=== PATIENT | female | born 1965 | race Caucasian/White ===

== ENCOUNTER 2019-06-02 14:20 | Emergency (ER) | payer MEDICARE, MEDICAID, SELFPAY ==
[2019-06-02 14:22] VITALS: BP 130/83; PULSE 80; RESP 20; TEMP 36.5; O2SAT 95; BMI 29.2
--- NOTE | 2019-06-02 14:34 | CTR_ITS ---
PROCEDURE INFORMATION: Exam: CT Chest With Contrast Exam date and time: 06/02/2019 2:43 PM Age: 54 years old Clinical indication: Injury or trauma; Fall; Initial encounter; Abdominal wall; Blunt trauma (contusions or hematomas); Injury details: Fell, lt rib pain/ SOB; Prior surgery; Surgery type: Appy , tubal; Additional info: Fall injury, abdominal bruising TECHNIQUE: Imaging protocol: Computed tomography of the chest with intravenous contrast. Total DLP: 1302.08 mGy-cm Radiation optimization: All CT scans at this facility use at least one of these dose optimization techniques: automated exposure control; mA and/or kV adjustment per patient size (includes targeted exams where dose is matched to clinical indication); or iterative reconstruction. Contrast material: OMNI 300; Contrast volume: 95 ml; Contrast route: IV; COMPARISON: CT abdomen pelvis w con* [id number] 03/08/2019 3:08 PM FINDINGS: Lungs: Unremarkable. No consolidation. No masses. Pleural space: Unremarkable. No pneumothorax. No pleural effusion. Heart: Unremarkable. No cardiomegaly. No pericardial effusion. Aorta: Unremarkable. No aortic aneurysm. Lymph nodes: Unremarkable. No enlarged lymph nodes. Bones/joints: Nondisplaced left sixth rib fracture anteriorly. Subacute appearing right fifth rib fracture anteriorly with surrounding callus formation. Soft tissues: Unremarkable. IMPRESSION: 1)Nondisplaced left sixth rib fracture anteriorly. Subacute appearing right fifth rib fracture anteriorly with surrounding callus formation. PROCEDURE INFORMATION: Exam: CT Abdomen And Pelvis With Contrast Exam date and time: 06/02/2019 2:43 PM Age: 54 years old Clinical indication: Injury or trauma; Fall; Initial encounter; Abdominal wall; Blunt trauma (contusions or hematomas); Injury details: Fell, lt rib pain/ SOB; Prior surgery; Surgery type: Appy , tubal; Additional info: Fall injury, abdominal bruising TECHNIQUE: Imaging protocol: Computed tomography of the abdomen and pelvis with intravenous contrast. Total DLP: 1302.08 mGy-cm Radiation optimization: All CT scans at this facility use at least one of these dose optimization techniques: automated exposure control; mA and/or kV adjustment per patient size (includes targeted exams where dose is matched to clinical indication); or iterative reconstruction. Contrast material: OMNI 300; Contrast volume: 95 ml; Contrast route: IV; COMPARISON: CT abdomen pelvis w con* [id number] 03/08/2019 3:08 PM FINDINGS: Liver: Normal. No mass. Gallbladder and bile ducts: Normal. No calcified stones. No ductal dilation. Pancreas: Normal. No ductal dilation. Spleen: Normal. No splenomegaly. Adrenals: Normal. No mass. Kidneys and ureters: 1 cm left renal lower pole cyst. Stomach and bowel: Unremarkable. No obstruction. No mucosal thickening. Appendix: No evidence of appendicitis. Intraperitoneal space: Unremarkable. No free air. No significant fluid collection. Vasculature: Unremarkable. No abdominal aortic aneurysm. Lymph nodes: Unremarkable. No enlarged lymph nodes. Bladder: Unremarkable as visualized. Reproductive: Unremarkable as visualized. Bones/joints: Degenerative disc changes lower thoracic and lower lumbar spine regions. Soft tissues: Unremarkable. CT/CT chest abd pel w con* IMPRESSION: No acute findings. COMMENT: Consistent with the [employer]'s Incidental Findings Committee Report (J Am Nery Radiol 2010): Unless the patient's specific circumstances suggest otherwise, any liver lesion 0.5 cm or less, any cystic kidney lesion less than 1.0 cm, and/or any adrenal lesion 1.0 cm or less not otherwise characterized in this report as possessing suspicious or indeterminate imaging features is/are highly likely to be benign and do not require follow-up imaging or biopsy. Radiation Dose CTDIVOL = (mGy): DLP = 1302.08~1302.08 (mGy-cm)
--- NOTE | 2019-06-02 14:36 | ED_ITS ---
HPI - Fall General: Chief Complaint: Fall Stated Complaint: Fall side pain, patient here for left side abdominal pain, patient reports tripping over her dogs at home two days ago and hurting her left side. Patient reports left anterior-lateral rib pain. Patient also has bruising to left abdominal area. Patient appears well, Patient appears in moderate pain Time Seen by Provider: 06/02/19 14:30 History of Present Illness: Associated symptoms-after fall: Reports abdominal pain Review of Systems General: Reports: 10 or more systems reviewed and unremarkable except in HPI and below GI: Reports: abdominal pain Musc: Reports: other (left anterior chest wall tendernss) PFS ED PFSH: Statuses (acute, chronic, etc) shown below reflect problem list status as previously entered and may not be historically accurate Social History Smoking and tobacco status: current every day smoker Physical Exam Const: COMMON NORMALS: no apparent distress and oriented x3 GENERAL APPEARANCE: cooperative HENMT: COMMON NORMALS: normocephalic, external ears normal, EAC's normal, TM's normal bilaterally and external nose normal HEAD & SCALP: normal to inspection and normocephalic FACE & SINUS: normal facial exam NOSE: external nose normal GENERAL EAR: hearing grossly impaired EXTERNAL EAR: Yes external ears normal EXTERNAL AUDITORY CANAL: EAC's normal TYMPANIC MEMBRANE: TM's normal bilaterally MOUTH: oral and palatal mucosa normal THROAT: posterior oropharynx normal Eye: COMMON NORMALS: PERRL and EOMs intact bilaterally PUPIL: Yes PERRL Neck/C-Spine: COMMON NORMALS: full ROM and no lymphadenopathy Lymph: LYMPHATIC: no lymphedema noted Chest: COMMONS NORMALS: inspection of chest normal CHEST: Yes tenderness (left anterolateral chest wall, no crepitus or deformity palpated) Resp: COMMON NORMALS: normal respiratory effort and clear to auscultation bilaterally AUSCULTATION: clear to auscultation bilaterally Cardio: COMMON NORMALS: regular rate and regular rhythm RATE: regular rate RHYTHM: regular rhythm GI: COMMON NORMALS: soft to palpation INSPECTION: Yes abdominal wall ecchymosis (mild left abdominal lower) PALPATION: Yes soft and Yes tender Details: LUQ : COMMON NORMALS: Yes no CVA tenderness BLADDER/KIDNEY EXAM: Yes no CVA tenderness Back/Pelvis: COMMON NORMALS: no CVA tenderness and thoracic and lumbar spine normal to inspection Extremity: COMMON NORMALS: normal to inspection GENERAL: No edema Neuro: COMMON NORMALS: oriented x3, moves all extremities and no focal motor deficits Psych: COMMON NORMALS: mental status grossly normal and cooperative Skin: COMMON NORMALS: no rashes or lesions noted GENERAL SKIN EXAM: no rashes or lesions noted Course Vital Signs: Vital signs: Vital Signs Temperature 97.7 F 06/02/19 14:22 Pulse Rate 64 06/02/19 16:06 Respiratory Rate 18 06/02/19 16:06 Blood Pressure 128/84 06/02/19 16:06 Pulse Oximetry 97 06/02/19 16:06 MDM - Fall MDM Narrative: Medical decision making narrative: Patient comes in today for complaints of fall and injury 2 days ago. Patient appears well. Patient appears in no acute distress. Abdomen soft nontender. Differential diagnosis includes fracture of rib, abdominal organ injury. CT of the chest and abdomen noted no abnormalities. Reviewed exam with patient recommended activity as tolerated. Plenty of fluids. Follow-up with primary care in 1 week. Lab Data: Labs: Lab Results 06/02/19 06/02/19 Range/Units 15:10 15:10 WBC 5.8 (4.0-10.0) 10^3/ uL RBC 4.45 (4.1-5.3) 10^6/u L Hgb 12.9 (11.5-15.3) g/dL Hct 40.8 (37.0-47.0) % MCV 91.7 (81-99) fL MCH 29.0 (28.0-34.0) pg MCHC 31.6 (30.0-36.0) g/dL RDW 12.8 (12.1-15.1) % Plt Count 146 (130-400) 10^3/c mm MPV 11.6 H (7.4-10.4) fL Neut % (Auto) 62.6 % Lymph % (Auto) 20.3 % Charles % (Auto) 11.0 % Eos % (Auto) 5.2 % Baso % (Auto) 0.7 % Neut # (Auto) 3.6 (1.8-7.7) 10^3/u L Lymph # (Auto) 1.2 (0.8-4.8) 10^3/u L Charles # (Auto) 0.6 (0.2-0.9) 10^3/u L Eos # (Auto) 0.3 (0.0-0.8) 10^3/u L Baso # (Auto) 0.0 (0.0-0.1) 10^3/u L Nucleated RBC % (a uto) 0 % Nucleated RBCs # 0.0 /100WBC Sodium 138 (136-145) mmol/L Potassium 4.2 (3.5-5.1) mmol/L Chloride 101 (98-107) mmol/L Carbon Dioxide 28 (22-29) mmol/L Anion Gap 13.2 (5-19) BUN 11 (6-20) mg/dL Creatinine 0.7 (0.5-0.9) mg/dL GFR Calculation 86.6 L (90-130) mL/min Glucose 119 H (74-109) mg/dL Calcium 10.0 (8.6-10.0) mg/Dl EKG Data^: EKG 1: Attestation: I personally reviewed and interpreted this EKG as follows: (1611, NSR, regular 86 bpm, no ST elevation, no ectopy, normal axis) Discharge Plan Discharge Patient Disposition: Home, Self-Care Clinical Impression: Contusion Qualifiers: Encounter type: initial encounter Contusion area: thoracic wall Contusion of thoracic wall detail: front wall of thorax Laterality: left Qualified Code(s): S20.212A - Contusion of left front wall of thorax, initial encounter Condition: Stable Prescriptions: No Action tizanidine 4 mg Tablet 4 mg PO TID PRN (Reason: Spasms) RF: 0 sertraline 100 mg Tablet 200 mg PO DAILY RF: 0 Tylenol Extra Strength 500 mg Tablet 1,000 mg PO QID PRN (Reason: Pain) RF: 0 Lamictal 25 mg Tablet 50 mg PO DAILY RF: 0 Gas-X Extra Strength 125 mg Tablet,Chewable 250 mg PO DAILY RF: 0 Ambien 10 mg Tablet 10 mg PO BEDTIME RF: 0 ProAir HFA 90 mcg/actuation Hfa Aerosol Inhaler 2 puff INHALATION Q6H PRN (Reason: Shortness Of Breath) RF: 0 Tylenol PM Extra Strength 25-500 mg Tablet 2 tab PO BEDTIME PRN (Reason: Sleep) RF: 0 lamotrigine 100 mg Tablet 100 mg PO DAILY RF: 0 Lyrica 150 mg Capsule 150 mg PO TID RF: 0 Discharge Orders: Discharge Order (Routine); Ordered 06/02/19 Ordered By: Nestor Palafox Referrals: Lydia Moore DO [Primary Care Provider] - Discharge Diet: Usual diet Discharge Activity: Increase activity as tolerated Activity Restrictions/Additional Instructions: Drink plenty of fluids Acetaminophen and ibuprofen for pain follow-up with primary care in three days for recheck Return to ER for high fever or new concerns Coding Level of Care Code ED 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
[2019-06-02 14:59] VITALS: RESP 18; O2SAT 95
[2019-06-02] MEDS: morphine 4 mg/mL SDV 1 mL IM (14:59)
[2019-06-02 15:31] LABS: Basophils % 0.7 %; Eosinophils # 0.3 10^3/uL (0.0-0.8); Eosinophils % 5.2 %; Hematocrit 40.8 % (37.0-47.0); Hemoglobin 12.9 g/dL (11.5-15.3); Lymphocytes # 1.2 10^3/uL (0.8-4.8); Lymphocytes % 20.3 %; Mean Corpuscular HGB Conc 31.6 g/dL (30.0-36.0); Mean Corpuscular Volume 91.7 fL (81-99); Mean Platelet Volume 11.6 fL (7.4-10.4); Monocytes # 0.6 10^3/uL (0.2-0.9); Neutrophils # 3.6 10^3/uL (1.8-7.7); Neutrophils % 62.6 %; Nucleated Red Blood Cells % 0 %; Platelet Count 146 10^3/cmm (130-400); Red Blood Count 4.45 10^6/uL (4.1-5.3); Red Cell Distribution Width 12.8 % (12.1-15.1); White Blood Count 5.8 10^3/uL (4.0-10.0)
[2019-06-02 15:47] LABS: Anion Gap 13.2 (5-19); Blood Urea Nitrogen 11 mg/dL (6-20); Carbon Dioxide 28 mmol/L (22-29); Chloride 101 mmol/L (98-107); Glomerular Filtration Rate 86.6 mL/min (90-130); Glucose 119 mg/dL (74-109); Potassium 4.2 mmol/L (3.5-5.1); Sodium 138 mmol/L (136-145)
[2019-06-02 16:06] VITALS: BP 128/84; PULSE 64; RESP 18; O2SAT 97
--- NOTE | 2019-06-02 16:08 | PC.NURSE ---
PT REQUESTING MORE PAIN MEDICINE. DR ST NOTIFIED, WAITING ORDERS.
[2019-06-02] MEDS: HYDROcodone-acetaminophen 7.5-325 mg Tablet 1 TAB PO (16:25)
[2019-06-02 17:03] VITALS: BP 104/55; PULSE 72; RESP 20; O2SAT 96
--- NOTE | 2019-06-02 17:17 | ECG_ITS ---
Measurements Intervals [place] Rate: 86 P: 52 WA: 140 QRS: 59 QRSD: 88 T: 40 QT: 340 QTc: 407 SINUS RHYTHM Compared to ECG 12/25/2017 18:55:01 No significant changes Electronically Signed On 06-03-2019 11:24:24 CLINICAL TRAINER by Courtney Conrad M.D. [id number] f
[2019-06-02 18:10] LABS: Urine Appearance Clear (CLEAR); Urine Color Yellow (Yellow); pH Urine 5 (5-7)
[2019-06-02 18:11] LABS: Bilirubin Urine Neg (NEGATIVE); Blood Urine Neg (Negative); Glucose Urine UA Norm (Normal); Ketones Urine Negative (Negative); Leukocyte Esterase Urine Negative (Negative); Nitrate Urine Negative (Negative); Protein Urine Trace (Negative); Specific Gravity, Urine 1.015 (1.005-1.030); Urobilinogen Urine Norm (Negative)
[2019-06-02 18:12] LABS: Mucus Urine TRACE
[2019-06-02 18:13] LABS: Add Urine Culture? No; Bacteria Urine 1+; RBC Urine 0-4 /hpf (0-2)
== END 2019-06-02 17:05 | disposition home or self-care (01) ==
PROVIDERS: Nurse Practitioner Family; Emergency Provider Emergency Medicine; Family Provider Family Medicine; PCP Family Medicine
DX: S20.212A Contusion of left front wall of thorax, initial encounter (principal); W01.0XXA Fall on same level from slipping, tripping and stumbling without subsequent striking against object, initial encounter; Y92.009 Unspecified place in unspecified non-institutional (private) residence as the place of occurrence of the external cause; F17.210 Nicotine dependence, cigarettes, uncomplicated
CPT/HCPCS: 36415; 71260; 74177; 80048; 81001; 85025; 93005; 96372; 99281; A9270; J2270; Q9967

== ENCOUNTER 2019-06-11 12:27 | Emergency (ER) | payer MEDICARE, MEDICAID, SELFPAY ==
[2019-06-11 12:33] VITALS: PULSE 85; RESP 18; TEMP 36.4; O2SAT 98; BMI 29.2
--- NOTE | 2019-06-11 13:18 | PC.NURSE ---
Patient reports that she fell last week and was diagnosed with bruise ribs. Patient states when she returned to work the pain started to increase. Patient reports that the pain got worse today while at work.
--- NOTE | 2019-06-11 13:33 | W.ED.GENADLT ---
HPI - General Adult General: Chief complaint: General Medical Stated complaint: fall rib pain Time Seen by Provider: 06/11/19 13:24 History of Present Illness: HPI narrative: Patient comes in today for complaints of left rib pain. Patient has been to the ER 2 times prior for this similar pain. Patient appears well. Patient appears in no acute distress. Review of Systems General: Reports: 10 or more systems reviewed and unremarkable except in HPI and below Musc: Reports: other (left anterior rib pain) PFSH ED PFSH: Statuses (acute, chronic, etc) shown below reflect problem list status as previously entered and may not be historically accurate Medical History (Updated 06/11/19 @ 10:14 by Lydia Moore, DO) Chronic migraine without aura, intractable, without status migrainosus (Acute) Stenosis of cervical spine with myelopathy (Acute) Social History Smoking and tobacco status: current every day smoker Physical Exam Const: COMMON NORMALS: no apparent distress and oriented x3 GENERAL APPEARANCE: cooperative HENMT: COMMON NORMALS: normocephalic, external ears normal, EAC's normal, TM's normal bilaterally and external nose normal HEAD & SCALP: normal to inspection and normocephalic FACE & SINUS: normal facial exam NOSE: external nose normal GENERAL EAR: hearing not grossly impaired EXTERNAL EAR: Yes external ears normal EXTERNAL AUDITORY CANAL: EAC's normal TYMPANIC MEMBRANE: TM's normal bilaterally MOUTH: oral and palatal mucosa normal THROAT: posterior oropharynx normal Eye: COMMON NORMALS: PERRL and EOMs intact bilaterally PUPIL: Yes PERRL Neck/C-Spine: COMMON NORMALS: full ROM and no lymphadenopathy Lymph: LYMPHATIC: no lymphedema noted Chest: COMMONS NORMALS: inspection of chest normal and palpation of chest normal (left rib anterior pain) Resp: COMMON NORMALS: normal respiratory effort and clear to auscultation bilaterally AUSCULTATION: clear to auscultation bilaterally Cardio: COMMON NORMALS: regular rate and regular rhythm RATE: regular rate RHYTHM: regular rhythm GI: COMMON NORMALS: normal to inspection, nondistended, normoactive bowel sounds and non-tender : COMMON NORMALS: Yes no CVA tenderness BLADDER/KIDNEY EXAM: Yes no CVA tenderness Back/Pelvis: COMMON NORMALS: no CVA tenderness and thoracic and lumbar spine normal to inspection Extremity: COMMON NORMALS: normal to inspection GENERAL: No edema Neuro: COMMON NORMALS: oriented x3, moves all extremities and no focal motor deficits Psych: COMMON NORMALS: mental status grossly normal and cooperative Skin: COMMON NORMALS: no rashes or lesions noted GENERAL SKIN EXAM: no rashes or lesions noted Course Vital Signs: Vital signs: Vital Signs Temperature 97.5 F L 06/11/19 12:33 Pulse Rate 85 06/11/19 12:33 Respiratory Rate 18 06/11/19 12:33 Pulse Oximetry 98 06/11/19 12:33 MDM - General Adult MDM Narrative: Medical decision making narrative: Patient comes in today with complaints of left anterior rib pain. On exam patient has tenderness to the left anterior ribs. Abdomen soft nontender. Lungs are clear to auscultation. Differential diagnosis contusion, rib fracture, pneumonia. Chest x-ray was normal without any signs of fracture. Reviewed exam recommended treatment for myofascial strain. Recommend activity as tolerated and follow-up with primary care in 3 days for recheck. Patient reports understanding. Discharge Plan Discharge Patient Disposition: Home, Self-Care Prescriptions: New diclofenac sodium 75 mg tablet,delayed release (DR/EC) 75 mg PO BID Qty: 14 RF: 0 No Action tizanidine 4 mg Tablet 4 mg PO TID PRN (Reason: Spasms) RF: 0 sertraline 100 mg Tablet 200 mg PO DAILY RF: 0 Tylenol Extra Strength 500 mg Tablet 1,000 mg PO QID PRN (Reason: Pain) RF: 0 Lamictal 25 mg Tablet 50 mg PO DAILY RF: 0 Gas-X Extra Strength 125 mg Tablet,Chewable 250 mg PO DAILY RF: 0 Ambien 10 mg Tablet 10 mg PO BEDTIME RF: 0 ProAir HFA 90 mcg/actuation Hfa Aerosol Inhaler 2 puff INHALATION Q6H PRN (Reason: Shortness Of Breath) RF: 0 Tylenol PM Extra Strength 25-500 mg Tablet 2 tab PO BEDTIME PRN (Reason: Sleep) RF: 0 lamotrigine 100 mg Tablet 100 mg PO DAILY RF: 0 Lyrica 150 mg Capsule 150 mg PO TID RF: 0 Discharge Orders: Discharge Order (Routine); Ordered 06/11/19 Ordered By: Nestor Palafox Referrals: Lydia Moore DO [Primary Care Provider] - Discharge Diet: Usual diet Discharge Activity: Increase activity as tolerated Activity Restrictions/Additional Instructions: Drink plenty of fluids Activity as tolerated Gentle stretching and range of motion Follow-up with primary care in three days Return to ER for high fever Stand Alone Forms: Work/School Release Coding Level of Care Code ED Instructional Systems Specialist for Jessica Fwflorina Exam Problem Focused
--- NOTE | 2019-06-11 13:35 | XR_ITS ---
WS: [id number] Chest with left rib detail, 06/11/2019 Clinical Data: pain Comparison: Portable chest, 10/26/2018., CT chest abdomen pelvis, 06/02/2019 Findings: The lungs show no nodules, masses, or effusions. The heart is normal. No pneumonia or pneumothorax is seen. The ribs are intact. No rib fractures seen. No subcutaneous emphysema is present. The rib fracture described as an anterior left sixth rib fracture on the CT chest is not seen on the current examination. XR/XR ribs LT mn 3V w CXR1V [id number] Impression: Negative chest with left rib detail.
[2019-06-11] MEDS: acetaminophen 500 mg Tablet 1000 MG PO (14:10)
[2019-06-11 14:28] VITALS: BP 110/65; PULSE 61; RESP 16; O2SAT 97
== END 2019-06-11 14:29 | disposition home or self-care (01) ==
PROVIDERS: Emergency Provider Nurse Practitioner Family; Family Provider Family Medicine; PCP Family Medicine
DX: R07.81 Pleurodynia (principal); F17.210 Nicotine dependence, cigarettes, uncomplicated
CPT/HCPCS: 71101; 99281

== ENCOUNTER → 2019-06-27 14:46 | Outpatient (BNVA) | payer MEDICARE, MEDICAID, SELFPAY | PROVIDERS: Family Provider Family Medicine; PCP Family Medicine; Visit Provider Psychiatry & Neurology Psychiatry | DX: F43.12 Post-traumatic stress disorder, chronic (principal); F17.210 Nicotine dependence, cigarettes, uncomplicated | CPT/HCPCS: 99213 ==

== ENCOUNTER → 2019-08-06 13:09 | Outpatient (BNVA) | payer MEDICARE, MEDICAID, SELFPAY | PROVIDERS: Family Provider Family Medicine; PCP Family Medicine; Visit Provider Otolaryngology | DX: H71.91 Unspecified cholesteatoma, right ear (principal); H91.91 Unspecified hearing loss, right ear; H65.21 Chronic serous otitis media, right ear; F17.210 Nicotine dependence, cigarettes, uncomplicated | CPT/HCPCS: 69210; 99214 ==

== ENCOUNTER 2019-08-07 16:26 | Emergency (ER) | payer MEDICARE, MEDICAID, SELFPAY ==
[2019-08-07 16:31] VITALS: BP 131/82; PULSE 92; RESP 16; TEMP 36.8; O2SAT 96; BMI 27.8
[2019-08-07 18:01] VITALS: RESP 16
[2019-08-07 18:32] LABS: Basophils % 0.4 %; Eosinophils # 0.2 10^3/uL (0.0-0.8); Eosinophils % 2.6 %; Hematocrit 39.4 % (37.0-47.0); Lymphocytes # 2.2 10^3/uL (0.8-4.8); Mean Corpuscular Hemoglobin 29.3 pg (28.0-34.0); Mean Corpuscular Volume 88.7 fL (81-99); Mean Platelet Volume 10.6 fL (7.4-10.4); Monocytes % 11.8 %; Neutrophils # 4.7 10^3/uL (1.8-7.7); Neutrophils % 57.8 %; Nucleated Red Blood Cells % 0 %; Platelet Count 172 10^3/cmm (130-400); Red Blood Count 4.44 10^6/uL (4.1-5.3); Red Cell Distribution Width 13.2 % (12.1-15.1)
--- NOTE | 2019-08-07 18:38 | ED_ITS ---
Entered by Viridiana James, acting as scribe for Dorcas Terrazas Mike Aug 07, 2019 16:26 HPI - Skin/Abscess/Foreign Bdy General: Chief complaint: Skin/Abscess/Foreign Body Stated complaint: sent by doc Time Seen by Provider: 08/07/19 18:04 Source: patient Mode of arrival: ambulatory Limitations: no limitations History of Present Illness: HPI narrative: 54 yo Female presents to ED with complaint of skin abscess. Pt states that she has wounds to her right hand and wrist. MD complaint: abscess/boil Onset (ago): day(s) Location: R hand Severity scale (1-10): 8 Quality: burning and constant Pain Consistency: constant Relieving factors: none Exacerbating factors: none Context: none Associated symptoms: Deny chills, fever(s), nausea or vomiting Treatments prior to arrival: none Review of Systems General: Reports: other (negative unless marked) Const: Denies: fever, chills, body aches, fatigue, malaise or diaphoresis Eyes: Denies: change in vision or blurry vision ENMT: Denies: throat pain, painful swallowing, hoarseness, ear pain, ear discharge, Change in hearing or nasal discharge Card: Denies: chest pain, palpitations, irregular heart rhythm, syncope, pre- syncope, shortness of breath on exertion or shortness of breath when lying down Resp: Denies: shortness of breath, productive cough, non-productive cough, wheezing, coughing up blood or chest congestion GI: Denies: abdominal pain, nausea, vomiting, vomiting blood, coffee grounds in vomit, diarrhea, constipation, cramping, blood in stool or black tarry stool : Denies: flank pain, painful urination, urinary frequency, urinary urgency, decreased urine ouput, urinary incontinence or blood in urine Musc: Denies: neck pain, back pain, extremity pain, extremity swelling, joint pain, joint swelling, joint warmth or joint stiffness Skin/Breast: Reports: redness, skin swelling and sores; Denies: rash, skin tenderness or yellow skin Neuro: Denies: headache, numbness in extremities, weakness in extremities, changes in sensation, lack of coordination, difficulty walking, dizziness, vertigo or confusion Endo: Denies: excessive thirst, tired all the time, cold intolerance, excessive sweating, flushing or hot flashes Ted/Lymph: Denies: easy bruising, easy bleeding, petechiae or enlarged lymph nodes All/Imm: Denies: hives, throat swelling, tongue swelling, facial swelling or acute wheezing PFSH ED PFSH: Medical History Bipolar affective Bulimia nervosa Cannabis use disorder, moderate, in sustained remission Cholesteatoma of right ear Chronic low back pain Chronic migraine without aura, intractable, without status migrainosus Chronic serous otitis media, right ear COPD (chronic obstructive pulmonary disease) Enrolled in chronic care management Hearing loss in right ear History of fracture of leg History of MRSA infection Opioid use disorder Post-traumatic stress disorder, chronic Sedative, hypnotic or anxiolytic abuse, 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 Surgical History H/O section H/O neck surgery History of facial fracture repair S/P appendectomy S/P tonsillectomy and adenoidectomy Family History Other CAD (coronary artery disease) Cancer Lung disease Social History Smoking and tobacco status: current every day smoker cigarettes Packs smoked per day: 1 Alcohol intake: former Former alcohol use details: DRANK UNTIL THREW UP Other details last substance use: iv drug abuse Physical Exam Const: COMMON NORMALS: no apparent distress, oriented x3, no limitations, healthy appearing and well nourished EXAM LIMITATIONS: no altered mental status GENERAL APPEARANCE: cooperative, well kempt and well developed ORIENTATION/CONSCIOUSNESS: Yes awake HENMT: COMMON NORMALS: normocephalic, head/scalp atraumatic, hearing grossly normal bilaterally, external ears normal, EAC's normal, external nose normal and moist oral mucous membranes HEAD & SCALP: normal to inspection, normocephalic and atraumatic FACE & SINUS: normal facial exam and face symmetric NOSE: external nose normal and nares normal EXTERNAL EAR: Yes external ears normal EXTERNAL AUDITORY CANAL: EAC's normal MOUTH: oral and palatal mucosa normal and tongue normal Eye: COMMON NORMALS: PERRL, EOMs intact bilaterally, conjunctivae normal and no scleral icterus GENERAL EYE: normal appearance of both eyes and normal light reflex CONJUNCTIVA: Yes conjunctivae normal SCLERA: sclerae normal CORNEA: Yes corneas normal PUPIL: Yes PERRL DIRECT OPHTHALMOSCOPY: Yes normal light reflex Neck/C-Spine: COMMON NORMALS: full ROM, no lymphadenopathy, supple, no meningeal signs and no JVD GENERAL: Yes normal visual inspection and Yes trachea midline CERVICAL SPINE: Yes cervical ROM normal Chest: COMMONS NORMALS: inspection of chest normal and palpation of chest normal Resp: COMMON NORMALS: normal respiratory effort, no retractions, no use of accessory muscles and clear to auscultation bilaterally EFFORT & INSPECTION: Yes able to speak in complete sentences AUSCULTATION: clear to auscultation bilaterally Cardio: COMMON NORMALS: no JVD, regular rate, regular rhythm, S1 normal heart sound, S2 normal heart sound, no gallops, no clicks, no murmurs and no rub JUGULAR VENOUS DISTENTION: no JVD RATE: regular rate RHYTHM: regular rhythm HEART SOUNDS: S1 normal and S2 normal GI: COMMON NORMALS: soft to palpation, non-tender, no hepatosplenomegaly and no masses INSPECTION: Yes normal to inspection PALPATION: Yes soft and Yes no hepatosplenomegaly : COMMON NORMALS: Yes no CVA tenderness BLADDER/KIDNEY EXAM: Yes no CVA tenderness Back/Pelvis: COMMON NORMALS: no CVA tenderness, thoracic and lumbar spine normal to inspection, no thoracic nor lumbar tenderness and thoraco-lumbar ROM normal Extremity: COMMON NORMALS: normal to inspection, full ROM, normal capillary refill, no joint enlargement, no clubbing, cyanosis or edema and no calf tenderness RIGHT UPPER EXTREMITY: Yes wrist Right wrist: Yes inspection (redness and swelling) and Yes hand & digits Right hand and digits: Yes inspection (redness and swelling) Neuro: COMMON NORMALS: oriented x3, CN's II-XII intact bilaterally, moves all extremities, no focal motor deficits and no sensory deficits noted MENINGEAL SIGNS: Yes no meningeal signs Psych: COMMON NORMALS: mental status grossly normal, thought process normal, cooperative, affect normal, speech normal and activity/motor behavior normal APPEARANCE: Yes well kempt SPEECH: Yes normal speech THOUGHT PROCESS: normal thought process Skin: COMMON NORMALS: no rashes or lesions noted, skin turgor normal, no jaundice, no petechiae and no mottling; negative for no wounds GENERAL SKIN EXAM: no rashes or lesions noted and turgor normal WOUNDS: Yes wounds noted (redness and swelling to right wrist and hand) Course Vital Signs: Vital signs: Vital Signs Temperature 98.3 F 08/07/19 16:31 Pulse Rate 93 08/07/19 18:49 Respiratory Rate 16 08/07/19 18:49 Blood Pressure 131/82 08/07/19 16:31 Pulse Oximetry 95 08/07/19 18:49 MDM - Skin/Abscess/Foreign Bdy MDM Narrative: Medical decision making narrative: Patient had needle aspiration of both areas on her right hand done by LINDA Prasad. Enough was withdrawn for culture. Bedside ultrasound demonstrated only a minuscule amount of fluid. The patient is on antibiotics so I will have her continue those. She agrees to return should her symptoms change or worsen. Lab Data: Labs: Lab Results 08/07/19 08/07/19 Range/Units 18:27 18:27 WBC 8.0 (4.0-10.0) 10^3/ uL RBC 4.44 (4.1-5.3) 10^6/u L Hgb 13.0 (11.5-15.3) g/dL Hct 39.4 (37.0-47.0) % MCV 88.7 (81-99) fL MCH 29.3 (28.0-34.0) pg MCHC 33.0 (30.0-36.0) g/dL RDW 13.2 (12.1-15.1) % Plt Count 172 (130-400) 10^3/c mm MPV 10.6 H (7.4-10.4) fL Neut % (Auto) 57.8 % Lymph % (Auto) 27.0 % [place] % (Auto) 11.8 % Eos % (Auto) 2.6 % Baso % (Auto) 0.4 % Neut # (Auto) 4.7 (1.8-7.7) 10^3/u L Lymph # (Auto) 2.2 (0.8-4.8) 10^3/u L [place] # (Auto) 1.0 H (0.2-0.9) 10^3/u L Eos # (Auto) 0.2 (0.0-0.8) 10^3/u L Baso # (Auto) 0.0 (0.0-0.1) 10^3/u L Nucleated RBC % (a uto) 0 % Nucleated RBCs # 0.0 /100WBC Sodium 138 (136-145) mmol/L Potassium 4.4 (3.5-5.1) mmol/L Chloride 102 (98-107) mmol/L Carbon Dioxide 26 (22-29) mmol/L Anion Gap 14.4 (5-19) BUN 14 (6-20) mg/dL Creatinine 0.8 (0.5-0.9) mg/dL GFR Calculation 74.2 L (90-130) mL/min Glucose 89 (65-115) mg/dL Calculated Osmolal ity 282 L (285-295) mOsm/k g Calcium 9.4 (8.5-10.5) mg/dL Total Bilirubin 0.3 (0.15-1.2) mg/dL AST 16 (0-32) U/L ALT 17 (0-33) U/L Alkaline Phosphata se 105 (35-105) IU/L Total Protein 7.4 (6.6-8.7) g/dL Albumin 3.9 (3.5-5.2) g/dL Globulin 3.5 (1.3-4.6) g/dL Discharge Plan Discharge Patient Disposition: Home, Self-Care Clinical Impression: Abscess of skin or subcutaneous tissue Qualifiers: Site of cutaneous abscess: extremity Site of cutaneous abscess of extremity: upper extremity Laterality: right Qualified Code(s): L02.413 - Cutaneous abscess of right upper limb Condition: Stable Prescriptions: No Action Lamictal 25 mg tablet 50 mg PO DAILY Qty: 60 RF: 5 lamotrigine 100 mg tablet 100 mg PO DAILY Qty: 30 RF: 5 sertraline 100 mg tablet 100 mg PO BID Qty: 60 RF: 5 Ambien 10 mg tablet 10 mg PO BEDTIME Qty: 30 RF: 5 tizanidine 4 mg tablet 4 mg PO TID PRN (Reason: Spasms) Qty: 90 RF: 2 Lyrica 150 mg capsule 150 mg PO TID Qty: 90 RF: 2 ondansetron HCl [Zofran] 4 mg tablet 4 mg PO ONCE Qty: 1 RF: 0 clindamycin HCl 300 mg capsule 300 mg PO Q8H Qty: 30 RF: 0 Tylenol Extra Strength 500 mg Tablet 1,000 mg PO QID PRN (Reason: Pain) RF: 0 ProAir HFA 90 mcg/actuation Hfa Aerosol Inhaler 2 puff INHALATION Q6H PRN (Reason: Shortness Of Breath) RF: 0 Tylenol PM Extra Strength 25-500 mg Tablet 2 tab PO BEDTIME PRN (Reason: Sleep) RF: 0 Referrals: Lydia Moore DO [Primary Care Provider] - 1-3 days Discharge Diet: Advance as tolerated Discharge Activity: Increase activity as tolerated Patient Instructions: Abscess Incision and Drainage (ED), Abscess (ED) Activity Restrictions/Additional Instructions: Please return to the ER immediately for any of the signs or symptoms listed on your discharge instruction sheets, worsening/changing of your symptoms, you are not getting better as quickly as expected, or for ANY other cause or concerns. Continue the antibiotics started by Dr. Moore. Return to the ER for increased pain, increased swelling, increased redness, or for any other cause for concern. Discharge Date/Time: 08/07/19 18:50 Coding Level of Care Code ED Adoption Social Worker for Chg Fwd Exam Comprehensive The documentation recorded by the Erika colorado Carmen, accurately reflects the service I personally performed and the decisions made by Nini pickard Eli N Aug 07, 2019 16:26
[2019-08-07] MEDS: acetaminophen 500 mg Tablet 1000 MG PO (18:43)
[2019-08-07 18:47] LABS: Alanine Aminotransferase 17 U/L (0-33); Albumin Level 3.9 g/dL (3.5-5.2); Alkaline Phosphatase 105 IU/L (35-105); Anion Gap 14.4 (5-19); Aspartate Amino Transferase 16 U/L (0-32); Blood Urea Nitrogen 14 mg/dL (6-20); Calcium 9.4 mg/dL (8.5-10.5); Carbon Dioxide 26 mmol/L (22-29); Chloride 102 mmol/L (98-107); Globulin 3.5 g/dL (1.3-4.6); Glomerular Filtration Rate 74.2 mL/min (90-130); Glucose 89 mg/dL (65-115); Osmolality Calculated 282 mOsm/kg (285-295); Potassium 4.4 mmol/L (3.5-5.1); Sodium 138 mmol/L (136-145); Total Bilirubin 0.3 mg/dL (0.15-1.2); Total Protein 7.4 g/dL (6.6-8.7)
[2019-08-07 18:49] VITALS: PULSE 93; RESP 16; O2SAT 95
== END 2019-08-07 18:50 | disposition home or self-care (01) ==
PROVIDERS: Emergency Provider Emergency Medicine; Family Provider Family Medicine; PCP Family Medicine
DX: L02.511 Cutaneous abscess of right hand (principal); J44.9 Chronic obstructive pulmonary disease, unspecified; F17.210 Nicotine dependence, cigarettes, uncomplicated; Z86.14 Personal history of Methicillin resistant Staphylococcus aureus infection
CPT/HCPCS: 12345; 36415; 80053; 85025; 87070; 87075; 87077; 87186; 87205; 99281; 99282; 99283

== ENCOUNTER 2019-08-10 18:49 | Emergency (ER) | payer MEDICARE, MEDICAID, SELFPAY ==
[2019-08-10 19:09] VITALS: BP 115/77; PULSE 81; RESP 16; TEMP 36.9; O2SAT 97; BMI 26.9
--- NOTE | 2019-08-10 19:26 | PC.NURSE ---
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
[2019-08-10 19:29] VITALS: BP 109/50; PULSE 75; RESP 16; O2SAT 96
--- NOTE | 2019-08-10 19:33 | XRR_ITS ---
PROCEDURE INFORMATION: Exam: XR Left Knee Exam date and time: 08/10/2019 7:34 PM Age: 54 years old Clinical indication: Injury or trauma; Fall; Initial encounter; Sprain or strain; Patella or knee; Left TECHNIQUE: Imaging protocol: XR Left knee. Views: 3 views. COMPARISON: No relevant prior studies available. FINDINGS: Bones/joints: Old healed fractures of the left tibia and fibula diaphysis with bridging bone. Moderate degenerative changes of the left knee. No acute fracture. Soft tissues: Normal. XR/XR knee LT 3V* [id number] IMPRESSION: No acute findings.
--- NOTE | 2019-08-10 19:34 | W.ED.BACK ---
HPI - Back Pain/Injury General: Chief Complaint: Back Pain/Injury Stated Complaint: fall/multiple complaints Time Seen by Provider: 08/10/19 19:19 History of Present Illness: HPI Narrative: Patient complains about left knee pain from a fall when she tripped over a stroller at work today and also that she twisted her back and her back hurts. Patient reported to me that she just got off methamphetamines 9 days ago and has a history of meth abuse. MD elicited complaint: back pain and other (Left knee pain) Pertinent past history: prior back pain Onset (ago): hour(s) Timing: constant Severity: mild Similar Symptoms Previously: Yes Quality: aching Location: lumbar spine Radiation: none and other (Left knee) Exacerbating factors: walking Relieving factors: immobilization Context: fall Associated symptoms: Reports no associated symptoms; Deny abdominal pain, chills, fever(s), nausea or vomiting Review of Systems Const: Denies: fever, chills or body aches Eyes: Denies: change in vision or blurry vision ENMT: Denies: throat pain or nasal congestion Card: Denies: chest pain or shortness of breath on exertion Resp: Denies: shortness of breath, productive cough or non-productive cough GI: Denies: abdominal pain, nausea or vomiting Musc: Reports: extremity pain and other (Back pain lumbar area) Skin/Breast: Denies: rash Neuro: Denies: headache Psych: Denies: anxiety or depression Ted/Lymph: Denies: easy bruising PFSH ED PFSH: Social History Smoking and tobacco status: current every day smoker cigarettes Packs smoked per day: 1 Alcohol intake: former Former alcohol use details: DRANK UNTIL THREW UP Other details last substance use: iv drug abuse Physical Exam Const: COMMON NORMALS: no apparent distress, average body habitus and oriented x3 HENMT: COMMON NORMALS: normocephalic HEAD & SCALP: normal to inspection and normocephalic FACE & SINUS: normal facial exam Eye: COMMON NORMALS: conjunctivae normal GENERAL EYE: normal appearance of both eyes CONJUNCTIVA: Yes conjunctivae normal Neck/C-Spine: COMMON NORMALS: no JVD Chest: COMMONS NORMALS: inspection of chest normal Resp: COMMON NORMALS: normal respiratory effort and clear to auscultation bilaterally AUSCULTATION: clear to auscultation bilaterally Cardio: COMMON NORMALS: no JVD, regular rate and regular rhythm RATE: regular rate RHYTHM: regular rhythm GI: COMMON NORMALS: normal to inspection, nondistended, normoactive bowel sounds : COMMON NORMALS: Yes no CVA tenderness BLADDER/KIDNEY EXAM: Yes no CVA tenderness and No CVA tenderness Back/Pelvis: COMMON NORMALS: no CVA tenderness and thoracic and lumbar spine normal to inspection GENERAL BACK: No CVA tenderness LUMBAR SPINE/LOWER BACK: Yes normal to inspection and Yes paraspinal muscle tenderness Extremity: COMMON NORMALS: normal to inspection and full ROM LEFT LOWER EXTREMITY: Yes knee joint (Tender but no swelling bruising noted has range of motion.) Neuro: COMMON NORMALS: oriented x3 Course Vital Signs: Vital signs: Vital Signs Temperature 98.4 F 08/10/19 19:09 Pulse Rate 77 08/10/19 19:47 Respiratory Rate 16 08/10/19 19:47 Blood Pressure 97/78 08/10/19 19:47 Pulse Oximetry 94 08/10/19 19:47 Discharge Plan Discharge Prescriptions: No Action Lamictal 25 mg tablet 50 mg PO DAILY Qty: 60 RF: 5 lamotrigine 100 mg tablet 100 mg PO DAILY Qty: 30 RF: 5 sertraline 100 mg tablet 100 mg PO BID Qty: 60 RF: 5 Ambien 10 mg tablet 10 mg PO BEDTIME Qty: 30 RF: 5 tizanidine 4 mg tablet 4 mg PO TID PRN (Reason: Spasms) Qty: 90 RF: 2 Lyrica 150 mg capsule 150 mg PO TID Qty: 90 RF: 2 ondansetron HCl [Zofran] 4 mg tablet 4 mg PO ONCE Qty: 1 RF: 0 clindamycin HCl 300 mg capsule 300 mg PO Q8H Qty: 30 RF: 0 Tylenol Extra Strength 500 mg Tablet 1,000 mg PO QID PRN (Reason: Pain) RF: 0 ProAir HFA 90 mcg/actuation Hfa Aerosol Inhaler 2 puff INHALATION Q6H PRN (Reason: Shortness Of Breath) RF: 0 Tylenol PM Extra Strength 25-500 mg Tablet 2 tab PO BEDTIME PRN (Reason: Sleep) RF: 0 Coding Level of Care Code ED Blow Mold Technician for Chg Fwd Exam Comprehensive
[2019-08-10] MEDS: acetaminophen 500 mg Tablet 1000 MG PO (19:46)
[2019-08-10 19:47] VITALS: BP 97/78; PULSE 77; RESP 16; O2SAT 94
[2019-08-10 20:23] VITALS: BP 98/65; PULSE 68; RESP 16; O2SAT 98
--- NOTE | 2019-08-10 20:24 | PC.NURSE ---
XRAY IN ROOM
[2019-08-10 20:37] VITALS: BP 114/67; PULSE 65; RESP 14; O2SAT 96
== END 2019-08-10 20:39 | disposition home or self-care (01) ==
PROVIDERS: Emergency Provider Nurse Practitioner Family; Family Provider Family Medicine; PCP Family Medicine
DX: M54.5 Low back pain (principal); M25.562 Pain in left knee; F17.210 Nicotine dependence, cigarettes, uncomplicated
CPT/HCPCS: 12345; 73562; 99281; 99283

== ENCOUNTER 2019-08-27 13:17 | Outpatient (CLI) | payer MEDICARE, MEDICAID, SELFPAY ==
--- NOTE | 2019-08-27 13:30 | CT_ITS ---
WS: [id number] CT TEMPORAL BONES TECHNIQUE: Noncontrast CT of the temporal bones with coronal and sagittal reformatted images. CLINICAL INFORMATION: cholesteatoma COMPARISON: None. DLP: 665.[address] scans at [facility] use at least one of these dose optimization techniques: automat ed exposure control; mA and/or kV adjustment per patient size (includes targeted exams where dose is matched to clinical indication); or iterative reconstruction. FINDINGS: Partial opacification consistent with sinusitis involving the ethmoid air cells and sphenoi d ostia. RIGHT: Right canal wall down mastoidectomy defect. Ossicles of the resected. Soft tissue thickening in the r livan of the mastoidectomy bowl likely postoperative granulation tissue. Semicircular canals and cochle a are normal in appearance. Normal inner ear structures. Normal vestibular aqueduct. Facial nerve rec ess is normal. LEFT: Mastoid air cells are well aerated. Normal external auditory canal. Ossicles are normal in appearance . Middle ear is well aerated. Normal tegmen tympani. Semicircular canals and cochlea are normal in ap pearance. Prussak's space is normal. Normal inner ear structures. Normal vestibular aqueduct. Facial nerve recess is normal. Visualized intracranial contents and posterior fossa are normal. CT/CT temporal bone wo con* [id number] IMPRESSION: 1. Prior postoperative changes right canal wall down partial mastectomy. Soft tissue thickening in the roof of the mastoidectomy bowl. This is likely postope rative granulation tissue. No definite evidence of recurrent cholesteatoma. 2. Left mastoid air cells are well aerated. Normal left inner ear structures. 3. Partial opacification ethmoid air cells. Mucosal thickening sphenoid sinuse s with opacification sphenoid sinus ostia.
== END 2019-08-27 13:18 | disposition home or self-care (01) ==
LOC: RADWPI 13:24
PROVIDERS: Family Provider Family Medicine; PCP Family Medicine; Visit Provider Otolaryngology
DX: H71.90 Unspecified cholesteatoma, unspecified ear (principal)
CPT/HCPCS: 70480

== ENCOUNTER → 2019-09-05 15:33 | Outpatient (BNVA) | payer MEDICARE, MEDICAID, SELFPAY | PROVIDERS: Family Provider Family Medicine; PCP Family Medicine; Visit Provider Family Medicine | DX: R05 Cough (principal); R50.9 Fever, unspecified; R68.89 Other general symptoms and signs | CPT/HCPCS: 87400; 87635 ==

== ENCOUNTER → 2019-09-19 08:16 | Outpatient (BNVA) | payer MEDICARE, MEDICAID, SELFPAY | PROVIDERS: Family Provider Family Medicine; PCP Family Medicine; Visit Provider Psychiatry & Neurology Psychiatry | DX: F43.12 Post-traumatic stress disorder, chronic (principal); F17.219 Nicotine dependence, cigarettes, with unspecified nicotine-induced disorders | CPT/HCPCS: 99214 ==

== ENCOUNTER 2019-09-28 21:00 | Emergency (ER) | payer MEDICARE, MEDICAID, SELFPAY ==
[2019-09-28 21:12] VITALS: BP 148/98; PULSE 105; RESP 16; TEMP 37.5; O2SAT 97; BMI 27.4
[2019-09-28 22:38] VITALS: BP 162/90; PULSE 70; RESP 16; O2SAT 96
--- NOTE | 2019-09-29 00:24 | ED_ITS ---
HPI - Skin/Abscess/Foreign Bdy General: Chief complaint: Skin/Abscess/Foreign Body Stated complaint: POSS INFECTION R ARM Time Seen by Provider: 09/29/19 00:01 History of Present Illness: HPI narrative: Patient is a 54-year-old female who comes to the ED with an abscess near her right elbow. Patient states she has a past medical history of MRSA and staph infections. Patient says that abscess started developing about 10 days ago. It was caused by IV meth injection. Abscess started to form right where patient was shooting up meth 10 days ago. Patient's right arm is in a lot of pain and she states she has had a fever at home. Swelling and pain continues to get worse. Patient says that in the past Bactrim has not worked with her MRSA and staph infections. Pt has had success using clindamycin in past to treat MRSA and staph. Patient's last tetanus was within 5 years. Associated symptoms: Reports fever(s); Deny chills, nausea or vomiting Review of Systems Const: Reports: fever; Denies: chills or fatigue Eyes: Denies: change in vision or eye discomfort ENMT: Denies: throat pain, painful swallowing, nasal discharge or nasal congestion Card: Denies: chest pain, palpitations, edema, swelling of feet/ankles, shortness of breath on exertion or shortness of breath when lying down Resp: Denies: shortness of breath, productive cough or non-productive cough GI: Denies: abdominal pain, nausea, vomiting, diarrhea, constipation or blood in stool : Denies: flank pain, painful urination or blood in urine Musc: Denies: neck pain, back pain or extremity swelling Skin/Breast: Reports: new lesion (abscess on right elbow.); Denies: rash Neuro: Denies: headache, numbness in extremities or weakness in extremities PFS ED PFSH: Medical History Bulimia nervosa Cannabis use disorder, moderate, in sustained remission Cholesteatoma of right ear Chronic low back pain Chronic migraine without aura, intractable, without status migrainosus Chronic serous otitis media, right ear COPD (chronic obstructive pulmonary disease) Enrolled in chronic care management Hearing loss in right ear History of fracture of leg History of MRSA infection Opioid use disorder Post-traumatic stress disorder, chronic Sedative, hypnotic or anxiolytic abuse, 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 She appears to be in some pain and discomfort. Patient has severe tenderness over abscess on right elbow. Const: COMMON NORMALS: oriented x3 GENERAL APPEARANCE: cooperative; not comfortable (uncomfortable and in pain) HENMT: COMMON NORMALS: normocephalic HEAD & SCALP: normocephalic MOUTH: oral and palatal mucosa normal THROAT: posterior oropharynx normal and uvula midline Neck/C-Spine: COMMON NORMALS: supple GENERAL: Yes normal visual inspection Resp: COMMON NORMALS: normal respiratory effort, no retractions, no use of accessory muscles and clear to auscultation bilaterally AUSCULTATION: clear to auscultation bilaterally Cardio: COMMON NORMALS: regular rate, regular rhythm, S1 normal heart sound, S2 normal heart sound, no gallops, no clicks, no murmurs and peripheral pulses 2+ throughout RATE: regular rate RHYTHM: regular rhythm HEART SOUNDS: S1 normal and S2 normal PERIPHERAL PULSES: pulses 2+ throughout GI: COMMON NORMALS: normal to inspection, nondistended, normoactive bowel sounds, soft to palpation, non-tender and no masses PALPATION: Yes soft : COMMON NORMALS: Yes no CVA tenderness BLADDER/KIDNEY EXAM: Yes no CVA tenderness Back/Pelvis: COMMON NORMALS: no CVA tenderness Extremity: GENERAL: Yes normal exam except as noted RIGHT UPPER EXTREMITY: Yes elbow joint (Abscess just below elbow on posterior side. Surrounding erythema.) Right elbow: Yes inspection Neuro: COMMON NORMALS: oriented x3 and moves all extremities Skin: NARRATIVE SKIN EXAM: Skin was tender and warm around abscess on right elbow area. LESIONS: lesion noted right elbow Lesion type: Yes other (furuncle) Lesion size (cm): 3 Lesion location: right elbow area Lesion color: Yes erythematous, Yes red and Yes surrounding erythema Lesion consistency: Yes fluctuent and Yes soft Lesion surface: Yes dry, Yes raised, No draining, Yes shiny and Yes warm Lesion border: Yes surrounding erythema Lesion finding consistent with: Yes other (abscess) Procedures Abscess I/D Site: upper extremity Side (if applicable): right Sedation/analgesia: other (pt was given hydrocodone and 1g of ativan PO to help with pain and relax her before I&D.) Local Anesthetic: lidocaine 1% and with epi Amount of anesthesia used (mL): 10 Technique: other (#10 blade was used) Amount of fluid expressed (mL): 8 (malodorous purulent drainage ) Irrigation: Yes Packing used?: none Course Vital Signs: Vital signs: Vital Signs Temperature 99.5 F 09/28/19 21:12 Pulse Rate 65 09/29/19 01:08 Respiratory Rate 16 09/29/19 01:08 Blood Pressure 148/76 09/29/19 01:08 Pulse Oximetry 96 09/29/19 01:08 MDM - Skin/Abscess/Foreign Bdy MDM Narrative: Medical decision making narrative: Patient is a 54-year-old female who comes to the ED with an abscess on right elbow area. Abscess started after IV drug use 10 days ago. Physical exam showed a soft nonindurated fluctuant mass on the right arm with erythema and warmth. Area around the mass was tender to palpation. Abscess I&D was performed (see procedure note). Drainage amount of abscess was purulent and malodorous. Patient has a history of MRSA and staph infections. Patient states that clindamycin has worked best in treating past MRSA/staph infections. Patient was discharged and told to follow-up with her PCP or return to the ED for reevaluation in the next 3 to 5 days. She was sent home with a prescription for clindamycin and given a dose of clindamycin while here in the ED. I told her to return to the ED immediately if she feels a worsening in symptoms after 2 to 3 days of antibiotic treatment. Patient understood and agreed with plan. Lab Data: Attestation: I reviewed the patient's lab results. Labs: Lab Results 09/29/19 Range/Units 02:05 WBC 7.0 (4.0-10.0) 10^3/ uL RBC 3.99 L (4.1-5.3) 10^6/u L Hgb 11.8 (11.5-15.3) g/dL Hct 37.4 (37.0-47.0) % MCV 93.7 (81-99) fL MCH 29.6 (28.0-34.0) pg MCHC 31.6 (30.0-36.0) g/dL RDW 13.1 (12.1-15.1) % Plt Count 146 (130-400) 10^3/c mm MPV 11.7 H (7.4-10.4) fL Neut % (Auto) 62.4 % Lymph % (Auto) 19.7 % [place] % (Auto) 11.8 % Eos % (Auto) 5.4 % Baso % (Auto) 0.4 % Neut # (Auto) 4.4 (1.8-7.7) 10^3/u L Lymph # (Auto) 1.4 (0.8-4.8) 10^3/u L [place] # (Auto) 0.8 (0.2-0.9) 10^3/u L Eos # (Auto) 0.4 (0.0-0.8) 10^3/u L Baso # (Auto) 0.0 (0.0-0.1) 10^3/u L Nucleated RBC % (a uto) 0 % Nucleated RBCs # 0.0 /100WBC Discharge Plan Discharge Patient Disposition: Home, Self-Care Clinical Impression: Abscess Condition: Stable Prescriptions: New clindamycin HCl 150 mg capsule 450 mg PO Q6H 10 Days Qty: 120 RF: 0 No Action Lamictal 25 mg tablet 50 mg PO DAILY Qty: 60 RF: 5 lamotrigine 100 mg tablet 100 mg PO DAILY Qty: 30 RF: 5 sertraline 100 mg tablet 100 mg PO BID Qty: 60 RF: 5 Ambien 10 mg tablet 10 mg PO BEDTIME Qty: 30 RF: 5 lorazepam [Ativan] 1 mg tablet 0.5 mg PO BID PRN (Reason: anxiety) 14 Days Qty: 14 RF: 0 tizanidine 4 mg tablet 4 mg PO TID PRN (Reason: Spasms) Qty: 90 RF: 2 Lyrica 150 mg capsule 150 mg PO TID Qty: 90 RF: 2 ondansetron HCl [Zofran] 4 mg tablet 4 mg PO ONCE Qty: 1 RF: 0 albuterol sulfate [ProAir HFA] 90 mcg/actuation HFA aerosol inhaler 2 puff INHALATION Q6H PRN (Reason: Shortness Of Breath) Qty: 8.5 RF: 0 acetaminophen [Tylenol Extra Strength] 500 mg Tablet 1,000 mg PO QID PRN (Reason: Pain) RF: 0 diphenhydramine-acetaminophen [Tylenol PM Extra Strength] 25-500 mg Tablet 2 tab PO BEDTIME PRN (Reason: Sleep) RF: 0 Discharge Orders: Discharge Order (Routine); Ordered 09/29/19 Ordered By: Schuyler Quach Referrals: Lydia Moore DO [Primary Care Provider] - Discharge Diet: Regular Discharge Activity: Resume usual activity Patient Instructions: Abscess Incision and Drainage (ED), Abscess (ED) Activity Restrictions/Additional Instructions: Follow-up with your PCP or return to ED within 3 to 5 days for reevaluation. Take full course of antibiotics as prescribed. If symptoms worsen after 3 days of taking antibiotic return to the ED immediately for reevaluation. Take ibuprofen or Tylenol for pain. Discharge Date/Time: 09/29/19 02:38 Coding Level of Care Code ED Sample Display Preparer for Jessica Wang Exam Comprehensive
[2019-09-29] MEDS: HYDROcodone-acetaminophen 7.5-325 mg Tablet 1 TAB PO (00:34)
[2019-09-29] MEDS: LORazepam 1 mg Tablet PO (00:34)
[2019-09-29 01:08] VITALS: BP 148/76; PULSE 65; RESP 16; O2SAT 96
[2019-09-29 02:23] LABS: Basophils % 0.4 %; Eosinophils # 0.4 10^3/uL (0.0-0.8); Eosinophils % 5.4 %; Hematocrit 37.4 % (37.0-47.0); Hemoglobin 11.8 g/dL (11.5-15.3); Lymphocytes # 1.4 10^3/uL (0.8-4.8); Lymphocytes % 19.7 %; Mean Corpuscular HGB Conc 31.6 g/dL (30.0-36.0); Mean Corpuscular Hemoglobin 29.6 pg (28.0-34.0); Mean Corpuscular Volume 93.7 fL (81-99); Mean Platelet Volume 11.7 fL (7.4-10.4); Monocytes # 0.8 10^3/uL (0.2-0.9); Monocytes % 11.8 %; Neutrophils # 4.4 10^3/uL (1.8-7.7); Neutrophils % 62.4 %; Nucleated Red Blood Cells % 0 %; Platelet Count 146 10^3/cmm (130-400); Red Blood Count 3.99 10^6/uL (4.1-5.3); Red Cell Distribution Width 13.1 % (12.1-15.1)
--- NOTE | 2019-09-29 02:32 | PC.NURSE ---
wound dressed per order with non stick telfa and home instruction given to patient.
== END 2019-09-29 02:38 | disposition home or self-care (01) ==
PROVIDERS: Emergency Provider Physician Assistant; Family Provider Family Medicine; PCP Family Medicine
DX: L02.413 Cutaneous abscess of right upper limb (principal); J44.9 Chronic obstructive pulmonary disease, unspecified; F17.210 Nicotine dependence, cigarettes, uncomplicated
CPT/HCPCS: 10060; 12345; 85025; 87040; 87070; 87075; 87077; 87186; 87205; 99281; 99283

== ENCOUNTER → 2019-10-12 08:20 | Outpatient (BNVA) | payer MEDICARE, MEDICAID, SELFPAY | PROVIDERS: Family Provider Family Medicine; Visit Provider Family Medicine | DX: Z13.6 Encounter for screening for cardiovascular disorders (principal); M54.41 Lumbago with sciatica, right side; M54.42 Lumbago with sciatica, left side; G89.29 Other chronic pain; S41.151A Open bite of right upper arm, initial encounter; W54.0XXA Bitten by dog, initial encounter; F17.219 Nicotine dependence, cigarettes, with unspecified nicotine-induced disorders | CPT/HCPCS: 80061 ==

== ENCOUNTER 2019-10-16 10:46 | Emergency (ER) | payer MEDICARE, MEDICAID, SELFPAY ==
[2019-10-16 11:16] VITALS: BP 103/65; PULSE 69; RESP 14; TEMP 35.9; O2SAT 95; BMI 28.7
--- NOTE | 2019-10-16 12:51 | XR_ITS ---
WS: [id number] KNEE LEFT TECHNIQUE: 3 views of the left knee CLINICAL INFORMATION: pain trauma COMPARISON: August 10, 2019 FINDINGS: Prior healed fractures of the left tibia and fibula diaphysis with callus formation. Moderate degener ative arthritis left knee with medial and lateral joint compartment narrowing. No acute fractures. Sm all suprapatellar effusion. XR/XR knee LT 3V* [id number] IMPRESSION: Small suprapatellar effusion. No acute fractures.
--- NOTE | 2019-10-16 12:52 | ED_ITS ---
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 Today she feels like she can barely walk knee feels swollen and unsteady. She not previously had surgery on that knee. She denies any other injury at the time of the fall. Not strike her head she not lose conscious no recent illness. MD Complaint: extremity pain (Left knee) and extremity swelling Onset (ago): day(s) (1) Pain Consistency: constant Location: left and knee Quality: aching and constant Radiation: none Relieving factors: rest Exacerbating factors: weight bearing and walking Associated symptoms: Deny chest pain, fever(s), myalgias, rash or short of breath Review of Systems Const: Denies: fever(s) ENMT: Denies: throat pain, ear or mastoid pain, nasal discharge or nasal congestion Card: Denies: chest pain Resp: Denies: dyspnea, productive cough or non-productive cough GI: Denies: abdominal pain, nausea, vomiting, hematemesis, coffee ground emesis, diarrhea, constipation, bloating, hematochezia or melena : Denies: flank pain, difficulty voiding, dysuria, urinary frequency or urinary urgency Skin/Breast: Denies: rash PFSH ED PFSH: Medical History Bulimia nervosa Cannabis use disorder, moderate, in sustained remission Cholesteatoma of right ear Chronic low back pain Chronic migraine without aura, intractable, without status migrainosus Chronic serous otitis media, right ear COPD (chronic obstructive pulmonary disease) Enrolled in chronic care management Hearing loss in right ear History of fracture of leg History of MRSA infection Opioid use disorder Post-traumatic stress disorder, chronic Sedative, hypnotic or anxiolytic abuse, 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 Surgical History H/O section H/O neck surgery History of facial fracture repair S/P appendectomy S/P tonsillectomy and adenoidectomy Family History Other CAD (coronary artery disease) Cancer Lung disease Social History Smoking and tobacco status: current every day smoker cigarettes Packs smoked per day: 1 Alcohol intake: former Former alcohol use details: DRANK UNTIL THREW UP Other details last substance use: iv drug abuse Physical Exam Const: COMMON NORMALS: no acute distress GENERAL APPEARANCE: cooperative and comfortable ORIENTATION/CONSCIOUSNESS: Yes awake, Yes oriented to person, Yes oriented to place and Yes oriented to time HENMT: COMMON NORMALS: normocephalic and atraumatic HEAD & SCALP: normocephalic and atraumatic Eye: COMMON NORMALS: Equal, round and reactive pupils present, EOMs intact bilaterally, conjunctivae normal and no scleral icterus CONJUNCTIVA: Yes conjunctivae normal PUPIL: Yes Equal, round and reactive pupils present Neck/C-Spine: COMMON NORMALS: full ROM, supple and no JVD Resp: COMMON NORMALS: normal respiratory effort, No retractions, No use of accessory muscles and clear to auscultation bilaterally AUSCULTATION: clear to auscultation bilaterally Cardio: COMMON NORMALS: no JVD, regular rate, regular rhythm and No murmurs present (Cardio) RATE: regular rate RHYTHM: regular rhythm GI: COMMON NORMALS: Soft to palpation and No hepatosplenomegaly present AUSCULTATION: Yes normoactive bowel sounds PALPATION: Yes Soft to palpation, No Tenderness to palpation present (GI), No Guarding due to palpation present (GI) and Yes No hepatosplenomegaly present Extremity: COMMON NORMALS: normal to inspection, capillary refill normal, no clubbing, cyanosis or edema, no calf tenderness and no pedal edema Neuro: SENSORIUM/ORIENTATION: Yes oriented to person, Yes oriented to place and Yes oriented to time Skin: COMMON NORMALS: no rashes or lesions noted GENERAL SKIN EXAM: no rashes or lesions noted Course Vital Signs: Vital signs: Vital Signs Temperature 96.6 F L 10/16/19 11:16 Pulse Rate 78 10/16/19 14:22 Respiratory Rate 16 10/16/19 14:22 Blood Pressure 115/88 10/16/19 14:22 Pulse Oximetry 99 10/16/19 14:22 MDM - Extremity (Nontraumatic) MDM Narrative: Medical decision making narrative: X-rays negative. Talk with the patient and knee immobilizer and crutches. Follow-up with Ortho return if has any worsening or changes. He can use previously prescribed medications for pain ice and elevation Discharge Plan Discharge Patient Disposition: Home, Self-Care Clinical Impression: Left knee sprain Condition: Stable Prescriptions: No Action Lamictal 25 mg tablet 50 mg PO DAILY Qty: 60 RF: 5 lamotrigine 100 mg tablet 100 mg PO DAILY Qty: 30 RF: 5 sertraline 100 mg tablet 100 mg PO BID Qty: 60 RF: 5 zolpidem [Ambien] 10 mg tablet 10 mg PO .at bedtime RF: 0 ondansetron HCl [Zofran] 4 mg tablet 4 mg PO ONCE Qty: 1 RF: 0 ondansetron 4 mg tablet,disintegrating 4 mg PO Q8H PRN (Reason: nausea and vomiting) Qty: 14 RF: 0 albuterol sulfate [ProAir HFA] 90 mcg/actuation HFA aerosol inhaler 2 puff INHALATION Q6H PRN (Reason: Shortness Of Breath) Qty: 8.5 RF: 0 tizanidine 4 mg tablet 4 mg PO TID PRN (Reason: Spasms) Qty: 90 RF: 0 Lyrica 150 mg capsule 150 mg PO TID Qty: 90 RF: 0 acetaminophen [Tylenol Extra Strength] 500 mg Tablet 1,000 mg PO QID PRN (Reason: Pain) RF: 0 diphenhydramine-acetaminophen [Tylenol PM Extra Strength] 25-500 mg Tablet 2 tab PO BEDTIME PRN (Reason: Sleep) RF: 0 Discharge Orders: Discharge Order (Routine); Ordered 10/16/19 Ordered By: Yunier Joyner Referrals: Lydia Moore DO [Primary Care Provider] - Discharge Date/Time: 10/16/19 14:24 Coding Level of Care Code ED Manager Sports for Chg Fwd Exam Comprehensive
[2019-10-16 14:22] VITALS: BP 115/88; PULSE 78; RESP 16; O2SAT 99
--- NOTE | 2019-10-17 09:01 | DCPLANNER ---
public works manager had message to schedule a follow up appointment for patient with ortho. public works manager called the ortho clinic, spoke with Pat, gave clinic patients information. public works manager was told that patients information would be printed and reviewed. Clinic will call family preservation caseworker and patient with appointment information.
--- NOTE | 2019-10-18 14:02 | DCPLANNER ---
Patient has a follow up appointment scheduled for Tuesday, November 05, 2019 at 1:[address] Starks. Clinic will call patient with appointment information.
--- NOTE | 2019-11-16 12:38 | DCPLANNER ---
Patient had an appointment scheduled for 11.05.19, patient did attend the appointment.
== END 2019-10-16 14:24 | disposition home or self-care (01) ==
PROVIDERS: Emergency Provider Family Medicine; PCP Family Medicine
DX: M79.605 Pain in left leg (principal); S83.92XA Sprain of unspecified site of left knee, initial encounter; X50.1XXA Overexertion from prolonged static or awkward postures, initial encounter; J44.9 Chronic obstructive pulmonary disease, unspecified; F17.210 Nicotine dependence, cigarettes, uncomplicated
CPT/HCPCS: 12345; 29530; 73562; 99281; 99283; E0114

== ENCOUNTER → 2019-10-29 08:17 | Outpatient (BNVA) | payer MEDICARE, MEDICAID, SELFPAY | PROVIDERS: PCP Family Medicine; Visit Provider Psychiatry & Neurology Psychiatry | DX: F43.12 Post-traumatic stress disorder, chronic (principal) ==

== ENCOUNTER 2019-11-21 13:44 | Outpatient (CLI) | payer MEDICARE, MEDICAID, SELFPAY ==
--- NOTE | 2019-11-21 13:45 | MR_ITS ---
WS: [id number] MRI LEFT KNEE HISTORY: M25.562 Pain in left knee COMPARISON: LEFT knee radiograph 10/16/2019 Anterior cruciate ligament: Very mild increased signal in the ACL but no full-thickness tear. Posterior cruciate ligament: Intact. Medial collateral ligament: Intact. Posterior lateral corner structures: Intact. Medial menisci: Mild intrasubstance degeneration in the posterior horn. No tear. Lateral meniscus: Increased signal throughout the posterior horn towards the meniscal root. Signal is intermediate in this is probably intrasubstance degeneration and not a tear. Extensor mechanism: Distal quadriceps tendon and patellar tendons are intact. Fluid and soft tissue: There is a small suprapatellar joint effusion. There is also mild diffuse bita a surrounding the knee. Very tiny amount of fluid in the popliteal fossa. Osseous and articular structures: Patellofemoral compartment: Diffuse loss of cartilage involving the patellar cartilage. Very slight m edial tilting of the patella. No marrow edema or fracture. Medial compartment: Mild narrowing of the medial compartment. Osteophytes extend from the medial femo ral condyle and tibial plateau. There is mild diffuse thinning and loss of cartilage greatest involvi ng the femoral condyle. No marrow edema or fracture. Lateral compartment: Mild narrowing of the lateral compartment with mild diffuse loss of cartilage an d fissuring. No marrow edema. MR/MR knee LT wo con* [id number] IMPRESSION: 1. Study is limited by motion artifact. 2. No fracture. 3. Mild tricompartment thinning of the cartilage and joint space narrowing. 4. Intrasubstance degeneration posterior horns of each meniscus. 5. Small joint effusion.
== END 2019-11-21 13:45 | disposition home or self-care (01) ==
LOC: RADSHAW 13:52
PROVIDERS: Visit Provider Orthopaedic Surgery
DX: M25.562 Pain in left knee (principal); M25.462 Effusion, left knee
CPT/HCPCS: 73721

== ENCOUNTER 2019-11-22 04:51 | Emergency (ER) | payer MEDICARE, MEDICAID, SELFPAY ==
[2019-11-22 04:56] VITALS: BP 132/61; PULSE 78; RESP 24; TEMP 37.4; O2SAT 95; BMI 28.3
--- NOTE | 2019-11-22 05:01 | ECG_ITS ---
[facility] Test Date: 2019-11-22 Pat Name: Merna Mcbride Department: Room: Gender: Female Manager Leasing: : 1965 Requested By: Sung Burris Order Number: [id number] Nate MD: Viv Nelson M.D. Measurements Intervals [place] Rate: 57 P: 48 TX: 130 QRS: 62 QRSD: 82 T: 55 QT: 373 QTc: 365 Interpretive Statements SINUS BRADYCARDIA WITH SINUS ARRHYTHMIA Compared to ECG 06/02/2019 16:11:59 Sinus rhythm no longer present Electronically Signed On 11-22-2019 21:13:22 CDT by Viv Nelson M.D. [id number]
--- NOTE | 2019-11-22 05:01 | XRR_ITS ---
PROCEDURE INFORMATION: Exam: XR Chest, 1 View Exam date and time: 11/22/2019 5:39 AM Age: 54 years old Clinical indication: Cough and fever and shortness of breath; Additional info: Fever, SOB, cough x 3 days TECHNIQUE: Imaging protocol: XR of the chest Views: 1 view. COMPARISON: CR XR ribs LT mn 3V w CXR1V [id number] 06/11/2019 1:42 PM FINDINGS: Lungs: There may be minimal peribronchial inflammation or airspace disease in the right lower lobe. Minor infection or bronchiolitis is possible. Pleural space: Unremarkable. No pleural effusion. No pneumothorax. Heart/Mediastinum: Unremarkable. No cardiomegaly. Bones/joints: Unremarkable. XR/XR chest 1V portable [id number] IMPRESSION: There may be minimal peribronchial inflammation or airspace disease in the right lower lobe. Minor infection or bronchiolitis is possible.
--- NOTE | 2019-11-22 05:09 | W.ED.SOB ---
Documented by User: Sung Burris MD 11/22/19 18:47 HPI - SOB/Dyspnea General: Chief Complaint: Shortness of Breath/Dyspnea Stated Complaint: fever; sob Time Seen by Provider: 11/22/19 04:57 Source: patient Mode of arrival: ambulatory Limitations: no limitations History of Present Illness: HPI Narrative: 54-year-old female who has a history of COPD states she has been having shortness of breath along with a cough and fever over the last day. States that increased wheezing as well and does have audible wheezing at this time and slight tachypnea. She denies any sick contacts and denies any coronavirus exposure. Patient pulse ox here is 95% on room air. She denies any worsening or improving factors denies any recent long trips. MD elicited complaint: shortness of breath Pertinent past history: COPD Onset (ago): day(s) Severity: moderate Exacerbating factors: nothing Relieving factors: nothing Associated symptoms: Reports fever(s); Deny abdominal pain, chest pain, nausea or vomiting Review of Systems Const: Reports: fever(s) Eyes: Denies: blurry vision or eye discomfort ENMT: Denies: throat pain or dental pain Card: Denies: chest pain Resp: Reports: dyspnea and non-productive cough GI: Denies: abdominal pain, nausea, vomiting or diarrhea : Denies: dysuria Musc: Denies: neck pain or back pain Skin/Breast: Denies: rash Neuro: Denies: headache(s) Psych: Denies: depression Ted/Lymph: Denies: easy bruising All/Imm: Denies: urticaria PFSH ED PFSH: Medical History Bulimia nervosa Cannabis use disorder, moderate, in sustained remission Cholesteatoma of right ear Chronic low back pain Chronic migraine without aura, intractable, without status migrainosus Chronic serous otitis media, right ear COPD (chronic obstructive pulmonary disease) Enrolled in chronic care management Hearing loss in right ear History of fracture of leg History of MRSA infection Opioid use disorder Post-traumatic stress disorder, chronic Sedative, hypnotic or anxiolytic abuse, 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 Surgical History H/O section H/O neck surgery History of facial fracture repair S/P appendectomy S/P tonsillectomy and adenoidectomy Family History Other CAD (coronary artery disease) Cancer Lung disease Social History Smoking and tobacco status: current every day smoker cigarettes Packs smoked per day: 1 Alcohol intake: former Former alcohol use details: DRANK UNTIL THREW UP Other details last substance use: iv drug abuse Physical Exam Const: COMMON NORMALS: no acute distress, patient oriented x3 and healthy appearing HENMT: COMMON NORMALS: normocephalic and atraumatic HEAD & SCALP: normocephalic and atraumatic Eye: COMMON NORMALS: Equal, round and reactive pupils present and EOMs intact bilaterally PUPIL: Yes Equal, round and reactive pupils present Neck/C-Spine: COMMON NORMALS: full ROM and supple Chest: COMMONS NORMALS: normal inspection of the chest and normal palpation of entire chest wall Resp: COMMON NORMALS: No retractions and No use of accessory muscles AUSCULTATION: wheezes Cardio: COMMON NORMALS: regular rate, regular rhythm and No murmurs present (Cardio) RATE: regular rate RHYTHM: regular rhythm GI: COMMON NORMALS: Normal to inspection, nondistended, normoactive bowel sounds present, Soft to palpation, non-tender and no masses PALPATION: Yes Soft to palpation Extremity: COMMON NORMALS: normal to inspection and full ROM Neuro: COMMON NORMALS: patient oriented x3, moves all extremities and no focal motor deficits Psych: COMMON NORMALS: mental status grossly normal, Normal thought process present and cooperative THOUGHT PROCESS: Normal thought process present Skin: COMMON NORMALS: no rashes or lesions noted and no wounds GENERAL SKIN EXAM: no rashes or lesions noted Course Vital Signs: Vital signs: Vital Signs Temperature 99.4 F 11/22/19 04:56 Pulse Rate 55 L 11/22/19 05:40 Respiratory Rate 22 H 11/22/19 05:35 Blood Pressure 132/61 11/22/19 04:56 Pulse Oximetry 95 11/22/19 05:40 MDM - SOB/Dyspnea Lab Data: Labs: Lab Results 11/22/19 11/22/19 11/22/19 Range/Units 05:28 06:00 06:00 WBC 8.8 (4.0-10.0) 10^3/ uL RBC 4.20 (4.1-5.3) 10^6/u L Hgb 12.7 (11.5-15.3) g/dL Hct 44.3 (37.0-47.0) % MCV 105.5 H (81-99) fL MCH 30.2 (28.0-34.0) pg MCHC 28.7 L (30.0-36.0) g/dL RDW 13.9 (12.1-15.1) % Plt Count 89 L (130-400) 10^3/c mm MPV 12.5 H (7.4-10.4) fL Neut % (Auto) 74.3 % Lymph % (Auto) 12.5 % Mingo % (Auto) 11.6 % Eos % (Auto) 0.8 % Baso % (Auto) 0.3 % Neut # (Auto) 6.5 (1.8-7.7) 10^3/u L Lymph # (Auto) 1.1 (0.8-4.8) 10^3/u L Mingo # (Auto) 1.0 H (0.2-0.9) 10^3/u L Eos # (Auto) 0.1 (0.0-0.8) 10^3/u L Baso # (Auto) 0.0 (0.0-0.1) 10^3/u L Nucleated RBC % (a uto) 0 % Nucleated RBCs # 0.0 /100WBC Specimen Type Arterial Sample Site Radial, right ABG pH 7.49 H (7.35-7.45) ABG pCO2 33.5 L (35-45) mmHg ABG pO2 58.6 L (80.0-100.0) mmH g ABG HCO3 25.2 (22-26) mmol/L ABG Base Excess 2.1 H (-2.0-2.0) mmol/ L Kaveh Test Pos Hematocrit 38.4 (37-47) % Hgb O2 Saturation 90.3 L (95-100) % Carboxyhemoglobin 3.2 (0.4-20.1) %THgb Methemoglobin 0.7 (0.4-1.5) % Total Hemoglobin 12.5 (12-16) g/dL O2 Delivery Device Room air Track Machine Operator Repairer ID harkr Sodium 136 (136-145) mmol/L Potassium 4.4 (3.5-5.1) mmol/L Chloride 102 (98-107) mmol/L Carbon Dioxide 21 L (22-29) mmol/L Anion Gap 17.4 (5-19) BUN 10 (6-20) mg/dL Creatinine 0.6 (0.5-0.9) mg/dL GFR Calculation 103.4 (90-130) mL/min Glucose 129 H (65-115) mg/dL Calculated Osmolal ity 280 L (285-295) mOsm/k g Lactic Acid (0.5-2.2) mmol/L Calcium 9.5 (8.5-10.5) mg/dL Total Bilirubin 0.5 (0.15-1.2) mg/dL AST 26 (0-32) U/L ALT 29 (0-33) U/L Alkaline Phosphata se 111 H (35-105) IU/L Total Protein 7.0 (6.6-8.7) g/dL Albumin 3.7 (3.5-5.2) g/dL Globulin 3.3 (1.3-4.6) g/dL 11/21/ Range/Units 07:44 WBC (4.0-10.0) 10^3/ uL RBC (4.1-5.3) 10^6/u L Hgb (11.5-15.3) g/dL Hct (37.0-47.0) % MCV (81-99) fL MCH (28.0-34.0) pg MCHC (30.0-36.0) g/dL RDW (12.1-15.1) % Plt Count (130-400) 10^3/c mm MPV (7.4-10.4) fL Neut % (Auto) % Lymph % (Auto) % Mingo % (Auto) % Eos % (Auto) % Baso % (Auto) % Neut # (Auto) (1.8-7.7) 10^3/u L Lymph # (Auto) (0.8-4.8) 10^3/u L Mingo # (Auto) (0.2-0.9) 10^3/u L Eos # (Auto) (0.0-0.8) 10^3/u L Baso # (Auto) (0.0-0.1) 10^3/u L Nucleated RBC % (a uto) % Nucleated RBCs # /100WBC Specimen Type Sample Site ABG pH (7.35-7.45) ABG pCO2 (35-45) mmHg ABG pO2 (80.0-100.0) mmH g ABG HCO3 (22-26) mmol/L ABG Base Excess (-2.0-2.0) mmol/ L Kaveh Test Hematocrit (37-47) % Hgb O2 Saturation (95-100) % Carboxyhemoglobin (0.4-20.1) %THgb Methemoglobin (0.4-1.5) % Total Hemoglobin (12-16) g/dL O2 Delivery Device Track Machine Operator Repairer ID Sodium (136-145) mmol/L Potassium (3.5-5.1) mmol/L Chloride (98-107) mmol/L Carbon Dioxide (22-29) mmol/L Anion Gap (5-19) BUN (6-20) mg/dL Creatinine (0.5-0.9) mg/dL GFR Calculation (90-130) mL/min Glucose (65-115) mg/dL Calculated Osmolal ity (285-295) mOsm/k g Lactic Acid 1.2 (0.5-2.2) mmol/L Calcium (8.5-10.5) mg/dL Total Bilirubin (0.15-1.2) mg/dL AST (0-32) U/L ALT (0-33) U/L Alkaline Phosphata se (35-105) IU/L Total Protein (6.6-8.7) g/dL Albumin (3.5-5.2) g/dL Globulin (1.3-4.6) g/dL EKG Data^: EKG 1: Attestation: I personally reviewed and interpreted this EKG as follows: EKG Interpretation Date: 11/22/19 EKG interpretation time: 05:17 Interpretation: sinus gage hr [address] or t wave abnormalities qrs 82 qtc 367 Discharge Plan Discharge Patient Disposition: Left Against Medical Advice Clinical Impression: Acute exacerbation of chronic obstructive airways disease Condition: Fair Prescriptions: New prednisone 10 mg tablets,dose pack See Rx Instructions .ROUTE .COMPLEX Qty: 21 RF: 0 Zithromax Z-Aman 250 mg tablet See Rx Instructions .ROUTE .COMPLEX Qty: 6 RF: 0 No Action Lamictal 25 mg tablet 50 mg PO DAILY Qty: 60 RF: 5 lamotrigine 100 mg tablet 100 mg PO DAILY Qty: 30 RF: 5 sertraline 100 mg tablet 100 mg PO BID Qty: 60 RF: 5 diclofenac potassium 50 mg tablet 50 mg PO BID Qty: 14 RF: 0 ondansetron HCl [Zofran] 4 mg tablet 4 mg PO ONCE Qty: 1 RF: 0 ondansetron 4 mg tablet,disintegrating 4 mg PO Q8H PRN (Reason: nausea and vomiting) Qty: 14 RF: 0 hydrocodone-acetaminophen [Walcott] 5-325 mg tablet 1 tab PO Q4H PRN (Reason: pain) 7 Days Qty: 30 RF: 0 albuterol sulfate [ProAir HFA] 90 mcg/actuation HFA aerosol inhaler 2 puff INHALATION Q6H PRN (Reason: Shortness Of Breath) Qty: 8.5 RF: 0 tizanidine 4 mg tablet 4 mg PO TID PRN (Reason: Spasms) Qty: 90 RF: 0 Lyrica 150 mg capsule 150 mg PO TID Qty: 90 RF: 0 acetaminophen [Tylenol Extra Strength] 500 mg Tablet 1,000 mg PO QID PRN (Reason: Pain) RF: 0 diphenhydramine-acetaminophen [Tylenol PM Extra Strength] 25-500 mg Tablet 2 tab PO BEDTIME PRN (Reason: Sleep) RF: 0 Discharge Date/Time: 11/22/19 09:50 Sign Out Sign Out Data: Patient Sign Out occurred on 11/22/19 at 05:53. Patient's care was discussed, and care was transferred from to Harrison Torrez. Coding Level of Care Code ED Riding Double for Jessica Fwd Exam Comprehensive Documented by User: Harrison Torrez DO 11/22/19 07:26 HPI - SOB/Dyspnea General: Chief Complaint: Shortness of Breath/Dyspnea Stated Complaint: fever; sob Time Seen by Provider: 11/22/19 04:57 PFSH ED PFSH: Medical History Bulimia nervosa Cannabis use disorder, moderate, in sustained remission Cholesteatoma of right ear Chronic low back pain Chronic migraine without aura, intractable, without status migrainosus Chronic serous otitis media, right ear COPD (chronic obstructive pulmonary disease) Enrolled in chronic care management Hearing loss in right ear History of fracture of leg History of MRSA infection Opioid use disorder Post-traumatic stress disorder, chronic Sedative, hypnotic or anxiolytic abuse, 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 Surgical History H/O section H/O neck surgery History of facial fracture repair S/P appendectomy S/P tonsillectomy and adenoidectomy Family History Other CAD (coronary artery disease) Cancer Lung disease Social History Smoking and tobacco status: current every day smoker cigarettes Packs smoked per day: 1 Alcohol intake: former Former alcohol use details: DRANK UNTIL THREW UP Other details last substance use: iv drug abuse Course Vital Signs: Vital signs: Vital Signs Temperature 99.4 F 11/22/19 04:56 Pulse Rate 55 L 11/22/19 05:40 Respiratory Rate 22 H 11/22/19 05:35 Blood Pressure 132/61 11/22/19 04:56 Pulse Oximetry 95 11/22/19 05:40 MDM - SOB/Dyspnea Lab Data: Labs: Lab Results 11/22/19 11/22/19 11/22/19 Range/Units 05:28 06:00 06:00 WBC 8.8 (4.0-10.0) 10^3/ uL RBC 4.20 (4.1-5.3) 10^6/u L Hgb 12.7 (11.5-15.3) g/dL Hct 44.3 (37.0-47.0) % MCV 105.5 H (81-99) fL MCH 30.2 (28.0-34.0) pg MCHC 28.7 L (30.0-36.0) g/dL RDW 13.9 (12.1-15.1) % Plt Count 89 L (130-400) 10^3/c mm MPV 12.5 H (7.4-10.4) fL Neut % (Auto) 74.3 % Lymph % (Auto) 12.5 % Mingo % (Auto) 11.6 % Eos % (Auto) 0.8 % Baso % (Auto) 0.3 % Neut # (Auto) 6.5 (1.8-7.7) 10^3/u L Lymph # (Auto) 1.1 (0.8-4.8) 10^3/u L Mingo # (Auto) 1.0 H (0.2-0.9) 10^3/u L Eos # (Auto) 0.1 (0.0-0.8) 10^3/u L Baso # (Auto) 0.0 (0.0-0.1) 10^3/u L Nucleated RBC % (a uto) 0 % Nucleated RBCs # 0.0 /100WBC Specimen Type Arterial Sample Site Radial, right ABG pH 7.49 H (7.35-7.45) ABG pCO2 33.5 L (35-45) mmHg ABG pO2 58.6 L (80.0-100.0) mmH g ABG HCO3 25.2 (22-26) mmol/L ABG Base Excess 2.1 H (-2.0-2.0) mmol/ L Kaveh Test Pos Hematocrit 38.4 (37-47) % Hgb O2 Saturation 90.3 L (95-100) % Carboxyhemoglobin 3.2 (0.4-20.1) %THgb Methemoglobin 0.7 (0.4-1.5) % Total Hemoglobin 12.5 (12-16) g/dL O2 Delivery Device Room air Track Machine Operator Repairer ID harkr Sodium 136 (136-145) mmol/L Potassium 4.4 (3.5-5.1) mmol/L Chloride 102 (98-107) mmol/L Carbon Dioxide 21 L (22-29) mmol/L Anion Gap 17.4 (5-19) BUN 10 (6-20) mg/dL Creatinine 0.6 (0.5-0.9) mg/dL GFR Calculation 103.4 (90-130) mL/min Glucose 129 H (65-115) mg/dL Calculated Osmolal ity 280 L (285-295) mOsm/k g Lactic Acid (0.5-2.2) mmol/L Calcium 9.5 (8.5-10.5) mg/dL Total Bilirubin 0.5 (0.15-1.2) mg/dL AST 26 (0-32) U/L ALT 29 (0-33) U/L Alkaline Phosphata se 111 H (35-105) IU/L Total Protein 7.0 (6.6-8.7) g/dL Albumin 3.7 (3.5-5.2) g/dL Globulin 3.3 (1.3-4.6) g/dL 11/21/ Range/Units 07:44 WBC (4.0-10.0) 10^3/ uL RBC (4.1-5.3) 10^6/u L Hgb (11.5-15.3) g/dL Hct (37.0-47.0) % MCV (81-99) fL MCH (28.0-34.0) pg MCHC (30.0-36.0) g/dL RDW (12.1-15.1) % Plt Count (130-400) 10^3/c mm MPV (7.4-10.4) fL Neut % (Auto) % Lymph % (Auto) % Mingo % (Auto) % Eos % (Auto) % Baso % (Auto) % Neut # (Auto) (1.8-7.7) 10^3/u L Lymph # (Auto) (0.8-4.8) 10^3/u L Mingo # (Auto) (0.2-0.9) 10^3/u L Eos # (Auto) (0.0-0.8) 10^3/u L Baso # (Auto) (0.0-0.1) 10^3/u L Nucleated RBC % (a uto) % Nucleated RBCs # /100WBC Specimen Type Sample Site ABG pH (7.35-7.45) ABG pCO2 (35-45) mmHg ABG pO2 (80.0-100.0) mmH g ABG HCO3 (22-26) mmol/L ABG Base Excess (-2.0-2.0) mmol/ L Kaveh Test Hematocrit (37-47) % Hgb O2 Saturation (95-100) % Carboxyhemoglobin (0.4-20.1) %THgb Methemoglobin (0.4-1.5) % Total Hemoglobin (12-16) g/dL O2 Delivery Device Track Machine Operator Repairer ID Sodium (136-145) mmol/L Potassium (3.5-5.1) mmol/L Chloride (98-107) mmol/L Carbon Dioxide (22-29) mmol/L Anion Gap (5-19) BUN (6-20) mg/dL Creatinine (0.5-0.9) mg/dL GFR Calculation (90-130) mL/min Glucose (65-115) mg/dL Calculated Osmolal ity (285-295) mOsm/k g Lactic Acid 1.2 (0.5-2.2) mmol/L Calcium (8.5-10.5) mg/dL Total Bilirubin (0.15-1.2) mg/dL AST (0-32) U/L ALT (0-33) U/L Alkaline Phosphata se (35-105) IU/L Total Protein (6.6-8.7) g/dL Albumin (3.5-5.2) g/dL Globulin (1.3-4.6) g/dL Discharge Plan Discharge Patient Disposition: Left Against Medical Advice Clinical Impression: Acute exacerbation of chronic obstructive airways disease Condition: Fair Prescriptions: New prednisone 10 mg tablets,dose pack See Rx Instructions .ROUTE .COMPLEX Qty: 21 RF: 0 Zithromax Z-Aman 250 mg tablet See Rx Instructions .ROUTE .COMPLEX Qty: 6 RF: 0 No Action Lamictal 25 mg tablet 50 mg PO DAILY Qty: 60 RF: 5 lamotrigine 100 mg tablet 100 mg PO DAILY Qty: 30 RF: 5 sertraline 100 mg tablet 100 mg PO BID Qty: 60 RF: 5 diclofenac potassium 50 mg tablet 50 mg PO BID Qty: 14 RF: 0 ondansetron HCl [Zofran] 4 mg tablet 4 mg PO ONCE Qty: 1 RF: 0 ondansetron 4 mg tablet,disintegrating 4 mg PO Q8H PRN (Reason: nausea and vomiting) Qty: 14 RF: 0 hydrocodone-acetaminophen [Walcott] 5-325 mg tablet 1 tab PO Q4H PRN (Reason: pain) 7 Days Qty: 30 RF: 0 albuterol sulfate [ProAir HFA] 90 mcg/actuation HFA aerosol inhaler 2 puff INHALATION Q6H PRN (Reason: Shortness Of Breath) Qty: 8.5 RF: 0 tizanidine 4 mg tablet 4 mg PO TID PRN (Reason: Spasms) Qty: 90 RF: 0 Lyrica 150 mg capsule 150 mg PO TID Qty: 90 RF: 0 acetaminophen [Tylenol Extra Strength] 500 mg Tablet 1,000 mg PO QID PRN (Reason: Pain) RF: 0 diphenhydramine-acetaminophen [Tylenol PM Extra Strength] 25-500 mg Tablet 2 tab PO BEDTIME PRN (Reason: Sleep) RF: 0 Discharge Date/Time: 11/22/19 09:50 Sign Out Sign Out Data: Patient Sign Out occurred on 11/22/19 at 05:53. Patient's care was discussed, and care was transferred from to Harrison Torrez. Coding Level of Care Code ED Riding Double for Jessica Fwflorina Exam Comprehensive
[2019-11-22 05:35] VITALS: PULSE 54; RESP 22; O2SAT 91
[2019-11-22] MEDS: ipratropium-albuterol 3 mL Neb INHALATION (05:35)
[2019-11-22 05:40] VITALS: PULSE 55; O2SAT 95
[2019-11-22 05:40] LABS: ABG PCO2 33.5 mmHg (35-45); ABG PH Result 7.49 (7.35-7.45); Arterial Blood Gas Hematocrit 38.4 % (37-47); Base Excess ABG 2.1 mmol/L (-2.0-2.0); Blood Gas Allen Test Pos; Blood Gas Sample Site Radial, right; Blood Gas Sample Type Arterial; Carboxyhemoglobin 3.2 %THgb (0.4-20.1); HCO3 ABG 25.2 mmol/L (22-26); HGB O2 Sat 90.3 % (95-100); Methemoglobin 0.7 % (0.4-1.5); Oxygen Device ROOM AIR; PO2 ABG 58.6 mmHg (80.0-100.0); Total Hemoglobin 12.5 g/dL (12-16)
[2019-11-22] MEDS: acetaminophen 325 mg Tablet 650 MG PO (05:40)
[2019-11-22] MEDS: sodium chloride 0.9% 1,000 ML 999 ML IV (06:00)
[2019-11-22 06:17] LABS: Basophils % 0.3 %; Eosinophils # 0.1 10^3/uL (0.0-0.8); Eosinophils % 0.8 %; Hematocrit 44.3 % (37.0-47.0); Hemoglobin 12.7 g/dL (11.5-15.3); Lymphocytes # 1.1 10^3/uL (0.8-4.8); Lymphocytes % 12.5 %; Mean Corpuscular HGB Conc 28.7 g/dL (30.0-36.0); Mean Corpuscular Hemoglobin 30.2 pg (28.0-34.0); Mean Corpuscular Volume 105.5 fL (81-99); Mean Platelet Volume 12.5 fL (7.4-10.4); Monocytes % 11.6 %; Neutrophils # 6.5 10^3/uL (1.8-7.7); Neutrophils % 74.3 %; Nucleated Red Blood Cells % 0 %; Platelet Count 89 10^3/cmm (130-400); Red Cell Distribution Width 13.9 % (12.1-15.1); White Blood Count 8.8 10^3/uL (4.0-10.0)
[2019-11-22 06:29] LABS: Alanine Aminotransferase 29 U/L (0-33); Albumin Level 3.7 g/dL (3.5-5.2); Alkaline Phosphatase 111 IU/L (35-105); Anion Gap 17.4 (5-19); Aspartate Amino Transferase 26 U/L (0-32); Blood Urea Nitrogen 10 mg/dL (6-20); Calcium 9.5 mg/dL (8.5-10.5); Carbon Dioxide 21 mmol/L (22-29); Chloride 102 mmol/L (98-107); Creatinine Clr Calc Pharmacy 96.1632; Globulin 3.3 g/dL (1.3-4.6); Glomerular Filtration Rate 103.4 mL/min (90-130); Glucose 129 mg/dL (65-115); Osmolality Calculated 280 mOsm/kg (285-295); Potassium 4.4 mmol/L (3.5-5.1); Sodium 136 mmol/L (136-145); Total Bilirubin 0.5 mg/dL (0.15-1.2)
--- NOTE | 2019-11-22 06:55 | PC.NURSE ---
Read and agree with assessment
--- NOTE | 2019-11-22 07:00 | PC.NURSE ---
Pt refused to wait for nursing assistance in removing her hoodie, causing her IV to becoming ineffective. IV removed.
[2019-11-22 08:21] LABS: Lactic Sepsis W/Reflex 1.2 mmol/L (0.5-2.2)
--- NOTE | 2019-11-22 08:28 | P.HP_ITS ---
Providers/Chief Complaint Admitting Physician: Anushka Richey DO Chief Complaint: fever; sob History of Present Illness Merna Mcbride is a 54 year old female with a past medical history of COPD, hypertension, and tobacco abuse that presented to the emergency department for shortness of breath. She reports that she has been having fever at home over the past 3 days. She stated that for the past 4 days she has had increasing shortness of breath as well as cough. Reports that cough is productive. 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 Patient states that she was on steroids several months back. Stated that she continues to smoke. Reports that she has been using an albuterol inhaler at home on an as-needed basis. Reports that she is not on any home oxygen. Patient denies any chest pain or palpitations. She reports that she has had a headache for the past 2 days. Patient was seen and evaluated in the emergency department noted to have concern for COPD exacerbation, she was also tested for COVID-19. At time of my exam patient reports that she is having cough. She is on 3 L of oxygen at 100%, this was titrated down to half a liter of oxygen by nasal cannula and patient maintained at 100%. She is requesting discharge to home if she does not wish to stay in the hospital. Although patient does remain tachypneic. Patient decided to leave AGAINST MEDICAL ADVICE. Review of Systems Const: Reports: fever(s); Denies: chills Eyes: Denies: change in vision ENMT: Denies: nasal congestion Card: Reports: chest pain; Denies: palpitations or edema Resp: Reports: dyspnea and productive cough; Denies: hemoptysis GI: Denies: abdominal pain, nausea, vomiting, diarrhea, constipation, jenifer tochezia or melena : Denies: dysuria or hematuria Musc: Denies: extremity pain or muscle cramps Skin/Breast: Denies: rash or new lesions Neuro: Reports: headache(s); Denies: dizziness Psych: Denies: anxiety or depression Endo: Denies: polyuria or hot flashes Jenifer/Lymph: Denies: easy bruising or easy bleeding Medications/Allergies Home Medications Medication Instructions Recorded Confirmed Last Taken Type acetaminophen [Tylenol Extra 1,000 mg PO QID PRN 06/02/19 11/06/19 08/10/19 History Strength] diphenhydramine-acetaminophen 2 tab PO BEDTIME PRN 06/02/19 11/06/19 06/01/19 History [Tylenol PM Extra Strength] lamotrigine 100 mg tablet 100 mg PO DAILY #30 tab 06/27/19 11/06/19 08/10/19 Rx lamotrigine 25 mg tablet 50 mg PO DAILY #60 tab 06/27/19 11/06/19 08/10/19 Rx sertraline 100 mg tablet 100 mg PO BID #60 tab 06/27/19 11/06/19 08/10/19 Rx albuterol sulfate 90 mcg/actuation 2 puff INHALATION Q6H PRN #8.5 gm 09/12/19 11/06/19 Unknown Rx aerosol inhaler ondansetron 4 mg disintegrating 4 mg PO Q8H PRN #14 tab 10/09/19 11/06/19 Unknown Rx tablet diclofenac potassium 50 mg tablet 50 mg PO BID #14 tab 11/05/19 11/06/19 Unknown Rx hydrocodone 5 mg-acetaminophen 325 1 tab PO Q4H PRN 7 Days #30 tab 11/06/19 11/06/19 Unknown Rx mg tablet pregabalin 150 mg capsule 150 mg PO TID #90 cap 11/07/19 Unknown Rx tizanidine 4 mg tablet 4 mg PO TID PRN #90 tab 11/07/19 Unknown Rx azithromycin [Zithromax Z-Aman] See Rx Instructions .ROUTE 11/22/19 Unknown Rx .COMPLEX #6 tab prednisone See Rx Instructions .ROUTE 11/22/19 Unknown Rx .COMPLEX #21 each Allergies Allergy/AdvReac Type Severity Reaction Status Date / Time cyclobenzaprine Allergy ALGY-Hives Verified 11/06/19 11:50 gabapentin Allergy ALGY-Hives Verified 11/06/19 11:50 ibuprofen Allergy ADR-Vomitin Verified 11/06/19 11:50 g ketorolac Allergy ALGY-Hives Verified 11/06/19 11:50 oxycodone Allergy ADR-Itching Verified 11/06/19 11:50 tramadol Allergy ALGY-Hives Verified 11/06/19 11:50 aripiprazole [From [facility]] AdvReac Mild Unknown Verified 11/06/19 11:50 PFSH Acute PFSH: Medical History Bulimia nervosa Cannabis use disorder, moderate, in sustained remission Cholesteatoma of right ear Chronic low back pain Chronic migraine without aura, intractable, without status migrainosus Chronic serous otitis media, right ear COPD (chronic obstructive pulmonary disease) Enrolled in chronic care management Hearing loss in right ear History of fracture of leg History of MRSA infection Opioid use disorder Post-traumatic stress disorder, chronic Sedative, hypnotic or anxiolytic abuse, 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 Surgical History H/O section H/O neck surgery History of facial fracture repair S/P appendectomy S/P tonsillectomy and adenoidectomy Family History Other CAD (coronary artery disease) Cancer Lung disease Social History Smoking and tobacco status: current every day smoker cigarettes Packs smoked per day: 1 Alcohol intake: former Former alcohol use details: DRANK UNTIL THREW UP Other details last substance use: iv drug abuse Vitals/I&O/Wt Last Vital Signs Temp 99.4 F 11/22/19 04:56 Pulse 55 L 11/22/19 05:40 Resp 22 H 11/22/19 05:35 BP 132/61 11/22/19 04:56 Pulse Ox 95 11/22/19 05:40 Weight last 48 hrs Weight 70.307 kg Physical Exam Const: COMMON NORMALS: patient oriented x3 and alert GENERAL APPEARANCE: cooperative ORIENTATION/CONSCIOUSNESS: Yes awake, Yes oriented to person, Yes oriented to place and Yes oriented to time HENMT: COMMON NORMALS: normocephalic and atraumatic HEAD & SCALP: n ormocephalic and atraumatic Eye: COMMON NORMALS: Equal, round and reactive pupils present PUPIL: Yes Equal, round and reactive pupils present Neck/C-Spine: COMMON NORMALS: supple GENERAL: Yes normal visual inspection Resp: AUSCULTATION: no rhonchi and wheezes OTHER: Tachypneic, oxygen by nasal cannula in place, diminished breath sounds bilaterally with expiratory wheezing bilaterally Cardio: COMMON NORMALS: regular rate, regular rhythm and No murmurs present (Cardio) RATE: regular rate RHYTHM: regular rhythm GI: COMMON NORMALS: Soft to palpation and non-tender INSPECTION: No abdominal distension AUSCULTATION: Yes normoactive bowel sounds PALPATION: Yes Soft to palpation : COMMON NORMALS: Yes no CVA tenderness BLADDER/KIDNEY EXAM: Yes no CVA tenderness Back/Pelvis: COMMON NORMALS: no CVA tenderness Extremity: COMMON NORMALS: no clubbing, cyanosis or edema and no calf tenderness Neuro: COMMON NORMALS: patient oriented x3, CN's II-XII intact bilaterally, moves all extremities and no focal motor deficits SENSORIUM/ORIENTATION: Yes alert, Yes oriented to person, Yes oriented to place and Yes oriented to time SPEECH: speech normal Psych: COMMON NORMALS: mental status grossly normal and cooperative Skin: COMMON NORMALS: no rashes or lesions noted GENERAL SKIN EXAM: no rashes or lesions noted Data : 11/22/19 06:00 11/22/19 06:00 Micro: Microbiology 11/22/19 07:49 Blood Culture - Preliminary Blood SPECIMEN COLLECTED 11/22/19 07:44 Blood Culture - Preliminary Blood SPECIMEN COLLECTED A&P Assessment and plan (1) Acute exacerbation of chronic obstructive airways disease: Patient with chronic COPD and continues to smoke Not on any home oxygen Initially on 3 L of oxygen by nasal cannula at time of evaluation in the emergency department, this was weaned to 0.5 L by nasal cannula and patient remained at 100%. Tachypneic with diminished breath sounds bilaterally and expiratory wheezing diffusely. Patient given methylprednisone in the emergency department and called for admission, observation status, due to concern for an acute COPD exacerbation. Initially patient agreed to stay in the hospital, recommend doxycycline and prednisone 40 mg burst. Respiratory therapy to assess and treat, oxygen per protocol, continue with aggressive pulmonary toilet Patient verbalized understanding and agreed with this initially then began to backtrack and stated that she wished to go home. Discussed with patient due to concern for diffuse expiratory wheezing and tachypnea the recommendation for monitoring in the hospital, however she refused and left AGAINST MEDICAL ADVICE from the ED. Status: Acute Additional A&P Information Discussed with patient that she is under precautions for COVID testing, continue with isolation and droplet precautions. Patient did not wish to stay in the hospital and left AGAINST MEDICAL ADVICE. Patient to remain on isolation at home with social distancing. Disposition: Patient left AGAINST MEDICAL ADVICE Attestations Medical Necessity Statement*: Patient was placed on observation due to concern for acute COPD exacerbation and also under precautions for testing for CO VID- 19. Patient left AGAINST MEDICAL ADVICE that she did not wish to stay in the hospital. Coding Level of Care Code Acute Keg Raiser for Jessica Wang Diagnoses Acute exacerbation of chronic obstructive airways disease J44.1
[2019-11-23 13:05] LABS: Quest SARS-CoV-2 RNA NOT DETECTED (NOT DETECTED)
== END 2019-11-22 09:50 | disposition left against medical advice (07) ==
PROVIDERS: Emergency Medicine; Emergency Provider Family Medicine
DX: J44.1 Chronic obstructive pulmonary disease with (acute) exacerbation (principal); F17.210 Nicotine dependence, cigarettes, uncomplicated
CPT/HCPCS: 12345; 36415; 36600; 71045; 80053; 82805; 83605; 85025; 87040; 87635; 93005; 94640; 96365; 96366; 96375; 99283; 99284; J2930; J7030; J7611

== ENCOUNTER 2019-12-16 10:44 | Emergency (ER) | payer MEDICARE, MEDICAID, SELFPAY ==
[2019-12-16 10:50] VITALS: BP 123/61; PULSE 103; RESP 18; TEMP 37.2; O2SAT 97; BMI 27.4
--- NOTE | 2019-12-16 11:05 | USR_ITS ---
PROCEDURE INFORMATION: Exam: US of the forearm in the region of the previous abscess drainage. Exam date and time: 12/16/2019 11:57 AM Age: 54 years old Clinical indication: Symptoms: Pain in forearm; Patient HX: Right forearm abscess recently drained/lanced (a few days ago). ; Additional info: Right distal fa - abscess TECHNIQUE: Diagnostic ultrasound of the forearm in the site of previous abscess drainage. COMPARISON: No relevant prior studies available. FINDINGS: Ultrasonographic images right forearm dorsally demonstrates edema in the soft tissues in the region of prior drainage. There is likely a small amount of residual poorly organized fluid in the soft tissues. US/US soft tissue/extremity 67173 IMPRESSION: . Ultrasonographic images right forearm dorsally demonstrates edema in the soft tissues in the region of prior drainage. There is likely a small amount of residual poorly organized fluid in the soft tissues. .
--- NOTE | 2019-12-16 11:08 | W.ED.EXTPRO ---
HPI - Extremity Problem General: Chief complaint: Extremity Problem,Nontraumatic Stated complaint: RIGHT FOREARM PAIN Time Seen by Provider: 12/16/19 10:56 History of Present Illness: HPI Narrative: 54-year-old female patient presents to the emergency department with right forearm abscess. She reports abscess was drained/lanced several days ago. She reports increased pain and swelling. She reports fever 100.8 but is afebrile upon presentation to the emergency department. She was prescribed Tylenol 3 by her primary care physician, states medication is not working. 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 She reports movement of the right upper extremity/distal forearm is painful. She was requesting something for pain and evaluation of her arm. She denies trauma/injury or falls. MD Complaint: extremity pain (Right forearm) and extremity swelling (Right forearm) Location: right and upper extremity Severity scale (1-10): 8 Quality: aching Relieving factors: rest Exacerbating factors: other (Movement of the right arm) Associated symptoms: Reports fever(s); Deny chest pain or rash Context: other (History of MRSA) Review of Systems General: Reports: 10 or more systems reviewed and unremarkable except in HPI and below Const: Reports: fever(s) and chills Card: Denies: chest pain, palpitations or irregular heart rhythm Resp: Denies: dyspnea, productive cough, non-productive cough or wheezing GI: Denies: abdominal pain, nausea or vomiting : Denies: difficulty voiding or dysuria Musc: Denies: back pain Skin/Breast: Reports: erythema (rt FA) and skin swelling (rt FA); Denies: rash or pruritus Neuro: Denies: headache(s), weakness in extremities or behavioral changes Ted/Lymph: Denies: easy bruising PFS ED PFSH: Medical History (Updated 12/16/19 @ 13:05 by RISHI Negron) Bulimia nervosa Cannabis use disorder, moderate, in sustained remission Cholesteatoma of right ear Chronic low back pain Chronic migraine without aura, intractable, without status migrainosus Chronic serous otitis media, right ear COPD (chronic obstructive pulmonary disease) Enrolled in chronic care management Hearing loss in right ear History of fracture of leg History of MRSA infection Opioid use disorder Post-traumatic stress disorder, chronic Sedative, hypnotic or anxiolytic abuse, 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 Surgical History H/O section H/O neck surgery History of facial fracture repair S/P appendectomy S/P tonsillectomy and adenoidectomy Family History Other CAD (coronary artery disease) Cancer Lung disease Social History (Updated 12/16/19 @ 10:58 by Trent Sparrow RN) Smoking and tobacco status: current every day smoker cigarettes Packs smoked per day: 1 Alcohol intake: former Former alcohol use details: DRANK UNTIL THREW UP Substance/Drug Use: former Other details last substance use: iv drug abuse Physical Exam Const: COMMON NORMALS: no acute distress, patient oriented x3, healthy appearing and alert GENERAL APPEARANCE: cooperative and well hydrated ORIENTATION/CONSCIOUSNESS: Yes Other orientation findings (appears in pain, uncomfortable) Neck/C-Spine: COMMON NORMALS: full ROM and no lymphadenopathy GENERAL: Yes normal visual inspection and Yes trachea midline CERVICAL SPINE: Yes cervical ROM normal Lymph: LYMPHATIC: no lymphadenopathy noted Chest: COMMONS NORMALS: normal inspection of the chest Resp: COMMON NORMALS: normal respiratory effort and clear to auscultation bilaterally AUSCULTATION: clear to auscultation bilaterally Cardio: COMMON NORMALS: regular rhythm, S1 normal heart sound present and S2 normal heart sound present RHYTHM: regular rhythm HEART SOUNDS: S1 normal heart sound present and S2 normal heart sound present GI: COMMON NORMALS: Soft to palpation and non-tender INSPECTION: Yes normal to inspection PALPATION: Yes Soft to palpation : COMMON NORMALS: Yes no CVA tenderness BLADDER/KIDNEY EXAM: Yes no CVA tenderness Back/Pelvis: COMMON NORMALS: no CVA tenderness and thoracic and lumbar spine normal to inspection Extremity: COMMON NORMALS: normal to inspection and capillary refill normal GENERAL: Yes normal exam except as noted RIGHT UPPER EXTREMITY: Yes lower arm (rt FA with erythema, 3 cm x 3 cm area of induration, surrounding erythema) Right lower arm: Yes inspection (negative lymphadenitis, pain to the area with palpation), Yes neurovascular exam (intact distally, no deficits 2+ radial pulse) and Yes other EXTREMITY IMAGE (BACK): 1. questionable abscess - induration with erythema Neuro: COMMON NORMALS: patient oriented x3 and no focal motor deficits SENSORIUM/ORIENTATION: Yes alert Psych: COMMON NORMALS: mental status grossly normal, Normal thought process present and cooperative ACTIVITY/MOTOR BEHAVIOR: Yes appropriate eye contact THOUGHT PROCESS: Normal thought process present Skin: COMMON NORMALS: no rashes or lesions noted and turgor normal GENERAL SKIN EXAM: no rashes or lesions noted and turgor normal Course Vital Signs: Vital signs: Vital Signs Temperature 98.9 F 12/16/19 10:50 Pulse Rate 67 12/16/19 13:09 Respiratory Rate 18 12/16/19 13:09 Blood Pressure 134/77 12/16/19 13:09 Pulse Oximetry 97 12/16/19 13:09 MDM - Extremity (Nontraumatic) Lab Data: Labs: Lab Results 12/16/19 12/16/19 Range/Units 11:18 11:18 WBC 7.1 (4.0-10.0) 10^3/ uL RBC 4.40 (4.1-5.3) 10^6/u L Hgb 12.8 (11.5-15.3) g/dL Hct 41.3 (37.0-47.0) % MCV 93.9 (81-99) fL MCH 29.1 (28.0-34.0) pg MCHC 31.0 (30.0-36.0) g/dL RDW 13.2 (12.1-15.1) % Plt Count 165 (130-400) 10^3/c mm MPV 12.0 H (7.4-10.4) fL Neut % (Auto) 67.3 % Lymph % (Auto) 20.2 % Pleasants % (Auto) 8.5 % Eos % (Auto) 3.1 % Baso % (Auto) 0.6 % Neut # (Auto) 4.77 (1.8-7.7) 10^3/u L Lymph # (Auto) 1.4 (0.8-4.8) 10^3/u L Pleasants # (Auto) 0.6 (0.2-0.9) 10^3/u L Eos # (Auto) 0.2 (0.0-0.8) 10^3/u L Baso # (Auto) 0.0 (0.0-0.1) 10^3/u L Nucleated RBC % (a uto) 0 % Nucleated RBCs # 0.0 /100WBC Sodium 138 (136-145) mmol/L Potassium 4.9 (3.5-5.1) mmol/L Chloride 103 (98-107) mmol/L Carbon Dioxide 26 (22-29) mmol/L Anion Gap 13.9 (5-19) BUN 12 (6-20) mg/dL Creatinine 0.8 (0.5-0.9) mg/dL GFR Calculation 74.2 L (90-130) mL/min Glucose 80 (65-115) mg/dL Calculated Osmolal ity 281 L (285-295) mOsm/k g Calcium 9.2 (8.5-10.5) mg/dL Total Bilirubin 0.2 (0.15-1.2) mg/dL AST 21 (0-32) U/L ALT 19 (0-33) U/L Alkaline Phosphata se 96 (35-105) IU/L Total Protein 7.2 (6.6-8.7) g/dL Albumin 4.0 (3.5-5.2) g/dL Globulin 3.2 (1.3-4.6) g/dL Imaging Data^: Other Imaging: Radiologist's impression: [address] [place] [address] Ultrasound Report Signed Patient: Merna Mcbride #: [id number] : 1965Acct#:[id number] Age/Sex: 54 / FADM Date: 12/16/19 Loc: [facility]/Bed: Attending Dr: Ordering Provider/Ordering MD: Milla El Date of Service: 12/16/19 Procedure(s): US soft tissue/extremity 23876 Accession Number(s): [id number] Report Number: [id number] PROCEDURE INFORMATION: Exam: US of the forearm in the region of the previous abscess drainage. Exam date and time: 12/16/2019 11:57 AM Age: 54 years old Clinical indication: Symptoms: Pain in forearm; Patient HX: Right forearm abscess recently drained/lanced (a few days ago). ; Additional info: Right distal fa - abscess TECHNIQUE: Diagnostic ultrasound of the forearm in the site of previous abscess drainage. COMPARISON: No relevant prior studies available. FINDINGS: Ultrasonographic images right forearm dorsally demonstrates edema in the soft tissues in the region of prior drainage. There is likely a small amount of residual poorly organized fluid in the soft tissues. US/ soft tissue/extremity 45037 IMPRESSION: . Ultrasonographic images right forearm dorsally demonstrates edema in the soft tissues in the region of prior drainage. There is likely a small amount of residual poorly organized fluid in the soft tissues. . Dictated By:Humphrey Baron MD Discharge Plan Discharge Patient Disposition: Home, Self-Care Clinical Impression: History of MRSA infection, Abscess Cellulitis Qualifiers: Site of cellulitis: extremity Site of cellulitis of extremity: upper extremity Laterality: right Qualified Code(s): L03.113 - Cellulitis of right upper limb Condition: Stable Prescriptions: New clindamycin HCl 300 mg capsule 300 mg PO Q6H 10 Days Qty: 40 RF: 0 Discontinued doxycycline hyclate 100 mg Capsule 100 mg PO BID RF: 0 No Action sertraline 100 mg tablet 100 mg PO BID Qty: 60 RF: 5 tizanidine 4 mg tablet 4 mg PO TID PRN (Reason: Spasms) Qty: 90 RF: 0 Lyrica 150 mg capsule 150 mg PO TID Qty: 90 RF: 0 albuterol sulfate [ProAir HFA] 90 mcg/actuation HFA aerosol inhaler 2 puff INHALATION Q6H PRN (Reason: Shortness Of Breath) Qty: 8.5 RF: 0 Lamictal 150 mg Tablet 150 mg PO DAILY RF: 0 Tylenol-Codeine #3 300-30 mg Tablet 1 tab PO Q6H PRN (Reason: Pain) RF: 0 Ambien 10 mg Tablet 10 mg PO BEDTIME RF: 0 acetaminophen [Tylenol Extra Strength] 500 mg Tablet 1,000 mg PO PRN RF: 0 diphenhydramine-acetaminophen [Tylenol PM Extra Strength] 25-500 mg Tablet 2 tab PO BEDTIME PRN (Reason: Sleep) RF: 0 Discharge Orders: Discharge Order (Routine); Ordered 12/16/19 Ordered By: Milla El Discharge Diet: Advance as tolerated Discharge Activity: Limit activity as instructed Patient Instructions: Cellulitis (ED), Abscess (ED) Activity Restrictions/Additional Instructions: Stop doxycycline, start clindamycin. Follow-up with your doctor this week to monitor cellulitis/infection of the right upper extremity. You may wear arm sling to help with pain. Avoid heat to the area, cool compresses may help better. Continue your Tylenol 3 prescription at home as needed for pain. Keep the extremity elevated as much as possible to help with swelling and pain. If you develop increased swelling, redness/pain you may need to return to the emergency department for further evaluation. 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
[2019-12-16] MEDS: HYDROcodone-acetaminophen 5-325 mg Tablet 1 TAB PO (11:24)
[2019-12-16 11:28] LABS: Basophils % 0.6 %; Eosinophils # 0.2 10^3/uL (0.0-0.8); Eosinophils % 3.1 %; Hematocrit 41.3 % (37.0-47.0); Hemoglobin 12.8 g/dL (11.5-15.3); Lymphocytes # 1.4 10^3/uL (0.8-4.8); Lymphocytes % 20.2 %; Mean Corpuscular Hemoglobin 29.1 pg (28.0-34.0); Mean Corpuscular Volume 93.9 fL (81-99); Monocytes # 0.6 10^3/uL (0.2-0.9); Monocytes % 8.5 %; Neutrophils # 4.77 10^3/uL (1.8-7.7); Neutrophils % 67.3 %; Nucleated Red Blood Cells % 0 %; Platelet Count 165 10^3/cmm (130-400); Red Cell Distribution Width 13.2 % (12.1-15.1); White Blood Count 7.1 10^3/uL (4.0-10.0)
[2019-12-16 11:49] LABS: Alanine Aminotransferase 19 U/L (0-33); Alkaline Phosphatase 96 IU/L (35-105); Anion Gap 13.9 (5-19); Aspartate Amino Transferase 21 U/L (0-32); Blood Urea Nitrogen 12 mg/dL (6-20); Calcium 9.2 mg/dL (8.5-10.5); Carbon Dioxide 26 mmol/L (22-29); Chloride 103 mmol/L (98-107); Creatinine Clr Calc Pharmacy 70.9979; Globulin 3.2 g/dL (1.3-4.6); Glomerular Filtration Rate 74.2 mL/min (90-130); Glucose 80 mg/dL (65-115); Osmolality Calculated 281 mOsm/kg (285-295); Potassium 4.9 mmol/L (3.5-5.1); Sodium 138 mmol/L (136-145); Total Bilirubin 0.2 mg/dL (0.15-1.2); Total Protein 7.2 g/dL (6.6-8.7)
[2019-12-16 13:01] VITALS: BP 132/97; PULSE 94; RESP 18; O2SAT 98
[2019-12-16 13:07] VITALS: BP 134/77; PULSE 67; RESP 18; O2SAT 97
[2019-12-16 13:09] VITALS: BP 134/77; PULSE 67; RESP 18; O2SAT 97
== END 2019-12-16 13:13 | disposition home or self-care (01) ==
PROVIDERS: Emergency Provider Nurse Practitioner Family
DX: L03.113 Cellulitis of right upper limb (principal); L02.413 Cutaneous abscess of right upper limb; Z86.14 Personal history of Methicillin resistant Staphylococcus aureus infection; J44.9 Chronic obstructive pulmonary disease, unspecified; F17.210 Nicotine dependence, cigarettes, uncomplicated
CPT/HCPCS: 12345; 36415; 76882; 80053; 85025; 99281; 99283

== ENCOUNTER 2019-12-20 14:04 | Outpatient (CLI) | payer MEDICARE, MEDICAID, SELFPAY ==
--- NOTE | 2019-12-20 14:14 | US_ITS ---
WS: [id number] ULTRASOUND SOFT TISSUES RIGHT forearm HISTORY: ABSCESS COMPARISON: 12/16/2019 TECHNIQUE: 2-D and color Doppler imaging is submitted. Ill-defined area of decreased echogenicity in the proximal forearm measures 1.4 x 0.6 x 0.4 cm. No we ll formed abscess collection. There is an additional hypoechoic nonliquefied region in the proximal f orearm measuring 2.6 x 0.6 x 0.5 cm. No increased vascularity. There is a soft tissue tract extending superficially which may be due to recent debridement. US/US soft tissue/extremity [id number] IMPRESSION: 1. Nonliquefied phlegmonous collections or subcutaneous edematous changes in t he proximal forearm. 2. No abscess. 3. Less edema as compared to the prior study.
== END 2019-12-20 14:05 | disposition home or self-care (01) ==
PROVIDERS: Visit Provider Nurse Practitioner Family
DX: L02.413 Cutaneous abscess of right upper limb
CPT/HCPCS: 76882

== ENCOUNTER 2019-12-25 10:13 | Day surgery (SDC) | payer MEDICARE, MEDICAID, SELFPAY ==
[2019-12-24 12:52] VITALS: BMI 28.3
[2019-12-25 10:27] VITALS: BP 123/66; PULSE 74; RESP 18; TEMP 36.1; O2SAT 97
[2019-12-25] MEDS: sodium chloride 0.9% 1,000 ML 30 ML IV (10:43)
--- NOTE | 2019-12-25 10:44 | ANES.PREANE2 ---
Pre-Anesthetic Assessment Pre-Anesthetic Assessment: Height/Weight: Height 1.57 m Weight 70.307 kg Temp Pulse Resp BP Pulse Ox 97 F L 74 18 123/66 97 12/25/19 10:27 12/25/19 10:27 12/25/19 10:27 12/25/19 10:27 12/25/19 10:27 Preop Diagnosis: Hematochezia Proposed Procedure: Operation Date: 12/25/19 11:30 Proposed Procedures p Colonoscopy poss biopys poss polypectomy 50827 K92.1(Not Applicable) - Jeramy Hendricks MD Familial anesthetic complications: None Last intake: Intake Last Liquid Date 12/25/19 Last Liquid Time 04:00 Last Solid Date 12/24/19 Social: Social History: Tobacco and No alcohol Exam: Pre-Anes Outpt Exam: alert, oriented x 3, clear to auscultation bilaterally and regular rate & rhythm Airway: Cervical ROM: WNL MP: 3 Dentition: False Pulmonary: Pulmonary: COPD (used to wear O2, hasn't in 5 years) : : None reported Hepatic: Hepatic: None reported GI: GI: GERD (occassional) Neuropsych: Neuropsych: Seizure (last one year ago (idiopathic) - not ion medications) Anesthetic Plan: ASA status: 2 Anesthesia: MAC Meds/Allergies Current Medications: Current Medications Generic Name Dose Route Start Last Admin Trade Name Freq PRN Reason Stop Dose Admin Sodium Chloride 1,000 mls @ 30 ml s/hr 12/25/19 10:15 12/25/19 10:43 Sodium Chloride 0.9% IV 30 mls/hr .Q24H ANNALISE Administration PFSH Anesthesia PFSH: Medical History (Updated 12/24/19 @ 12:52 by Abi Hancock) Bulimia nervosa Cannabis use disorder, moderate, in sustained remission Cholesteatoma of right ear Chronic low back pain Chronic migraine without aura, intractable, without status migrainosus Chronic serous otitis media, right ear COPD (chronic obstructive pulmonary disease) Hearing loss in right ear History of fracture of leg History of MRSA infection Opioid use disorder Post-traumatic stress disorder, chronic Sedative, hypnotic or anxiolytic abuse, 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
[2019-12-25 12:11] VITALS: BP 113/60; PULSE 69; RESP 16; TEMP 36.5; O2SAT 96
--- NOTE | 2019-12-25 12:14 | ANE.PACU2 ---
Inpatient post-anesthesia follow up: Airway intact: Yes Vital signs: Temperature 97 F Pulse Rate 74 Respiratory Rate 18 Blood Pressure 123/66 Pulse Oximetry 97 Oxygen Delivery Me thod Room Air Oxygen Flow Rate Fraction of Inspir ed Oxygen Hydration adequate: Yes Nausea and vomiting: No Pain level: 1 Mental status: Baseline
[2019-12-25 12:30] VITALS: BP 112/70; PULSE 68; RESP 18; O2SAT 94
--- NOTE | 2019-12-27 16:00 | W.PM.OPSUD ---
Surgery/Procedure H&P Update DATE OF PROCEDURE: December 25, 2019 DATE H&P PERFORMED: 12/18/19 H&P UPDATE INFORMATION: I have reviewed H&P completed within last 30 days, I have examined patient prior to procedure and No changes to prior documentation PREOP DIAGNOSIS: Hematochezia PLANNED PROCEDURE: Operation Date: 12/25/19 11:30 Proposed Procedures p Colonoscopy poss biopys poss polypectomy 70612 K92.1(Not Applicable) - Jeramy Hendricks MD
== END 2019-12-25 12:55 | disposition home or self-care (01) ==
PROVIDERS: Visit Provider Surgery
PROC: 0DJD8ZZ Inspection of Lower Intestinal Tract, Via Natural or Artificial Opening Endoscopic (ICD-10-PCS; CPT 45378; principal; 2019-12-25 11:30)
DX: K92.1 Melena (principal); Z80.0 Family history of malignant neoplasm of digestive organs; K64.8 Other hemorrhoids; J44.9 Chronic obstructive pulmonary disease, unspecified; Z99.81 Dependence on supplemental oxygen; K21.9 Gastro-esophageal reflux disease without esophagitis; Z86.14 Personal history of Methicillin resistant Staphylococcus aureus infection; Z82.49 Family history of ischemic heart disease and other diseases of the circulatory system
CPT/HCPCS: 12345; G0121; J2704; J7030

== ENCOUNTER 2020-01-06 14:11 | Emergency (ER) | payer MEDICARE, MEDICAID, SELFPAY ==
[2020-01-06 14:23] VITALS: BP 125/69; PULSE 75; RESP 14; TEMP 36.3; O2SAT 95; BMI 27.9
--- NOTE | 2020-01-06 14:39 | ED_ITS ---
HPI - Neck Pain/Injury General: Chief Complaint: Neck Pain/Injury Stated Complaint: neck pain/nontramatic Time Seen by Provider: 01/06/20 14:35 History of Present Illness: HPI Narrative: Patient is a 54-year-old female comes to the ED with migraine headache and neck pain. Patient has a past medical history of migraine headaches. Migraine and neck pain started 3 days ago when patient woke up in the morning. She describes a migraine as retro- orbital bilaterally and in the forehead. She describes having some mild pain with eye movement and photophobia. She also endorses having some mild nausea. Neck pain is located on both the right and left side of the cervical spine. She says it hurts on both sides where her neck muscles are. Patient is able to flex neck but has more pain when she tilts her head from left to right or extends neck. She rates it a migraine and neck a 7 out of 10 for pain. Denies any numbness, weakness or tingling to extremities or face. Denies any vision changes, fevers, chills, bladder or bowel symptoms. Patient has been taking Tylenol at home with little relief. Associated symptoms: Reports headache(s) and nausea Review of Systems Const: Denies: fever(s), chills or fatigue Eyes: Reports: photophobia and eye discomfort; Denies: change in vision ENMT: Denies: throat pain, odynophagia, nasal discharge or nasal congestion Card: Denies: chest pain, palpitations, edema, swelling of feet/ankles, dyspnea on exertion or orthopnea Resp: Denies: dyspnea, productive cough or non-productive cough GI: Reports: nausea; Denies: abdominal pain, vomiting, diarrhea, constipation or hematochezia : Denies: flank pain, dysuria or hematuria Musc: Reports: neck pain; Denies: back pain or extremity swelling Skin/Breast: Denies: rash or new lesions Neuro: Reports: headache(s); Denies: numbness in extremities or weakness in extremities [facility] ED PFSH: Medical History Bulimia nervosa Cannabis use disorder, moderate, in sustained remission Cholesteatoma of right ear Chronic low back pain Chronic migraine without aura, intractable, without status migrainosus Chronic serous otitis media, right ear COPD (chronic obstructive pulmonary disease) Hearing loss in right ear History of fracture of leg History of MRSA infection Opioid use disorder Post-traumatic stress disorder, chronic Sedative, hypnotic or anxiolytic abuse, 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 Surgical History H/O section H/O neck surgery History of colonoscopy History of facial fracture repair S/P appendectomy S/P tonsillectomy and adenoidectomy Status post colonoscopy (12/25/19) hemorrhoids , repeat 5 years Family History Other CAD (coronary artery disease) Cancer Lung disease Social History Smoking and tobacco status: current every day smoker cigarettes Packs smoked per day: 1 Alcohol intake: former Former alcohol use details: DRANK UNTIL THREW UP Other details last substance use: iv drug abuse Physical Exam Const: COMMON NORMALS: patient oriented x3 and alert GENERAL APPEARANCE: cooperative HENMT: COMMON NORMALS: normocephalic HEAD & SCALP: normocephalic MOUTH: Normal oral and palatal mucosa present THROAT: posterior oropharynx normal and uvula midline Eye: COMMON NORMALS: Equal, round and reactive pupils present, EOMs intact bilaterally and normal visual acharya by confrontation PUPIL: Yes Equal, round and reactive pupils present Neck/C-Spine: COMMON NORMALS: supple and no meningeal signs GENERAL: Yes normal visual inspection CERVICAL SPINE: No Cervical spine tenderness, Yes Paracervical muscle tenderness and Yes Trapezius muscle tenderness Resp: COMMON NORMALS: normal respiratory effort, No retractions, No use of accessory muscles and clear to auscultation bilaterally AUSCULTATION: clear to auscultation bilaterally Cardio: COMMON NORMALS: regular rate, regular rhythm, S1 normal heart sound present, S2 normal heart sound present, No gallops present (Cardio), No clicks present (Cardio), No murmurs present (Cardio) and Peripheral pulses 2+ throughout RATE: regular rate RHYTHM: regular rhythm HEART SOUNDS: S1 normal heart sound present and S2 normal heart sound present PERIPHERAL PULSES: Peripheral pulses 2+ throughout GI: COMMON NORMALS: Normal to inspection, nondistended, normoactive bowel sounds present, Soft to palpation, non-tender and no masses PALPATION: Yes Soft to palpation : COMMON NORMALS: Yes no CVA tenderness BLADDER/KIDNEY EXAM: Yes no CVA tenderness Back/Pelvis: COMMON NORMALS: no CVA tenderness Extremity: COMMON NORMALS: normal to inspection and no pedal edema Neuro: COMMON NORMALS: patient oriented x3, CN's II-XII intact bilaterally, moves all extremities, no focal motor deficits and no sensory deficits noted SENSORIUM/ORIENTATION: Yes alert MENINGEAL SIGNS: Yes no meningeal signs, No nuccal rigidity and No Brudzinski's sign present SPEECH: speech normal SENSORY EXAM: Yes extremities (Normal to soft touch on all extremities bilaterally) MOTOR EXAM: 5/5 motor strength present throughout Skin: COMMON NORMALS: no rashes or lesions noted GENERAL SKIN EXAM: no rashes or lesions noted and dry skin Course Vital Signs: Vital signs: Vital Signs Temperature 97.6 F 01/06/20 17:24 Pulse Rate 51 L 01/06/20 17:24 Respiratory Rate 18 01/06/20 17:24 Blood Pressure 120/64 01/06/20 17:24 Pulse Oximetry 96 01/06/20 17:24 MDM - Neck Pain/Injury MDM Narrative: Medical decision making narrative: Patient is a 54-year-old female who presents to the ED with headache and neck pain. Patient had photophobia with some mild nausea. Paracervical spine muscles were tender to palpation including the trapezius muscle. No Meningeal signs and neuro exam was normal with no deficits. CT of the head showed no acute signs. Patient diagnosed with a migraine and cervical muscle pain. Migraine improved with IV fluids, Reglan, Decadron, Benadryl and hydrocodone. Patient was discharged and told to follow-up with PCP in 7 to 10 days. Return to ED precautions given. Patient understood and agreed with plan. Imaging Data^: CT Head: Attestation: I personally reviewed and interpreted this imaging study as follows: Radiologist's impression: [address] [address] [address] Scan Report Signed Patient: Mrena Mcbride Unit #: [id number] : 1965 Age/Sex: 54 / F ADM Date: 01/06/20 Loc: ER Room/Bed: Attending Dr: Ordering Provider/Ordering MD: Schuyler Quach Date of Service: 01/06/20 Procedure(s): CT head wo con* [id number] Accession Number(s): [id number] Report Number: [id number] PROCEDURE INFORMATION: Exam: CT Head Without Contrast Exam date and time: 01/06/2020 3:09 PM Age: 54 years old Clinical indication: Prior surgery; Surgery date: 6+ months; Surgery type: RT ear; Patient HX: Migraine/neck pain x2 days, no known trauma TECHNIQUE: Imaging protocol: Computed tomography of the head without contrast. Axial, coronal and sagittal reformatted images were created and reviewed. Radiation optimization: All CT scans at this facility use at least one of these dose optimization techniques: automated exposure control; mA and/or kV adjustment per patient size (includes targeted exams where dose is matched to clinical indication); or iterative reconstruction. COMPARISON: CT head wo con* [id number] 10/26/2018 1:11 PM RADIATION DOSE METRICS: Total DLP (mGy-cm): 705.32 FINDINGS: Brain: Patchy areas of hypoattenuation in the periventricular and subcortical white matter, consistent with chronic small vessel ischemic disease. No CT evidence of acute intracranial hemorrhage or acute territorial infarction. No significant mass effect or midline shift. Basal cisterns patent. Ventricles: Prominence of the cortical sulci, cisterns and ventricular system, consistent with cerebral and cerebellar volume loss. Bones/joints: No acute osseous abnormality. Postsurgical changes in the maxilla. Sinuses: Mild mucosal thickening of the ethmoid air cells and paranasal sinuses. Mastoid air cells: Evidence of prior partial right mastoidectomy. Soft tissues: See Bones/joints finding. CT/CT head wo con* [id number] [address]ION: 1[address] No CT evidence of acute intracranial pathology. 2. Additional findings, as above. Radiation Dose CTDIVOL = (mGy): DLP = 705.32 (mGy-cm) Dictated By: Guy Theodore MD Signed By: Guy Theodore MD Signed Date/Time: 01/06/201610 DD/ 09 Discharge Plan Discharge Patient Disposition: Home Clinical Impression: Muscle pain, cervical Migraine Qualifiers: Migraine type: without aura Status migrainosus presence: without status migrainosus Intractability: not intractable Qualified Code(s): G43.009 - Migraine without aura, not intractable, without status migrainosus Condition: Stable Prescriptions: No Action sertraline 100 mg tablet 100 mg PO BID Qty: 60 RF: 5 tizanidine 4 mg tablet 4 mg PO TID PRN (Reason: Spasms) Qty: 90 RF: 0 Lyrica 150 mg capsule 150 mg PO TID Qty: 90 RF: 0 albuterol sulfate [ProAir HFA] 90 mcg/actuation HFA aerosol inhaler 2 puff INHALATION Q6H PRN (Reason: Shortness Of Breath) Qty: 8.5 RF: 0 lamotrigine [Lamictal] 150 mg Tablet 150 mg PO DAILY RF: 0 zolpidem [Ambien] 10 mg Tablet 10 mg PO BEDTIME RF: 0 acetaminophen [Tylenol Extra Strength] 500 mg Tablet 1,000 - 1,500 mg PO PRN RF: 0 Discharge Orders: Discharge Order (Routine); Ordered 01/06/20 Ordered By: Schuyler Quach Discharge Diet: Regular Discharge Activity: Increase activity as tolerated Patient Instructions: Headache - Migraine (Adult) Activity Restrictions/Additional Instructions: Follow-up with medical provider as directed in 7-10 days. Continue taking all home medications as prescribed. Take [id number] Tylenol for any neck pain warm reoccurring headache. Place cold pack on sore neck muscles to help relieve symptoms. Return to the ER or your medical provider if condition worsens. Please read and understand discharge instructions. If any questions, please ask. Discharge Date/Time: 01/06/20 17:26 Coding Level of Care Code ED Transportation Dispatcher for Jessica Wang Exam Comprehensive
[2020-01-06 14:55] VITALS: BP 112/77; PULSE 88; RESP 18; O2SAT 96
--- NOTE | 2020-01-06 15:05 | CTR_ITS ---
PROCEDURE INFORMATION: Exam: CT Head Without Contrast Exam date and time: 01/06/2020 3:09 PM Age: 54 years old Clinical indication: Prior surgery; Surgery date: 6+ months; Surgery type: RT ear; Patient HX: Migraine/neck pain x2 days, no known trauma TECHNIQUE: Imaging protocol: Computed tomography of the head without contrast. Axial, coronal and sagittal reformatted images were created and reviewed. Radiation optimization: All CT scans at this facility use at least one of these dose optimization techniques: automated exposure control; mA and/or kV adjustment per patient size (includes targeted exams where dose is matched to clinical indication); or iterative reconstruction. COMPARISON: CT head wo con* [id number] 10/26/2018 1:11 PM RADIATION DOSE METRICS: Total DLP (mGy-cm): 705.32 FINDINGS: Brain: Patchy areas of hypoattenuation in the periventricular and subcortical white matter, consistent with chronic small vessel ischemic disease. No CT evidence of acute intracranial hemorrhage or acute territorial infarction. No significant mass effect or midline shift. Basal cisterns patent. Ventricles: Prominence of the cortical sulci, cisterns and ventricular system, consistent with cerebral and cerebellar volume loss. Bones/joints: No acute osseous abnormality. Postsurgical changes in the maxilla. Sinuses: Mild mucosal thickening of the ethmoid air cells and paranasal sinuses. Mastoid air cells: Evidence of prior partial right mastoidectomy. Soft tissues: See Bones/joints finding. CT/CT head wo con* [id number] IMPRESSION: 1. No CT evidence of acute intracranial pathology. 2. Additional findings, as above. Radiation Dose CTDIVOL = (mGy): DLP = 705.32 (mGy-cm)
[2020-01-06] MEDS: HYDROcodone-acetaminophen 7.5-325 mg Tablet 1 TAB PO (16:03)
[2020-01-06] MEDS: diphenhydrAMINE 50 mg/mL SDV 1mL 25 MG IVP (16:20)
[2020-01-06] MEDS: metoclopramide 5 mg/mL SDV 2 mL 10 MG IVP (16:20)
[2020-01-06] MEDS: sodium chloride 0.9% 1,000 ML 999 ML IV (16:20)
[2020-01-06] MEDS: dexamethasone 10 mg/mL INJ IVP (16:20)
[2020-01-06] MEDS: orphenadrine 30 mg/mL Inj 2 mL 60 MG IVP (16:21)
[2020-01-06 17:24] VITALS: BP 120/64; PULSE 51; RESP 18; TEMP 36.4; O2SAT 96
== END 2020-01-06 17:26 | disposition home or self-care (01) ==
PROVIDERS: Emergency Provider Physician Assistant
DX: G43.009 Migraine without aura, not intractable, without status migrainosus (principal); M54.2 Cervicalgia; J44.9 Chronic obstructive pulmonary disease, unspecified; F17.210 Nicotine dependence, cigarettes, uncomplicated
CPT/HCPCS: 12345; 70450; 96361; 96374; 96375; 99283; J1100; J1200; J2360; J2765; J7030

== ENCOUNTER → 2020-01-16 09:21 | Outpatient (BNVA) | payer MEDICARE, MEDICAID, SELFPAY | PROVIDERS: Visit Provider Psychiatry & Neurology Psychiatry | DX: F43.12 Post-traumatic stress disorder, chronic (principal); F17.219 Nicotine dependence, cigarettes, with unspecified nicotine-induced disorders; F15.11 Other stimulant abuse, in remission | CPT/HCPCS: 99213 ==

== ENCOUNTER 2020-01-25 14:44 | Outpatient (CLI) | payer MEDICARE, MEDICAID, SELFPAY ==
--- NOTE | 2020-01-25 14:55 | XR_ITS ---
WS: [id number] DEXA (DUAL ENERGY X-RAY ABSORPTIOMETRY) Bone mineral density was performed using a [employer] machine. HISTORY: SCREENING FOR OSTEOPOROSIS COMPARISON: None available. Lumbar spine BMD (L1-L4): 1.011 g/cm2 T score: -1.4 Z score: -0.6 Total hip BMD: Left: 0.838 g/cm2. T score: -1.3 Z score: -0.7 Right: 0.819 g/cm2. T score: -1.5 Z score: -0.8 10 year probability of a major osteoporotic fracture is 16%. XR/XR DEXA axial skeleton* [id number] IMPRESSION: OSTEOPENIA based upon the WHO classification for females.
== END 2020-01-25 14:45 | disposition home or self-care (01) ==
LOC: RADWPI 14:49
PROVIDERS: PCP Nurse Practitioner Family; Visit Provider Nurse Practitioner Family
DX: Z13.820 Encounter for screening for osteoporosis (principal); M85.80 Other specified disorders of bone density and structure, unspecified site
CPT/HCPCS: 77080

== ENCOUNTER → 2020-03-10 16:52 | Outpatient (BNVA) | payer MEDICARE, MEDICAID, SELFPAY | PROVIDERS: PCP Nurse Practitioner Family; Visit Provider Nurse Practitioner Family | DX: Z20.828 Contact with and (suspected) exposure to other viral communicable diseases (principal) | CPT/HCPCS: 87635 ==

== ENCOUNTER → 2020-03-20 08:36 | Outpatient (BNVA) | payer MEDICARE, MEDICAID, SELFPAY | PROVIDERS: PCP Nurse Practitioner Family; Visit Provider Psychiatry & Neurology Psychiatry | DX: F43.12 Post-traumatic stress disorder, chronic (principal); F17.219 Nicotine dependence, cigarettes, with unspecified nicotine-induced disorders; F15.21 Other stimulant dependence, in remission | CPT/HCPCS: 99213 ==

== ENCOUNTER 2020-04-03 13:01 | Emergency (ER) | payer MEDICARE, MEDICAID, SELFPAY ==
--- NOTE | 2020-04-03 13:03 | XR_ITS ---
WS: [id number] XR ribs RT mn 3V w CXR1V [id number] REASON FOR EXAM: fall FINDINGS: The heart and the mediastinum are within normal limits. No active pulmonary parenchymal or pleural disease. No fracture or focal lesion of the right ribs. XR/XR ribs RT mn 3V w CXR1V [id number] IMPRESSION: No acute abnormality.
[2020-04-03 13:05] VITALS: BP 110/80; PULSE 84; RESP 16; TEMP 36.7; O2SAT 95; BMI 26.5
--- NOTE | 2020-04-03 13:08 | W.ED.FALL ---
HPI - Fall General: Chief Complaint: Fall Stated Complaint: PAIN R RIB, S/P FALL 03.27.2020 Time Seen by Provider: 04/03/20 13:05 Source: patient Mode of arrival: ambulatory Limitations: no limitations History of Present Illness: HPI Narrative: 54-year-old female states she fell last week roughly 6 days ago. She states she landed on her right side and has had right chest wall pain since then. She states she believes she may have broken ribs her pain is continued and is currently an 8 out of 10. Hurts with deep breaths and with palpation. She denies any other injuries. Denies hitting her head. Associated symptoms-after fall: Reports chest pain; Denies abdominal pain, headache(s) or neck pain Review of Systems Const: Denies: fever(s), chills, body aches or change in appetite Eyes: Denies: blurry vision or eye discomfort ENMT: Denies: throat pain or dental pain Card: Reports: chest pain Resp: Denies: dyspnea GI: Denies: abdominal pain, nausea, vomiting or diarrhea : Denies: dysuria Musc: Denies: neck pain or back pain Skin/Breast: Denies: rash Neuro: Denies: headache(s) Psych: Denies: depression Ted/Lymph: Denies: easy bruising All/Imm: Denies: urticaria PFSH ED PFSH: Medical History Bulimia nervosa Cannabis use disorder, moderate, in sustained remission Cholesteatoma of right ear Chronic low back pain Chronic migraine without aura, intractable, without status migrainosus Chronic serous otitis media, right ear COPD (chronic obstructive pulmonary disease) Hearing loss in right ear History of fracture of leg History of MRSA infection Opioid use disorder Post-traumatic stress disorder, chronic Sedative, hypnotic or anxiolytic abuse, 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 Surgical History H/O section H/O neck surgery History of colonoscopy History of facial fracture repair S/P appendectomy S/P tonsillectomy and adenoidectomy Status post colonoscopy (12/25/19) hemorrhoids , repeat 5 years Family History Other CAD (coronary artery disease) Cancer Lung disease Social History Smoking and tobacco status: current every day smoker cigarettes Packs smoked per day: 1 Alcohol intake: former Former alcohol use details: DRANK UNTIL THREW UP Other details last substance use: iv drug abuse Physical Exam Const: COMMON NORMALS: no acute distress, patient oriented x3 and healthy appearing HENMT: COMMON NORMALS: normocephalic and atraumatic HEAD & SCALP: normocephalic and atraumatic Eye: COMMON NORMALS: Equal, round and reactive pupils present and EOMs intact bilaterally PUPIL: Yes Equal, round and reactive pupils present Neck/C-Spine: COMMON NORMALS: full ROM and supple Chest: COMMONS NORMALS: normal inspection of the chest OTHER: Point tender over right chest Resp: COMMON NORMALS: normal respiratory effort, No retractions, No use of accessory muscles and clear to auscultation bilaterally AUSCULTATION: clear to auscultation bilaterally Cardio: COMMON NORMALS: regular rate, regular rhythm and No murmurs present (Cardio) RATE: regular rate RHYTHM: regular rhythm GI: COMMON NORMALS: Normal to inspection, nondistended, normoactive bowel sounds present, Soft to palpation, non-tender and no masses PALPATION: Yes Soft to palpation Extremity: COMMON NORMALS: normal to inspection and full ROM Neuro: COMMON NORMALS: patient oriented x3, moves all extremities and no focal motor deficits Psych: COMMON NORMALS: mental status grossly normal, Normal thought process present and cooperative THOUGHT PROCESS: Normal thought process present Skin: COMMON NORMALS: no rashes or lesions noted and no wounds GENERAL SKIN EXAM: no rashes or lesions noted Course Vital Signs: Vital signs: Vital Signs Temperature 98.1 F 04/03/20 13:05 Pulse Rate 84 04/03/20 13:05 Respiratory Rate 16 04/03/20 13:05 Blood Pressure 110/80 04/03/20 13:05 Pulse Oximetry 95 04/03/20 13:05 MDM - Fall MDM Narrative: Medical decision making narrative: Jerry presents here with chest wall contusion from a fall. Her x-ray here is negative. She is well-appearing here and is stable for discharge. She is to follow-up with PCP and return if worsening. Imaging Data^: CXR: Attestation: I personally reviewed and interpreted this imaging study as follows: Radiologist's impression: [address] [address] XRay Report Signed Patient: Merna Mcbride Unit #: [id number] : 1965 Age/Sex: 54 / F ADM Date: 04/03/20 Loc: ER Room/Bed: Attending Dr: Ordering Provider/Ordering MD: Sung Burris MD Date of Service: 04/03/20 Procedure(s): XR ribs RT mn 3V w CXR1V 33262 Accession Number(s): [id number] Report Number: [id number] WS: [id number] XR ribs RT mn 3V w CXR1V [id number] REASON FOR EXAM: fall FINDINGS: The heart and the mediastinum are within normal limits. No active pulmonary parenchymal or pleural disease. No fracture or focal lesion of the right ribs. XR/XR ribs RT mn 3V w CXR1V [id number] IMPRESSION: No acute abnormality. Discharge Plan Discharge Patient Disposition: Home Clinical Impression: Chest wall contusion Qualifiers: Encounter type: initial encounter Laterality: right Qualified Code(s): S20.211A - Contusion of right front wall of thorax, initial encounter Fall Qualifiers: Encounter type: initial encounter Qualified Code(s): W19.XXXA - Unspecified fall, initial encounter Condition: Stable Prescriptions: No Action ofloxacin 0.3 % drops 5 drop EAR-BOTH BID 7 Days Qty: 5 RF: 0 sertraline 100 mg tablet 100 mg PO BID Qty: 60 RF: 5 lamotrigine [Lamictal] 150 mg tablet 150 mg PO DAILY Qty: 30 RF: 2 tizanidine 4 mg tablet 4 mg PO TID PRN (Reason: Spasms) Qty: 90 RF: 0 Lyrica 150 mg capsule 150 mg PO TID Qty: 90 RF: 0 albuterol sulfate [ProAir HFA] 90 mcg/actuation HFA aerosol inhaler 2 puff INHALATION Q6H PRN (Reason: Shortness Of Breath) Qty: 8.5 RF: 0 zolpidem [Ambien] 10 mg tablet 10 mg PO BEDTIME Qty: 30 RF: 1 acetaminophen [Tylenol Extra Strength] 500 mg Tablet 1,000 - 1,500 mg PO PRN RF: 0 Discharge Orders: Discharge Order (Routine); Ordered 04/03/20 Ordered By: Sung Burris Referrals: Gisell Baum NP [Primary Care Provider] - 1-3 days Discharge Diet: Advance as tolerated Discharge Activity: Resume usual activity Patient Instructions: Chest Pain - Chest Wall Stand Alone Forms: Work/School Release Coding Level of Care Code ED Auto Body Worker for Chg Fwd Exam Comprehensive
[2020-04-03] MEDS: HYDROcodone-acetaminophen 5-325 mg Tablet 1 TAB PO (13:15)
[2020-04-03 14:19] VITALS: BP 118/96; PULSE 83; O2SAT 94
== END 2020-04-03 14:20 | disposition home or self-care (01) ==
PROVIDERS: Emergency Provider Emergency Medicine; PCP Nurse Practitioner Family
DX: S20.211A Contusion of right front wall of thorax, initial encounter (principal); W19.XXXA Unspecified fall, initial encounter; J44.9 Chronic obstructive pulmonary disease, unspecified; F17.210 Nicotine dependence, cigarettes, uncomplicated
CPT/HCPCS: 12345; 71101; 99281; 99283

== ENCOUNTER → 2020-05-07 10:14 | Outpatient (BNVA) | payer MEDICARE, MEDICAID, SELFPAY | PROVIDERS: PCP Nurse Practitioner Family; Visit Provider Specialist | DX: G56.00 Carpal tunnel syndrome, unspecified upper limb (principal) | CPT/HCPCS: 73130 ==

== ENCOUNTER → 2020-05-15 08:47 | Outpatient (BNVA) | payer MEDICARE, MEDICAID, SELFPAY | PROVIDERS: PCP Nurse Practitioner Family; Visit Provider Psychiatry & Neurology Psychiatry | DX: F43.12 Post-traumatic stress disorder, chronic (principal); F15.21 Other stimulant dependence, in remission; F17.219 Nicotine dependence, cigarettes, with unspecified nicotine-induced disorders | CPT/HCPCS: 99214 ==

== ENCOUNTER 2020-05-22 09:42 | Emergency (ER) | payer MEDICARE, MEDICAID, SELFPAY ==
[2020-05-22 09:46] VITALS: BP 127/75; PULSE 87; RESP 18; TEMP 36.8; O2SAT 98; BMI 28.0
--- NOTE | 2020-05-22 09:59 | XR_ITS ---
WS: [id number] RIGHT HAND: 3 VIEW(S) TECHNIQUE: PA, oblique and lateral. HISTORY: swelling redness COMPARISON: 03/24/2019 No acute fracture or dislocation. Extensive soft tissue edema surrounding the wrist and hand. No foreign body. XR/XR hand RT min 3V* [id number] IMPRESSION: Extensive cellulitis surrounding the wrist and hand.
--- NOTE | 2020-05-22 09:59 | USCV_ITS ---
Merna Mcbride Age: 54 Gender: F : 1965 Exam Date: 05/22/2020 10:06 Ordering Phys: Nestor Palafox Technologist: Chelsy Mcintosh Exam Location: [facility] [place] Indication: SEVERE PAIN IN RT HAND HISTORY: Pt has painful red swollen rt hand extending to mid forearm PROCEDURES: Venous duplex imaging was performed in only the right upper extremity. The following venous structures were evaluated: internal jugular vein, subclavian vein, axillary vein, and brachial veins. In addition, the basilic vein, cephalic vein, radial vein, and ulnar vein. Serial compression, augmentation maneuvers, and spectral Doppler flow evaluation were performed. FINDINGS: The veins of the right upper extremity are readily compressible with normal venous flow dynamics including spontaneous flow, respiratory phasic variation and augmentation. CONCLUSIONS No right upper extremity DVT. Dr. Carli Mackay DO (Electronically Signed) Final Date: 22 May 2020 11:00 S
--- NOTE | 2020-05-22 10:02 | ED_ITS ---
HPI - Extremity Problem General: Chief complaint: Extremity Problem,Nontraumatic Stated complaint: Rt hand swollen/pain Time Seen by Provider: 05/22/20 09:50 Source: patient Mode of arrival: ambulatory Limitations: no limitations History of Present Illness: HPI Narrative: 54-year-old female comes in with pain and swelling to the right upper extremity. Patient reports symptoms starting 2 days ago. Patient come into the ER yesterday but was unable to stay due to the busyness of the ER. Patient has a history of methamphetamine use, bipolar disorder, and MRSA infection. Review of Systems General: Reports: 10 or more systems reviewed and unremarkable except in HPI and below Skin/Breast: Reports: other (Redness and swelling to the distal right upper extremity including the dist) PFSH ED PFSH: Medical History (Updated 05/22/20 @ 11:09 by PETRONA Saucedo) Bulimia nervosa Cannabis use disorder, moderate, in sustained remission Cholesteatoma of right ear Chronic low back pain Chronic migraine without aura, intractable, without status migrainosus Chronic serous otitis media, right ear COPD (chronic obstructive pulmonary disease) Hearing loss in right ear History of fracture of leg History of MRSA infection Opioid use disorder Post-traumatic stress disorder, chronic Sedative, hypnotic or anxiolytic abuse, 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 Surgical History H/O section H/O neck surgery History of colonoscopy History of facial fracture repair S/P appendectomy S/P tonsillectomy and adenoidectomy Status post colonoscopy (12/25/19) hemorrhoids , repeat 5 years Family History Other CAD (coronary artery disease) Cancer Lung disease Social History Smoking and tobacco status: current every day smoker cigarettes Packs smoked per day: 1 Alcohol intake: former Former alcohol use details: DRANK UNTIL THREW UP Other details last substance use: iv drug abuse Physical Exam Const: COMMON NORMALS: no acute distress and patient oriented x3 GENERAL APPEARANCE: cooperative HENMT: COMMON NORMALS: normocephalic and Normal external nose present HEAD & SCALP: normal to inspection and normocephalic NOSE: Normal external nose present MOUTH: Normal oral and palatal mucosa present THROAT: posterior oropharynx normal Eye: GENERAL EYE: appearance normal, both eyes and all related structures Neck/C-Spine: COMMON NORMALS: full ROM Chest: COMMONS NORMALS: normal inspection of the chest Resp: COMMON NORMALS: normal respiratory effort EFFORT & INSPECTION: Yes able to speak in complete sentences Cardio: COMMON NORMALS: regular rate and regular rhythm RATE: regular rate RHYTHM: regular rhythm GI: COMMON NORMALS: non-tender : COMMON NORMALS: Yes no CVA tenderness BLADDER/KIDNEY EXAM: Yes no CVA tenderness Back/Pelvis: COMMON NORMALS: no CVA tenderness and thoracic and lumbar spine normal to inspection Extremity: NARRATIVE EXTREMITY EXAM: Redness and swelling to the right upper distal extremity. From the lower third of the right upper extremity to the hand we note some swelling and redness. It appears to be along the tract line of a vessel, along the dorsal cephalic. Neuro: COMMON NORMALS: patient oriented x3 and moves all extremities Psych: COMMON NORMALS: mental status grossly normal and cooperative Skin: COMMON NORMALS: no rashes or lesions noted GENERAL SKIN EXAM: no rashes or lesions noted Course Vital Signs: Vital signs: Vital Signs Temperature 98.2 F 05/22/20 09:46 Pulse Rate 87 05/22/20 09:46 Respiratory Rate 18 05/22/20 09:46 Blood Pressure 127/75 05/22/20 09:46 Pulse Oximetry 98 05/22/20 09:46 MDM - Extremity (Nontraumatic) MDM Narrative: Medical decision making narrative: 54-year-old female comes in today with redness and swelling to the distal right upper extremity extending to the hand. On exam pulses were intact. Prompt capillary refill is noted. Patient had tenderness along the dorsal cephalic vessel. Differential diagnosis includes DVT, cellulitis, fracture versus osteomyelitis. X-rays showed no fracture but showed cellulitis. Ultrasound of the extremity noted no DVT. Patient was given IV clindamycin 600 mg and 1 g of Rocephin. Patient will be continued on clindamycin p.o. and cephalexin. Reviewed exam with patient with recommendations for treatment and follow-up. Patient reported understanding agreed to plan. Patient does have a history of MRSA. Lab Data: Labs: Lab Results 05/22/20 05/22/20 05/22/20 Range/Units 10:18 10:18 10:18 WBC 7.5 (4.0-10.0) 10^3/ uL RBC 4.70 (4.1-5.3) 10^6/u L Hgb 14.0 (11.5-15.3) g/dL Hct 43.9 (37.0-47.0) % MCV 93.4 (81-99) fL MCH 29.8 (28.0-34.0) pg MCHC 31.9 (30.0-36.0) g/dL RDW 13.2 (12.1-15.1) % Plt Count 139 (130-400) 10^3/c mm MPV 12.2 H (7.4-10.4) fL Neut % (Auto) 76.5 % Lymph % (Auto) 12.3 % Dubois % (Auto) 9.9 % Eos % (Auto) 0.9 % Baso % (Auto) 0.3 % Neut # (Auto) 5.70 (1.8-7.7) 10^3/u L Lymph # (Auto) 0.9 (0.8-4.8) 10^3/u L Dubois # (Auto) 0.7 (0.2-0.9) 10^3/u L Eos # (Auto) 0.1 (0.0-0.8) 10^3/u L Baso # (Auto) 0.0 (0.0-0.1) 10^3/u L Nucleated RBC % (a uto) 0 % Nucleated RBCs # 0.0 /100WBC Sodium 138 (136-145) mmol/L Potassium 4.0 (3.5-5.1) mmol/L Chloride 101 (98-107) mmol/L Carbon Dioxide 28 (22-29) mmol/L Anion Gap 13.0 (5-19) BUN 7 (6-20) mg/dL Creatinine 0.6 (0.5-0.9) mg/dL GFR Calculation 103.4 (90-130) mL/min Glucose 80 (65-115) mg/dL Calculated Osmolal ity 283 L (285-295) mOsm/k g Lactic Acid 0.9 (0.5-2.2) mmol/L Calcium 9.5 (8.5-10.5) mg/dL Total Bilirubin 0.6 (0.15-1.2) mg/dL AST 18 (0-32) U/L ALT 18 (0-33) U/L Alkaline Phosphata se 105 (35-105) IU/L Total Protein 7.8 (6.6-8.7) g/dL Albumin 4.1 (3.5-5.2) g/dL Globulin 3.7 (1.3-4.6) g/dL Discharge Plan Discharge Patient Disposition: Home Clinical Impression: Cellulitis and abscess of hand Condition: Stable Prescriptions: New clindamycin HCl 150 mg capsule 450 mg PO BID Qty: 42 RF: 0 hydrocodone-acetaminophen 5-325 mg tablet 1 tab PO Q8H PRN (Reason: pain) Qty: 6 RF: 0 cephalexin 500 mg capsule 500 mg PO BID 7 Days Qty: 14 RF: 0 No Action nicotine 21 mg/24 hr patch 24 hour 1 patch transdermal Q24H Qty: 28 RF: 0 albuterol sulfate [ProAir HFA] 90 mcg/actuation HFA aerosol inhaler 2 puff INHALATION Q6H PRN (Reason: Shortness Of Breath) Qty: 8.5 RF: 0 acetaminophen [Tylenol Extra Strength] 500 mg Tablet 2,000 mg PO PRN RF: 0 Lamictal 150 mg tablet 150 mg PO DAILY@07 RF: 0 sertraline 100 mg tablet 100 mg PO BID@07,17 RF: 0 Ambien 10 mg tablet 10 mg PO BEDTIME@22 RF: 0 Discharge Orders: Discharge ED (Routine); Ordered 05/22/20 Ordered By: Nestor Palafox Referrals: Gisell Baum NP [Primary Care Provider] - Discharge Diet: Usual diet Discharge Activity: Increase activity as tolerated Patient Instructions: Cellulitis (ED) Activity Restrictions/Additional Instructions: Home and rest. Drink plenty of water. Take medication only as directed. Follow-up with primary care in 1 week. Return to the emergency department for worsening symptoms. 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
[2020-05-22] MEDS: HYDROcodone-acetaminophen 5-325 mg Tablet 1 TAB PO (10:09)
[2020-05-22 10:38] LABS: Basophils % 0.3 %; Eosinophils # 0.1 10^3/uL (0.0-0.8); Eosinophils % 0.9 %; Hematocrit 43.9 % (37.0-47.0); Lymphocytes # 0.9 10^3/uL (0.8-4.8); Lymphocytes % 12.3 %; Mean Corpuscular HGB Conc 31.9 g/dL (30.0-36.0); Mean Corpuscular Hemoglobin 29.8 pg (28.0-34.0); Mean Corpuscular Volume 93.4 fL (81-99); Mean Platelet Volume 12.2 fL (7.4-10.4); Monocytes # 0.7 10^3/uL (0.2-0.9); Monocytes % 9.9 %; Neutrophils % 76.5 %; Nucleated Red Blood Cells % 0 %; Platelet Count 139 10^3/cmm (130-400); Red Cell Distribution Width 13.2 % (12.1-15.1); White Blood Count 7.5 10^3/uL (4.0-10.0)
[2020-05-22 10:47] LABS: Alanine Aminotransferase 18 U/L (0-33); Albumin Level 4.1 g/dL (3.5-5.2); Alkaline Phosphatase 105 IU/L (35-105); Aspartate Amino Transferase 18 U/L (0-32); Blood Urea Nitrogen 7 mg/dL (6-20); Calcium 9.5 mg/dL (8.5-10.5); Carbon Dioxide 28 mmol/L (22-29); Chloride 101 mmol/L (98-107); Globulin 3.7 g/dL (1.3-4.6); Glomerular Filtration Rate 103.4 mL/min (90-130); Glucose 80 mg/dL (65-115); Osmolality Calculated 283 mOsm/kg (285-295); Sodium 138 mmol/L (136-145); Total Bilirubin 0.6 mg/dL (0.15-1.2); Total Protein 7.8 g/dL (6.6-8.7)
[2020-05-22 10:49] LABS: Lactic Sepsis W/Reflex 0.9 mmol/L (0.5-2.2)
[2020-05-22] MEDS: clindamycin 600 MG/50 ML PREMIX 100 MG IV (10:49)
[2020-05-22] MEDS: cefTRIAXone 1,000 MG in sodium chloride 0.9% (plus) 50 ML 100 MG IV (11:28)
[2020-05-22 11:58] VITALS: BP 110/54; PULSE 62; RESP 20; O2SAT 97
--- NOTE | 2020-05-22 17:48 | DCPLANNER ---
PTS SON CALLED STATING THAT THE SCRIPT HAD BEEN DROPPED OFF AT [facility] AND WASN'T AWARE THAT THE PHARMACY WOULD BE CLOSING AT 3PM. CALL CAME IN TO THE ER ASKING IF THERE WAS ANYTHING THEY COULD DO. INFORMED THAT THE PAIN MEDICATION WOULDN'T BE ABLE TO BE CALLED ANYWHERE DUE TO CLASS OF MED. SON WAS FINE WITH THAT WAS CONCERNED ABOUT THE ANTIBIOTIC DUE TO INFECTION AND GETTING WORSE. SCRIPTS FOR ANTIBIOTICS CALLED TO [facility] THEY WERE THE ONLY ONES OPEN AT THIS TIME.
== END 2020-05-22 11:57 | disposition home or self-care (01) ==
PROVIDERS: Emergency Provider Nurse Practitioner Family; PCP Nurse Practitioner Family
DX: L03.113 Cellulitis of right upper limb (principal); L02.511 Cutaneous abscess of right hand; J44.9 Chronic obstructive pulmonary disease, unspecified; Z86.14 Personal history of Methicillin resistant Staphylococcus aureus infection; F17.210 Nicotine dependence, cigarettes, uncomplicated
CPT/HCPCS: 12345; 73130; 80053; 83605; 85025; 87040; 93971; 96365; 96367; 99282; 99283; J0696; J3490

== ENCOUNTER 2020-05-23 10:42 | Emergency (ER) | payer MEDICARE, MEDICAID, SELFPAY ==
[2020-05-23 10:58] VITALS: BP 107/58; PULSE 78; RESP 18; TEMP 36.8; O2SAT 96; BMI 28.0
--- NOTE | 2020-05-23 10:59 | W.ED.SKABFB ---
HPI - Skin/Abscess/Foreign Bdy General: Chief complaint: Wound/Laceration Stated complaint: needs antibiotics Time Seen by Provider: 05/23/20 10:55 Source: patient Mode of arrival: ambulatory History of Present Illness: HPI narrative: 54-year-old female seen here in our ED yesterday, complaining of right hand redness, swelling, pain. She had lab work, x-ray and ultrasound done. Diagnosed with cellulitis, given a dose of IV Rocephin and clindamycin, and discharged with a prescription for clindamycin and Keflex. They were not able to turkey picker the antibiotics as the pharmacy closed early yesterday. She is requesting a dose of antibiotics told her over till tomorrow. There is been some improvement of the swelling since yesterday, but the redness remains the same. No fever or night sweats. She first noticed the symptoms several days ago after scratching her arm while at work. She has a history of MRSA skin infections, methamphetamine use, Pain is worse with manipulation, movement and better with rest. No numbness in her fingers. She is able to move her fingers without pain. Location: R hand Associated symptoms: Deny chills, fever(s), nausea or vomiting Review of Systems General: Reports: 10 or more systems reviewed and unremarkable except in HPI and below Const: Denies: fever(s), chills or body aches ENMT: Denies: throat pain, hoarseness or mouth pain Card: Denies: chest pain, palpitations or irregular heart rhythm Resp: Denies: dyspnea or wheezing GI: Denies: abdominal pain, nausea or vomiting : Denies: flank pain, difficulty voiding or dysuria Skin/Breast: Reports: erythema, skin tenderness and skin swelling Neuro: Denies: headache(s), numbness in extremities or weakness in extremities PFSH ED PFSH: Medical History Bulimia nervosa Cannabis use disorder, moderate, in sustained remission Cholesteatoma of right ear Chronic low back pain Chronic migraine without aura, intractable, without status migrainosus Chronic serous otitis media, right ear COPD (chronic obstructive pulmonary disease) Hearing loss in right ear History of fracture of leg History of MRSA infection Opioid use disorder Post-traumatic stress disorder, chronic Sedative, hypnotic or anxiolytic abuse, 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 Surgical History H/O section H/O neck surgery History of colonoscopy History of facial fracture repair S/P appendectomy S/P tonsillectomy and adenoidectomy Status post colonoscopy (12/25/19) hemorrhoids , repeat 5 years Family History Other CAD (coronary artery disease) Cancer Lung disease Social History Smoking and tobacco status: current every day smoker cigarettes Packs smoked per day: 1 Alcohol intake: former Former alcohol use details: DRANK UNTIL THREW UP Other details last substance use: iv drug abuse Physical Exam Const: COMMON NORMALS: no acute distress, patient oriented x3 and alert GENERAL APPEARANCE: cooperative and anxious; not in distress, not ill appearing and not diaphoretic HENMT: COMMON NORMALS: normocephalic and atraumatic HEAD & SCALP: normocephalic and atraumatic FACE & SINUS: normal facial exam and face symmetric Eye: COMMON NORMALS: Equal, round and reactive pupils present and EOMs intact bilaterally PUPIL: Yes Equal, round and reactive pupils present Neck/C-Spine: COMMON NORMALS: supple GENERAL: Yes normal visual inspection Chest: COMMONS NORMALS: normal inspection of the chest Resp: COMMON NORMALS: normal respiratory effort and No use of accessory muscles EFFORT & INSPECTION: Yes able to speak in complete sentences Extremity: COMMON NORMALS: capillary refill normal RIGHT UPPER EXTREMITY: Yes lower arm Right lower arm: Yes inspection (Erythema to mid forearm. No areas of induration. No blisters.) and Yes palpation (Mildly tender to palpation, swelling over the dorsal hand.) and Yes hand & digits Neuro: COMMON NORMALS: patient oriented x3 SENSORIUM/ORIENTATION: Yes alert Skin: GENERAL SKIN EXAM: erythema, no fluctuance and induration TRAUMA: lacerations and/or abrasions noted and no lacerations Course Vital Signs: Vital signs: Vital Signs Temperature 98.9 F 05/23/20 12:03 Pulse Rate 77 05/23/20 12:03 Respiratory Rate 18 05/23/20 12:03 Blood Pressure 106/57 05/23/20 12:03 Pulse Oximetry 95 05/23/20 12:03 MDM - Skin/Abscess/Foreign Bdy MDM Narrative: Medical decision making narrative: 54-year-old female with cellulitis of her right hand and wrist. She was unable to turkey picker her antibiotics yesterday after being discharged here from the ER. She is afebrile, nontoxic. Pain is not elicited by finger movement. She was given an oral dose of Bactrim and doxycycline here in the ED. We will have her take a 10-day course of doxycycline instead of the clindamycin. She can continue the Keflex. Labs and imaging from yesterday reviewed. White count was normal. She was given strict warnings to return immediately there was any signs of worsening; development of fever, spreading redness, pain with finger movement. Differential Diagnosis: Skin/Abscess Differential Diagnosis: Likely abscess of skin or subcutaneous tissue and cellulitis Medical Records: Attestation: I reviewed the patient's medical records. Discharge Plan Discharge Patient Disposition: Home Clinical Impression: Cellulitis Qualifiers: Site of cellulitis: extremity Site of cellulitis of extremity: upper extremity Laterality: right Qualified Code(s): L03.113 - Cellulitis of right upper limb Condition: Stable Prescriptions: New doxycycline hyclate 100 mg capsule 100 mg PO BID 10 Days Qty: 20 RF: 0 No Action nicotine 21 mg/24 hr patch 24 hour 1 patch transdermal Q24H Qty: 28 RF: 0 albuterol sulfate [ProAir HFA] 90 mcg/actuation HFA aerosol inhaler 2 puff INHALATION Q6H PRN (Reason: Shortness Of Breath) Qty: 8.5 RF: 0 acetaminophen [Tylenol Extra Strength] 500 mg Tablet 2,000 mg PO PRN RF: 0 lamotrigine [Lamictal] 150 mg tablet 150 mg PO DAILY@07 RF: 0 sertraline 100 mg tablet 100 mg PO BID@07,17 RF: 0 zolpidem [Ambien] 10 mg tablet 10 mg PO BEDTIME@22 RF: 0 clindamycin HCl 150 mg capsule 450 mg PO BID Qty: 42 RF: 0 hydrocodone-acetaminophen 5-325 mg tablet 1 tab PO Q8H PRN (Reason: pain) Qty: 6 RF: 0 cephalexin 500 mg capsule 500 mg PO BID 7 Days Qty: 14 RF: 0 Discharge Orders: Discharge ED (Routine); Ordered 05/23/20 Ordered By: Willow Hu Referrals: Gisell Baum, NAT [Primary Care Provider] - Discharge Diet: Usual diet Discharge Activity: Limit activity as instructed Patient Instructions: Cellulitis (ED) Activity Restrictions/Additional Instructions: Follow-up with your primary care provider in the next 24 to 48 hours. Make sure to finish all of your antibiotics. Return immediately to the ER if you develop fever, worsening pain and swelling, or if the redness continues to spread up your arm. 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
[2020-05-23 11:04] VITALS: BP 107/58; PULSE 76; RESP 18; O2SAT 95
[2020-05-23] MEDS: HYDROcodone-acetaminophen 7.5-325 mg Tablet 1 TAB PO (11:24)
[2020-05-23] MEDS: doxycycline 100 mg Tablet PO (11:25)
[2020-05-23] MEDS: sulfamethoxazole-trimeth DS 160-800 mg Tablet 1 TAB PO (11:25)
[2020-05-23 12:03] VITALS: BP 106/57; PULSE 77; RESP 18; TEMP 37.2; O2SAT 95
== END 2020-05-23 12:05 | disposition home or self-care (01) ==
PROVIDERS: Emergency Provider Family Medicine; PCP Nurse Practitioner Family
DX: L03.113 Cellulitis of right upper limb (principal); J44.9 Chronic obstructive pulmonary disease, unspecified; Z86.14 Personal history of Methicillin resistant Staphylococcus aureus infection; F17.210 Nicotine dependence, cigarettes, uncomplicated
CPT/HCPCS: 12345; 99281; 99283

== ENCOUNTER → 2020-07-11 09:26 | Outpatient (BNVA) | payer MEDICARE, MEDICAID, SELFPAY | PROVIDERS: PCP Nurse Practitioner Family; Visit Provider Psychiatry & Neurology Psychiatry | DX: F43.12 Post-traumatic stress disorder, chronic (principal); F17.219 Nicotine dependence, cigarettes, with unspecified nicotine-induced disorders; F15.21 Other stimulant dependence, in remission | CPT/HCPCS: 99214 ==

== ENCOUNTER 2020-07-19 16:00 | Emergency (ER) | payer MEDICARE, MEDICAID, SELFPAY ==
[2020-07-19 16:16] VITALS: BP 120/78; PULSE 63; RESP 18; TEMP 36.8; O2SAT 97; BMI 26.5
--- NOTE | 2020-07-19 16:55 | XRR_ITS ---
PROCEDURE INFORMATION: Exam: XR Chest, 1 View Exam date and time: 07/19/2020 4:56 PM Age: 55 years old Clinical indication: Shortness of breath; Additional info: SOB TECHNIQUE: Imaging protocol: XR of the chest Views: 1 view. COMPARISON: CR XR ribs RT mn 3V w CXR1V [id number] 04/03/2020 1:14 PM FINDINGS: Lungs: Unremarkable. No consolidation. Pleural spaces: Unremarkable. No pleural effusion. No pneumothorax. Heart/Mediastinum: Unremarkable. No cardiomegaly. Bones/joints: Unremarkable. XR/XR chest 1V portable [id number] IMPRESSION: No acute findings.
[2020-07-19 17:55] LABS: Basophils % 0.6 %; Eosinophils # 0.3 10^3/uL (0.0-0.8); Eosinophils % 5.3 %; Hematocrit 41.3 % (37.0-47.0); Hemoglobin 13.8 g/dL (11.5-15.3); Lymphocytes # 1.4 10^3/uL (0.8-4.8); Lymphocytes % 21.7 %; Mean Corpuscular HGB Conc 33.4 g/dL (30.0-36.0); Mean Corpuscular Hemoglobin 30.7 pg (28.0-34.0); Mean Platelet Volume 11.9 fL (7.4-10.4); Monocytes # 0.7 10^3/uL (0.2-0.9); Monocytes % 11.9 %; Neutrophils # 3.76 10^3/uL (1.8-7.7); Neutrophils % 60.3 %; Nucleated Red Blood Cells % 0 %; Platelet Count 138 10^3/cmm (130-400); Red Blood Count 4.49 10^6/uL (4.1-5.3); Red Cell Distribution Width 12.3 % (12.1-15.1); White Blood Count 6.2 10^3/uL (4.0-10.0)
[2020-07-19 18:06] LABS: Fibrinogen 382 mg/dL (174-498)
[2020-07-19 18:16] VITALS: O2SAT 99
[2020-07-19 18:17] LABS: Influenza A by IFA Negative (Negative); Influenza B by IFA Negative (Negative); SARS Covid-2 Antigen Negative (Negative)
[2020-07-19 18:21] LABS: Lactic Sepsis W/Reflex 0.7 mmol/L (0.5-2.2)
[2020-07-19 18:22] LABS: Alanine Aminotransferase 25 U/L (0-33); Albumin Level 3.9 g/dL (3.5-5.2); Alkaline Phosphatase 97 IU/L (35-105); Anion Gap 12.2 (5-19); Aspartate Amino Transferase 20 U/L (0-32); Blood Urea Nitrogen 12 mg/dL (6-20); C Reactive Protein 5.9 mg/L (0.0-4.9); Calcium 9.3 mg/dL (8.5-10.5); Carbon Dioxide 27 mmol/L (22-29); Chloride 103 mmol/L (98-107); Globulin 3.4 g/dL (1.3-4.6); Glucose 89 mg/dL (65-115); Osmolality Calculated 285 mOsm/kg (285-295); Potassium 4.2 mmol/L (3.5-5.1); Sodium 138 mmol/L (136-145); Total Bilirubin 0.3 mg/dL (0.15-1.2); Total Protein 7.3 g/dL (6.6-8.7)
--- NOTE | 2020-07-19 18:25 | W.ED.COVID ---
HPI - COVID General: Chief Complaint: COVID symptoms Stated Complaint: COUGH, H/A Time Seen by Provider: 07/19/20 16:19 Source: patient Mode of arrival: ambulatory Limitations: no limitations Triage information: Has fever, cough or shortness of breath. No known COVID + exposure last 14 days History of Present Illness: HPI Narrative: Patient is a 55-year-old female patient who presents to the emergency department with cough and headaches that started yesterday. She said the cough is persistent and is bothering her. She states that she has a low-grade fever and shortness of breath. She has a history of COPD and still smokes cigarettes. She has been tested for Covid multiple times. She was coughing multiple times during my evaluation. MD complaint: has COVID symptoms Prior covid testing: yes, results known COVID 19 common symptoms: positive cough, headache(s), nausea and vomiting; negative fever(s), chills, dyspnea, fatigue, body aches, loss of sense of smell and/or taste, throat pain, nasal congestion or diarrhea COVID 19 other sytmptoms: negative chest pressure, chest pain, pleuritic pain, requiring oxygen, requiring more oxygen, respiratory distress, cyanosis, lethargy, confusion, new neurological complaints or other concerning symptoms Onset (ago): day(s) (1) Severity: moderate Pertinent comorbid conditions: COPD/respiratory disease Treatment prior to arrival: none COVID Results: SARS-CoV-2 Antigen (Rapid) Negative (Negative) 07/19/20 17:40 07/19/20 SARS-CoV-2 RNA (RT-PCR) Not detected (NOT DETECTED) 03/10/20 16:52 03/10/20 Nasal/Oral Coronavirus 2019 PCR Pending 07/19/20 17:40 07/19/20 Review of Systems General: Reports: 10 or more systems reviewed and unremarkable except in HPI and below Const: Denies: fever(s), chills, body aches or fatigue Eyes: Denies: change in vision or blurry vision ENMT: Denies: throat pain or nasal congestion Card: Denies: chest pain Resp: Denies: dyspnea GI: Reports: nausea and vomiting; Denies: diarrhea : Denies: flank pain, difficulty voiding, dysuria, urinary frequency, urinary urgency or urinary hesitancy Musc: Denies: neck pain, back pain or extremity swelling Skin/Breast: Denies: rash, pruritus or erythema Neuro: Reports: headache(s); Denies: confusion Endo: Denies: polyuria, polydipsia or tired all the time PFSH ED PFSH: Medical History (Reviewed 07/19/20 @ 21:09 by Greer Bear [place] [facility] [place] Bulimia nervosa Cannabis use disorder, moderate, in sustained remission Cholesteatoma of right ear Chronic low back pain Chronic migraine without aura, intractable, without status migrainosus Chronic serous otitis media, right ear COPD (chronic obstructive pulmonary disease) Hearing loss in right ear History of fracture of leg History of MRSA infection Opioid use disorder Post-traumatic stress disorder, chronic Sedative, hypnotic or anxiolytic abuse, 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 Surgical History (Reviewed 07/19/20 @ 21:09 by Greer Bear MD, [facility] [place] H/O section H/O neck surgery History of colonoscopy History of facial fracture repair S/P appendectomy S/P tonsillectomy and adenoidectomy Status post colonoscopy (12/25/19) hemorrhoids , repeat 5 years Family History (Reviewed 07/19/20 @ 21:09 by Greer Bear MD, [facility] Other CAD (coronary artery disease) Cancer Lung disease Social History (Reviewed 07/19/20 @ 21:09 by Greer Bear MD, [facility] [place] Smoking and tobacco status: current every day smoker cigarettes Packs smoked per day: 1 Alcohol intake: former Former alcohol use details: DRANK UNTIL THREW UP Other details last substance use: iv drug abuse Physical Exam Const: COMMON NORMALS: no acute distress, average body habitus, patient oriented x3, no limitations, healthy appearing, alert and well nourished Neck/C-Spine: COMMON NORMALS: no meningeal signs and no JVD Resp: COMMON NORMALS: normal respiratory effort, No retractions, No use of accessory muscles and percussion normal AUSCULTATION: wheezes and diminished lung sounds PERCUSSION: percussion normal Cardio: COMMON NORMALS: no JVD, regular rate, regular rhythm, S1 normal heart sound present, S2 normal heart sound present, No gallops present (Cardio), No clicks present (Cardio), No murmurs present (Cardio), No rub (Cardio) and Peripheral pulses 2+ throughout RATE: regular rate RHYTHM: regular rhythm HEART SOUNDS: S1 normal heart sound present and S2 normal heart sound present PERIPHERAL PULSES: Peripheral pulses 2+ throughout GI: COMMON NORMALS: Normal to inspection, nondistended, normoactive bowel sounds present, Soft to palpation, non-tender, No hepatosplenomegaly present, no masses and no bruits PALPATION: Yes Soft to palpation and Yes No hepatosplenomegaly present Extremity: COMMON NORMALS: normal to inspection, full ROM, capillary refill normal, no calf tenderness and no pedal edema Neuro: COMMON NORMALS: patient oriented x3 SENSORIUM/ORIENTATION: Yes alert MENINGEAL SIGNS: Yes no meningeal signs Skin: COMMON NORMALS: no rashes or lesions noted, no wounds, turgor normal, no jaundice, no petechiae and no mottling GENERAL SKIN EXAM: no rashes or lesions noted and turgor normal Course Reevaluation(s): Reevaluation #1: Discussed her labs and imaging findings with her. Negative for acute findings, will manage her as a case of COPD exacerbation with oral steroids and antibiotic. She already has albuterol. She voiced understanding and all questions answered Time: 19:20 Vital Signs: Vital signs: Vital Signs Temperature 98.3 F 07/19/20 16:16 Pulse Rate 64 07/19/20 19:42 Respiratory Rate 18 07/19/20 16:16 Blood Pressure 126/75 07/19/20 19:42 Pulse Oximetry 95 07/19/20 19:42 MDM - COVID MDM Narrative: Medical decision making narrative: 55 year old female with clinical features consistent with COPD exacerbation. She is discharged home with oral antibiotic and steroids. She is clinically stable. Medical Records: Attestation: I reviewed the patient's medical records. Lab Data: Attestation: I reviewed the patient's lab results. Labs: Lab Results 07/19/20 07/19/20 07/19/20 Range/Units 17:40 17:40 17:40 WBC 6.2 (4.0-10.0) 10^3/ uL RBC 4.49 (4.1-5.3) 10^6/u L Hgb 13.8 (11.5-15.3) g/dL Hct 41.3 (37.0-47.0) % MCV 92.0 (81-99) fL MCH 30.7 (28.0-34.0) pg MCHC 33.4 (30.0-36.0) g/dL RDW 12.3 (12.1-15.1) % Plt Count 138 (130-400) 10^3/c mm MPV 11.9 H (7.4-10.4) fL Neut % (Auto) 60.3 % Lymph % (Auto) 21.7 % Treasure % (Auto) 11.9 % Eos % (Auto) 5.3 % Baso % (Auto) 0.6 % Neut # (Auto) 3.76 (1.8-7.7) 10^3/u L Lymph # (Auto) 1.4 (0.8-4.8) 10^3/u L Treasure # (Auto) 0.7 (0.2-0.9) 10^3/u L Eos # (Auto) 0.3 (0.0-0.8) 10^3/u L Baso # (Auto) 0.0 (0.0-0.1) 10^3/u L Nucleated RBC % (a uto) 0 % Nucleated RBCs # 0.0 /100WBC Fibrinogen 382 (174-498) mg/dL Sodium 138 (136-145) mmol/L Potassium 4.2 (3.5-5.1) mmol/L Chloride 103 (98-107) mmol/L Carbon Dioxide 27 (22-29) mmol/L Anion Gap 12.2 (5-19) BUN 12 (6-20) mg/dL Creatinine 0.6 (0.5-0.9) mg/dL GFR Calculation 103.0 (90-130) mL/min Glucose 89 (65-115) mg/dL Calculated Osmolal ity 285 (285-295) mOsm/k g Lactic Acid (0.5-2.2) mmol/L Calcium 9.3 (8.5-10.5) mg/dL Total Bilirubin 0.3 (0.15-1.2) mg/dL AST 20 (0-32) U/L ALT 25 (0-33) U/L Alkaline Phosphata se 97 (35-105) IU/L C-Reactive Protein 5.9 H (0.0-4.9) mg/L Total Protein 7.3 (6.6-8.7) g/dL Albumin 3.9 (3.5-5.2) g/dL Globulin 3.4 (1.3-4.6) g/dL Influenza Type A A g (Negative) Influenza Type B A g (Negative) SARS-CoV-2 Ag (Rap id) (Negative) 07/19/20 07/19/20 07/19/20 Range/Units 17:40 17:40 17:45 WBC (4.0-10.0) 10^3/ uL RBC (4.1-5.3) 10^6/u L Hgb (11.5-15.3) g/dL Hct (37.0-47.0) % MCV (81-99) fL MCH (28.0-34.0) pg MCHC (30.0-36.0) g/dL RDW (12.1-15.1) % Plt Count (130-400) 10^3/c mm MPV (7.4-10.4) fL Neut % (Auto) % Lymph % (Auto) % Treasure % (Auto) % Eos % (Auto) % Baso % (Auto) % Neut # (Auto) (1.8-7.7) 10^3/u L Lymph # (Auto) (0.8-4.8) 10^3/u L Treasure # (Auto) (0.2-0.9) 10^3/u L Eos # (Auto) (0.0-0.8) 10^3/u L Baso # (Auto) (0.0-0.1) 10^3/u L Nucleated RBC % (a uto) % Nucleated RBCs # /100WBC Fibrinogen (174-498) mg/dL Sodium (136-145) mmol/L Potassium (3.5-5.1) mmol/L Chloride (98-107) mmol/L Carbon Dioxide (22-29) mmol/L Anion Gap (5-19) BUN (6-20) mg/dL Creatinine (0.5-0.9) mg/dL GFR Calculation (90-130) mL/min Glucose (65-115) mg/dL Calculated Osmolal ity (285-295) mOsm/k g Lactic Acid 0.7 (0.5-2.2) mmol/L Calcium (8.5-10.5) mg/dL Total Bilirubin (0.15-1.2) mg/dL AST (0-32) U/L ALT (0-33) U/L Alkaline Phosphata se (35-105) IU/L C-Reactive Protein (0.0-4.9) mg/L Total Protein (6.6-8.7) g/dL Albumin (3.5-5.2) g/dL Globulin (1.3-4.6) g/dL Influenza Type A A g Negative (Negative) Influenza Type B A g Negative (Negative) SARS-CoV-2 Ag (Rap id) Negative (Negative) Imaging Data: CXR: Attestation: I personally reviewed and interpreted this imaging study as follows: Radiologist's impression: [address] [address] XRay Report Signed Patient: Merna Mcbride #: [id number] : 1965Acct#:[id number] Age/Sex: 55 / FADM Date: 07/19/20 Loc: ERRoom/Bed: Attending Dr: Ordering Provider/Ordering MD: Greer Bear MD[place] [facility] [place] Date of Service: 07/19/20 Procedure(s): XR chest 1V portable [id number] Accession Number(s): [id number] Report Number: [id number] PROCEDURE INFORMATION: Exam: XR Chest, 1 View Exam date and time: 07/19/2020 4:56 PM Age: 55 years old Clinical indication: Shortness of breath; Additional info: SOB TECHNIQUE: Imaging protocol: XR of the chest Views: 1 view. COMPARISON: CR XR ribs RT mn 3V w CXR1V [id number] 04/03/2020 1:14 PM FINDINGS: Lungs: Unremarkable. No consolidation. Pleural spaces: Unremarkable. No pleural effusion. No pneumothorax. Heart/Mediastinum: Unremarkable. No cardiomegaly. Bones/joints: Unremarkable. XR/XR chest 1V portable [id number] IMPRESSION: No acute findings. Dictated By:Cuong Kent Signed By:Karthik Kent Date/Time:07/19/201749 DD/ 48 COVID Results: SARS-CoV-2 Antigen (Rapid) Negative (Negative) 07/19/20 17:40 07/19/20 SARS-CoV-2 RNA (RT-PCR) Not detected (NOT DETECTED) 03/10/20 16:52 03/10/20 Nasal/Oral Coronavirus 2019 PCR Pending 07/19/20 17:40 07/19/20 Discharge Plan Discharge Patient Disposition: Home Clinical Impression: Acute exacerbation of chronic obstructive pulmonary disease Condition: Stable Prescriptions: New prednisone 20 mg tablet 60 mg PO DAILY 5 Days Qty: 15 RF: 0 azithromycin 250 mg tablet See Rx Instructions .ROUTE .COMPLEX Qty: 6 RF: 0 Continued lamotrigine [Lamictal] 150 mg tablet 150 mg PO DAILY Qty: 30 RF: 2 nicotine 21 mg/24 hr patch 24 hour 1 patch transdermal Q24H Qty: 28 RF: 2 sertraline 100 mg tablet 100 mg PO BID Qty: 60 RF: 2 zolpidem [Ambien] 10 mg tablet 10 mg PO .qhs Qty: 30 RF: 2 albuterol sulfate [ProAir HFA] 90 mcg/actuation HFA aerosol inhaler 2 puff INHALATION Q6H PRN (Reason: Shortness Of Breath) Qty: 8.5 RF: 0 acetaminophen [Tylenol Extra Strength] 500 mg Tablet 2,000 mg PO PRN RF: 0 clindamycin HCl 150 mg capsule 450 mg PO BID Qty: 42 RF: 0 hydrocodone-acetaminophen 5-325 mg tablet 1 tab PO Q8H PRN (Reason: pain) Qty: 6 RF: 0 Discharge Orders: Discharge ED (Routine); Ordered 07/19/20 Ordered By: Greer Bear Discharge Diet: Usual diet Discharge Activity: Increase activity as tolerated Patient Instructions: Chronic Obstructive Pulmonary Disease (ED) Activity Restrictions/Additional Instructions: Return for any new or worsening symptoms. Follow-up with your primary care provider within 3 days. Take the medications as prescribed. It is important that you quit smoking as that will help your symptoms tremendously. Coding Level of Care Code ED Electronic [employer] Technical for Jessica Wang
[2020-07-19] MEDS: ondansetron 2 mg/ML SDV 2 mL 4 MG IVP (18:53)
[2020-07-19 18:54] VITALS: BP 126/75; PULSE 77; O2SAT 95
[2020-07-19 19:41] VITALS: BP 126/75; PULSE 64; O2SAT 96
[2020-07-19 19:42] VITALS: BP 126/75; PULSE 64; O2SAT 95
[2020-07-21 19:15] LABS: Coronavirus Test Green County Not Detected
--- NOTE | 2020-07-22 08:35 | PC.NURSE ---
PT CALLED AND NOTIFIED OF COVID RESULTS
== END 2020-07-19 19:44 | disposition home or self-care (01) ==
PROVIDERS: Emergency Provider Family Medicine
DX: J44.1 Chronic obstructive pulmonary disease with (acute) exacerbation (principal); F17.210 Nicotine dependence, cigarettes, uncomplicated
CPT/HCPCS: 71045; 80053; 83605; 85025; 85384; 86140; 87426; 87635; 87804; 96374; 99283; J2405

== ENCOUNTER → 2020-08-14 08:14 | Outpatient (BNVA) | payer MEDICARE, MEDICAID, SELFPAY | PROVIDERS: Visit Provider Psychiatry & Neurology Psychiatry | DX: F43.12 Post-traumatic stress disorder, chronic (principal); F17.219 Nicotine dependence, cigarettes, with unspecified nicotine-induced disorders; F15.21 Other stimulant dependence, in remission | CPT/HCPCS: 99214 ==

== ENCOUNTER 2020-09-16 15:12 | Emergency (ER) | payer MEDICARE, MEDICAID, SELFPAY ==
[2020-09-16 15:45] VITALS: BP 115/77; PULSE 75; RESP 18; TEMP 36.9; O2SAT 94; BMI 25.0
[2020-09-16 16:02] VITALS: BP 108/78; PULSE 65; RESP 16; O2SAT 100
--- NOTE | 2020-09-16 16:12 | ED_ITS ---
HPI - Extremity Problem General: Chief complaint: Extremity Problem,Nontraumatic Stated complaint: RUE ABSCESS Time Seen by Provider: 09/16/20 16:02 History of Present Illness: HPI Narrative: 55-year-old female presents with subcutaneous abscess of her right forearm. Patient reports that the abscess is where she injected with meth. About a week ago. She bumped it today at work I opened it up and drained out purulent material. She got some surrounding soft tissue swelling and cellulitis. She is mildly painful. She has no fevers chills or other systemic complaints Associated symptoms: Deny chest pain or fever(s) Review of Systems Const: Denies: fever(s) or chills Eyes: Denies: change in vision ENMT: Denies: throat pain Card: Denies: chest pain or palpitations Resp: Denies: dyspnea or productive cough GI: Denies: abdominal pain, nausea or vomiting : Denies: flank pain or difficulty voiding Skin/Breast: Reports: other (Please see HPI) Neuro: Denies: headache(s) PFSH ED PFSH: Medical History Bulimia nervosa Cannabis use disorder, moderate, in sustained remission Cholesteatoma of right ear Chronic low back pain Chronic migraine without aura, intractable, without status migrainosus Chronic serous otitis media, right ear COPD (chronic obstructive pulmonary disease) Hearing loss in right ear History of fracture of leg History of MRSA infection Opioid use disorder Post-traumatic stress disorder, chronic Sedative, hypnotic or anxiolytic abuse, 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 Surgical History H/O section H/O neck surgery History of colonoscopy History of facial fracture repair S/P appendectomy S/P tonsillectomy and adenoidectomy Status post colonoscopy (12/25/19) hemorrhoids , repeat 5 years Family History Other CAD (coronary artery disease) Cancer Lung disease Social History Smoking and tobacco status: current every day smoker cigarettes Packs smoked per day: 1 Alcohol intake: former Former alcohol use details: DRANK UNTIL THREW UP Other details last substance use: iv drug abuse Physical Exam Const: COMMON NORMALS: no acute distress, patient oriented x3 and no limitations Resp: COMMON NORMALS: normal respiratory effort and clear to auscultation bilaterally AUSCULTATION: clear to auscultation bilaterally Cardio: COMMON NORMALS: regular rate and regular rhythm RATE: regular rate RHYTHM: regular rhythm GI: COMMON NORMALS: Soft to palpation and non-tender PALPATION: Yes Soft to palpation Extremity: COMMON NORMALS: full ROM Neuro: COMMON NORMALS: patient oriented x3 and no focal motor deficits Psych: COMMON NORMALS: mental status grossly normal ATTITUDE: Yes calm Skin: NARRATIVE SKIN EXAM: Small subcutaneous abscess with drainage with surrounding cellulitis and erythema on the right forearm. Course Vital Signs: Vital signs: Vital Signs Temperature 98.5 F 09/16/20 15:45 Pulse Rate 65 09/16/20 16:02 Respiratory Rate 16 09/16/20 16:02 Blood Pressure 108/78 09/16/20 16:02 Pulse Oximetry 100 09/16/20 16:02 Discharge Plan Discharge Patient Disposition: Home Clinical Impression: Abscess of left upper extremity Condition: Stable Prescriptions: New clindamycin HCl 300 mg capsule 300 mg PO TID 10 Days Qty: 30 RF: 0 No Action lamotrigine [Lamictal] 150 mg tablet 150 mg PO DAILY Qty: 30 RF: 2 nicotine 21 mg/24 hr patch 24 hour 1 patch transdermal Q24H Qty: 28 RF: 2 sertraline 100 mg tablet 100 mg PO BID Qty: 60 RF: 2 zolpidem [Ambien] 10 mg tablet 10 mg PO .qhs Qty: 30 RF: 2 albuterol sulfate [ProAir HFA] 90 mcg/actuation HFA aerosol inhaler 2 puff INHALATION Q6H PRN (Reason: Shortness Of Breath) Qty: 8.5 RF: 0 acetaminophen [Tylenol Extra Strength] 500 mg Tablet 2,000 mg PO PRN RF: 0 Discharge Orders: Discharge ED (Routine); Ordered 09/16/20 Ordered By: Herbert Mike Referrals: Juan Peralta MD [Primary Care Provider] - Discharge Diet: Usual diet Discharge Activity: Resume usual activity Patient Instructions: Opioid Safety, Skin Abscess Stand Alone Forms: Work/School Release Coding Level of Care Code ED [employer] In[employer] Channeler for Jaydeng Felipe
[2020-09-16] MEDS: cefTRIAXone 1,000 MG in lidocaine 1% 2.1 ML 2.1 MG IM (16:17)
[2020-09-16 16:19] VITALS: BP 108/78; PULSE 66; RESP 16
== END 2020-09-16 16:28 | disposition home or self-care (01) ==
PROVIDERS: Emergency Provider Student in an Organized Health Care Education/Training Program; PCP Family Medicine
DX: L02.414 Cutaneous abscess of left upper limb (principal); J44.9 Chronic obstructive pulmonary disease, unspecified; F17.210 Nicotine dependence, cigarettes, uncomplicated
CPT/HCPCS: 96372; 99283; J0696

== ENCOUNTER → 2020-09-17 07:56 | Outpatient (BNVA) | payer MEDICARE, MEDICAID, SELFPAY | PROVIDERS: PCP Family Medicine; Visit Provider Psychiatry & Neurology Psychiatry | DX: F43.12 Post-traumatic stress disorder, chronic (principal); F17.219 Nicotine dependence, cigarettes, with unspecified nicotine-induced disorders; F15.20 Other stimulant dependence, uncomplicated | CPT/HCPCS: 99215 ==

== ENCOUNTER → 2020-09-24 08:28 | Outpatient (BNVA) | payer MEDICARE, MEDICAID, SELFPAY | PROVIDERS: PCP Family Medicine; Visit Provider Psychiatry & Neurology Psychiatry | DX: F43.12 Post-traumatic stress disorder, chronic (principal); F15.20 Other stimulant dependence, uncomplicated; F17.219 Nicotine dependence, cigarettes, with unspecified nicotine-induced disorders | CPT/HCPCS: 99214 ==

== ENCOUNTER → 2020-10-08 08:29 | Outpatient (BNVA) | payer MEDICARE, MEDICAID, SELFPAY | PROVIDERS: PCP Family Medicine; Visit Provider Psychiatry & Neurology Psychiatry | DX: F43.12 Post-traumatic stress disorder, chronic (principal); F17.219 Nicotine dependence, cigarettes, with unspecified nicotine-induced disorders; F15.20 Other stimulant dependence, uncomplicated | CPT/HCPCS: 99213 ==

== ENCOUNTER → 2020-10-22 07:28 | Outpatient (BNVA) | payer MEDICARE, MEDICAID, SELFPAY | PROVIDERS: PCP Family Medicine; Visit Provider Psychiatry & Neurology Psychiatry | DX: F43.12 Post-traumatic stress disorder, chronic (principal); F15.20 Other stimulant dependence, uncomplicated; F17.219 Nicotine dependence, cigarettes, with unspecified nicotine-induced disorders | CPT/HCPCS: 99214 ==

== ENCOUNTER 2020-11-08 22:06 | Emergency (ER) | payer MEDICARE, MEDICAID, SELFPAY ==
[2020-11-08 22:49] VITALS: PULSE 90; RESP 18; TEMP 36; O2SAT 94; BMI 24.7
--- NOTE | 2020-11-08 22:59 | W.ED.ANIMALB ---
HPI - Animal Bite General: Chief Complaint: Animal Bite Stated Complaint: BIT BY HER DOGS YESTERDAY, BITES NOW ARE RED Time Seen by Provider: 11/08/20 22:53 History of Present Illness: HPI narrative: Patient comes in today for injury sustained from a animal bite yesterday. Patient states today she noticed increasing swelling and redness to the left lower extremity. Patient has several markings/puncture wounds to the lower leg. Patient is weightbearing without difficulty. Patient reports that the injuries occurred when she tried to break up her dog and her friend's dog when they were fighting. complaint: animal bite Animal: dog Description of animal: household pet Mechanism: bite Review of Systems General: Reports: 10 or more systems reviewed and unremarkable except in HPI and below Skin/Breast: Reports: other (Puncture wounds with redness and swelling to left lower extremity.) [facility] ED PFSH: Medical History (Updated 11/08/20 @ 23:03 by PETRONA Saucedo) Bulimia nervosa Cannabis use disorder, moderate, in sustained remission Cholesteatoma of right ear Chronic low back pain Chronic migraine without aura, intractable, without status migrainosus Chronic serous otitis media, right ear COPD (chronic obstructive pulmonary disease) Hearing loss in right ear History of fracture of leg History of MRSA infection Opioid use disorder Post-traumatic stress disorder, chronic Psychiatric care Sedative, hypnotic or anxiolytic abuse, 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 Surgical History H/O section H/O neck surgery History of colonoscopy History of facial fracture repair S/P appendectomy S/P tonsillectomy and adenoidectomy Status post colonoscopy (12/25/19) hemorrhoids , repeat 5 years Family History Other CAD (coronary artery disease) Cancer Lung disease Social History Smoking and tobacco status: current every day smoker cigarettes Packs smoked per day: 1 Alcohol intake: former Former alcohol use details: DRANK UNTIL THREW UP Other details last substance use: iv drug abuse Physical Exam Const: COMMON NORMALS: no acute distress and patient oriented x3 GENERAL APPEARANCE: cooperative HENMT: COMMON NORMALS: normocephalic and Normal external nose present HEAD & SCALP: normal to inspection and normocephalic NOSE: Normal external nose present Eye: GENERAL EYE: appearance normal, both eyes and all related structures Neck/C-Spine: COMMON NORMALS: full ROM Chest: COMMONS NORMALS: normal inspection of the chest Resp: COMMON NORMALS: normal respiratory effort EFFORT & INSPECTION: Yes able to speak in complete sentences Cardio: COMMON NORMALS: regular rate and regular rhythm RATE: regular rate RHYTHM: regular rhythm GI: COMMON NORMALS: non-tender Extremity: NARRATIVE EXTREMITY EXAM: Redness and swelling to the left medial lower leg approximately 15 cm surrounding 3 puncture wounds to the left lower leg. Patient also has some other superficial wounds to the opposite side of the leg but without redness or swelling. Neuro: COMMON NORMALS: patient oriented x3 and moves all extremities Psych: COMMON NORMALS: mental status grossly normal and cooperative Skin: COMMON NORMALS: no rashes or lesions noted GENERAL SKIN EXAM: no rashes or lesions noted Course Vital Signs: Vital signs: Vital Signs Temperature 96.8 F L 11/08/20 22:49 Pulse Rate 90 11/08/20 22:49 Respiratory Rate 18 11/08/20 22:49 Pulse Oximetry 94 11/08/20 22:49 MDM - Animal Bite MDM Narrative: Medical decision making narrative: Patient comes in with redness and swelling to the left lower leg secondary to animal bite. On exam patient has good pulses to the lower extremity, has several of abrasions and puncture wounds to the left lower leg. 3 of them are noticeable with surrounding areas of redness and swelling. Differential diagnosis includes cellulitis, contusion, wound infection. Patient will be started on clindamycin due to her history of MRSA and to cover for animal bite. Patient's tetanus was recommended to be updated patient reported is been updated within 5 years.. Patient was recommended to stay off the extremity for the next 2 to 3 days while swelling and infection resolves. Patient reported understanding. Discharge Plan Discharge Patient Disposition: Home Clinical Impression: Dog bite Qualifiers: Encounter type: initial encounter Qualified Code(s): W54.0XXA - Bitten by dog, initial encounter Condition: Stable Prescriptions: New clindamycin HCl 150 mg capsule 450 mg PO Q8H 7 Days Qty: 63 RF: 0 No Action sertraline 100 mg tablet 100 mg PO BID Qty: 60 RF: 2 lamotrigine [Lamictal] 150 mg tablet 150 mg PO DAILY Qty: 30 RF: 2 clindamycin HCl 300 mg capsule 300 mg PO TID 7 Days Qty: 21 RF: 0 mirtazapine [Remeron] 15 mg tablet 7.5 mg PO DAILY Qty: 30 RF: 1 albuterol sulfate [ProAir HFA] 90 mcg/actuation HFA aerosol inhaler 2 puff INHALATION Q6H PRN (Reason: Shortness Of Breath) Qty: 8.5 RF: 0 acetaminophen [Tylenol Extra Strength] 500 mg Tablet 2,000 mg PO PRN RF: 0 Discharge Orders: Discharge ED (Routine); Ordered 11/08/20 Ordered By: Nestor Palafox Referrals: Lorraine Falcon DO [Primary Care Provider] - Patient Instructions: Animal Bite (ED), Opioid Safety Activity Restrictions/Additional Instructions: Home and rest. Elevate foot until swelling and redness start improving. Activity as tolerated. Drink plenty of water with medication. Follow-up with primary care in 2 days for recheck. Return to the ED for new concerns or worsening symptoms. Stand Alone Forms: Work/School Release Coding Level of Care Code ED Customer Service Professional for Jessica Wang
[2020-11-08] MEDS: clindamycin 150 mg Capsule 450 MG PO (23:31)
[2020-11-08 23:56] VITALS: BP 150/75; PULSE 80; RESP 16; TEMP 36.6; O2SAT 98
== END 2020-11-08 23:57 | disposition home or self-care (01) ==
PROVIDERS: Emergency Provider Nurse Practitioner Family; PCP Family Medicine
DX: S81.852A Open bite, left lower leg, initial encounter (principal); W54.0XXA Bitten by dog, initial encounter; Z86.14 Personal history of Methicillin resistant Staphylococcus aureus infection; J44.9 Chronic obstructive pulmonary disease, unspecified; F17.210 Nicotine dependence, cigarettes, uncomplicated
CPT/HCPCS: 99282

== ENCOUNTER → 2020-11-12 07:12 | Outpatient (BNVA) | payer MEDICARE, MEDICAID, SELFPAY | PROVIDERS: PCP Family Medicine; Visit Provider Psychiatry & Neurology Psychiatry | DX: F43.12 Post-traumatic stress disorder, chronic (principal); F15.929 Other stimulant use, unspecified with intoxication, unspecified; F15.20 Other stimulant dependence, uncomplicated; F17.219 Nicotine dependence, cigarettes, with unspecified nicotine-induced disorders | CPT/HCPCS: 99214 ==

== ENCOUNTER → 2020-11-14 07:15 | Outpatient (BNVA) | payer MEDICARE, MEDICAID, SELFPAY | PROVIDERS: PCP Family Medicine; Visit Provider Psychiatry & Neurology Psychiatry | DX: F43.12 Post-traumatic stress disorder, chronic (principal); F17.219 Nicotine dependence, cigarettes, with unspecified nicotine-induced disorders; F15.20 Other stimulant dependence, uncomplicated | CPT/HCPCS: 99214 ==

== ENCOUNTER → 2020-12-05 09:25 | Outpatient (BNVA) | payer MEDICARE, MEDICAID, SELFPAY | PROVIDERS: PCP Family Medicine; Visit Provider Psychiatry & Neurology Psychiatry | DX: F17.219 Nicotine dependence, cigarettes, with unspecified nicotine-induced disorders (principal); F43.12 Post-traumatic stress disorder, chronic; F15.20 Other stimulant dependence, uncomplicated | CPT/HCPCS: 99213 ==

== ENCOUNTER 2021-01-19 14:04 | Outpatient (CLI) | payer MEDICARE, MEDICAID, SELFPAY ==
--- NOTE | 2021-01-19 14:16 | XR_ITS ---
WS: [id number] Exam: XR foot RT min 3V* [id number] Date/Time of Exam: 01/19/2021 2:16 PM Reason For Exam: right foot injury There appears to be a nondisplaced fracture of the distal end of the proximal phalanx of the fifth to e. Fracture age is difficult to determine but this could be a recent fracture. No other sign of fract ure. No soft tissue foreign bodies. Small plantar heel spur. XR/XR foot RT min 3V* [id number] IMPRESSION: 1. Nondisplaced fracture of the distal end of the proximal phalanx of the fifth toe. Fracture age is difficult to determine but this could be relatively recen t. No other sign of fracture.
== END 2021-01-19 14:05 | disposition home or self-care (01) ==
PROVIDERS: PCP Family Medicine; Visit Provider Registered Nurse Neonatal Intensive Care
DX: S99.921A Unspecified injury of right foot, initial encounter (principal); X58.XXXA Exposure to other specified factors, initial encounter
CPT/HCPCS: 73630

== ENCOUNTER → 2021-01-28 07:15 | Outpatient (BNVA) | payer MEDICARE, MEDICAID, SELFPAY | PROVIDERS: PCP Family Medicine; Visit Provider Psychiatry & Neurology Psychiatry | DX: F43.12 Post-traumatic stress disorder, chronic (principal); F17.219 Nicotine dependence, cigarettes, with unspecified nicotine-induced disorders; F15.20 Other stimulant dependence, uncomplicated | CPT/HCPCS: 99214 ==

== ENCOUNTER → 2021-02-03 09:33 | Outpatient (BNVA) | payer MEDICARE, MEDICAID, SELFPAY | PROVIDERS: PCP Family Medicine; Visit Provider Nurse Practitioner Family | DX: Z20.822 Contact with and (suspected) exposure to COVID-19 (principal) | CPT/HCPCS: 87635 ==

== ENCOUNTER 2021-02-08 17:04 | Emergency (ER) | payer MEDICARE, MEDICAID, SELFPAY ==
[2021-02-08 17:19] VITALS: BP 113/67; PULSE 85; RESP 15; TEMP 36.5; O2SAT 96; BMI 21.2
[2021-02-08 20:43] LABS: Add Urine Microscopic? YES; Bilirubin Urine Neg (Negative); Blood Urine Trace (Negative); Glucose Urine UA Norm (Normal); HCG Qualitative Urine. Negative (Negative); Ketones Urine Negative (Negative); Leukocyte Esterase Urine 2+ (Negative); Nitrate Urine Negative (Negative); Protein Urine Neg (Negative); Urine Appearance SL Hazy (CLEAR); Urine Color Yellow (Yellow); Urobilinogen Urine 1 mg/dL (Negative); pH Urine 7 (5-7)
[2021-02-08 20:45] LABS: Add Urine Culture? No; Bacteria Urine 2+ /hpf; Mucus Urine 1+ /hpf; RBC Urine 0-4 /hpf (0-2); Squamous Epithelial Cell Urine 15-25 /hpf (0-5); WBC Urine 80-100 /hpf (0-5)
== END 2021-02-08 22:54 | disposition left against medical advice (07) ==
LOC: ER 17:36
PROVIDERS: Emergency Medicine; PCP Family Medicine
DX: Z53.21 Procedure and treatment not carried out due to patient leaving prior to being seen by health care provider (principal)
CPT/HCPCS: 81001; 81025

== ENCOUNTER 2021-02-09 12:31 | Emergency (ER) | payer MEDICARE, MEDICAID, SELFPAY ==
[2021-02-09 13:42] VITALS: BP 105/69; PULSE 84; RESP 16; TEMP 36.8; O2SAT 94; BMI 21.4
--- NOTE | 2021-02-09 13:56 | W.ED.FEMALGU ---
HPI - Female Genitourinary General: Chief complaint: Abdominal Pain Stated complaint: Unable to urinate, loss of appetite Time Seen by Provider: 02/09/21 13:49 History of Present Illness: HPI Narrative: Patient states she is having some burning with urination little bit more difficult to urinate. Had intercourse without condom here couple weeks ago and she is worried she might have an STD. Has clear discharge and also is having decreased bowel movement she has history of constipation but said the last week she had minimal bowel movements denies abdominal pain fever chills nausea or vomiting. MD elicited complaint: dysuria and other (Constipation) Onset (ago): day(s) Severity: mild Severity scale (1-10): 1 Vaginal discharge: other (Clear) Urinary symptoms: Dysuria Associated symptoms: Reports no associated symptoms; Deny abdominal pain, headache(s) or nausea Review of Systems Const: Denies: fever(s), chills or body aches Eyes: Denies: change in vision or blurry vision ENMT: Denies: throat pain or nasal congestion Card: Denies: chest pain or dyspnea on exertion Resp: Denies: dyspnea, productive cough or non-productive cough GI: Reports: constipation; Denies: abdominal pain, nausea or vomiting : Reports: difficulty voiding and dysuria Musc: Denies: extremity pain Skin/Breast: Denies: rash Neuro: Denies: headache(s) Psych: Denies: anxiety or depression Ted/Lymph: Denies: easy bruising PFS ED PFSH: Medical History Bulimia nervosa Cannabis use disorder, moderate, in sustained remission Cholesteatoma of right ear Chronic low back pain Chronic migraine without aura, intractable, without status migrainosus Chronic serous otitis media, right ear COPD (chronic obstructive pulmonary disease) Hearing loss in right ear History of fracture of leg History of MRSA infection Opioid use disorder Post-traumatic stress disorder, chronic Psychiatric care Psychiatric care Sedative, hypnotic or anxiolytic abuse, 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 Surgical History H/O section H/O neck surgery History of colonoscopy History of facial fracture repair S/P appendectomy S/P tonsillectomy and adenoidectomy Status post colonoscopy (12/25/19) hemorrhoids , repeat 5 years Family History Other CAD (coronary artery disease) Cancer Lung disease Social History Smoking and tobacco status: current every day smoker cigarettes Packs smoked per day: 1 Alcohol intake: former Former alcohol use details: DRANK UNTIL THREW UP Other details last substance use: iv drug abuse Physical Exam Const: COMMON NORMALS: no acute distress, average body habitus and patient oriented x3 HENMT: COMMON NORMALS: normocephalic HEAD & SCALP: normal to inspection and normocephalic FACE & SINUS: normal facial exam Eye: COMMON NORMALS: conjunctivae normal GENERAL EYE: appearance normal, both eyes and all related structures CONJUNCTIVA: Yes conjunctivae normal Neck/C-Spine: COMMON NORMALS: no JVD Chest: COMMONS NORMALS: normal inspection of the chest Resp: COMMON NORMALS: normal respiratory effort Cardio: COMMON NORMALS: no JVD, regular rate and regular rhythm RATE: regular rate RHYTHM: regular rhythm GI: INSPECTION: Yes normal to inspection Extremity: COMMON NORMALS: normal to inspection and full ROM Neuro: COMMON NORMALS: patient oriented x3 Psych: COMMON NORMALS: mental status grossly normal Course Vital Signs: Vital signs: Vital Signs Temperature 98.3 F 02/09/21 13:42 Pulse Rate 84 02/09/21 13:42 Respiratory Rate 16 02/09/21 13:42 Blood Pressure 105/69 02/09/21 13:42 Pulse Oximetry 94 02/09/21 13:42 Discharge Plan Discharge Patient Disposition: Home Clinical Impression: Exposure to STD Constipation Qualifiers: Constipation type: slow transit constipation Qualified Code(s): K59.01 - Slow transit constipation Condition: Stable Prescriptions: New azithromycin 1 gram packet 1 g PO DAILY Qty: 1 RF: 0 Flagyl 500 mg tablet 500 mg PO BID 7 Days Qty: 14 RF: 0 lactulose 10 gram/15 mL solution 10 g PO DAILY PRN (Reason: constipation) Qty: 237 RF: 0 No Action doxycycline hyclate 100 mg tablet 100 mg PO BID 7 Days Qty: 14 RF: 0 trazodone 150 mg tablet 150 mg PO .qhs Qty: 30 RF: 2 lamotrigine [Lamictal] 150 mg tablet 150 mg PO DAILY Qty: 1 RF: 2 sertraline 100 mg tablet 200 mg PO DAILY Qty: 60 RF: 2 albuterol sulfate [ProAir HFA] 90 mcg/actuation HFA aerosol inhaler 2 puff INHALATION Q6H PRN (Reason: Shortness Of Breath) Qty: 8.5 RF: 0 acetaminophen [Tylenol Extra Strength] 500 mg Tablet 2,000 mg PO PRN RF: 0 Discharge Orders: Discharge ED (Routine); Ordered 02/09/21 Ordered By: Aron Mittal Referrals: Lorraine Falcon DO [Primary Care Provider] - Discharge Diet: Usual diet and As Directed Discharge Activity: Increase activity as tolerated Patient Instructions: Constipation (ED), Sexually Transmitted Diseases (ED), Safe Sex (ED) Activity Restrictions/Additional Instructions: Follow-up with medical provider as directed. Take medications as prescribed. Return to the ER or your medical provider if condition worsens. Please read and understand discharge instructions. If any questions ask please. Call back to laboratory in 24-48 hrs. to get results of testing. Coding Level of Care Code ED Public Address System Operator for Jessica Wang
[2021-02-09 14:18] VITALS: BP 108/72; PULSE 82; RESP 18; TEMP 36.7; O2SAT 95
[2021-02-09 15:00] LABS: Add Urine Microscopic? YES; Bilirubin Urine Neg (Negative); Blood Urine 3+ (Negative); Glucose Urine UA Norm (Normal); Ketones Urine Negative (Negative); Leukocyte Esterase Urine 2+ (Negative); Nitrate Urine Positive (Negative); Protein Urine Neg (Negative); Specific Gravity, Urine 1.015 (1.005-1.030); Urine Appearance Cloudy (CLEAR); Urine Color Yellow (Yellow); Urobilinogen Urine Norm (Negative); WBC Urine TOO NUMEROUS TO CNT /hpf (0-5); pH Urine 6 (5-7)
[2021-02-09 15:01] LABS: Add Urine Culture? Yes; Bacteria Urine 2+ /hpf
--- NOTE | 2021-02-12 08:08 | PC.NURSE ---
left message for pt to call back and receive critical test results
== END 2021-02-09 14:23 | disposition home or self-care (01) ==
PROVIDERS: Emergency Provider Nurse Practitioner Family; PCP Family Medicine
DX: K59.01 Slow transit constipation (principal); Z20.2 Contact with and (suspected) exposure to infections with a predominantly sexual mode of transmission; J44.9 Chronic obstructive pulmonary disease, unspecified; F17.210 Nicotine dependence, cigarettes, uncomplicated; R30.9 Painful micturition, unspecified; Z79.899 Other long term (current) drug therapy
CPT/HCPCS: 81001; 87086; 87491; 87591; 99282

== ENCOUNTER → 2021-03-25 08:02 | Outpatient (BNVA) | payer MEDICARE, MEDICAID, SELFPAY | PROVIDERS: PCP Family Medicine; Visit Provider Psychiatry & Neurology Psychiatry | DX: F43.12 Post-traumatic stress disorder, chronic (principal); F15.20 Other stimulant dependence, uncomplicated; M54.41 Lumbago with sciatica, right side; M54.42 Lumbago with sciatica, left side; G89.29 Other chronic pain; F17.219 Nicotine dependence, cigarettes, with unspecified nicotine-induced disorders; F12.10 Cannabis abuse, uncomplicated | CPT/HCPCS: 99214 ==

== ENCOUNTER 2021-03-26 21:03 | Emergency (ER) | payer MEDICARE, MEDICAID, SELFPAY ==
[2021-03-26 21:08] VITALS: BMI 22.8
--- NOTE | 2021-03-26 21:13 | W.ED.PSYCH ---
HPI - Psych General: Chief Complaint: General Medical Stated Complaint: MHE Time Seen by Provider: 03/26/21 21:09 Source: patient and EMS Mode of arrival: EMS Limitations: no limitations History of Present Illness: HPI Narrative: 55-year-old female has history of methamphetamine abuse who was brought in by EMS. She states that people left her and she called the neighbor Andrae called EMS because she had made a statement about hurting herself or others. Patient did not admit to suicidality or homicidality to EMS patient adamantly denies being suicidal homicidal she does see [facility] [place] she did see Daniel Wilkinson yesterday she denies any worsening improving factors. Review of Systems Const: Denies: fever(s), chills, body aches or change in appetite Eyes: Denies: blurry vision or eye discomfort ENMT: Denies: throat pain or dental pain Card: Denies: chest pain Resp: Denies: dyspnea GI: Denies: abdominal pain, nausea, vomiting or diarrhea : Denies: dysuria Musc: Denies: neck pain or back pain Skin/Breast: Denies: rash Neuro: Denies: headache(s) Psych: Reports: anxiety Ted/Lymph: Denies: easy bruising All/Imm: Denies: urticaria PFSH ED PFSH: Medical History Bulimia nervosa Cannabis use disorder, moderate, in sustained remission Cholesteatoma of right ear Chronic low back pain Chronic migraine without aura, intractable, without status migrainosus Chronic serous otitis media, right ear COPD (chronic obstructive pulmonary disease) Hearing loss in right ear History of fracture of leg History of MRSA infection Opioid use disorder Post-traumatic stress disorder, chronic Psychiatric care Psychiatric care Sedative, hypnotic or anxiolytic abuse, 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 Surgical History H/O section H/O neck surgery History of colonoscopy History of facial fracture repair S/P appendectomy S/P tonsillectomy and adenoidectomy Status post colonoscopy (12/25/19) hemorrhoids , repeat 5 years Family History Other CAD (coronary artery disease) Cancer Lung disease Social History Smoking and tobacco status: current every day smoker cigarettes Packs smoked per day: 1 Alcohol intake: former Former alcohol use details: DRANK UNTIL THREW UP Other details last substance use: iv drug abuse Physical Exam Const: COMMON NORMALS: no acute distress, patient oriented x3 and healthy appearing HENMT: COMMON NORMALS: normocephalic and atraumatic HEAD & SCALP: normocephalic and atraumatic Eye: COMMON NORMALS: Equal, round and reactive pupils present and EOMs intact bilaterally PUPIL: Yes Equal, round and reactive pupils present Neck/C-Spine: COMMON NORMALS: full ROM and supple Chest: COMMONS NORMALS: normal inspection of the chest and normal palpation of entire chest wall Resp: COMMON NORMALS: normal respiratory effort, No retractions, No use of accessory muscles and clear to auscultation bilaterally AUSCULTATION: clear to auscultation bilaterally Cardio: COMMON NORMALS: regular rate, regular rhythm and No murmurs present (Cardio) RATE: regular rate RHYTHM: regular rhythm GI: COMMON NORMALS: Normal to inspection, nondistended, normoactive bowel sounds present, Soft to palpation, non-tender and no masses PALPATION: Yes Soft to palpation Extremity: COMMON NORMALS: normal to inspection and full ROM Neuro: COMMON NORMALS: patient oriented x3, moves all extremities and no focal motor deficits Psych: COMMON NORMALS: mental status grossly normal, Normal thought process present and cooperative MOOD & AFFECT: Yes anxious THOUGHT PROCESS: Normal thought process present Skin: COMMON NORMALS: no rashes or lesions noted and no wounds GENERAL SKIN EXAM: no rashes or lesions noted MDM - Psych MDM Narrative: Medical decision making narrative: Patient presents here originally with some agitation. 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 She states that she was just very angry at the time as she was left at [facility] without a ride exam and denied being suicidal homicidal to me she just seen her psychiatrist yesterday. I did have her evaluated by Dr. Boykin as well who agrees she is not a threat to herself or others and feels that she is stable for discharge she is to follow-up with psychiatry as scheduled and return if worsening she understands and agrees to plan and has been agreeable and cooperative here. Discharge Plan Discharge Patient Disposition: Home Clinical Impression: Anxiety Condition: Stable Prescriptions: No Action doxycycline hyclate 100 mg tablet 100 mg PO BID 7 Days Qty: 14 RF: 0 trazodone 150 mg tablet 150 mg PO .qhs Qty: 30 RF: 2 lamotrigine [Lamictal] 150 mg tablet 150 mg PO DAILY Qty: 1 RF: 2 sertraline 100 mg tablet 200 mg PO DAILY Qty: 60 RF: 2 sulfamethoxazole-trimethoprim [Bactrim DS] 800-160 mg tablet 1 tab PO BID 10 Days Qty: 20 RF: 0 albuterol sulfate [ProAir HFA] 90 mcg/actuation HFA aerosol inhaler 2 puff INHALATION Q6H PRN (Reason: Shortness Of Breath) Qty: 8.5 RF: 0 lactulose 10 gram/15 mL solution 10 g PO DAILY PRN (Reason: constipation) Qty: 237 RF: 0 acetaminophen [Tylenol Extra Strength] 500 mg Tablet 2,000 mg PO PRN RF: 0 Discharge Orders: Discharge ED (Routine); Ordered 03/26/21 Ordered By: Sung Burris Referrals: Lorraine Falcon DO [Primary Care Provider] - Discharge Diet: Advance as tolerated Discharge Activity: Resume usual activity Patient Instructions: Anxiety (ED) Coding Level of Care Code ED Election Assistant for Jaydeng Fwd Exam Comprehensive
--- NOTE | 2021-03-26 21:38 | PC.NURSE ---
Pt. is refusing to allow anything to be done and denies all complaints.
[2021-03-26 22:05] VITALS: RESP 20
== END 2021-03-26 22:05 | disposition home or self-care (01) ==
PROVIDERS: Emergency Provider Emergency Medicine; PCP Family Medicine
DX: F41.9 Anxiety disorder, unspecified (principal); F12.21 Cannabis dependence, in remission; F15.11 Other stimulant abuse, in remission; F11.90 Opioid use, unspecified, uncomplicated; J44.9 Chronic obstructive pulmonary disease, unspecified; F17.210 Nicotine dependence, cigarettes, uncomplicated
CPT/HCPCS: 99281

== ENCOUNTER 2021-05-21 10:59 | Emergency (ER) | payer BC, MEDICAID, SELFPAY ==
[2021-05-21 11:15] VITALS: BP 95/65; PULSE 66; RESP 16; TEMP 36.6; O2SAT 96; BMI 23.0
--- NOTE | 2021-05-21 12:13 | ED_ITS ---
HPI - Chest Pain General: Chief Complaint: Chest Pain Stated Complaint: CHEST PAINS Time Seen by Provider: 05/21/21 12:13 History of Present Illness: HPI narrative: Ms Mcbride is a 55-year-old lady with history of psychiatric disorder who presents to the emergency department due to chest pain. Symptom onset was approximately 2 weeks ago. There was no specific provoking factor that she can think of other than increased stress. She describes pressure in the anterior chest without radiation. No worsening of her baseline shortness of breath, she does have a history of tobaccoism, no cough. No other typical cardiac features. Symptoms have been intermittent and she tried to get into her PCP however was unable to. Overall the intensity set of symptoms when present is moderate. Course has persisted. No other specific changes in health, exacerbating, or relieving factors. I did discuss the patient's reported cuts on her wrists. She has a very longstanding history of cutting as behavior when she gets stressed. She adamantly denies suicidal or homicidal ideation. She has never used cutting as a suicide attempt. She follows closely with her psychiatric care team and feels that her psychiatric symptoms are at baseline. Review of Systems General: Reports: 10 or more systems reviewed and unremarkable except in HPI and below PFSH ED PFSH: Medical History Bulimia nervosa Cannabis use disorder, moderate, in sustained remission Cholesteatoma of right ear Chronic low back pain Chronic migraine without aura, intractable, without status migrainosus Chronic serous otitis media, right ear COPD (chronic obstructive pulmonary disease) Hearing loss in right ear History of fracture of leg History of MRSA infection Opioid use disorder Post-traumatic stress disorder, chronic Psychiatric care Psychiatric care Sedative, hypnotic or anxiolytic abuse, 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 Eyes - PERRL, no conjunctival injection ENMT - Atraumatic external nose and ears. Moist mucous membranes NECK - supple. trachea midline CARDIOVASCULAR - regular rate and rhythm. Normal peripheral perfusion RESPIRATORY -diminished to auscultation bilaterally. No retractions or accessory muscle use. ABDOMEN/GI - Nontender/Nondistended. MSK - Extremities without obvious deformity or tenderness to palpation SKIN - Warm, Dry. Numerous transversely oriented old and superficial new cuts on forearms. NEURO - alert and appropriately oriented. Moves all extremities equally. PSYCH - anxious Course ED course: - Patient was seen and evaluated by me at bedside - Patient placed on cardiac monitors, IV access obtained - Initial evaluation notable for exam as above -Treatment ordered - Labs notable for no acute hematologic or metabolic derangement to explain symptoms. Initial troponin is normal with greater than 6 hours of symptoms and therefore does not require repeat - Imaging notable for negative chest - Upon serial reexamination after treatment the patient was mildly improved - Based on patient history, evaluation, labs, and imaging as interpreted the most likely cause of the patient's condition is chest pain of unclear etiology with moderate risk heart score - The results of ED evaluation were discussed with the patient including potential disposition. I discussed heart score methodology and risk stratification. I offered admission however also discussed outpatient follow- up, patient prefers outpatient follow-up. Case management messaged. I discussed prescriptions and/or symptomatic cares (if applicable) including appropriate and responsible use, followup plan, and return precautions. The patient verbalized understanding and felt safe for discharge. - Patient discharged in satisfactory condition. Vital Signs: Vital signs: Vital Signs Temperature 97.9 F 05/21/21 11:15 Pulse Rate 72 05/21/21 14:38 Respiratory Rate 18 05/21/21 14:25 Blood Pressure 101/46 05/21/21 14:25 Pulse Oximetry 96 05/21/21 14:38 MDM - Chest Pain Medical Records: Attestation: I reviewed the patient's medical records. Lab Data: Attestation: I reviewed the patient's lab results. Labs: Lab Results 05/21/21 05/21/21 05/21/21 12:45 12:45 12:45 WBC 5.8 10^3/uL 10^3/ uL (4.0-10.0) RBC 4.94 10^6/uL 10^6 /uL (4.1-5.3) Hgb 15.1 g/dL g/dL (11.5-15.3) Hct 44.1 % % (37.0-47.0) MCV 89.3 fl fl (81-99) MCH 30.6 pg pg (28.0-34.0) MCHC 34.2 g/dL g/dL (30.0-36.0) RDW 12.2 % % (12.1-15.1) Plt Count 188 10^3/cmm 10^3 /cmm (130-400) MPV 11.5 fL H fL (7.4-10.4) Neut % (Auto) 59.8 % % Lymph % (Auto) 26.2 % % [place] % (Auto) 8.1 % % Eos % (Auto) 4.8 % % Baso % (Auto) 0.9 % % Neut # (Auto) 3.48 10^3/uL 10^3 /uL (1.8-7.7) Lymph # (Auto) 1.5 10^3/uL 10^3/ uL (0.8-4.8) [place] # (Auto) 0.5 10^3/uL 10^3/ uL (0.2-0.9) Eos # (Auto) 0.3 10^3/uL 10^3/ uL (0.0-0.8) Baso # (Auto) 0.1 10^3/uL 10^3/ uL (0.0-0.1) Nucleated RBC % (a uto) 0 % % Nucleated RBCs # 0.0 /100WBC /100W BC Sodium 137 mmol/L mmol/L (136-145) Potassium 4.2 mmol/L mmol/L (3.5-5.1) Chloride 100 mmol/L mmol/L (98-107) Carbon Dioxide 23 mmol/L mmol/L (22-29) Anion Gap 18.2 (5-19) BUN 10 mg/dL mg/dL (6-20) Creatinine 0.6 mg/dL mg/dL (0.5-0.9) GFR Calculation 103.0 mL/min mL/m in (90-130) Glucose 77 mg/dL mg/dL (65-115) Calculated Osmolal ity 282 mOsm/kg L mOs m/kg (285-295) Calcium 9.1 mg/dL mg/dL (8.5-10.5) Troponin T Baselin e 6 ng/L ng/L (0-10) Lipase 67 U/L H U/L (13-60) EKG Data^: EKG 1: Attestation: I personally reviewed and interpreted this EKG as follows: EKG interpretation date: 05/21/21 EKG interpretation time: 11:20 Interpretation: twelve-lead EKG shows a regular rhythm at a rate of 67. IA interval 122, QRS duration 85, QTc 397. Normal axis. Interpretation: Sinus rhythm EKG 2: Attestation: I personally reviewed and interpreted this EKG as follows: EKG interpretation date: 05/21/21 EKG interpretation time: 14:32 Interpretation: Twelve-lead EKG shows a regular rhythm at a rate of 65. IA interval 134, QRS duration 84, QTc 412. Normal axis. Interpretation: Sinus rhythm. Discharge Plan Discharge Patient Disposition: Home Clinical Impression: Chest pain Condition: Stable Prescriptions: No Action lamotrigine [Lamictal] 150 mg tablet 150 mg PO DAILY Qty: 1 RF: 2 sertraline 100 mg tablet 200 mg PO DAILY Qty: 60 RF: 2 trazodone 150 mg tablet 150 mg PO .qhs Qty: 30 RF: 2 albuterol sulfate [ProAir HFA] 90 mcg/actuation HFA aerosol inhaler 2 puff INHALATION Q6H PRN (Reason: Shortness Of Breath) Qty: 8.5 RF: 0 lactulose 10 gram/15 mL solution 10 g PO DAILY PRN (Reason: constipation) Qty: 237 RF: 0 acetaminophen [Tylenol Extra Strength] 500 mg Tablet 2,000 mg PO PRN RF: 0 Discharge Orders: Discharge ED (Routine); Ordered 05/21/21 Ordered By: Mic Brennan Referrals: Lorraine Falcon DO [Primary Care Provider] - Discharge Diet: Usual diet Discharge Activity: Resume usual activity Patient Instructions: Chest Pain (ED), Opioid Safety Activity Restrictions/Additional Instructions: Thank you for visiting the emergency department. You were seen and evaluated for chest pain. The exact cause of your symptoms is somewhat unclear though does not require inpatient evaluation at this time. Please follow-up with your primary care provider. I will message our telephonic nurse case manager for outpatient stress test for cardiac evaluation. Return to the emergency department for worsening symptoms or anything else that you are concerned about and feel needs emergency department evaluation. Coding Level of Care Code ED Supervisor Costuming for Jessica Wang
--- NOTE | 2021-05-21 12:22 | XRR_ITS ---
PROCEDURE INFORMATION: Exam: XR Chest Exam date and time: 05/21/2021 12:22 PM Age: 55 years old Clinical indication: Pain; Shortness of breath; Angina pectoris; Prior surgery; Surgery type: RT breast abscess; Additional info: Chest pain TECHNIQUE: Imaging protocol: XR of the chest. Views: 1 view. COMPARISON: CR XR chest 1V portable [id number] 07/19/2020 5:10 PM FINDINGS: Lungs: Unremarkable. No consolidation. Pleural spaces: Unremarkable. No pleural effusion. No pneumothorax. Heart/Mediastinum: Unremarkable. No cardiomegaly. Bones/joints: Unremarkable. XR/XR chest 1V portable [id number] IMPRESSION: No acute cardiopulmonary abnormality.
--- NOTE | 2021-05-21 12:22 | ECG_ITS ---
[facility] Test Date: 2021-05-21 Pat Name: Merna Mcbride Department: Room: Gender: Female Rap Artist: : 1965 Requested By: Mic Brennan Order Number: [id number] Nate MD: Abiel Herrmann M.D. Measurements Intervals [place] Rate: 67 P: 69 FL: 122 QRS: 72 QRSD: 85 T: 53 QT: 382 QTc: 405 Interpretive Statements SINUS RHYTHM Compared to ECG 11/22/2019 05:17:10 Sinus bradycardia no longer present Sinus arrhythmia no longer present Electronically Signed On 05-21-2021 20:38:58 FIRE APPARATUS SPRINKLER INSPECTOR by Abiel Herrmann M.D. [id number]
[2021-05-21 12:47] VITALS: BP 115/63; PULSE 63; RESP 22; O2SAT 100
[2021-05-21] MEDS: fentaNYL 50 mcg/mL INJ 2mL IVP ×2 (12:52→14:24)
[2021-05-21 12:54] LABS: Basophils # 0.1 10^3/uL (0.0-0.1); Basophils % 0.9 %; Eosinophils # 0.3 10^3/uL (0.0-0.8); Eosinophils % 4.8 %; Hematocrit 44.1 % (37.0-47.0); Hemoglobin 15.1 g/dL (11.5-15.3); Lymphocytes # 1.5 10^3/uL (0.8-4.8); Lymphocytes % 26.2 %; Mean Corpuscular HGB Conc 34.2 g/dL (30.0-36.0); Mean Corpuscular Hemoglobin 30.6 pg (28.0-34.0); Mean Corpuscular Volume 89.3 fl (81-99); Mean Platelet Volume 11.5 fL (7.4-10.4); Monocytes # 0.5 10^3/uL (0.2-0.9); Monocytes % 8.1 %; Neutrophils # 3.48 10^3/uL (1.8-7.7); Neutrophils % 59.8 %; Nucleated Red Blood Cells % 0 %; Platelet Count 188 10^3/cmm (130-400); Red Blood Count 4.94 10^6/uL (4.1-5.3); Red Cell Distribution Width 12.2 % (12.1-15.1); White Blood Count 5.8 10^3/uL (4.0-10.0)
[2021-05-21 13:17] LABS: Anion Gap 18.2 (5-19); Blood Urea Nitrogen 10 mg/dL (6-20); Calcium 9.1 mg/dL (8.5-10.5); Carbon Dioxide 23 mmol/L (22-29); Chloride 100 mmol/L (98-107); Glucose 77 mg/dL (65-115); Lipase 67 U/L (13-60); Osmolality Calculated 282 mOsm/kg (285-295); Potassium 4.2 mmol/L (3.5-5.1); Sodium 137 mmol/L (136-145)
[2021-05-21 13:18] LABS: Troponin(5th) Baseline 6 ng/L (0-10)
--- NOTE | 2021-05-21 14:22 | ECG_ITS ---
[facility] Test Date: 2021-05-21 Pat Name: Merna Mcbride Department: Room: Gender: Female Lead Electrical Engineer: : 1965 Requested By: Mic Brennan Order Number: [id number] Nate MD: Abiel Herrmann M.D. Measurements Intervals [place] Rate: 65 P: 67 CO: 134 QRS: 78 QRSD: 84 T: 61 QT: 401 QTc: 418 Interpretive Statements SINUS RHYTHM Compared to ECG 11/22/2019 05:17:10 Sinus bradycardia no longer present Sinus arrhythmia no longer present Electronically Signed On 05-21-2021 20:40:13 HAND ROUNDER by Abiel Herrmann M.D. [id number]
[2021-05-21] MEDS: pantoprazole 40 mg SDV IVP (14:23)
[2021-05-21 14:25] VITALS: BP 101/46; PULSE 76; RESP 18; O2SAT 985
[2021-05-21 14:38] VITALS: PULSE 72; O2SAT 96
--- NOTE | 2021-05-22 04:57 | DCPLANNER ---
Addendum entered by Cecilia Leslie 07/25/21 11:16: information management manager was notified by centralized scheduling about patients order for stress test and echo. information management manager tried to call patient to inform patient of this, unable to reach patient. Per Patient?s Ins (BC MCR ADV) the above does not meet medical criteria due to being ordered by ER Physician. They require tests to be ordered by Patient?s PCP Original Note: information management manager had message to schedule an out patient stress test and echo for patient. information management manager faxed signed order to centralized scheduling, who will call patient with appointment information.
== END 2021-05-21 14:40 | disposition home or self-care (01) ==
PROVIDERS: Emergency Provider Emergency Medicine; PCP Family Medicine
DX: R07.9 Chest pain, unspecified (principal); J44.9 Chronic obstructive pulmonary disease, unspecified; F17.210 Nicotine dependence, cigarettes, uncomplicated
CPT/HCPCS: 71045; 80048; 83690; 84484; 85025; 93005; 96374; 96375; 96376; 99284; C9113; J3010

== ENCOUNTER 2021-05-23 16:29 | Emergency (ER) | payer MEDICARE, MEDICAID, SELFPAY ==
[2021-05-23 16:40] VITALS: BP 105/68; PULSE 75; RESP 16; TEMP 37.1; O2SAT 100
--- NOTE | 2021-05-23 16:54 | XRR_ITS ---
PROCEDURE INFORMATION: Exam: XR Chest Exam date and time: 05/23/2021 4:54 PM Age: 55 years old Clinical indication: Angina; Additional info: Chest pain TECHNIQUE: Imaging protocol: XR of the chest. Views: 1 view. COMPARISON: CR XR chest 1V portable [id number] 05/21/2021 12:29 PM FINDINGS: Lungs: Unremarkable. No consolidation. Pleural spaces: Unremarkable. No pleural effusion. No pneumothorax. Heart/Mediastinum: Unremarkable. No cardiomegaly. Bones/joints: Unremarkable. XR/XR chest 1V portable [id number] IMPRESSION: No acute findings.
[2021-05-23] MEDS: aspirin 81 mg Chew Tablet 324 MG PO (17:16)
[2021-05-23 17:22] VITALS: BP 90/57; PULSE 70; O2SAT 97
[2021-05-23 17:33] VITALS: BP 116/61; PULSE 64; O2SAT 98
[2021-05-23 17:51] LABS: Basophils # 0.1 10^3/uL (0.0-0.1); Basophils % 0.8 %; Eosinophils # 0.3 10^3/uL (0.0-0.8); Eosinophils % 4.5 %; Hematocrit 37.3 % (37.0-47.0); Hemoglobin 12.4 g/dL (11.5-15.3); Lymphocytes # 1.5 10^3/uL (0.8-4.8); Lymphocytes % 24.4 %; Mean Corpuscular HGB Conc 33.2 g/dL (30.0-36.0); Mean Corpuscular Hemoglobin 30.1 pg (28.0-34.0); Mean Corpuscular Volume 90.5 fl (81-99); Mean Platelet Volume 11.5 fL (7.4-10.4); Monocytes # 0.5 10^3/uL (0.2-0.9); Monocytes % 8.4 %; Neutrophils % 61.9 %; Nucleated Red Blood Cells % 0 %; Platelet Count 160 10^3/cmm (130-400); Red Blood Count 4.12 10^6/uL (4.1-5.3)
[2021-05-23 18:08] LABS: Troponin(5th) Baseline 6 ng/L (0-10)
[2021-05-23 18:10] LABS: Alanine Aminotransferase 21 U/L (0-33); Albumin Level 3.9 g/dL (3.5-5.2); Alkaline Phosphatase 93 IU/L (35-105); Anion Gap 15.3 (5-19); Aspartate Amino Transferase 18 U/L (0-32); Blood Urea Nitrogen 15 mg/dL (6-20); Calcium 8.7 mg/dL (8.5-10.5); Carbon Dioxide 23 mmol/L (22-29); Chloride 106 mmol/L (98-107); Globulin 2.8 g/dL (1.3-4.6); Glucose 89 mg/dL (65-115); Lipase 44 U/L (13-60); Osmolality Calculated 290 mOsm/kg (285-295); Potassium 4.3 mmol/L (3.5-5.1); Sodium 140 mmol/L (136-145); Total Bilirubin 0.2 mg/dL (0.15-1.2); Total Protein 6.7 g/dL (6.6-8.7)
--- NOTE | 2021-05-23 18:33 | ED_ITS ---
HPI - Chest Pain General: Chief Complaint: Chest Pain Stated Complaint: CP Time Seen by Provider: 05/23/21 16:47 History of Present Illness: HPI narrative: Pt comes in c/o chest pain which she describes as sharp, midsternal, off and on for the last few weeks. States that it lasts for minutes to hours at a time. Was seen here and admitted earlier this week for a chest pain workup which was unremarkable. Denies fever, n/v/d, cough, congestion. 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 Was seen and admitted this last week for a cardiac workup. Will check labs, ekg, and reassess. Will also give ASA and GI cocktail. Reevaluation(s): Reevaluation #1: on reassessment i talked to the pt about the test results. will d/c home at this time with precautions to return for worsening or changing symptoms. Vital Signs: Vital signs: Vital Signs Temperature 98.8 F 05/23/21 16:40 Pulse Rate 64 05/23/21 17:33 Respiratory Rate 16 05/23/21 16:40 Blood Pressure 116/61 05/23/21 17:33 Pulse Oximetry 98 05/23/21 17:33 MDM - Chest Pain Lab Data: Labs: Lab Results 05/23/21 05/23/21 05/23/21 17:44 17:44 17:44 WBC 6.0 10^3/uL 10^3/ uL (4.0-10.0) RBC 4.12 10^6/uL 10^6 /uL (4.1-5.3) Hgb 12.4 g/dL g/dL (11.5-15.3) Hct 37.3 % % (37.0-47.0) MCV 90.5 fl fl (81-99) MCH 30.1 pg pg (28.0-34.0) MCHC 33.2 g/dL g/dL (30.0-36.0) RDW 12.0 % L % (12.1-15.1) Plt Count 160 10^3/cmm 10^3 /cmm (130-400) MPV 11.5 fL H fL (7.4-10.4) Neut % (Auto) 61.9 % % Lymph % (Auto) 24.4 % % [place] % (Auto) 8.4 % % Eos % (Auto) 4.5 % % Baso % (Auto) 0.8 % % Neut # (Auto) 3.70 10^3/uL 10^3 /uL (1.8-7.7) Lymph # (Auto) 1.5 10^3/uL 10^3/ uL (0.8-4.8) [place] # (Auto) 0.5 10^3/uL 10^3/ uL (0.2-0.9) Eos # (Auto) 0.3 10^3/uL 10^3/ uL (0.0-0.8) Baso # (Auto) 0.1 10^3/uL 10^3/ uL (0.0-0.1) Nucleated RBC % (a uto) 0 % % Nucleated RBCs # 0.0 /100WBC /100W BC Sodium 140 mmol/L mmol/L (136-145) Potassium 4.3 mmol/L mmol/L (3.5-5.1) Chloride 106 mmol/L mmol/L (98-107) Carbon Dioxide 23 mmol/L mmol/L (22-29) Anion Gap 15.3 (5-19) BUN 15 mg/dL mg/dL (6-20) Creatinine 0.6 mg/dL mg/dL (0.5-0.9) GFR Calculation 103.0 mL/min mL/m in (90-130) Glucose 89 mg/dL mg/dL (65-115) Calculated Osmolal ity 290 mOsm/kg mOsm/ kg (285-295) Calcium 8.7 mg/dL mg/dL (8.5-10.5) Total Bilirubin 0.2 mg/dL mg/dL (0.15-1.2) AST 18 U/L U/L (0-32) ALT 21 U/L U/L (0-33) Alkaline Phosphata se 93 IU/L IU/L (35-105) Troponin T Baselin e 6 ng/L ng/L (0-10) Total Protein 6.7 g/dL g/dL (6.6-8.7) Albumin 3.9 g/dL g/dL (3.5-5.2) Globulin 2.8 g/dL g/dL (1.3-4.6) Lipase 44 U/L U/L (13-60) Discharge Plan Discharge Patient Disposition: Home Clinical Impression: Chest pain with low risk for cardiac etiology Condition: Stable Prescriptions: No Action lamotrigine [Lamictal] 150 mg tablet 150 mg PO DAILY Qty: 1 RF: 2 sertraline 100 mg tablet 200 mg PO DAILY Qty: 60 RF: 2 trazodone 150 mg tablet 150 mg PO .qhs Qty: 30 RF: 2 albuterol sulfate [ProAir HFA] 90 mcg/actuation HFA aerosol inhaler 2 puff INHALATION Q6H PRN (Reason: Shortness Of Breath) Qty: 8.5 RF: 0 lactulose 10 gram/15 mL solution 10 g PO DAILY PRN (Reason: constipation) Qty: 237 RF: 0 acetaminophen [Tylenol Extra Strength] 500 mg Tablet 2,000 mg PO PRN RF: 0 Discharge Orders: Discharge ED (Routine); Ordered 05/23/21 Ordered By: David Chu Referrals: Lorraine Falcon DO [Primary Care Provider] - Coding Level of Care Code ED Philosophy Professor for Jessica Wang
[2021-05-23 18:57] VITALS: BP 119/74; PULSE 82; O2SAT 99
== END 2021-05-23 18:59 | disposition home or self-care (01) ==
PROVIDERS: Emergency Provider Emergency Medicine; PCP Family Medicine
DX: R07.9 Chest pain, unspecified (principal); J44.9 Chronic obstructive pulmonary disease, unspecified; F17.210 Nicotine dependence, cigarettes, uncomplicated
CPT/HCPCS: 36415; 71045; 80053; 83690; 84484; 85025; 99283

== ENCOUNTER → 2021-06-08 14:58 | Outpatient (BNVA) | payer OTHER, SELFPAY | PROVIDERS: PCP Family Medicine; Visit Provider Psychiatry & Neurology Psychiatry | DX: F43.12 Post-traumatic stress disorder, chronic (principal) | CPT/HCPCS: 80061; 83036 ==

== ENCOUNTER → 2021-06-27 18:23 | Outpatient (BNVA) | payer BC, MEDICAID, SELFPAY ==
[2021-06-23 16:58] VITALS: BMI 23.3
== END ==
PROVIDERS: PCP Family Medicine; Visit Provider Nurse Practitioner
DX: Z20.822 Contact with and (suspected) exposure to COVID-19 (principal)
CPT/HCPCS: 87635

== ENCOUNTER 2021-08-02 17:15 | Outpatient (CLI) | payer MEDICARE, MEDICAID, SELFPAY ==
[2021-08-02 16:28] VITALS: BMI 23.3
--- NOTE | 2021-08-02 17:32 | XRR_ITS ---
PROCEDURE INFORMATION: Exam: XR Left Knee Exam date and time: 08/02/2021 5:32 PM Age: 56 years old Clinical indication: Injury or trauma; Fall; Blunt trauma; Knee; Left; Injury date: 2 days ago; Injury details: HX of upper tib/fib fracture in 1977; Prior surgery; Surgery date: 6+ months; Surgery type: FX fixation 1977; Additional info: Pain after fall TECHNIQUE: Imaging protocol: XR Left knee. Views: 3 views. COMPARISON: No relevant prior studies available. FINDINGS: Bones/joints: 2.3 x 2.9 cm calcification seen between the proximal tibial and fibular metadiaphysis ease suggestive of a chronic osteochondroma. Moderate to severe tricompartmental osteoarthritis of the knee. Soft tissues: Normal. Other findings: Moderate suprapatellar joint effusion. XR/XR knee LT 3V* [id number] IMPRESSION: 1. 2.3 x 2.9 cm calcification seen between the proximal tibial and fibular metadiaphysis ease suggestive of a chronic osteochondroma. 2. Moderate suprapatellar joint effusion. 3. Moderate to severe tricompartmental osteoarthritis of the knee.
== END 2021-08-02 17:16 | disposition home or self-care (01) ==
PROVIDERS: PCP Family Medicine; Visit Provider Nurse Practitioner
DX: M25.462 Effusion, left knee (principal); M17.12 Unilateral primary osteoarthritis, left knee
CPT/HCPCS: 73562

== ENCOUNTER 2022-01-14 10:28 | Emergency (ER) | payer MEDICARE, MEDICAID, SELFPAY ==
[2022-01-14 10:56] VITALS: BP 118/67; PULSE 71; RESP 18; TEMP 36.4; O2SAT 100; BMI 21.9
--- NOTE | 2022-01-14 11:10 | ED_ITS ---
HPI - General Adult General: Chief complaint: Extremity Injury, Upper Stated complaint: left arm injury Time Seen by Provider: 01/14/22 11:07 History of Present Illness: Patient is a 56-year-old female with history of meth use presenting to the emergency room with concerns of left elbow swelling and pain x 6 days. Patient reports injecting meth into her left elbow on Tuesday and since then has noticed a swelling bump on on her elbow. Patient denies any fever or chills, or tracking redness up the arms, or any other injuries or pain. No other focal complaints at this time. Patient denies nausea/vomiting, fever/chill, chest pain, shortness of breath, abdominal pain, dysuria/hem aturia/polyuria, diarrhea/melena/hematochezia. Onset: 6 days ago Duration:6 days Location:home Severity:moderate Associated symptoms: Deny chest pain, dyspnea, nausea, palpitations or vomiting Review of Systems Const: Denies: fever(s) or chills Eyes: Denies: change in vision ENMT: Denies: mouth pain Card: Denies: chest pain or palpitations Resp: Denies: dyspnea or non-productive cough GI: Denies: abdominal pain, nausea, vomiting or diarrhea : Denies: dysuria Musc: Denies: extremity pain Skin/Breast: Reports: new lesions (+L elbow swelling/redness and pain) Neuro: Denies: weakness in extremities Psych: Reports: other (Normal mood) Ted/Lymph: Denies: easy bruising PFSH ED PFSH: Medical History Bulimia nervosa Cannabis use disorder, moderate, in sustained remission Cholesteatoma of right ear Chronic low back pain Chronic migraine without aura, intractable, without status migrainosus Chronic serous otitis media, right ear COPD (chronic obstructive pulmonary disease) Hearing loss in right ear History of fracture of leg History of MRSA infection Methamphetamine use disorder, severe, in early remission Opioid use disorder Post-traumatic stress disorder, chronic Psychiatric care Psychiatric care Sedative, hypnotic or anxiolytic abuse, 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 Surgical History H/O section H/O neck surgery History of colonoscopy History of facial fracture repair S/P appendectomy S/P tonsillectomy and adenoidectomy Status post colonoscopy (12/25/19) hemorrhoids , repeat 5 years Family History Other CAD (coronary artery disease) Cancer Lung disease Stroke Social History Smoking and tobacco status: current every day smoker cigarettes Packs smoked per day: 1 Years cigarettes smoked: 33 Quit status (tobacco): not considering quitting Second hand smoke exposure: Yes Alcohol intake: former Former alcohol use details: DRANK UNTIL THREW UP Desire information about substance/drug rehabilitation?: No Other details last substance use: iv drug abuse Adopted: No Caregiver/support person: No Lives independently: No Household members: other Details: a man that was homeless is living with her Housing: Apartment Marital status: Legally Marital status details: 2014 Number of children: 2 Number of grandchildren: 0 Highest education level completed: 11th Grade service: No Current occupational status: employed Current occupation: [employer] Current occupational exposures/hazards: No Pets and animals: Yes Pets & animals: dog(s) History of recent travel: No Leisure activites: other Leisure activities details: poetry, play piano Sexually active: No Current gender identity: Male Skylar/Moravian: Mandaeism Special skylar needs: No Agree to transfusion: Yes Financial difficulty paying for basics: Not Very Hard Female Reproductive History: Para: 2 Physical Exam Const: COMMON NORMALS: alert HENMT: COMMON NORMALS: atraumatic HEAD & SCALP: atraumatic MOUTH: moist mucous membranes not abnormal Eye: COMMON NORMALS: EOMs intact bilaterally and conjunctivae normal CONJUNCTIVA: Yes conjunctivae normal Neck/C-Spine: COMMON NORMALS: full ROM and supple Resp: COMMON NORMALS: normal respiratory effort and clear to auscultation bilaterally AUSCULTATION: clear to auscultation bilaterally Cardio: COMMON NORMALS: regular rate RATE: regular rate GI: COMMON NORMALS: Soft to palpation and non-tender PALPATION: Yes Soft to palpation Extremity: COMMON NORMALS: full ROM NARRATIVE EXTREMITY EXAM: +L elbow induraiton with erythema and warmth measuring 4.3cm x 5.1cm with moderate tenderness to palpatio Neuro: SENSORIUM/ORIENTATION: Yes alert MOTOR EXAM: No Abnormal motor stre ngth present and Other motor observations present (no focal motor deficits) Psych: COMMON NORMALS: speech normal SPEECH: Yes normal speech MOOD & AFFECT: Yes euthymic mood Skin: NARRATIVE SKIN EXAM: +L elbow erythematous induration measuring 4.3cm x 5.1cm with moderate tenderness to palpation and warmth Procedures Abscess I/D Site: upper extremity Side (if applicable): left Local Anesthetic: lidocaine 1% Amount of anesthesia used (mL): 10 Technique: incised with #11 blade Amount of fluid expressed (mL): 10 Irrigation: Yes Packing used?: none Complications: other (none) Course Vital Signs: Vital signs: Vital Signs Temperature 97.5 F L 01/14/22 10:56 Pulse Rate 77 01/14/22 12:31 Respiratory Rate 18 01/14/22 12:31 Blood Pressure 118/64 01/14/22 12:31 Pulse Oximetry 97 01/14/22 12:31 Oxygen Delivery Me thod 01/14/22 12:31 MDM - General Adult Medical Decision Making Patient is a 56-year-old female with history of meth use presenting to the emergency room with concerns of left elbow swelling and pain x 6 days. On physical exam, patient is noted to have a 4.3 x 5.1 cm absces in the left elbow. Please refer to procedure note for I&D. Rx Bactrim and cephalex for prior MRSA infection and abscess with drainage Disposition: Discharge. Patient counseled regarding diagnostic impression, treatment plan. Patient given ED strict return precautions to return for continuation, worsening, or development of new symptoms. Instructed to f/u w/ PCP regarding symptoms today. Patient verbalized understanding. Discharge Plan Discharge Patient Disposition: Home Clinical Impression: Abscess Condition: Stable Prescriptions: New sulfamethoxazole-trimethoprim 800-160 mg tablet 1 tab PO BID 7 Days Qty: 14 0RF cephalexin 500 mg capsule 500 mg PO BID 7 Days Qty: 14 0RF No Action lamotrigine [Lamictal] 150 mg tablet 150 mg PO DAILY Qty: 1 2RF sertraline 100 mg tablet 200 mg PO DAILY Qty: 60 2RF trazodone 150 mg tablet 150 mg PO .qhs Qty: 30 2RF albuterol sulfate [ProAir HFA] 90 mcg/actuation HFA aerosol inhaler 2 puff INHALATION Q6H PRN (Reason: Shortness Of Breath) Qty: 8.5 0RF lactulose 10 gram/15 mL solution 10 g PO DAILY PRN (Reason: constipation) Qty: 237 0RF acetaminophen [Tylenol Extra Strength] 500 mg Tablet 2,000 mg PO PRN Discharge Orders: Discharge ED (Routine); Ordered 01/14/22 Ordered By: Daniella Watson Referrals: Lorraine Falcon DO [Primary Care Provider] - Discharge Diet: Advance as tolerated Discharge Activity: Increase activity as tolerated Activity Restrictions/Additional Instructions: Please take your antibiotics as instructed. Watch out for signs of skin changes/redness, mouth redeness or swelling, nausea/vomiting, diarrhea, blood in the urine or any new or concering complaints. Please refrain from using IV drugs. [place] to the emergency room for new concerning complaints. Coding Level of Care Code ED Machine Silk Screen Printer for Jessica Wang Exam Comprehensive
--- NOTE | 2022-01-14 11:40 | PC.NURSE ---
Report from JESSE Mathews
[2022-01-14 11:56] VITALS: BP 123/68; PULSE 66; RESP 16; O2SAT 96
[2022-01-14 12:31] VITALS: BP 118/64; PULSE 77; RESP 18; O2SAT 97
== END 2022-01-14 12:44 | disposition home or self-care (01) ==
PROVIDERS: Emergency Provider Emergency Medicine; PCP Family Medicine
DX: L02.414 Cutaneous abscess of left upper limb (principal); F17.210 Nicotine dependence, cigarettes, uncomplicated; J44.9 Chronic obstructive pulmonary disease, unspecified; Z86.14 Personal history of Methicillin resistant Staphylococcus aureus infection
CPT/HCPCS: 10060; 99283

== ENCOUNTER 2022-02-01 13:59 | Emergency (ER) | payer MEDICARE, MEDICAID, SELFPAY ==
[2022-02-01 14:38] VITALS: BP 121/69; PULSE 104; RESP 16; TEMP 36.6; O2SAT 95; BMI 21.9
--- NOTE | 2022-02-01 14:55 | XRR_ITS ---
PROCEDURE INFORMATION: Exam: XR Chest Exam date and time: 02/01/2022 3:04 PM Age: 56 years old Clinical indication: Pain; Chest pressure; Additional info: Right rib pain TECHNIQUE: Imaging protocol: Radiologic exam of the chest. Views: 1 view. COMPARISON: CR XR chest 1V portable [id number] 05/23/2021 5:25 PM FINDINGS: Lungs: Bibasilar atelectasis versus minimal infiltrate. Pleural spaces: Unremarkable. No pleural effusion. No pneumothorax. Heart/Mediastinum: Cardiomegaly. Bones/joints: Unremarkable. XR/XR chest 1V portable [id number] IMPRESSION: 1. Cardiomegaly. 2. Bibasilar atelectasis versus minimal infiltrate.
--- NOTE | 2022-02-01 14:56 | ECG_ITS ---
[facility] Test Date: 2022-02-01 Pat Name: Merna Mcbride Department: Room: Gender: Female Fitness And Wellness Instructor: : 1965 Requested By: Daniella Watson Order Number: [id number] Nate MD: Courtney Conrad M.D. Measurements Intervals [place] Rate: 88 P: 46 NH: 115 QRS: 59 QRSD: 97 T: 18 QT: 360 QTc: 437 Interpretive Statements SINUS RHYTHM WITH SINUS ARRHYTHMIA WITH SHORT NH INTERVAL Compared to ECG 05/21/2021 14:29:09 Short NH interval now present Electronically Signed On 02-01-2022 18:58:27 CDT by Courtney Conrad M.D. [id number]
--- NOTE | 2022-02-01 15:29 | PC.NURSE ---
pt reports fell on tuesday01/29/22, unknown how she fell. reports she woke up hurting. pt reports pain to right side of ribs and her back with respirations. bruising noted over right ribs. lung sounds present all acharya. pt speaking in complete sentences. speech clear. reports pain has been this intense since tuesday but has not had a ride.
--- NOTE | 2022-02-01 15:53 | W.ED.GENADLT ---
HPI - General Adult General: Chief complaint: General Medical Stated complaint: rib pain/spitting up blood Time Seen by Provider: 02/01/22 14:55 History of Present Illness: Patient is a 56-year-old female with a history of bulimia, marijuana use, meth use, prior MRSA infection presenting to the emergency room with complaints of severe right-sided rib pain and abdominal pain. Patient tells me symptoms started 2 days ago. Patient denies any fall or injury. Patient's noticed bruises on the right side of the chest and right lateral abdomen. Patient does not know how she acquired bruises, patient denies any anticoagulation use patient reports spitting up blood since it has had been having significant pain. Patient denies any melena/hematochezia. No complaints. Patient denies decrease p.o. intake. Patient reports pain significant with breathing. Onset: 2 days ago Duration:2 days Location:home Severity:severe Associated symptoms: Reports chest pain (+R sided chest pain) and dyspnea; Deny nausea, palpitations or vomiting Review of Systems Const: Denies: fever(s) or chills Eyes: Denies: change in vision ENMT: Denies: mouth pain Card: Reports: chest pain (+R sided chest pain); Denies: palpitations Resp: Reports: dyspnea; Denies: non-productive cough GI: Reports: abdominal pain (+R sided abd pain); Denies: nausea, vomiting or diarrhea : Denies: dysuria Musc: Denies: extremity pain Skin/Breast: Reports: new lesions (+R abd bruises) Neuro: Denies: weakness in extremities Psych: Reports: other (Normal mood) Ted/Lymph: Denies: easy bruising PFS ED PFSH: Medical History Bulimia nervosa Cannabis use disorder, moderate, in sustained remission Cholesteatoma of right ear Chronic low back pain Chronic migraine without aura, intractable, without status migrainosus Chronic serous otitis media, right ear COPD (chronic obstructive pulmonary disease) Hearing loss in right ear History of fracture of leg History of MRSA infection Methamphetamine use disorder, severe, in early remission Opioid use disorder Post-traumatic stress disorder, chronic Psychiatric care Psychiatric care Sedative, hypnotic or anxiolytic abuse, 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 Surgical History H/O section H/O neck surgery History of colonoscopy History of facial fracture repair S/P appendectomy S/P tonsillectomy and adenoidectomy Status post colonoscopy (12/25/19) hemorrhoids , repeat 5 years Family History Other CAD (coronary artery disease) Cancer Lung disease Stroke Social History Smoking and tobacco status: current every day smoker cigarettes Packs smoked per day: 1 Years cigarettes smoked: 33 Quit status (tobacco): not considering quitting Second hand smoke exposure: Yes Alcohol intake: former Former alcohol use details: DRANK UNTIL THREW UP Desire information about substance/drug rehabilitation?: No Other details last substance use: iv drug abuse Adopted: No Caregiver/support person: No Lives independently: No Household members: other Details: a man that was homeless is living with her Housing: Apartment Marital status: Legally Marital status details: 2014 Number of children: 2 Number of grandchildren: 0 Highest education level completed: 11th Grade service: No Current occupational status: employed Current occupation: [employer] Current occupational exposures/hazards: No Pets and animals: Yes Pets & animals: dog(s) History of recent travel: No Leisure activites: other Leisure activities details: poetry, play piano Sexually active: No Current gender identity: Male Skylar/Spiritism: Yarsanism Special skylar needs: No Agree to transfusion: Yes Financial difficulty paying for basics: Not Very Hard Female Reproductive History: Para: 2 Physical Exam Const: COMMON NORMALS: alert HENMT: COMMON NORMALS: atraumatic HEAD & SCALP: atraumatic MOUTH: moist mucous membranes not abnormal Eye: COMMON NORMALS: EOMs intact bilaterally and conjunctivae normal CONJUNCTIVA: Yes conjunctivae normal Neck/C-Spine: COMMON NORMALS: full ROM and supple Resp: COMMON NORMALS: normal respiratory effort and clear to auscultation bilaterally AUSCULTATION: clear to auscultation bilaterally Cardio: COMMON NORMALS: regular rate RATE: regular rate GI: COMMON NORMALS: Soft to palpation PALPATION: Yes Soft to palpation OTHER: +Moderate TTP. NO guarding rebound, guarding, rigidity. Neg Plata/Neg McBurney's point tenderness, no suprabupic tenderness to palpation. Extremity: COMMON NORMALS: full ROM OTHER: + Left elbow induration with mild drainage without any fluctuance Neuro: SENSORIUM/ORIENTATION: Yes alert MOTOR EXAM: No Abnormal motor strength present and Other motor observations present (no focal motor deficits) Psych: COMMON NORMALS: speech normal SPEECH: Yes normal speech MOOD & AFFECT: Yes euthymic mood Course Vital Signs: Vital signs: Vital Signs Temperature 97.9 F 02/01/22 14:38 Pulse Rate 90 02/01/22 19:34 Respiratory Rate 18 02/01/22 19:34 Blood Pressure 139/85 02/01/22 19:34 Pulse Oximetry 96 02/01/22 19:34 Oxygen Delivery Me thod 02/01/22 19:34 MDM - General Adult Medical Decision Making Patient is a 56-year-old female with a history of bulimia, marijuana use, meth use, prior MRSA infection presenting to the emergency room with complaints of severe right-sided rib pain and abdominal pain. On exam, patient does have bruises on the right thigh. Patient also has a left elbow induration with mild drainage. Lesion is nonfluctuant. Nonerythematous not warm to palpation. Patient white count 4.0. I suspect that the arm induration is likely secondary to previous forearm abscess. At present when offered additional I&D, patient declined. Patient elects to take outpatient biotics. Patient is white count 4.[address] ab pelvis negative for any acute finding. UA showed 2+ leukocyte esterase and 1+ bacteria. Received morphine in the emergency room and reports feeling symptomatically improved. Rx bactrim DS for L forearm induration and possible early UTI, Rx: Tylenol, lidocaine patch, and menthol PRN pain Disposition: Discharge. Patient counseled regarding diagnostic impression, treatment plan. Patient given ED strict return precautions to return for continuation, worsening, or development of new symptoms. Instructed to f/u w/ PCP regarding symptoms today. Patient verbalized understanding. Lab Data : 02/01/22 17:16 02/01/22 17:16 Radiology Impressions Chest X-Ray 02/01/22 14:55 IMPRESSION: 1. Cardiomegaly. 2. Bibasilar atelectasis versus minimal infiltrate. Chest/Abdomen/Pelvis CT 02/01/22 15:57 IMPRESSION: 1. Mild bronchitis right lung base. 2. Small right pleural effusion 3. Mild basilar atelectasis 4. No evidence of pulmonary embolism. IMPRESSION: 1. Mild fatty liver. 2. No acute findings. both kidneys measuring up to 8 mm. 3. There is no evidence of hydronephrosis. 4. There is no stone along the course of either ureter. COMMENTS: Consistent with the [employer]'s Incidental Findings Committee white paper (J Am Nery Radiol 2018): Any incidental renal lesion less than 1 cm or classified as too small to characterize, or any incidental cystic renal lesion characterized as simple-appearing, is likely benign. No follow-up imaging is recommended for these lesions per consensus recommendations based on imaging criteria. Laboratory Results WBC 4.0 10^3/uL (4.0-10.0) 02/01/22 17:16 RBC 3.44 10^6/uL (4.1-5.3) L 02/01/22 17:16 Hgb 10.2 g/dL (11.5-15.3) L 02/01/22 17:16 Hct 31.3 % (37.0-47.0) L 02/01/22 17:16 MCV 91.0 fl (81-99) 02/01/22 17:16 MCH 29.7 pg (28.0-34.0) 02/01/22 17:16 MCHC 32.6 g/dL (30.0-36.0) 02/01/22 17:16 RDW 12.4 % (12.1-15.1) 02/01/22 17:16 Plt Count 105 10^3/cmm (130-400) L 02/01/22 17:16 MPV 11.7 fL (7.4-10.4) H 02/01/22 17:16 Neut % (Auto) 66.1 % 02/01/22 17:16 Lymph % (Auto) 19.0 % 02/01/22 17:16 Cameron % (Auto) 13.0 % 02/01/22 17:16 Eos % (Auto) 1.7 % 02/01/22 17:16 Baso % (Auto) 0.2 % 02/01/22 17:16 Neut # (Auto) 2.65 10^3/uL (1.8-7.7) 02/01/22 17:16 Lymph # (Auto) 0.8 10^3/uL (0.8-4.8) 02/01/22 17:16 Cameron # (Auto) 0.5 10^3/uL (0.2-0.9) 02/01/22 17:16 Eos # (Auto) 0.1 10^3/uL (0.0-0.8) 02/01/22 17:16 Baso # (Auto) 0.0 10^3/uL (0.0-0.1) 02/01/22 17:16 Nucleated RBC % (auto) 0 % 02/01/22 17:16 Nucleated RBCs # 0.0 /100WBC 02/01/22 17:16 Sodium 135 mmol/L (136-145) L 02/01/22 17:16 Potassium 4.1 mmol/L (3.5-5.1) 02/01/22 17:16 Chloride 105 mmol/L (98-107) 02/01/22 17:16 Carbon Dioxide 20 mmol/L (22-29) L 02/01/22 17:16 Anion Gap 14.1 (5-19) 02/01/22 17:16 BUN 8 mg/dL (6-20) 02/01/22 17:16 Creatinine 0.4 mg/dL (0.5-0.9) L 02/01/22 17:16 GFR Calculation 163.9 mL/min (90-130) H 02/01/22 17:16 Glucose 71 mg/dL (65-115) 02/01/22 17:16 Calculated Osmolality 277 mOsm/kg (285-295) L 02/01/22 17:16 Calcium 7.7 mg/dL (8.5-10.5) L 02/01/22 17:16 Troponin T Baseline 8 ng/L (0-10) 02/01/22 17:16 Troponin T 120 Minute 9.20 ng/L (0-10) 02/01/22 19:30 Delta Troponin T 1.20 ABS# (0-10) 02/01/22 19:30 Urine Color Straw (Yellow) 02/01/22 19:20 Urine Appearance Hazy (CLEAR) A 02/01/22 19:20 Urine pH 7 (5-7) 02/01/22 19:20 Ur Specific [place] 1.000 (1.005-1.030) L 02/01/22 19:20 Urine Protein Neg (Negative) 02/01/22 19:20 Urine Glucose (UA) Norm (Normal) 02/01/22 19:20 Urine Ketones 1+ (Negative) H 02/01/22 19:20 Urine Blood Neg (Negative) 02/01/22 19:20 Urine Nitrate Negative (Negative) 02/01/22 19:20 Urine Bilirubin Neg (Negative) 02/01/22 19:20 Urine Urobilinogen Norm mg/dL (Negative) 02/01/22 19:20 Ur Leukocyte Esterase 2+ (Negative) H 02/01/22 19:20 Urine RBC 5-10 /hpf (0-2) H 02/01/22 19:20 Urine WBC 0-4 /hpf (0-5) H 02/01/22 19:20 Ur Squamous Epith Cells 5-10 /hpf (0-5) H 02/01/22 19:20 Amorphous Sediment Not Reportable 02/01/22 19:20 Urine Bacteria 1+ /hpf (NONE) H 02/01/22 19:20 Imaging Data Other Imaging: Radiologist's impression: [place] [address] CT Scan Report Signed Patient: Merna Mcbride Unit #: [id number] : 1965 Age/Sex: 56 / F ADM Date: 02/01/22 Loc: ER Room/Bed: Attending Dr: Ordering Provider/Ordering MD: Daniella Watson MD Date of Service: 02/01/22 Procedure(s): CT angio chest w abd pel w con Accession Number(s): [id number] Report Number: [id number] PROCEDURE INFORMATION: Exam: CTA Chest With Contrast Exam date and time: 02/01/2022 4:34 PM Age: 56 years old Clinical indication: Abdominal tenderness; Abdominal pain; Flank; Left; Shortness of breath; Chest pressure; Additional info: Chest pain and abdominal bruises TECHNIQUE: Imaging protocol: Computed tomographic angiography of the chest with contrast. 3D rendering (Not supervised by radiologist): MIP and/or 3D reconstructed images were created by the technologist. Radiation optimization: All CT scans at this facility use at least one of these dose optimization techniques: automated exposure control; mA and/or kV adjustment per patient size (includes targeted exams where dose is matched to clinical indication); or iterative reconstruction. Contrast material: OMNIPAQUE 350; Contrast volume: 95 ml; Contrast route: INTRAVENOUS (IV);? COMPARISON: 1. CT angio chest PE protcl [id number] 06/14/2016 3:[address] chest abd pel w con* 06/02/2019 3:56 PM RADIATION DOSE METRICS: Total DLP (mGy-cm): 581.92 FINDINGS: Pulmonary arteries: There is no evidence of filling defects within the pulmonary arterial circulation to suggest pulmonary embolism. Aorta: There is no thoracic aortic aneurysm or dissection. Lungs: There is some mild subsegmental atelectasis at the right lung base. There is some minimal subsegmental atelectasis in the lingula. There is some mild bronchial wall thickening in some minimal ground-glass opacity posterior aspect of the right lung base which could represent some infectious or inflammatory disease such as bronchitis. Pleural spaces: There is small right pleural effusion. Heart: Unremarkable. No cardiomegaly. No pericardial effusion. Lymph nodes: There is no evidence of lymphadenopathy. Bones/joints: Unremarkable. No acute fracture. Soft tissues: Unremarkable. PROCEDURE INFORMATION: Exam: CT Abdomen And Pelvis With Contrast Exam date and time: 02/01/2022 4:34 PM Age: 56 years old Clinical indication: Abdominal tenderness; Abdominal pain; Flank; Left; Shortness of breath; Chest pressure; Additional info: Chest pain and abdominal bruises TECHNIQUE: Imaging protocol: Computed tomography of the abdomen and pelvis with contrast. Radiation optimization: All CT scans at this facility use at least one of these dose optimization techniques: automated exposure control; mA and/or kV adjustment per patient size (includes targeted exams where dose is matched to clinical indication); or iterative reconstruction. Contrast material: OMNIPAQUE 350; Contrast volume: 95 ml; Contrast route: INTRAVENOUS (IV);? COMPARISON: CT chest abd pel w con* 06/02/2019 3:56 PM RADIATION DOSE METRICS: Total DLP (mGy-cm): 581.92 FINDINGS: Liver: There is a diffuse decrease in hepatic parenchymal density, consistent with mild fatty infiltration. There is no focal abnormality within the liver. Gallbladder and bile ducts: The gallbladder is normal. Pancreas: The pancreas is normal. Spleen: The spleen is normal. Adrenal glands: Normal. No mass. Kidneys and ureters: There are multiple small benign-appearing simple cysts in both kidneys.There is no evidence of hydronephrosis. There is no evidence of renal or ureteral calcifications. Stomach and bowel: There is no evidence of intestinal obstruction. There is no evidence of colitis/diverticulitis. Appendix: Not identified Intraperitoneal space: There is no evidence of free intraperitoneal fluid. Vasculature: The aorta demonstrates mild atherosclerotic calcification. Lymph nodes: There are small periaortic lymph nodes but no adenopathy. Urinary bladder: Unremarkable as visualized. Reproductive: Unremarkable as visualized. Bones/joints: There is mild scoliosis of the lumbar spine concave to the right. The lumbar spine demonstrates moderate degenerative changes at multiple levels. Soft tissues: Unremarkable. CT/CT angio chest w abd pel w con IMPRESSION: 1. Mild bronchitis right lung base. 2. Small right pleural effusion 3. Mild basilar atelectasis 4. No evidence of pulmonary embolism. ? ? IMPRESSION: 1. Mild fatty liver. 2. No acute findings. both kidneys measuring up to 8 mm. 3. There is no evidence of hydronephrosis. 4. There is no stone along the course of either ureter. ? COMMENTS: Consistent with the [employer]'s Incidental Findings Committee white paper (J Am Nery Radiol 2018): Any incidental renal lesion less than 1 cm or classified as too small to characterize, or any incidental cystic renal lesion characterized as simple-appearing, is likely benign. No follow-up imaging is recommended for these lesions per consensus recommendations based on imaging criteria. ? Dictated By: Nba Orozco Signed By: Nba Orozco Signed Date/Time: 02/01/22 174 DD/ [address] [address] XRay Report Signed Patient: Merna Mcbride Unit #: [id number] : 1965 Age/Sex: 56 / F ADM Date: 02/01/22 Loc: ER Room/Bed: Attending Dr: Ordering Provider/Ordering MD: Daniella Watson MD Date of Service: 02/01/22 Procedure(s): XR chest 1V portable [id number] Accession Number(s): [id number] Report Number: [id number] PROCEDURE INFORMATION: Exam: XR Chest Exam date and time: 02/01/2022 3:04 PM Age: 56 years old Clinical indication: Pain; Chest pressure; Additional info: Right rib pain TECHNIQUE: Imaging protocol: Radiologic exam of the chest. Views: 1 view. COMPARISON: CR XR chest 1V portable [id number] 05/23/2021 5:25 PM FINDINGS: Lungs: Bibasilar atelectasis versus minimal infiltrate. Pleural spaces: Unremarkable. No pleural effusion. No pneumothorax. Heart/Mediastinum: Cardiomegaly. Bones/joints: Unremarkable. XR/XR chest 1V portable [id number] IMPRESSION: 1. Cardiomegaly. 2. Bibasilar atelectasis versus minimal infiltrate. ? Dictated By: Angel Gonzalez MD Signed By: Angel Gonzalez MD Signed Date/Time: 02/01/22 1536 DD/ 1504 Discharge Plan Discharge Patient Disposition: Home Clinical Impression: Chest pain, Flank pain Condition: Stable Prescriptions: New acetaminophen 500 mg tablet 500 mg PO Q6H PRN (Reason: pain) 5 Days Qty: 20 0RF lidocaine 5 % adhesive patch,medicated 1 patch topical DAILY PRN (Reason: pain) 30 Days Qty: 30 0RF Rx Instructions: leave on most painful area for up to 12 hrs Biofreeze (menthol) 5 % gel 1 ea topical BID PRN (Reason: pain) 10 Days Qty: 1 0RF Rx Instructions: please give only menthol based formulation without NSAIDS/aspirin sulfamethoxazole-trimethoprim 800-160 mg tablet 1 tab PO BID 7 Days Qty: 14 0RF No Action acetaminophen [Tylenol Extra Strength] 500 mg Tablet 2,000 mg PO DAILY PRN (Reason: Pain) Discharge Orders: Discharge ED (Routine); Ordered 02/01/22 Ordered By: Daniella Watson Referrals: Lorraine Falcon DO [Primary Care Provider] - Discharge Diet: Advance as tolerated Discharge Activity: Increase activity as tolerated Activity Restrictions/Additional Instructions: Please come back if you have any worsening abdominal pain, fever or chills, nausea or vomiting, diarrhea, blood in the stool, inability hold down liquid or solids, or any new concerning complaints. Come back to the emergency room if your chest pain worsens, have any fever or chills, worsening shortness of breath, worsening exertional lightheadedness, or any new or concerning complaints. Please take your antibiotics as instructed. Watch out for signs of skin changes/redness, mouth redeness or swelling, nausea/vomiting, diarrhea, blood in the urine or any new or concering complaints. 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
--- NOTE | 2022-02-01 15:57 | CTR_ITS ---
PROCEDURE INFORMATION: Exam: CTA Chest With Contrast Exam date and time: 02/01/2022 4:34 PM Age: 56 years old Clinical indication: Abdominal tenderness; Abdominal pain; Flank; Left; Shortness of breath; Chest pressure; Additional info: Chest pain and abdominal bruises TECHNIQUE: Imaging protocol: Computed tomographic angiography of the chest with contrast. 3D rendering (Not supervised by radiologist): MIP and/or 3D reconstructed images were created by the technologist. Radiation optimization: All CT scans at this facility use at least one of these dose optimization techniques: automated exposure control; mA and/or kV adjustment per patient size (includes targeted exams where dose is matched to clinical indication); or iterative reconstruction. Contrast material: OMNIPAQUE 350; Contrast volume: 95 ml; Contrast route: INTRAVENOUS (IV); COMPARISON: 1. CT angio chest PE protcl [id number] 06/14/2016 3:[address] chest abd pel w con* 06/02/2019 3:56 PM RADIATION DOSE METRICS: Total DLP (mGy-cm): 581.92 FINDINGS: Pulmonary arteries: There is no evidence of filling defects within the pulmonary arterial circulation to suggest pulmonary embolism. Aorta: There is no thoracic aortic aneurysm or dissection. Lungs: There is some mild subsegmental atelectasis at the right lung base. There is some minimal subsegmental atelectasis in the lingula. There is some mild bronchial wall thickening in some minimal ground-glass opacity posterior aspect of the right lung base which could represent some infectious or inflammatory disease such as bronchitis. Pleural spaces: There is small right pleural effusion. Heart: Unremarkable. No cardiomegaly. No pericardial effusion. Lymph nodes: There is no evidence of lymphadenopathy. Bones/joints: Unremarkable. No acute fracture. Soft tissues: Unremarkable. PROCEDURE INFORMATION: Exam: CT Abdomen And Pelvis With Contrast Exam date and time: 02/01/2022 4:34 PM Age: 56 years old Clinical indication: Abdominal tenderness; Abdominal pain; Flank; Left; Shortness of breath; Chest pressure; Additional info: Chest pain and abdominal bruises TECHNIQUE: Imaging protocol: Computed tomography of the abdomen and pelvis with contrast. Radiation optimization: All CT scans at this facility use at least one of these dose optimization techniques: automated exposure control; mA and/or kV adjustment per patient size (includes targeted exams where dose is matched to clinical indication); or iterative reconstruction. Contrast material: OMNIPAQUE 350; Contrast volume: 95 ml; Contrast route: INTRAVENOUS (IV); COMPARISON: CT chest abd pel w con* 06/02/2019 3:56 PM RADIATION DOSE METRICS: Total DLP (mGy-cm): 581.92 FINDINGS: Liver: There is a diffuse decrease in hepatic parenchymal density, consistent with mild fatty infiltration. There is no focal abnormality within the liver. Gallbladder and bile ducts: The gallbladder is normal. Pancreas: The pancreas is normal. Spleen: The spleen is normal. Adrenal glands: Normal. No mass. Kidneys and ureters: There are multiple small benign-appearing simple cysts in both kidneys.There is no evidence of hydronephrosis. There is no evidence of renal or ureteral calcifications. Stomach and bowel: There is no evidence of intestinal obstruction. There is no evidence of colitis/diverticulitis. Appendix: Not identified Intraperitoneal space: There is no evidence of free intraperitoneal fluid. Vasculature: The aorta demonstrates mild atherosclerotic calcification. Lymph nodes: There are small periaortic lymph nodes but no adenopathy. Urinary bladder: Unremarkable as visualized. Reproductive: Unremarkable as visualized. Bones/joints: There is mild scoliosis of the lumbar spine concave to the right. The lumbar spine demonstrates moderate degenerative changes at multiple levels. Soft tissues: Unremarkable. CT/CT angio chest w abd pel w con IMPRESSION: 1. Mild bronchitis right lung base. 2. Small right pleural effusion 3. Mild basilar atelectasis 4. No evidence of pulmonary embolism. IMPRESSION: 1. Mild fatty liver. 2. No acute findings. both kidneys measuring up to 8 mm. 3. There is no evidence of hydronephrosis. 4. There is no stone along the course of either ureter. COMMENTS: Consistent with the [employer]'s Incidental Findings Committee white paper (J Am Nery Radiol 2018): Any incidental renal lesion less than 1 cm or classified as too small to characterize, or any incidental cystic renal lesion characterized as simple-appearing, is likely benign. No follow-up imaging is recommended for these lesions per consensus recommendations based on imaging criteria.
[2022-02-01 16:20] VITALS: RESP 18
[2022-02-01] MEDS: diphenhydrAMINE 50 mg/mL SDV 1mL IVP (16:20)
[2022-02-01] MEDS: HYDROmorphone 1 mg/mL INJ 1 mL IVP (16:20)
[2022-02-01] MEDS: iohexol 350 mg/mL 100 mL Btl IV (16:45)
--- NOTE | 2022-02-01 16:56 | ECG_ITS ---
[facility] Test Date: 2022-02-01 Pat Name: Merna Mcbride Department: Room: Gender: Female [employer]: : 1965 Requested By: Daniella Watson Order Number: [id number] Nate MD: Courtney Conrad M.D. Measurements Intervals [place] Rate: 71 P: 68 AK: 124 QRS: 71 QRSD: 90 T: 52 QT: 399 QTc: 436 Interpretive Statements SINUS RHYTHM Compared to ECG 02/01/2022 15:33:06 Sinus arrhythmia no longer present Short AK interval no longer present Electronically Signed On 02-01-2022 19:03:07 CDT by Courtney Conrad M.D. [id number]
[2022-02-01 17:23] LABS: Basophils % 0.2 %; Eosinophils # 0.1 10^3/uL (0.0-0.8); Eosinophils % 1.7 %; Hematocrit 31.3 % (37.0-47.0); Hemoglobin 10.2 g/dL (11.5-15.3); Lymphocytes # 0.8 10^3/uL (0.8-4.8); Mean Corpuscular HGB Conc 32.6 g/dL (30.0-36.0); Mean Corpuscular Hemoglobin 29.7 pg (28.0-34.0); Mean Platelet Volume 11.7 fL (7.4-10.4); Monocytes # 0.5 10^3/uL (0.2-0.9); Neutrophils # 2.65 10^3/uL (1.8-7.7); Neutrophils % 66.1 %; Nucleated Red Blood Cells % 0 %; Platelet Count 105 10^3/cmm (130-400); Red Blood Count 3.44 10^6/uL (4.1-5.3); Red Cell Distribution Width 12.4 % (12.1-15.1)
[2022-02-01 17:40] LABS: Troponin(5th) Baseline 8 ng/L (0-10)
[2022-02-01 17:43] LABS: Blood Urea Nitrogen 8 mg/dL (6-20); Calcium 7.7 mg/dL (8.5-10.5); Carbon Dioxide 20 mmol/L (22-29); Chloride 105 mmol/L (98-107); Glomerular Filtration Rate 163.9 mL/min (90-130); Glucose 71 mg/dL (65-115); Osmolality Calculated 277 mOsm/kg (285-295); Sodium 135 mmol/L (136-145)
[2022-02-01 17:46] LABS: Anion Gap 14.1 (5-19); Potassium 4.1 mmol/L (3.5-5.1); Slide Review Slide Review Perform
[2022-02-01 19:28] VITALS: RESP 18
[2022-02-01] MEDS: morphine 4 mg/mL SDV 1 mL IVP (19:28)
--- NOTE | 2022-02-01 19:32 | PC.NURSE ---
Report from PRINCESS Ragland. Pt c/o pain. Urine collected and meds given.
[2022-02-01 19:34] VITALS: BP 139/85; PULSE 90; RESP 18; O2SAT 96
[2022-02-01 20:11] LABS: Add Urine Microscopic? YES; Bacteria Urine 1+ /hpf; Bilirubin Urine Neg (Negative); Blood Urine Neg (Negative); Glucose Urine UA Norm (Normal); Ketones Urine 1+ (Negative); Leukocyte Esterase Urine 2+ (Negative); Nitrate Urine Negative (Negative); Protein Urine Neg (Negative); Urine Appearance Hazy (CLEAR); Urine Color Straw (Yellow); Urobilinogen Urine Norm (Negative); WBC Urine 0-4 /hpf (0-5); pH Urine 7 (5-7)
--- NOTE | 2022-02-01 20:57 | PC.NURSE ---
Pt given food bag. IV DC'd, cath intact. Wound to left arm cleansed and wrapped with gauze. Escorted pt to front lobby. NAD
== END 2022-02-01 21:01 | disposition home or self-care (01) ==
PROVIDERS: Emergency Provider Emergency Medicine; PCP Family Medicine
DX: R10.9 Unspecified abdominal pain (principal); R07.9 Chest pain, unspecified; J44.9 Chronic obstructive pulmonary disease, unspecified; F17.210 Nicotine dependence, cigarettes, uncomplicated
CPT/HCPCS: 36415; 71045; 71275; 74177; 80048; 81001; 84484; 85025; 93005; 96374; 96375; 99285; J1170; J1200; J2270; J2930; Q9967

== ENCOUNTER 2022-09-25 19:06 | Emergency (ER) | payer MEDICARE, MEDICAID, SELFPAY ==
[2022-09-25 19:16] VITALS: BP 106/72; PULSE 72; RESP 16; TEMP 36.4; O2SAT 100
--- NOTE | 2022-09-25 19:26 | W.ED.URI ---
HPI - URI/Sore Throat General: Chief Complaint: Upper Respiratory Infection Stated Complaint: congestion, cough, fever Time Seen by Provider: 09/25/22 19:24 History of Present Illness: 57-year-old female comes in today for complaints of cough and chest congestion since last Tuesday. Patient is a chronic smoker for history of COPD. Patient appears nontoxic. Patient appears in no pain. Patient has occasional cough. Patient has been using inhalers and nebulizer treatments at home. Associated symptoms: Deny chest pain, fever(s), nausea or vomiting Review of Systems General: Reports: 10 or more systems reviewed and unremarkable except in HPI and below Const: Denies: fever(s) Card: Denies: chest pain Resp: Reports: dyspnea and productive cough GI: Denies: nausea or vomiting : Denies: difficulty voiding Skin/Breast: Denies: rash PFSH ED PFSH: Medical History Bulimia nervosa Cannabis use disorder, moderate, in sustained remission Cholesteatoma of right ear Chronic low back pain Chronic migraine without aura, intractable, without status migrainosus Chronic serous otitis media, right ear COPD (chronic obstructive pulmonary disease) Hearing loss in right ear History of fracture of leg History of MRSA infection Methamphetamine use disorder, severe, in early remission Opioid use disorder Post-traumatic stress disorder, chronic Psychiatric care Psychiatric care Sedative, hypnotic or anxiolytic abuse, 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 Surgical History H/O section H/O neck surgery History of colonoscopy History of facial fracture repair S/P appendectomy S/P tonsillectomy and adenoidectomy Status post colonoscopy (12/25/19) hemorrhoids , repeat 5 years Family History Other CAD (coronary artery disease) Cancer Lung disease Stroke Social History Smoking and tobacco status: current every day smoker cigarettes Packs smoked per day: 1 Years cigarettes smoked: 33 Quit status (tobacco): not considering quitting Second hand smoke exposure: Yes Alcohol intake: former Former alcohol use details: DRANK UNTIL THREW UP Substance/Drug Use: current Substance/Drug use frequency: daily Desire information about substance/drug rehabilitation?: No Other details last substance use: iv drug abuse Adopted: No Caregiver/support person: No Lives independently: No Household members: other Details: a man that was homeless is living with her Housing: Apartment Marital status: Legally Marital status details: 2014 Number of children: 2 Number of grandchildren: 0 Highest education level completed: 11th Grade service: No Current occupational status: employed Current occupation: [employer] Current occupational exposures/hazards: No Pets and animals: Yes Pets & animals: dog(s) Leisure activites: other Leisure activities details: poetry, play piano Sexually active: No Do you think of yourself as: Straight/Heterosexual Current gender identity: Male Skylar/Anabaptism: Zoroastrianism Special skylar needs: No Agree to transfusion: Yes Financial difficulty paying for basics: Not Very Hard Female Reproductive History: Para: 2 Physical Exam Const: COMMON NORMALS: alert HENMT: COMMON NORMALS: normocephalic and TM's normal bilaterally HEAD & SCALP: normocephalic TYMPANIC MEMBRANE: TM's normal bilaterally THROAT: posterior oropharynx normal Neck/C-Spine: COMMON NORMALS: full ROM Resp: COMMON NORMALS: normal respiratory effort EFFORT & INSPECTION: Yes able to speak in complete sentences AUSCULTATION: wheezes and diminished lung sounds Cardio: COMMON NORMALS: regular rate and regular rhythm RATE: regular rate RHYTHM: regular rhythm Back/Pelvis: COMMON NORMALS: thoracic and lumbar spine normal to inspection Extremity: COMMON NORMALS: no pedal edema Neuro: SENSORIUM/ORIENTATION: Yes alert Skin: COMMON NORMALS: turgor normal GENERAL SKIN EXAM: turgor normal Course Vital Signs: Vital signs: Vital Signs Temperature 97.6 F 09/25/22 19:16 Pulse Rate 72 09/25/22 19:16 Respiratory Rate 16 09/25/22 19:16 Blood Pressure 106/72 09/25/22 19:16 Pulse Oximetry 100 09/25/22 19:16 Oxygen Delivery Me thod Room Air 09/25/22 19:16 MDM - URI/Sore Throat Medical Decision Making 57-year-old female comes in today with cough and congestion since last Tuesday. On exam patient has wheezing throughout lung acharya with decreased air movement. Vital signs are normal. Skin is warm and dry. Normal turgor. No pedal edema. Differential diagnosis includes not limited to COPD exacerbation, asthma exacerbation, pneumonia, bronchitis. The patient has COPD exacerbation. We will start patient on a dose of steroid and doxycycline. Patient will continue with routine medications otherwise. And follow-up with primary care or return to the ER for worsening symptoms. Patient reported understanding and agreed to plan. Discharge Plan Discharge Patient Disposition: Home Clinical Impression: COPD with acute exacerbation Condition: Stable Prescriptions: New doxycycline monohydrate 100 mg capsule 100 mg PO BID 7 Days Qty: 14 0RF prednisone 20 mg tablet 20 mg PO BID 5 Days Qty: 10 0RF benzonatate 200 mg capsule 200 mg PO TID PRN (Reason: cough) Qty: 10 0RF No Action acetaminophen [Tylenol Extra Strength] 500 mg Tablet 2,000 mg PO DAILY PRN (Reason: Pain) Discharge Orders: Discharge ED (Routine); Ordered 09/25/22 Ordered By: Nestor Palafox Referrals: Lorraine Falcon DO [Primary Care Provider] - Discharge Diet: Usual diet Discharge Activity: Increase activity as tolerated Patient Instructions: COPD (Chronic Obstructive Pulmonary Disease) (ED) Activity Restrictions/Additional Instructions: Drink plenty of water and fluids. Take antibiotics and prednisone as directed. Follow-up with primary care in 3 to 5 days for recheck. Return to ER for worsening symptoms such as severe chest pain, inability to hold fluids down, worsening shortness of breath, or new concerns. Coding Level of Care Code ED Computer Aided Design Drafter for Jessica Wang
[2022-09-25] MEDS: benzonatate 100 mg Capsule 200 MG PO (19:44)
[2022-09-25] MEDS: doxycycline 100 mg Tablet PO (19:44)
[2022-09-25] MEDS: dexamethasone 4 mg Tablet 10 MG PO (19:45)
[2022-09-25 19:48] VITALS: BP 106/72; PULSE 72; RESP 16; TEMP 36.4; O2SAT 100
== END 2022-09-25 19:49 | disposition home or self-care (01) ==
PROVIDERS: Emergency Provider Nurse Practitioner Family; PCP Family Medicine
DX: J44.1 Chronic obstructive pulmonary disease with (acute) exacerbation (principal); F17.210 Nicotine dependence, cigarettes, uncomplicated; J44.9 Chronic obstructive pulmonary disease, unspecified
CPT/HCPCS: 99283; J8540

== ENCOUNTER 2022-10-31 12:27 | Emergency (ER) | payer MEDICARE, MEDICAID, SELFPAY ==
[2022-10-31 12:36] VITALS: BP 126/73; PULSE 69; RESP 18; TEMP 36.4; O2SAT 96; BMI 25.2
[2022-10-31 12:40] VITALS: BP 132/108; PULSE 79; RESP 20; O2SAT 98
--- NOTE | 2022-10-31 12:47 | ED_ITS ---
HPI - Fall General: Chief Complaint: Fall Stated Complaint: fell hit head Time Seen by Provider: 10/31/22 12:45 History of Present Illness: Patient presents to the ER by POV with complaints of head pain and neck pain secondary to a fall last night. Patient fell last night about 5:00 in the morning striking her head mid forehead region. Patient now has neck and head pain. MD complaint: fall Onset (ago): hour(s) Fall from: standing Fall witnessed: no Place fall occurred: home Loss of consciousness: None Location of injury: head and neck Severity: moderate Review of Systems General: Reports: 10 or more systems reviewed and unremarkable except in HPI and below PFSH ED PFSH: Medical History Bulimia nervosa Cannabis use disorder, moderate, in sustained remission Cholesteatoma of right ear Chronic low back pain Chronic migraine without aura, intractable, without status migrainosus Chronic serous otitis media, right ear COPD (chronic obstructive pulmonary disease) Hearing loss in right ear History of fracture of leg History of MRSA infection Methamphetamine use disorder, severe, in early remission Opioid use disorder Post-traumatic stress disorder, chronic Psychiatric care Psychiatric care Sedative, hypnotic or anxiolytic abuse, 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 Surgical History H/O section H/O neck surgery History of colonoscopy History of facial fracture repair S/P appendectomy S/P tonsillectomy and adenoidectomy Status post colonoscopy (12/25/19) hemorrhoids , repeat 5 years Family History Other CAD (coronary artery disease) Cancer Lung disease Stroke Social History Smoking and tobacco status: current every day smoker cigarettes Packs smoked per day: 1 Years cigarettes smoked: 33 Quit status (tobacco): not considering quitting Second hand smoke exposure: Yes Alcohol intake: former Former alcohol use details: DRANK UNTIL THREW UP Substance/Drug Use: current Substance/Drug use frequency: daily Desire information about substance/drug rehabilitation?: No Other details last substance use: iv drug abuse Adopted: No Caregiver/support person: No Lives independently: No Household members: other Details: a man that was homeless is living with her Housing: Apartment Marital status: Legally Marital status details: 2014 Number of children: 2 Number of grandchildren: 0 Highest education level completed: 11th Grade service: No Current occupational status: employed Current occupation: [employer] Current occupational exposures/hazards: No Pets and animals: Yes Pets & animals: dog(s) Leisure activites: other Leisure activities details: poetry, play piano Sexually active: No Do you think of yourself as: Straight/Heterosexual Current gender identity: Male Skylar/Anglican: Synagogue Special skylar needs: No Agree to transfusion: Yes Financial difficulty paying for basics: Not Very Hard Female Reproductive History: Para: 2 Physical Exam Const: COMMON NORMALS: no acute distress, average body habitus, patient oriented x3, no limitations, healthy appearing, alert and well nourished HENMT: COMMON NORMALS: normocephalic, atraumatic, hearing grossly normal bilaterally, external ears normal, Normal external nose present and moist oral mucous membranes HEAD & SCALP: normocephalic and atraumatic NOSE: Normal external nose present EXTERNAL EAR: Yes external ears normal Eye: COMMON NORMALS: Equal, round and reactive pupils present, EOMs intact bilaterally, conjunctivae normal and no scleral icterus CONJUNCTIVA: Yes conjunctivae normal PUPIL: Yes Equal, round and reactive pupils present Neck/C-Spine: COMMON NORMALS: no JVD OTHER: Patient was complaining of neck pain so she was immediately put in a c-collar. Chest: COMMONS NORMALS: normal inspection of the chest and normal palpation of entire chest wall Resp: COMMON NORMALS: normal respiratory effort, No retractions, No use of accessory muscles and clear to auscultation bilaterally AUSCULTATION: clear to auscultation bilaterally Cardio: COMMON NORMALS: no JVD, regular rate, regular rhythm, S1 normal heart sound present, S2 normal heart sound present, No gallops present (Cardio), No clicks present (Cardio), No murmurs present (Cardio) and No rub (Cardio) RATE: regular rate RHYTHM: regular rhythm HEART SOUNDS: S1 normal heart sound present and S2 normal heart sound present GI: COMMON NORMALS: Normal to inspection, nondistended, normoactive bowel sounds present, Soft to palpation, non-tender, No hepatosplenomegaly present and no masses PALPATION: Yes Soft to palpation and Yes No hepatosplenomegaly present : COMMON NORMALS: Yes no CVA tenderness BLADDER/KIDNEY EXAM: Yes no CVA tenderness Back/Pelvis: COMMON NORMALS: no CVA tenderness Neuro: COMMON NORMALS: patient oriented x3, CN's II-XII intact bilaterally, moves all extremities, no focal motor deficits and no sensory deficits noted SENSORIUM/ORIENTATION: Yes alert Course Vital Signs: Vital signs: Vital Signs Temperature 97.6 F 10/31/22 12:36 Pulse Rate 53 L 10/31/22 14:00 Respiratory Rate 20 H 10/31/22 12:40 Blood Pressure 133/80 10/31/22 14:00 Pulse Oximetry 100 10/31/22 14:00 Oxygen Delivery Me thod Nasal Cannula 10/31/22 14:00 Oxygen Flow Rate 3 10/31/22 14:00 MDM - Fall Medical Decision Making Patient presents to the ER with complaints of neck pain head pain secondary to a fall. Patient was immediately put in a c-collar. CT scan of the head neck was obtained radiology noted fracture of C1 and C2. Collar was switched out for Hart J collar to give the patient more support. Patient prefers to go to [facility] in [place]. [facility] called and wanted the images uploaded therefore images will be uploaded pending [facility] to call back. [facility] call back we will be doing an ER to ER transferFt Dr Kim accepting, we will fly for the permitting Differential Diagnosis Unlikely syncope, dislocation of shoulder region, fracture of wrist, compression fracture, concussion with loss of consciousness or concussion without loss of consciousness Medical Records I reviewed the patient's medical records. Lab Data I reviewed the patient's lab results. Radiology Impressions Cervical Spine CT 10/31/22 12:49 IMPRESSION: 1. Fractures of the anterior arch and bilateral lamina fractures of C1. 2. Transverse fracture through the base of the odontoid with dorsal tilting of the odontoid fragment and about 1.5 mm of dorsal displacement. ADDENDUM: 10/31/22 1408 THIS REPORT CONTAINS FINDINGS THAT MAY BE CRITICAL TO PATIENT CARE. The findings were verbally communicated via telephone conference with Cuco Galloway at 2:06 PM CDT on 10/31/2022. The findings were acknowledged and understood. Head CT 10/31/22 12:49 IMPRESSION: 1. No acute abnormality is seen in the brain. 2. Fractures of the anterior arch and bilateral lamina of C1. Please see the separately reported CT scan of the cervical spine. Discharge Plan Discharge Patient Disposition: Xfer Short-Term Hosp Clinical Impression: C1 cervical fracture Qualifiers: Encounter type: initial encounter Fracture type: closed Fracture morphology: burst- unstable Qualified Code(s): S12.02XA - Unstable burst fracture of first cervical vertebra, initial encounter for closed fracture C2 cervical fracture Qualifiers: Encounter type: initial encounter Fracture type: closed Fracture morphology: other dens Fracture alignment: displaced Qualified Code(s): S12.120A - Other displaced dens fracture, initial encounter for closed fracture Condition: Stable Referrals: Lorraine Falcon DO [Primary Care Provider] - Coding Level of Care Code ED Roll Slicing Machine Tender for Jessica Wang
--- NOTE | 2022-10-31 12:49 | CTR_ITS ---
PROCEDURE INFORMATION: Exam: CT Head Without Contrast Exam date and time: 10/31/2022 1:33 PM Age: 57 years old Clinical indication: Injury or trauma; Fall; Blunt trauma (contusions or hematomas); Additional info: Fall trauma headache TECHNIQUE: Imaging protocol: Computed tomography of the head without contrast. Radiation optimization: All CT scans at this facility use at least one of these dose optimization techniques: automated exposure control; mA and/or kV adjustment per patient size (includes targeted exams where dose is matched to clinical indication); or iterative reconstruction. REPORTING DATA: Count of CT and Cardiac NM exams in prior 12 months: This patient has received [address] and 0 known cardiac nuclear medicine studies in the 12 months prior to the current study. COMPARISON: CT head wo con* [id number] 01/06/2020 3:26 PM RADIATION DOSE METRICS: Total DLP (mGy-cm): 1177 FINDINGS: Brain: Normal. No hemorrhage. Unremarkable white matter. No mass effect. Cerebral ventricles: No ventriculomegaly. Paranasal sinuses: Visualized sinuses are unremarkable. No fluid levels. Mastoid air cells: Visualized mastoid air cells are well aerated. Bones/joints: Are fractures of the anterior arch and bilateral lamina fractures of C1. No skull fractures are seen. Soft tissues: Unremarkable. CT/CT head wo con* [id number] IMPRESSION: 1. No acute abnormality is seen in the brain. 2. Fractures of the anterior arch and bilateral lamina of C1. Please see the separately reported CT scan of the cervical spine.
--- NOTE | 2022-10-31 12:49 | CTR_ITS ---
PROCEDURE INFORMATION: Exam: CT Cervical Spine Without Contrast Exam date and time: 10/31/2022 1:33 PM Age: 57 years old Clinical indication: Injury or trauma; Fall; Blunt trauma; Prior surgery; Surgery type: Neck; Additional info: Neck pain TECHNIQUE: Imaging protocol: Computed tomography of the cervical spine without contrast. Radiation optimization: All CT scans at this facility use at least one of these dose optimization techniques: automated exposure control; mA and/or kV adjustment per patient size (includes targeted exams where dose is matched to clinical indication); or iterative reconstruction. REPORTING DATA: Count of CT and Cardiac NM exams in prior 12 months: This patient has received [address] and 0 known cardiac nuclear medicine studies in the 12 months prior to the current study. COMPARISON: CT cervical spin wo con* [id number] 10/26/2018 1:14 PM RADIATION DOSE METRICS: Total DLP (mGy-cm): 186.2 FINDINGS: Bones/joints: There is a fracture through the anterior arch of C1 and bilateral lamina fractures of C1 with about 3.5 mm of displacement at the right lamina fracture. There is also a transverse fracture through the base of the odontoid. The odontoid is tilted dorsally with about 1.5 mm of dorsal displacement. Chronic degenerative changes are present in the spine. The patient has undergone surgical fusion at the C5-C6 and C6-C7 levels. No other malalignment. Lungs: Lung apices are normal. Soft tissues: Unremarkable. CT/CT cervical spin wo con* [id number] IMPRESSION: 1. Fractures of the anterior arch and bilateral lamina fractures of C1. 2. Transverse fracture through the base of the odontoid with dorsal tilting of the odontoid fragment and about 1.5 mm of dorsal displacement.
[2022-10-31] MEDS: ondansetron 2 mg/ML SDV 2 mL 4 MG IVP (12:55)
[2022-10-31] MEDS: fentaNYL 50 mcg/mL INJ 2mL 25 MCG IVP (12:55)
[2022-10-31] MEDS: orphenadrine 30 mg/mL Inj 2 mL 60 MG IVP (12:55)
[2022-10-31 13:40] VITALS: BP 113/75; PULSE 56; O2SAT 94
--- NOTE | 2022-10-31 13:57 | PC.PHAR ---
pt states she takes care of her own medications-pt states she has a albuterol neb med and uses prn ext med history doesnt show when last filled [facility] to verify if filled and when-pt states she use to have a proair inhaler but not had for 15 months ext also doesnt show when last filled
[2022-10-31 14:00] VITALS: BP 133/80; PULSE 53; O2SAT 100
[2022-10-31] MEDS: LORazepam 2 mg/mL INJ 1 mL 0.5 MG IVP (14:33)
== END 2022-10-31 15:21 | disposition short-term general hospital (02) ==
PROVIDERS: Emergency Provider Emergency Medicine; PCP Family Medicine
DX: S12.090A Other displaced fracture of first cervical vertebra, initial encounter for closed fracture (principal); S12.190A Other displaced fracture of second cervical vertebra, initial encounter for closed fracture; W19.XXXA Unspecified fall, initial encounter; Y92.009 Unspecified place in unspecified non-institutional (private) residence as the place of occurrence of the external cause
CPT/HCPCS: 70450; 72125; 96374; 96375; 99285; J2060; J2360; J2405; J3010

== ENCOUNTER 2022-11-18 14:22 | Emergency (ER) | payer MEDICARE, MEDICAID, SELFPAY ==
[2022-11-18 14:32] VITALS: BP 117/66; PULSE 89; RESP 16; TEMP 36.8; O2SAT 98; BMI 24.7
--- NOTE | 2022-11-18 15:27 | W.ED.NECK ---
HPI - Neck Pain/Injury General: Chief Complaint: Neck Pain/Injury Stated Complaint: Neck Pain ( Released from [facility]) Time Seen by Provider: 11/18/22 14:53 Source: patient Mode of arrival: ambulatory History of Present Illness: 57-year-old female presents emergency room with complaints of neck pain. She was seen emergency room several days ago was transferred to [facility] with a C1 and 2 fracture. She was discharged from there after declining recommendation of skilled care rehab. She was discharged yesterday finds herself unable to manage at home. She presents to the emergency room today asking to be transferred to [place] or [place] for rehab. She has not had any new injuries or falls since being discharged. No other new complaints at this time. MD complaint: neck pain and neck injury Onset (ago): day(s) Place: home Relieving factors: immobilization Exacerbating factors: none Context: fall Associated symptoms: Reports no associated symptoms; Denies nausea Treatments prior to arrival: none Review of Systems Const: Denies: fever(s), chills, body aches, change in appetite, fatigue or malaise ENMT: Denies: throat pain, ear or mastoid pain, nasal discharge or nasal congestion Card: Denies: chest pain or edema Resp: Denies: dyspnea, productive cough or non-productive cough GI: Denies: abdominal pain, nausea or vomiting : Denies: flank pain, difficulty voiding, dysuria, urinary frequency or urinary urgency Skin/Breast: Denies: rash or pruritus [facility] ED PFSH: Medical History Bulimia nervosa Cannabis use disorder, moderate, in sustained remission Cholesteatoma of right ear Chronic low back pain Chronic migraine without aura, intractable, without status migrainosus Chronic serous otitis media, right ear COPD (chronic obstructive pulmonary disease) Hearing loss in right ear History of fracture of leg History of MRSA infection Methamphetamine use disorder, severe, in early remission Opioid use disorder Post-traumatic stress disorder, chronic Sedative, hypnotic or anxiolytic abuse, 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 Surgical History H/O section H/O neck surgery History of colonoscopy History of facial fracture repair S/P appendectomy S/P tonsillectomy and adenoidectomy Status post colonoscopy (12/25/19) hemorrhoids , repeat 5 years Family History Other CAD (coronary artery disease) Cancer Lung disease Stroke Social History Smoking and tobacco status: current every day smoker cigarettes Packs smoked per day: 1 Years cigarettes smoked: 33 Quit status (tobacco): not considering quitting Second hand smoke exposure: Yes Alcohol intake: former Former alcohol use details: DRANK UNTIL THREW UP Substance/Drug Use: current Substance/Drug use frequency: daily Desire information about substance/drug rehabilitation?: No Other details last substance use: iv drug abuse Adopted: No Caregiver/support person: No Lives independently: No Household members: other Details: a man that was homeless is living with her Housing: Apartment Marital status: Legally Marital status details: 2014 Number of children: 2 Number of grandchildren: 0 Highest education level completed: 11th Grade service: No Current occupational status: employed Current occupation: [employer] Current occupational exposures/hazards: No Pets and animals: Yes Pets & animals: dog(s) Leisure activites: other Leisure activities details: poetry, play piano Sexually active: No Do you think of yourself as: Straight/Heterosexual Current gender identity: Male Skylar/Pentecostalism: Rastafarian Special skylar needs: No Agree to transfusion: Yes Financial difficulty paying for basics: Not Very Hard Female Reproductive History: Para: 2 Physical Exam Const: GENERAL APPEARANCE: cooperative and comfortable ORIENTATION/CONSCIOUSNESS: Yes awake, Yes oriented to person, Yes oriented to place and Yes oriented to time HENMT: COMMON NORMALS: normocephalic, atraumatic and hearing grossly normal bilaterally HEAD & SCALP: normocephalic and atraumatic Resp: COMMON NORMALS: normal respiratory effort, No retractions, No use of accessory muscles and clear to auscultation bilaterally AUSCULTATION: clear to auscultation bilaterally Cardio: COMMON NORMALS: regular rate, regular rhythm and No murmurs present (Cardio) RATE: regular rate RHYTHM: regular rhythm GI: COMMON NORMALS: Soft to palpation and No hepatosplenomegaly present AUSCULTATION: Yes normoactive bowel sounds PALPATION: Yes Soft to palpation, No Tenderness to palpation present (GI), No Guarding due to palpation present (GI) and Yes No hepatosplenomegaly present Extremity: COMMON NORMALS: normal to inspection, capillary refill normal, no clubbing, cyanosis or edema, no calf tenderness and no pedal edema Neuro: SENSORIUM/ORIENTATION: Yes oriented to person, Yes oriented to place and Yes oriented to time Skin: COMMON NORMALS: no rashes or lesions noted GENERAL SKIN EXAM: no rashes or lesions noted Course Vital Signs: Vital signs: Vital Signs Temperature 98.3 F 11/18/22 14:32 Pulse Rate 89 11/18/22 14:32 Respiratory Rate 16 11/18/22 14:32 Blood Pressure 117/66 11/18/22 14:32 Pulse Oximetry 98 11/18/22 14:32 MDM - Neck Pain/Injury Medical Decision Making No new or acute injury at this time she is stable, exams unremarkable. Discussed with the patient and her family over we do not have the ability here to admit directly to the long-term certainly would not be able to get her to [place] or [place]. My best recommendation at this point is for her to talk to her primary care doctor or contact the doctor who was her attending while inpatient at [facility], they would be in the best position to arrange for placement in long-term. Medical Records I reviewed the patient's medical records. Lab Data I reviewed the patient's lab results. Discharge Plan Discharge Patient Disposition: Home Clinical Impression: Fracture of cervical spine without lesion of spinal cord Condition: Stable Prescriptions: New Percocet 5-325 mg tablet 1 tab PO QID PRN (Reason: pain) Qty: 14 0RF No Action mupirocin 2 % ointment 1 applic topical TID Qty: 22 0RF acetaminophen [Tylenol Extra Strength] 500 mg Tablet 2,000 mg PO Q6H PRN (Reason: Pain) albuterol sulfate 2.5 mg /3 mL (0.083 %) Solution For Nebulization 2.5 mg INHALATION Q4H PRN (Reason: Shortness Of Breath) Discharge Orders: Discharge ED (Routine); Ordered 11/18/22 Ordered By: Yunier Joyner Referrals: Royal Lutz MD [Primary Care Provider] - Discharge Diet: Usual diet Discharge Activity: Limit activity as instructed Patient Instructions: Opioid Safety, Pain Management Activity Restrictions/Additional Instructions: Recommend he contact the attending physician from your recent hospital stay at [facility] in [place] or your primary care doctor to help coordinate admission to long-term for rehab Coding Level of Care Code ED Head Of Product for [facility] Wang
[2022-11-18 15:45] VITALS: BP 117/66; PULSE 89; O2SAT 98
== END 2022-11-18 15:46 | disposition home or self-care (01) ==
PROVIDERS: Emergency Provider Family Medicine; PCP Family Medicine
DX: S12.001A Unspecified nondisplaced fracture of first cervical vertebra, initial encounter for closed fracture (principal); S12.101A Unspecified nondisplaced fracture of second cervical vertebra, initial encounter for closed fracture; F17.210 Nicotine dependence, cigarettes, uncomplicated; J44.9 Chronic obstructive pulmonary disease, unspecified; X58.XXXA Exposure to other specified factors, initial encounter
CPT/HCPCS: 99283

== ENCOUNTER 2022-12-24 04:33 | Emergency (ER) | payer MEDICARE, MEDICAID, SELFPAY ==
--- NOTE | 2022-12-24 04:36 | W.ED.EXTPRO ---
Documented by User: Mic Brennan MD 01/05/23 18:59 HPI - Extremity Problem General: Chief complaint: Extremity Problem,Nontraumatic Stated complaint: right leg pain Time Seen by Provider: 12/24/22 04:36 History of Present Illness: Ms Aguilera is a 57-year-old lady with complex recent past medical history presented to the emergency department for leg pain. Notes onset of symptoms atraumatic pain in the anterior right lower leg just above the knee. Notes numbness and tingling down the leg. Moderate to severe in intensity. Worse with palpation and movement. No other specific changes in health, exacerbating, or alleviating factors identified. Onset (ago): day(s) Radiation: proximal Exacerbating factors: weight bearing, walking and palpation Review of Systems General: Reports: 10 or more systems reviewed and unremarkable except in HPI and below PFSH ED PFSH: Medical History Bulimia nervosa Cannabis use disorder, moderate, in sustained remission Cholesteatoma of right ear Chronic low back pain Chronic migraine without aura, intractable, without status migrainosus Chronic serous otitis media, right ear COPD (chronic obstructive pulmonary disease) Exposure to severe acute respiratory syndrome coronavirus 2 (SARS-CoV-2) Hearing loss in right ear Hematochezia History of fracture of leg History of MRSA infection Left hand pain Nicotine dependence, cigarettes, with unspecified nicotine-induced disorders Opioid use disorder Post-traumatic stress disorder, chronic Sedative, hypnotic or anxiolytic abuse, 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 Surgical History H/O section H/O neck surgery History of colonoscopy History of facial fracture repair S/P appendectomy S/P tonsillectomy and adenoidectomy Status post colonoscopy (12/25/19) hemorrhoids , repeat 5 years Family History Other CAD (coronary artery disease) Cancer Lung disease Stroke Social History Smoking and tobacco status: current every day smoker cigarettes Packs smoked per day: 1 Years cigarettes smoked: 33 Quit status (tobacco): not considering quitting Second hand smoke exposure: Yes Alcohol intake: former Former alcohol use details: DRANK UNTIL THREW UP Substance/Drug Use: current Substance/Drug use frequency: daily Desire information about substance/drug rehabilitation?: No Other details last substance use: iv drug abuse Adopted: No Caregiver/support person: No Lives independently: No Household members: other Details: a man that was homeless is living with her Housing: Apartment Marital status: Legally Marital status details: 2014 Number of children: 2 Number of grandchildren: 0 Highest education level completed: 11th Grade service: No Current occupational status: employed Current occupation: [employer] Current occupational exposures/hazards: No Pets and animals: Yes Pets & animals: dog(s) Leisure activites: other Leisure activities details: poetry, play piano Sexually active: No Do you think of yourself as: Straight/Heterosexual Current gender identity: Male Skylar/Muslim: Buddhist Special skylar needs: No Agree to transfusion: Yes Financial difficulty paying for basics: Not Very Hard Female Reproductive History: Para: 2 Physical Exam Const: COMMON NORMALS: alert GENERAL APPEARANCE: cooperative and well developed HENMT: COMMON NORMALS: normocephalic and atraumatic HEAD & SCALP: normocephalic and atraumatic Eye: COMMON NORMALS: conjunctivae normal CONJUNCTIVA: Yes conjunctivae normal SCLERA: sclerae normal Neck/C-Spine: COMMON NORMALS: supple GENERAL: Yes trachea midline Resp: COMMON NORMALS: normal respiratory effort EFFORT & INSPECTION: Yes able to speak in complete sentences Cardio: COMMON NORMALS: regular rate and regular rhythm RATE: regular rate RHYTHM: regular rhythm GI: COMMON NORMALS: Soft to palpation PALPATION: Yes Soft to palpation and No Tenderness to palpation present (GI) PERCUSSION: normal to percussion Extremity: NARRATIVE EXTREMITY EXAM: CMS intact x 4 extremities. Hyperalgia without clear etiology to palpation of reported area of pain. GENERAL: Yes normal exam except as noted and No edema Neuro: COMMON NORMALS: moves all extremities SENSORIUM/ORIENTATION: Yes alert and No Orientation impaired Psych: COMMON NORMALS: mental status grossly normal and Normal thought process present THOUGHT PROCESS: Normal thought process present Course Vital Signs: Vital signs: Vital Signs Temperature 98.1 F 12/24/22 04:38 Pulse Rate 73 12/24/22 08:41 Respiratory Rate 16 12/24/22 08:41 Blood Pressure 121/78 12/24/22 08:41 Pulse Oximetry 95 12/24/22 08:41 Oxygen Delivery Me thod Room Air 12/24/22 08:41 MDM - Extremity (Nontraumatic) Medical Decision Making 57-year-old lady presenting due to atraumatic leg pain. Exam as above. Labs with no significant hematologic or metabolic abnormality. Handed off to Dr. Joyner pending completion of ED evaluation. Care assumed at change of shift. Note reviewed. Anterior lower leg pain even with light touch. Nontraumatic. No sign of cellulitis no sign of vesicular rash no redness erythema or inflammation no laceration no deformity. Laboratory test reviewed. Start the patient on tizanidine to use as needed she is already taking oxycodone for her previous injury to her neck. She lists NSAIDs as an allergy. I have her follow-up with her primary care if not improving Lab Data 12/24/22 06:18 12/24/22 06:18 Radiology Impressions Venous Duplex 12/24/22 04:47 IMPRESSION: No evidence of deep vein thrombosis. Knee X-Ray 12/24/22 05:07 IMPRESSION: 1. Mild tricompartmental osteoarthritis. 2. No acute findings. Laboratory Results WBC 6.2 10^3/uL (4.0-10.0) 12/24/22 06:18 RBC 4.34 10^6/uL (4.1-5.3) 12/24/22 06:18 Hgb 12.9 g/dL (11.5-15.3) 12/24/22 06:18 Hct 40.2 % (37.0-47.0) 12/24/22 06:18 MCV 92.6 fl (81-99) 12/24/22 06:18 MCH 29.7 pg (28.0-34.0) 12/24/22 06:18 MCHC 32.1 g/dL (30.0-36.0) 12/24/22 06:18 RDW 12.3 % (12.1-15.1) 12/24/22 06:18 Plt Count 181 10^3/cmm (130-400) 12/24/22 06:18 MPV 10.8 fL (7.4-10.4) H 12/24/22 06:18 Neut % (Auto) 54.0 % 12/24/22 06:18 Lymph % (Auto) 28.9 % 12/24/22 06:18 [place] % (Auto) 12.7 % 12/24/22 06:18 Eos % (Auto) 3.4 % 12/24/22 06:18 Baso % (Auto) 0.8 % 12/24/22 06:18 Neut # (Auto) 3.32 10^3/uL (1.8-7.7) 12/24/22 06:18 Lymph # (Auto) 1.8 10^3/uL (0.8-4.8) 12/24/22 06:18 [place] # (Auto) 0.8 10^3/uL (0.2-0.9) 12/24/22 06:18 Eos # (Auto) 0.2 10^3/uL (0.0-0.8) 12/24/22 06:18 Baso # (Auto) 0.1 10^3/uL (0.0-0.1) 12/24/22 06:18 Nucleated RBC % (auto) 0 % 12/24/22 06:18 Nucleated RBCs # 0.0 /100WBC 12/24/22 06:18 Sodium 138 mmol/L (136-145) 12/24/22 06:18 Potassium 4.8 mmol/L (3.5-5.1) 12/24/22 06:18 Chloride 103 mmol/L (98-107) 12/24/22 06:18 Carbon Dioxide 28 mmol/L (22-29) 12/24/22 06:18 Anion Gap 11.8 (5-19) 12/24/22 06:18 BUN 14 mg/dL (6-20) 12/24/22 06:18 Creatinine 0.7 mg/dL (0.5-0.9) 12/24/22 06:18 GFR Calculation 85.6 mL/min (90-130) L 12/24/22 06:18 Glucose 100 mg/dL (65-115) 12/24/22 06:18 Calculated Osmolality 287 mOsm/kg (285-295) 12/24/22 06:18 Calcium 9.4 mg/dL (8.5-10.5) 12/24/22 06:18 Discharge Plan Discharge Patient Disposition: Home Clinical Impression: Leg pain, right Condition: Stable Discharge Orders: Discharge ED (Routine); Ordered 12/24/22 Ordered By: Yunier Joyner Referrals: Royal Lutz MD [Primary Care Provider] - Discharge Diet: Usual diet Discharge Activity: Increase activity as tolerated Patient Instructions: Opioid Safety, Pain Management Activity Restrictions/Additional Instructions: You were seen in the emergency room for leg pain there is no evidence of trauma infection or fracture. Use tizanidine as needed continue use of previously prescribed pain medications. Neck if symptoms or not improving recheck with your primary care doctor. Sign Out Sign Out Data: Patient Sign Out occurred on 12/24/22 at 06:20. Patient's care was discussed, and care was transferred from to Yunier Joyner DO. Coding Level of Care Code ED Nurse Staff [facility] F[facility] Documented by User: Yunier Joyner DO 12/24/22 07:20 HPI - Extremity Problem General: Chief complaint: Extremity Problem,Nontraumatic Stated complaint: right leg pain Time Seen by Provider: 12/24/22 04:36 [facility] ED PFSH: Medical History Bulimia nervosa Cannabis use disorder, moderate, in sustained remission Cholesteatoma of right ear Chronic low back pain Chronic migraine without aura, intractable, without status migrainosus Chronic serous otitis media, right ear COPD (chronic obstructive pulmonary disease) Exposure to severe acute respiratory syndrome coronavirus 2 (SARS-CoV-2) Hearing loss in right ear Hematochezia History of fracture of leg History of MRSA infection Left hand pain Nicotine dependence, cigarettes, with unspecified nicotine-induced disorders Opioid use disorder Post-traumatic stress disorder, chronic Sedative, hypnotic or anxiolytic abuse, 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 Surgical History H/O section H/O neck surgery History of colonoscopy History of facial fracture repair S/P appendectomy S/P tonsillectomy and adenoidectomy Status post colonoscopy (12/25/19) hemorrhoids , repeat 5 years Family History Other CAD (coronary artery disease) Cancer Lung disease Stroke Social History Smoking and tobacco status: current every day smoker cigarettes Packs smoked per day: 1 Years cigarettes smoked: 33 Quit status (tobacco): not considering quitting Second hand smoke exposure: Yes Alcohol intake: former Former alcohol use details: DRANK UNTIL THREW UP Substance/Drug Use: current Substance/Drug use frequency: daily Desire information about substance/drug rehabilitation?: No Other details last substance use: iv drug abuse Adopted: No Caregiver/support person: No Lives independently: No Household members: other Details: a man that was homeless is living with her Housing: Apartment Marital status: Legally Marital status details: 2014 Number of children: 2 Number of grandchildren: 0 Highest education level completed: 11th Grade service: No Current occupational status: employed Current occupation: [employer] Current occupational exposures/hazards: No Pets and animals: Yes Pets & animals: dog(s) Leisure activites: other Leisure activities details: poetry, play piano Sexually active: No Do you think of yourself as: Straight/Heterosexual Current gender identity: Male Skylar/Muslim: Buddhist Special skylar needs: No Agree to transfusion: Yes Financial difficulty paying for basics: Not Very Hard Course Vital Signs: Vital signs: Vital Signs Temperature 98.1 F 12/24/22 04:38 Pulse Rate 73 12/24/22 08:41 Respiratory Rate 16 12/24/22 08:41 Blood Pressure 121/78 12/24/22 08:41 Pulse Oximetry 95 12/24/22 08:41 Oxygen Delivery Me thod Room Air 12/24/22 08:41 MDM - Extremity (Nontraumatic) Medical Decision Making Care assumed at change of shift. Note reviewed. Anterior lower leg pain even with light touch. Nontraumatic. No sign of cellulitis no sign of vesicular rash no redness erythema or inflammation no laceration no deformity. Laboratory test reviewed. Start the patient on tizanidine to use as needed she is already taking oxycodone for her previous injury to her neck. She lists NSAIDs as an allergy. I have her follow-up with her primary care if not improving Medical Records I reviewed the patient's medical records. Lab Data I reviewed the patient's lab results. 12/24/22 06:18 12/24/22 06:18 Radiology Impressions Venous Duplex 12/24/22 04:47 IMPRESSION: No evidence of deep vein thrombosis. Knee X-Ray 12/24/22 05:07 IMPRESSION: 1. Mild tricompartmental osteoarthritis. 2. No acute findings. Laboratory Results WBC 6.2 10^3/uL (4.0-10.0) 12/24/22 06:18 RBC 4.34 10^6/uL (4.1-5.3) 12/24/22 06:18 Hgb 12.9 g/dL (11.5-15.3) 12/24/22 06:18 Hct 40.2 % (37.0-47.0) 12/24/22 06:18 MCV 92.6 fl (81-99) 12/24/22 06:18 MCH 29.7 pg (28.0-34.0) 12/24/22 06:18 MCHC 32.1 g/dL (30.0-36.0) 12/24/22 06:18 RDW 12.3 % (12.1-15.1) 12/24/22 06:18 Plt Count 181 10^3/cmm (130-400) 12/24/22 06:18 MPV 10.8 fL (7.4-10.4) H 12/24/22 06:18 Neut % (Auto) 54.0 % 12/24/22 06:18 Lymph % (Auto) 28.9 % 12/24/22 06:18 [place] % (Auto) 12.7 % 12/24/22 06:18 Eos % (Auto) 3.4 % 12/24/22 06:18 Baso % (Auto) 0.8 % 12/24/22 06:18 Neut # (Auto) 3.32 10^3/uL (1.8-7.7) 12/24/22 06:18 Lymph # (Auto) 1.8 10^3/uL (0.8-4.8) 12/24/22 06:18 [place] # (Auto) 0.8 10^3/uL (0.2-0.9) 12/24/22 06:18 Eos # (Auto) 0.2 10^3/uL (0.0-0.8) 12/24/22 06:18 Baso # (Auto) 0.1 10^3/uL (0.0-0.1) 12/24/22 06:18 Nucleated RBC % (auto) 0 % 12/24/22 06:18 Nucleated RBCs # 0.0 /100WBC 12/24/22 06:18 Sodium 138 mmol/L (136-145) 12/24/22 06:18 Potassium 4.8 mmol/L (3.5-5.1) 12/24/22 06:18 Chloride 103 mmol/L (98-107) 12/24/22 06:18 Carbon Dioxide 28 mmol/L (22-29) 12/24/22 06:18 Anion Gap 11.8 (5-19) 12/24/22 06:18 BUN 14 mg/dL (6-20) 12/24/22 06:18 Creatinine 0.7 mg/dL (0.5-0.9) 12/24/22 06:18 GFR Calculation 85.6 mL/min (90-130) L 12/24/22 06:18 Glucose 100 mg/dL (65-115) 12/24/22 06:18 Calculated Osmolality 287 mOsm/kg (285-295) 12/24/22 06:18 Calcium 9.4 mg/dL (8.5-10.5) 12/24/22 06:18 Discharge Plan Discharge Patient Disposition: Home Clinical Impression: Leg pain, right Condition: Stable Discharge Orders: Discharge ED (Routine); Ordered 12/24/22 Ordered By: Yunier Joyner Referrals: Royal Lutz MD [Primary Care Provider] - Discharge Diet: Usual diet Discharge Activity: Increase activity as tolerated Patient Instructions: Opioid Safety, Pain Management Activity Restrictions/Additional Instructions: You were seen in the emergency room for leg pain there is no evidence of trauma infection or fracture. Use tizanidine as needed continue use of previously prescribed pain medications. Neck if symptoms or not improving recheck with your primary care doctor. Sign Out Sign Out Data: Patient Sign Out occurred on 12/24/22 at 06:20. Patient's care was discussed, and care was transferred from to Yunier Joyner DO. Coding Level of Care Code ED Nurse Staff [facility]
[2022-12-24 04:38] VITALS: BP 117/84; PULSE 73; RESP 18; TEMP 36.7; O2SAT 97; BMI 24.7
[2022-12-24 04:46] VITALS: BP 130/73; PULSE 67; PULSE 73; O2SAT 97
--- NOTE | 2022-12-24 04:47 | USR_ITS ---
PROCEDURE INFORMATION: Exam: US Duplex Right Lower Extremity Veins, Limited Exam date and time: 12/24/2022 5:38 AM Age: 57 years old Clinical indication: Pain; Leg, lower; Right; Additional info: R leg pain, warmth, swelling, recent surgery TECHNIQUE: Imaging protocol: Real-time duplex ultrasound of the right extremity with 2-D tijerina scale, color Doppler flow and spectral waveform analysis including responses to compression and other maneuvers (when performed) with image documentation. Limited exam was focused on the right lower extremity veins. COMPARISON: US soft tissue/extremity [id number] 12/20/2019 2:13 PM FINDINGS: Right deep veins: Unremarkable. The common femoral, femoral, proximal profunda femoral and popliteal veins are patent without thrombus. Normal Doppler waveforms. Normal compressibility and/or augmentation response. Right superficial veins: Unremarkable. Saphenofemoral junction is patent without thrombus. Soft tissues: Unremarkable. US/[place] [id number] IMPRESSION: No evidence of deep vein thrombosis.
[2022-12-24 05:05] VITALS: RESP 22; O2SAT 97
[2022-12-24] MEDS: fentaNYL 50 mcg/mL INJ 2mL IVP (05:05)
--- NOTE | 2022-12-24 05:07 | XRR_ITS ---
PROCEDURE INFORMATION: Exam: XR Right Knee Exam date and time: 12/24/2022 5:20 AM Age: 57 years old Clinical indication: Pain; Knee; Right; Additional info: Atraumatic leg pain TECHNIQUE: Imaging protocol: Radiologic exam of the right knee. Views: 3 views. COMPARISON: No relevant prior studies available. FINDINGS: Bones/joints: Alignment is normal. Joint spaces are preserved. No acute fracture. No joint effusion. Small tricompartmental osteophytes. Soft tissues: Visible soft tissues are unremarkable. XR/XR knee RT 3V* [id number] IMPRESSION: 1. Mild tricompartmental osteoarthritis. 2. No acute findings.
[2022-12-24 06:24] LABS: Basophils # 0.1 10^3/uL (0.0-0.1); Basophils % 0.8 %; Eosinophils # 0.2 10^3/uL (0.0-0.8); Eosinophils % 3.4 %; Hematocrit 40.2 % (37.0-47.0); Hemoglobin 12.9 g/dL (11.5-15.3); Lymphocytes # 1.8 10^3/uL (0.8-4.8); Lymphocytes % 28.9 %; Mean Corpuscular HGB Conc 32.1 g/dL (30.0-36.0); Mean Corpuscular Hemoglobin 29.7 pg (28.0-34.0); Mean Corpuscular Volume 92.6 fl (81-99); Mean Platelet Volume 10.8 fL (7.4-10.4); Monocytes # 0.8 10^3/uL (0.2-0.9); Monocytes % 12.7 %; Neutrophils # 3.32 10^3/uL (1.8-7.7); Nucleated Red Blood Cells % 0 %; Platelet Count 181 10^3/cmm (130-400); Red Blood Count 4.34 10^6/uL (4.1-5.3); Red Cell Distribution Width 12.3 % (12.1-15.1); White Blood Count 6.2 10^3/uL (4.0-10.0)
[2022-12-24 06:31] VITALS: BP 121/67; PULSE 62; O2SAT 95
[2022-12-24 06:49] LABS: Blood Urea Nitrogen 14 mg/dL (6-20); Calcium 9.4 mg/dL (8.5-10.5); Carbon Dioxide 28 mmol/L (22-29); Chloride 103 mmol/L (98-107); Glomerular Filtration Rate 85.6 mL/min (90-130); Glucose 100 mg/dL (65-115); Osmolality Calculated 287 mOsm/kg (285-295); Sodium 138 mmol/L (136-145)
[2022-12-24 06:50] LABS: Anion Gap 11.8 (5-19); Potassium 4.8 mmol/L (3.5-5.1)
[2022-12-24 08:41] VITALS: BP 121/78; PULSE 73; RESP 16; O2SAT 95
== END 2022-12-24 08:43 | disposition home or self-care (01) ==
PROVIDERS: Emergency Medicine; Emergency Provider Family Medicine; PCP Family Medicine
DX: M79.661 Pain in right lower leg (principal); J44.9 Chronic obstructive pulmonary disease, unspecified; F17.210 Nicotine dependence, cigarettes, uncomplicated; Z86.14 Personal history of Methicillin resistant Staphylococcus aureus infection
CPT/HCPCS: 73562; 80048; 85025; 93971; 96374; 99285; J3010

== ENCOUNTER 2023-01-02 23:29 | Inpatient (IN) | payer MEDICARE, MEDICAID, SELFPAY ==
[2023-01-02 23:30] VITALS: BP 140/75; PULSE 113; RESP 22; TEMP 36.7; O2SAT 97; BMI 21.9
[2023-01-02 23:33] VITALS: BP 140/75; PULSE 147; RESP 22; O2SAT 92
--- NOTE | 2023-01-02 23:35 | W.ED.OVERDOS ---
HPI - Overdose General: Chief Complaint: Overdose Stated Complaint: overdose Time Seen by Provider: 01/02/23 23:32 Source: EMS Mode of arrival: EMS Limitations: altered mental status History of Present Illness: 57-year-old female has a history of methamphetamine abuse along with other drug use patient per EMS bystanders at scene said that she had shot up with fentanyl today was found in the bathroom unresponsive people at the scene and gave her Narcan x2 she is now awake patient is very combative she will not follow commands or answer any questions currently. No known injuries she did have a C-spine fracture almost 2 months ago was in a halo Review of Systems General: Reports: ROS unobtainable due to mental status PFS ED PFSH: Medical History (Updated 01/03/23 @ 01:45 by Schuyler Benavides MD) Bulimia nervosa Cannabis use disorder, moderate, in sustained remission Cholesteatoma of right ear Chronic low back pain Chronic migraine without aura, intractable, without status migrainosus Chronic serous otitis media, right ear COPD (chronic obstructive pulmonary disease) Exposure to severe acute respiratory syndrome coronavirus 2 (SARS-CoV-2) Hearing loss in right ear Hematochezia History of fracture of leg History of MRSA infection Left hand pain Nicotine dependence, cigarettes, with unspecified nicotine-induced disorders Opioid use disorder Post-traumatic stress disorder, chronic Sedative, hypnotic or anxiolytic abuse, 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 Surgical History H/O section H/O neck surgery History of colonoscopy History of facial fracture repair S/P appendectomy S/P tonsillectomy and adenoidectomy Status post colonoscopy (12/25/19) hemorrhoids , repeat 5 years Family History Other CAD (coronary artery disease) Cancer Lung disease Stroke Social History Smoking and tobacco status: current every day smoker cigarettes Packs smoked per day: 1 Years cigarettes smoked: 33 Quit status (tobacco): not considering quitting Second hand smoke exposure: Yes Alcohol intake: former Former alcohol use details: DRANK UNTIL THREW UP Substance/Drug Use: current Substance/Drug use frequency: daily Desire information about substance/drug rehabilitation?: No Other details last substance use: iv drug abuse Adopted: No Caregiver/support person: No Lives independently: No Household members: other Details: a man that was homeless is living with her Housing: Apartment Marital status: Legally Marital status details: 2014 Number of children: 2 Number of grandchildren: 0 Highest education level completed: 11th Grade service: No Current occupational status: employed Current occupation: [employer] Current occupational exposures/hazards: No Pets and animals: Yes Pets & animals: dog(s) Leisure activites: other Leisure activities details: poetry, play piano Sexually active: No Do you think of yourself as: Straight/Heterosexual Current gender identity: Male Skylar/Jewish: Denominational Special skylar needs: No Agree to transfusion: Yes Financial difficulty paying for basics: Not Very Hard Female Reproductive History: Para: 2 Physical Exam Const: COMMON NORMALS: negative for patient oriented x3 GENERAL APPEARANCE: combative and disheveled HENMT: COMMON NORMALS: normocephalic and atraumatic HEAD & SCALP: normocephalic and atraumatic Eye: COMMON NORMALS: Equal, round and reactive pupils present and EOMs intact bilaterally PUPIL: Yes Equal, round and reactive pupils present Neck/C-Spine: OTHER: in cervical halo Chest: COMMONS NORMALS: normal inspection of the chest and normal palpation of entire chest wall Resp: COMMON NORMALS: normal respiratory effort, No retractions, No use of accessory muscles and clear to auscultation bilaterally AUSCULTATION: clear to auscultation bilaterally Cardio: COMMON NORMALS: regular rate, regular rhythm and No murmurs present (Cardio) RATE: regular rate RHYTHM: regular rhythm GI: COMMON NORMALS: Normal to inspection, nondistended, normoactive bowel sounds present, Soft to palpation, non-tender and no masses PALPATION: Yes Soft to palpation Extremity: COMMON NORMALS: normal to inspection and full ROM Neuro: COMMON NORMALS: negative for patient oriented x3 Psych: COMMON NORMALS: negative for mental status grossly normal and negative for cooperative Skin: COMMON NORMALS: no rashes or lesions noted and no wounds GENERAL SKIN EXAM: no rashes or lesions noted Course Vital Signs: Vital signs: Vital Signs Temperature 97.6 F 01/03/23 02:35 Pulse Rate 83 01/03/23 02:35 Respiratory Rate 18 01/03/23 02:35 Blood Pressure 132/78 01/03/23 02:35 Pulse Oximetry 100 01/03/23 02:35 Oxygen Delivery Me thod Room Air 01/03/23 02:35 MDM - Overdose Medical Decision Making Patient presents here with an overdose she has been combative and altered likely from drug abuse did have to chemically sedate her spoke to hospitalist will admit to the ICU. Medical Records I reviewed the patient's medical records. Lab Data I reviewed the patient's lab results. 01/02/23 23:38 01/03/23 00:[address] 01/02/23 23:44 IMPRESSION: 1. No evidence of acute intracranial process. 2. Fractures seen through the anterior and posterior arch of C1 which was seen on the 10/31/2022 study. Chest X-Ray 01/03/23 00:44 IMPRESSION: No acute findings. Laboratory Results WBC 9.8 10^3/uL (4.0-10.0) 01/02/23 23:38 RBC 4.35 10^6/uL (4.1-5.3) 01/02/23 23:38 Hgb 12.9 g/dL (11.5-15.3) 01/02/23 23:38 Hct 38.8 % (37.0-47.0) 01/02/23 23:38 MCV 89.2 fl (81-99) 01/02/23 23:38 MCH 29.7 pg (28.0-34.0) 01/02/23 23:38 MCHC 33.2 g/dL (30.0-36.0) 01/02/23 23:38 RDW 12.1 % (12.1-15.1) 01/02/23 23:38 Plt Count 207 10^3/cmm (130-400) 01/02/23 23:38 MPV 11.4 fL (7.4-10.4) H 01/02/23 23:38 Neut % (Auto) 83.2 % 01/02/23 23:38 Lymph % (Auto) 9.0 % 01/02/23 23:38 Luna % (Auto) 6.5 % 01/02/23 23:38 Eos % (Auto) 0.8 % 01/02/23 23:38 Baso % (Auto) 0.3 % 01/02/23 23:38 Neut # (Auto) 8.11 10^3/uL (1.8-7.7) H 01/02/23 23:38 Lymph # (Auto) 0.9 10^3/uL (0.8-4.8) 01/02/23 23:38 Luna # (Auto) 0.6 10^3/uL (0.2-0.9) 01/02/23 23:38 Eos # (Auto) 0.1 10^3/uL (0.0-0.8) 01/02/23 23:38 Baso # (Auto) 0.0 10^3/uL (0.0-0.1) 01/02/23 23:38 Nucleated RBC % (auto) 0 % 01/02/23 23:38 Nucleated RBCs # 0.0 /100WBC 01/02/23 23:38 Specimen Type Arterial 01/03/23 00:27 Sample Site Radial, left 01/03/23 00:27 ABG pH 7.44 (7.35-7.45) 01/03/23 00:27 ABG pCO2 41.5 mmHg (35-45) 01/03/23 00:27 ABG pO2 84.7 mmHg (80.0-100.0) 01/03/23 00:27 ABG HCO3 28.2 mmol/L (22-26) H 01/03/23 00:27 ABG Base Excess 3.7 mmol/L (-2.0-2.0) H 01/03/23 00:27 Kaveh Test Pos 01/03/23 00:27 Hematocrit 41.8 % (37-47) 01/03/23 00:27 O2 Delivery Device Nc 01/03/23 00:27 Burrer Machine ID ellpe 01/03/23 00:27 Sodium 138 mmol/L (136-145) 01/03/23 00:25 Potassium 3.8 mmol/L (3.5-5.1) 01/03/23 00:25 Chloride 102 mmol/L (98-107) 01/03/23 00:25 Carbon Dioxide 24 mmol/L (22-29) 01/03/23 00:25 Anion Gap 15.8 (5-19) 01/03/23 00:25 BUN 10 mg/dL (6-20) 01/03/23 00:25 Creatinine 0.6 mg/dL (0.5-0.9) 01/03/23 00:25 GFR Calculation 102.3 mL/min (90-130) 01/03/23 00:25 Glucose 105 mg/dL (65-115) 01/03/23 00:25 Calculated Osmolality 285 mOsm/kg (285-295) 01/03/23 00:25 Calcium 8.9 mg/dL (8.5-10.5) 01/03/23 00:25 Total Bilirubin 0.5 mg/dL (0.15-1.2) 01/03/23 00:25 AST 38 U/L (0-32) H 01/03/23 00:25 ALT 29 U/L (0-33) 01/03/23 00:25 Alkaline Phosphatase 103 U/L (35-105) 01/03/23 00:25 Total Protein 6.5 g/dL (6.6-8.7) L 01/03/23 00:25 Albumin 3.7 g/dL (3.5-5.2) 01/03/23 00:25 Globulin 2.8 g/dL (1.3-4.6) 01/03/23 00:25 Salicylates < 0.3 mg/dL (3-10) L 01/03/23 00:25 Urine Opiates Screen Positive ng/mL (Negative) H 01/02/23 23:55 Acetaminophen < 5.0 ug/mL (10-30) L 01/03/23 00:25 Ur Barbiturates Screen Negative ng/mL (Negative) 01/02/23 23:55 Ur Phencyclidine Scrn Negative ng/mL (Negative) 01/02/23 23:55 Ur Amphetamines Screen Negative ng/mL (Negative) 01/02/23 23:55 U Benzodiazepines Scrn Positive ng/mL (Negative) H 01/02/23 23:55 Urine Cocaine Screen Negative ng/mL (Negative) 01/02/23 23:55 U Marijuana (THC) Screen Positive ng/mL (Negative) H 01/02/23 23:55 Ethyl Alcohol < 10 mg/dL (0-10) 01/03/23 00:25 Discharge Plan Discharge Patient Disposition: Admitted As Inpatient Admit Provider: Schuyler Benavides Clinical Impression: Overdose Condition: Stable Coding Level of Care Code ED Filler Shredder for Chg Fwd
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
--- NOTE | 2023-01-02 23:44 | CTR_ITS ---
PROCEDURE INFORMATION: Exam: CT Head Without Contrast Exam date and time: 01/03/2023 12:13 AM Age: 57 years old Clinical indication: Altered mental status/memory loss; Patient HX: Arrival via EMS for fentanyl overdose. Narcan administered before arrival. Wearing halo for c1-c2 fracture. ; Additional info: AMS TECHNIQUE: Imaging protocol: Computed tomography of the head without contrast. Radiation optimization: All CT scans at this facility use at least one of these dose optimization techniques: automated exposure control; mA and/or kV adjustment per patient size (includes targeted exams where dose is matched to clinical indication); or iterative reconstruction. REPORTING DATA: Count of CT and Cardiac NM exams in prior 12 months: This patient has received 3 known CTs and 0 known cardiac nuclear medicine studies in the 12 months prior to the current study. COMPARISON: CT head wo con* [id number] 10/31/2022 1:33 PM RADIATION DOSE METRICS: Total DLP (mGy-cm): 2245.88 FINDINGS: Brain: There is no evidence of acute parenchymal hemorrhage, extra-axial collection, or acute infarction. There is no mass effect, midline shift, or downward herniation. Cerebral ventricles: No ventriculomegaly. Paranasal sinuses: There is moderate paranasal sinus disease. Mastoid air cells: The patient is status post right tympanomastoidectomy. Bones/joints: Fractures are seen through the anterior and posterior arch of C1. Soft tissues: Unremarkable. CT/CT head wo con* [id number] IMPRESSION: 1. No evidence of acute intracranial process. 2. Fractures seen through the anterior and posterior arch of C1 which was seen on the 10/31/2022 study.
[2023-01-02 23:45] VITALS: BP 154/84; PULSE 111; RESP 21; O2SAT 99
[2023-01-02 23:47] LABS: Basophils % 0.3 %; Eosinophils # 0.1 10^3/uL (0.0-0.8); Eosinophils % 0.8 %; Hematocrit 38.8 % (37.0-47.0); Hemoglobin 12.9 g/dL (11.5-15.3); Lymphocytes # 0.9 10^3/uL (0.8-4.8); Mean Corpuscular HGB Conc 33.2 g/dL (30.0-36.0); Mean Corpuscular Hemoglobin 29.7 pg (28.0-34.0); Mean Corpuscular Volume 89.2 fl (81-99); Mean Platelet Volume 11.4 fL (7.4-10.4); Monocytes # 0.6 10^3/uL (0.2-0.9); Monocytes % 6.5 %; Neutrophils # 8.11 10^3/uL (1.8-7.7); Neutrophils % 83.2 %; Nucleated Red Blood Cells % 0 %; Platelet Count 207 10^3/cmm (130-400); Red Blood Count 4.35 10^6/uL (4.1-5.3); Red Cell Distribution Width 12.1 % (12.1-15.1); White Blood Count 9.8 10^3/uL (4.0-10.0)
[2023-01-03] VITALS (33 sets, daily range): BP systolic 114–147; BP diastolic 70–89; PULSE 64–133; RESP 9–26; TEMP 35.9–36.6; O2SAT 90–100; BMI 25.3
[2023-01-03 00:13] LABS: Amphetamines Screen Urine Negative (Negative); Barbiturates Screen Urine Negative (Negative); Benzodiazepines Screen Urine Positive (Negative); Cocaine Screen Urine Negative (Negative); Opiate Screen Urine Positive (Negative); PCP Screen Urine Negative (Negative); THC Screen Urine Positive (Negative)
[2023-01-03] MEDS: haloperidol inj 5 mg/mL INJ 1 mL IM (00:28)
[2023-01-03] MEDS: LORazepam 2 mg/mL INJ 1 mL IV (00:32)
[2023-01-03 00:36] LABS: ABG PCO2 41.5 mmHg (35-45); ABG PH Result 7.44 (7.35-7.45); Arterial Blood Gas Hematocrit 41.8 % (37-47); Base Excess ABG 3.7 mmol/L (-2.0-2.0); Blood Gas Allen Test Pos; Blood Gas Sample Site Radial, left; Blood Gas Sample Type Arterial; HCO3 ABG 28.2 mmol/L (22-26); Oxygen Device NC; PO2 ABG 84.7 mmHg (80.0-100.0)
--- NOTE | 2023-01-03 00:44 | XRR_ITS ---
PROCEDURE INFORMATION: Exam: XR Chest Exam date and time: 01/03/2023 12:46 AM Age: 57 years old Clinical indication: Patient HX: Fentanyl overdose. History of copd. Wearing halo for c1-c2 fracture. ; Additional info: Od TECHNIQUE: Imaging protocol: Radiologic exam of the chest. Views: 1 view. COMPARISON: CR XR chest 1V portable [id number] 02/01/2022 3:04 PM FINDINGS: Lungs: Unremarkable. No consolidation. Pleural spaces: Unremarkable. No pleural effusion. No pneumothorax. Heart/Mediastinum: Unremarkable. No cardiomegaly. Bones/joints: Unremarkable. XR/XR chest 1V portable [id number] IMPRESSION: No acute findings.
[2023-01-03] MEDS: LORazepam 2 mg/mL INJ 1 mL IVP ×2 (00:46→00:53)
[2023-01-03 00:52] LABS: Alanine Aminotransferase 29 U/L (0-33); Albumin Level 3.7 g/dL (3.5-5.2); Alkaline Phosphatase 103 U/L (35-105); Blood Urea Nitrogen 10 mg/dL (6-20); Calcium 8.9 mg/dL (8.5-10.5); Carbon Dioxide 24 mmol/L (22-29); Chloride 102 mmol/L (98-107); Globulin 2.8 g/dL (1.3-4.6); Glomerular Filtration Rate 102.3 mL/min (90-130); Glucose 105 mg/dL (65-115); Osmolality Calculated 285 mOsm/kg (285-295); Sodium 138 mmol/L (136-145); Total Bilirubin 0.5 mg/dL (0.15-1.2); Total Protein 6.5 g/dL (6.6-8.7)
[2023-01-03 00:55] LABS: Acetaminophen < 5.0 ug/mL (10-30); Alcohol Level < 10 mg/dL (0-10); Salicylate < 0.3 mg/dL (3-10)
[2023-01-03 00:56] LABS: Anion Gap 15.8 (5-19); Aspartate Amino Transferase 38 U/L (0-32); Potassium 3.8 mmol/L (3.5-5.1)
[2023-01-03] MEDS: sodium chloride 0.9% 1,000 ML 999 ML IV (01:11)
--- NOTE | 2023-01-03 01:39 | PM.HP ---
Providers/Chief Complaint Admitting Physician: Schuyler Benavides MD Primary Care Provider: Royal Lutz MD Chief Complaint: overdose History of Present Illness Merna Mcbride is a 57 year old female with a past medical history significant for polysubstance abuse with IV drug use, chronic back pain, and PTSD who presents to the emergency department with drug overdose. Patient is severely agitated upon evaluation. She is unable to provide any history. She received multiple sedating medications in the ED including ketamine and Ativan. Collateral information collected from ED provider and chart review. Patient reportedly was found fentanyl overdose given Narcan in the field. She has a known history of polysubstance abuse. Due to her clinical condition further history cannot be obtained at this time. Review of Systems Narrative: Attempted to obtain A complete review of systems but was unable due to clinical status. Medications/Allergies Home Medications Medication Instructions Recorded Confirmed Last Taken Type acetaminophen 500 mg tablet 2,000 mg PO Q6H PRN Pain 06/02/19 10/31/22 10/31/22 History (Tylenol Extra Strength) mupirocin 2 % topical ointment 1 applic topical TID #22 grams 10/30/22 10/31/22 Unknown Rx albuterol sulfate 2.5 mg/3 mL 2.5 mg inhalation Q4H PRN 10/31/22 10/31/22 Unknown History (0.083 %) solution for nebulization Shortness Of Breath oxycodone-acetaminophen 5 mg-325 1 tab PO QID PRN pain #14 tabs 11/18/22 Unknown Rx mg tablet (Percocet) tizanidine 4 mg tablet 4 mg PO Q6H PRN muscle spasticity 12/24/22 Unknown Rx #20 tabs Allergies Allergy/AdvReac Type Severity Reaction Status Date / Time venom-honey bee Allergy Severe ALGY-Difficulty Verified 10/31/22 13:55 Breathing cyclobenzaprine Allergy Intermediate ALGY-Hives Verified 10/31/22 13:55 gabapentin Allergy Intermediate ALGY-Hives Verified 10/31/22 13:55 ibuprofen Allergy Intermediate ADR-Vomitin Verified 10/31/22 13:55 g ketorolac Allergy Intermediate ALGY-Hives Verified 10/31/22 13:55 tramadol Allergy Intermediate ALGY-Hives Verified 10/31/22 13:55 aripiprazole [From Abilify] AdvReac Mild Unknown Verified 10/31/22 13:55 PFSH Acute PFSH: Medical History (Updated 01/03/23 @ 01:45 by Schuyler Benavides MD) Bulimia nervosa Cannabis use disorder, moderate, in sustained remission Cholesteatoma of right ear Chronic low back pain Chronic migraine without aura, intractable, without status migrainosus Chronic serous otitis media, right ear COPD (chronic obstructive pulmonary disease) Exposure to severe acute respiratory syndrome coronavirus 2 (SARS-CoV-2) Hearing loss in right ear Hematochezia History of fracture of leg History of MRSA infection Left hand pain Nicotine dependence, cigarettes, with unspecified nicotine-induced disorders Opioid use disorder Post-traumatic stress disorder, chronic Sedative, hypnotic or anxiolytic abuse, 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 Surgical History H/O section H/O neck surgery History of colonoscopy History of facial fracture repair S/P appendectomy S/P tonsillectomy and adenoidectomy Status post colonoscopy (12/25/19) hemorrhoids , repeat 5 years Family History Other CAD (coronary artery disease) Cancer Lung disease Stroke Social History Smoking and tobacco status: current every day smoker cigarettes Packs smoked per day: 1 Years cigarettes smoked: 33 Quit status (tobacco): not considering quitting Second hand smoke exposure: Yes Alcohol intake: former Former alcohol use details: DRANK UNTIL THREW UP Substance/Drug Use: current Substance/Drug use frequency: daily Desire information about substance/drug rehabilitation?: No Other details last substance use: iv drug abuse Adopted: No Caregiver/support person: No Lives independently: No Household members: other Details: a man that was homeless is living with her Housing: Apartment Marital status: Legally Marital status details: 2014 Number of children: 2 Number of grandchildren: 0 Highest education level completed: 11th Grade service: No Current occupational status: employed Current occupation: [employer] Current occupational exposures/hazards: No Pets and animals: Yes Pets & animals: dog(s) Leisure activites: other Leisure activities details: poetry, play piano Sexually active: No Do you think of yourself as: Straight/Heterosexual Current gender identity: Male Skylar/Mormonism: Jewish Special skylar needs: No Agree to transfusion: Yes Financial difficulty paying for basics: Not Very Hard Female Reproductive History: Para: 2 Vitals/I&O/Wt Last Vital Signs Temp 98.1 F 01/02/23 23:30 Pulse 112 H 01/03/23 01:30 Resp 24 H 01/03/23 01:30 BP 124/70 01/03/23 01:30 Pulse Ox 95 01/03/23 01:30 O2 Del Method Room Air 01/03/23 00:45 Weight last 48 hrs Weight 54.431 kg Physical Exam Narrative: General: Patient is agitated. Head: Normocephalic. Atraumatic. EOMI. Neck: No JVD. Cardiovascular: Tachycardic. No gallops. No murmurs. Lungs: Breath sounds diminished at the bases, no use of accessory muscles, no crackles or wheezes. Skin: No jaundice. No rashes. Abdomen: Normal bowel sounds, abdomen soft and nontender. Extremities: No cyanosis or clubbing. Musculoskeletal: No erythematous joints. Neurological: Moves all 4 extremities. No myoclonus. Data 01/02/23 23:38 01/03/23 00:25 A&P Assessment and plan (1) Overdose: Fentanyl overdose s/p Narcan in the field Opiate effects may outlive Narcan Monitor respiratory status w/ telemetry and continuous pulse oximetry (2) Agitation: Severe agitation c/w acute toxic encephalopathy, drug intox, and withdrawal Ativan and haldol as needed (3) Opioid use disorder: W/ acute withdrawal 2/2 Narcan Supportive care Catapres, Bentyl, Imodium as needed (4) Methamphetamine use disorder, severe: Would benefit from cessation Ativan as above (5) COPD (chronic obstructive pulmonary disease): Not in acute exacerbation Plan DVT ppx: Lovenox Code status: Full Code Attestations Medical Necessity Statement*: Patient presents w/ fentanyl overdose status post Narcan in field now w/ subsequent severe agitation with expected hospitalization to cross two midnights. Coding Level of Care Code Acute Code for Chg Fwd Diagnoses Overdose T50.901A Agitation R45.1 Opioid use disorder F11.99 Methamphetamine use disorder, severe F15.20 COPD (chronic obstructive pulmonary disease) J44.9
--- NOTE | 2023-01-03 08:27 | PC.NURSE ---
Taking over care of patient from HS shift RN. 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 Refusing turns at this moment. Bed alarm on, room clean and clutter free with call light within reach.
[2023-01-03 08:55] LABS: Hepatitis A Antibody IgM Non-Reactive (Nonreactive); Hepatitis B Core IgM Non-Reactive (Nonreactive); Hepatitis B Surface Antigen Non-Reactive (Nonreactive); Hepatitis C Virus Antibody Reactive (Nonreactive)
[2023-01-03 09:35] LABS: HIV 1 & 2 Antibody Non-Reactive (Non-Reactiv); HIV 1 & 2 Antigen Non-Reactive (Non-Reactiv)
--- NOTE | 2023-01-03 11:53 | CTR_ITS ---
PROCEDURE INFORMATION: Exam: CT Cervical Spine Without Contrast Exam date and time: 01/03/2023 4:15 PM Age: 57 years old Clinical indication: Injury or trauma; Blunt trauma; Additional info: Fall/fracture TECHNIQUE: Imaging protocol: Computed tomography of the cervical spine without contrast. REPORTING DATA: Count of CT and Cardiac NM exams in prior 12 months: This patient has received 3 known CTs and 0 known cardiac nuclear medicine studies in the 12 months prior to the current study. COMPARISON: CT cervical spin wo con* [id number] 10/31/2022 1:33 PM RADIATION DOSE METRICS: Total DLP (mGy-cm): 173.47 FINDINGS: Bones/joints: Fracture through the anterior arch of C1 and bilateral C1 lamina is again present. There are findings of partial healing in the anterior arch fracture. The lamina fractures do not show significant evidence of healing with persistent 3.5 mm displacement of the right lamina fracture. Transverse fracture through the base of the odontoid process which is type 2 is again present. There is increasing dorsal displacement of the major fracture fragment by 6 mm (previously 1.5 mm) with dorsal tilt again present. There is a least moderate stenosis of the spinal canal at C1-C2 which appears increased with increasing densely dorsally for example on series 5, image 26. Interbody fusion changes C5-C7 are again present with persistent multilevel degenerative changes. Mastoid air cells: Right-sided mastoidectomy changes are again seen with opacification of the mastoidectomy bowl. Prevertebral and retropharyngeal spaces: Prevertebral soft tissue swelling at the C1-C2 level persists. Lungs: Lung apices are normal. Soft tissues: Unremarkable. CT/CT cervical spin wo con* [id number] IMPRESSION: Increasing dorsal displacement and angulation of the major odontoid process fracture fragment suggesting instability of the fracture. There is also increasing density in the dorsal epidural region at C1-C2 which may represent hematoma. Recommend MRI correlation. The fractures of the anterior arch of C1 and bilateral C1 lamina appear similar.
[2023-01-03 14:00] LABS: Erythrocyte Sedimentation Rate 8 mm/hr (0-15)
[2023-01-03 14:50] LABS: Procalcitonin 0.06 ng/mL (0-0.5)
--- NOTE | 2023-01-03 16:37 | P.PN_ITS ---
Subjective Subjective: Patient was examined multiple times throughout the morning, she awakens to her name, she can follow some commands such as squeezing my fingers, but she falls back asleep, afebrile overnight, normotensive, she has received several sedating medications including ketamine, Haldol, Ativan, for combativeness Vitals/I&O/Wt Last Vital Signs Temp 97.2 F L 01/03/23 16:27 Pulse 73 01/03/23 16:27 Resp 11 L 01/03/23 16:27 BP 145/80 01/03/23 16:27 Pulse Ox 94 01/03/23 16:27 O2 Del Method Room Air 01/03/23 16:27 01/03/23 01/03/23 01/03/23 06:59 14:59 22:59 Intake Total 1000 / 1000 0 / 0 Balance 1000 / 1000 0 / 0 Weight last 48 hrs Weight 62.868 kg Weight 54.431 kg Physical Exam Const: COMMON NORMALS: no acute distress OTHER: She is currently in a cervical collar Eye: OTHER: Pupils equal round reactive to light Resp: COMMON NORMALS: normal respiratory effort, No retractions, No use of accessory muscles and clear to auscultation bilaterally AUSCULTATION: clear to auscultation bilaterally Cardio: COMMON NORMALS: regular rate, regular rhythm, S1 normal heart sound p resent and S2 normal heart sound present RATE: regular rate RHYTHM: regular rhythm HEART SOUNDS: S1 normal heart sound present and S2 normal heart sound present GI: COMMON NORMALS: Normal to inspection, nondistended, normoactive bowel sounds present and non-tender Extremity: COMMON NORMALS: no pedal edema Data 01/02/23 23:38 01/03/23 00:25 Micro: Microbiology 01/03/23 13:00 Blood Culture - Preliminary Blood SPECIMEN COLLECTED 01/03/23 13:00 Blood Culture - Preliminary Blood SPECIMEN COLLECTED A&P Assessment and plan (1) Overdose: Fentanyl overdose s/p Narcan in the field Opiate effects may outlive Narcan Monitor respiratory status w/ telemetry and continuous pulse oximetry (2) Agitation: Severe agitation c/w acute toxic encephalopathy, drug intox, and withdrawal Status post ketamine, Haldol, Ativan (3) Opioid use disorder: W/ acute withdrawal 2/2 Narcan Supportive care Catapres, Bentyl, Imodium as needed (4) Methamphetamine use disorder, severe: Would benefit from cessation Ativan as above (5) COPD (chronic obstructive pulmonary disease): Not in acute exacerbation (6) Altered mental status: - Initially concern for fentanyl overdose -Then due to agitation, she received ketamine, Ativan, Haldol -Currently she is nonverbal, pupils equal round reactive to light, can follow some commands such as squeezing my fingers, wiggling her toes opening her eyes she localizes pain, on room air, normotensive, afebrile -Will order CT of the cervical spine, order inflammatory markers, ESR, monitor mentation, neurochecks, aspiration precautions, keep n.p.o., hold all sedating medications, hold narcotics (7) Hepatitis C antibody positive in blood: Follow hepatitis C RNA Plan DVT ppx: Lovenox Code status: Full Code Attestations Medical Necessity Statement*: Patient requires hospitalization for altered mental status, inpatient, greater than 2 midnights Diagnoses Overdose T50.901A Agitation R45.1 Opioid use disorder F11.99 Methamphetamine use disorder, severe F15.20 COPD (chronic obstructive pulmonary disease) J44.9 Altered mental status R41.82 Hepatitis C antibody positive in blood R76.8
[2023-01-03] MEDS: dexamethasone 10 mg/mL INJ IVP (17:52)
--- NOTE | 2023-01-03 18:16 | PC.NURSE ---
Patient needing stat mri, called editor house organ to escalate getting someone called in for MRI services. Patient remaining on bedrest with halo collar in please, bed alarm on, all 4 rails up for safety restraints. VSS, frequent rounding patient turns self but d/t circumstances currently discouraging turns. Family updated on current status and permission for MRI received from son Harrison. Family updated nursing staff that patients behavior has been erratic and increasing hallucinations with delusions. Family states that patient uses fentynl frequently and usually by shooting up but this behavior has worsened over past couple weeks.
--- NOTE | 2023-01-03 19:17 | PC.NURSE ---
Patient opens eyes to verbal stimuli. Follows simple commands. 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 Moves toes when asked. Observed moving bilat arms and legs spontaneously for blanket adjustment and comfort. Says yes to tactile sensation at bilat arms and legs. Drowsy and slow to answer, but oriented to person, place, birthday. Neck brace in place. Patient compliant to bedrest and restricted movement at this time.
[2023-01-03] MEDS: sodium chloride 0.9% 1,000 ML 100 ML IV (20:02)
--- NOTE | 2023-01-03 20:18 | PC.NURSE ---
Patient in brief for incontinence. Explained to patient nurse was about to check brief for wetness. Patient clearly stated Leave me alone and I don't feel wet. Patient remains resistant to care.
[2023-01-03 20:25] LABS: Free T4 Free Thyroxine 1.36 ng/dL (0.82-1.77); T3 Free 3.1 PG/ML (2.0-4.4); Thyroid Stimulating Hormone 0.43 uIU/mL (0.27-4.20)
[2023-01-03 23:21] LABS: Add Urine Microscopic? YES; Bilirubin Urine Neg (Negative); Blood Urine Neg (Negative); Glucose Urine UA Norm (Normal); Ketones Urine 1+ (Negative); Leukocyte Esterase Urine 1+ (Negative); Nitrate Urine Negative (Negative); Protein Urine Neg (Negative); Urine Appearance SL Hazy (CLEAR); Urine Color Light yellow (Yellow); Urobilinogen Urine Neg (Negative); pH Urine 7 (5-7)
[2023-01-03 23:22] LABS: Add Urine Culture? No; Bacteria Urine 1+ /hpf; RBC Urine 0-4 /hpf (0-2); Squamous Epithelial Cell Urine 0-4 /hpf (0-5)
--- NOTE | 2023-01-03 23:52 | PC.NURSE ---
Patient drowsy, but now wakes with ease with verbal stimuli. Says no to being able to recall last night's events. Says yes to taking fentayl. Patients speech is clearer. C/O dry mouth. Moistened mouth with wet swab. Patient promptly fell asleep after interaction/assessment.
[2023-01-04] VITALS (32 sets, daily range): BP systolic 114–141; BP diastolic 67–98; PULSE 68–127; RESP 10–24; TEMP 36.5–36.9; O2SAT 90–99
--- NOTE | 2023-01-04 | MRR_ITS ---
PROCEDURE INFORMATION: Exam: MR Cervical Spine Without Contrast Exam date and time: 01/04/2023 6:53 AM Age: 57 years old Clinical indication: Neck pain; Prior surgery; Surgery date: 1-6 months; Surgery type: C1 fracture; Additional info: Cervical fracture TECHNIQUE: Imaging protocol: Magnetic resonance imaging of the cervical spine without contrast. COMPARISON: CT cervical spin wo con* [id number] 01/03/2023 4:15 PM FINDINGS: Bones/joints: Again noted is a mildly distracted and angulated type 2 fracture of the dens. Previously noted C1 fracture is not well depicted on the current study. The patient is post cervical discectomy and fusion with interbody spacer devices in place at C5-C6 and C6-C7. There is associated straightening of the cervical lordosis. There is a 1-2 mm probably degenerative anterior positioning of C7 relative to T1. There is cervical spondylosis noted with disc ridging most notable at C3-C4 and C7-T1. Spinal cord: Normal signal. No cord compression. C2-C3: At C2-C3 there is no significant canal or foraminal narrowing. C3-C4: At C3-C4 there is disc ridging which flattens the anterior thecal sac but does not compress the cord. There is moderate neural foraminal narrowing. C4-C5: At C4-C5 there is no significant canal narrowing and severe right neural foraminal narrowing. C5-C6: At C5-C6 there is disc ridging with facet arthropathy and uncovertebral spurring. There is concentric narrowing of the canal around the cord but no significant compression. There is moderate to severe neural foraminal narrowing. C6-C7: At C6-C7 there is disc ridging with uncovertebral spurring and facet arthropathy causing concentric narrowing of the canal around the cord but no compression. There is moderate to severe neural foraminal narrowing worse on the left. C7-T1: At C7-T1 there is disc ridging with facet arthropathy and uncovertebral spurring. There is concentric narrowing of the canal around the cord and flattening of the anterior surface. There is moderate to severe neural foraminal narrowing. Soft tissues: Unremarkable. Vasculature: Expected flow voids in the vertebral arteries. Other findings: The study is limited by motion artifact and a relatively poor signal to noise ratio. MR/MR cervical spin wo con* [id number] IMPRESSION: Limited study. C2 fracture as described. Degenerative and postsurgical changes in the cervical spine.
--- NOTE | 2023-01-04 | MRR_ITS ---
PROCEDURE INFORMATION: Exam: MR Head Without Contrast Exam date and time: 01/04/2023 6:38 AM Age: 57 years old Clinical indication: Altered mental status/memory loss; Additional info: AMS TECHNIQUE: Imaging protocol: Magnetic resonance imaging of the head without contrast. COMPARISON: CT head wo con* [id number] 01/03/2023 12:13 AM FINDINGS: Brain: There is mild patchy white matter disease noted. Cerebral ventricles: Normal. No ventriculomegaly. Bones/joints: Unremarkable. Paranasal sinuses: Normal as visualized. No acute sinusitis. Mastoid air cells: Normal as visualized. No mastoid effusion. Orbital cavities: Unremarkable. Soft tissues: Unremarkable. Other findings: This study is degraded by motion artifact. MR/MR head wo con* [id number] IMPRESSION: No acute intracranial process.
[2023-01-04 04:46] LABS: Alanine Aminotransferase 27 U/L (0-33); Albumin Level 3.3 g/dL (3.5-5.2); Alkaline Phosphatase 99 U/L (35-105); Anion Gap 15.5 (5-19); Aspartate Amino Transferase 35 U/L (0-32); Blood Urea Nitrogen 10 mg/dL (6-20); Carbon Dioxide 24 mmol/L (22-29); Chloride 108 mmol/L (98-107); Globulin 2.7 g/dL (1.3-4.6); Glomerular Filtration Rate 126.3 mL/min (90-130); Glucose 97 mg/dL (65-115); Osmolality Calculated 295 mOsm/kg (285-295); Phosphorus 3.2 mg/dL (2.5-4.5); Potassium 4.5 mmol/L (3.5-5.1); Sodium 143 mmol/L (136-145); Total Bilirubin 0.4 mg/dL (0.15-1.2)
[2023-01-04] MEDS: sodium chloride 0.9% 1,000 ML 100 ML IV ×2 (05:15→16:20)
--- NOTE | 2023-01-04 07:55 | PM.CONSULT ---
Providers/Reason For Consult Consulting Physician/Specialty*: Ortho Spine Reason for Consult*: Neck pain Attending Physician: Ted Morrow MD Primary Care Provider: Royal Lutz MD History of Present Illness History of Present Illness Merna Mcbride is a 57 year old female who presented to the emergency room following a polysubstance abuse history. Orthopedics was consulted for her cervical fractures. Patient was evaluated in ICU for patient is confused wearing a halo. Most of the information is gleaned from the medical record. initial fracture from a fall appears to be 10/31/2022, following that fall patient requested [facility] she was sent there for evaluation with Dr. Julio prakash. Patient was treated with a halo and reported refused a rehab facility. She followed up 11/18/2022 at the emergency room and [facility] requesting to go to a rehab facility. Patient then returned to the emergency room on 01/02/2023 following a fentanyl overdose. Orthopedics was then consulted for her fractures. She remains in the halo. She denies any change in her neck pain or neurostatus with her arms and legs. No family is present during the exam although the nurse from ICU was present. Patient reports multiple falls since her initial injury. Review of Systems Narrative: Attempted to obtain A complete review of systems but was unable due to clinical status. Medications/Allergies Home Medications Medication Instructions Recorded Confirmed Last Taken Type mupirocin 2 % topical ointment 1 applic topical TID #22 grams 10/30/22 01/03/23 Unknown Rx oxycodone-acetaminophen 5 mg-325 1 tab PO QID PRN pain #14 tabs 11/18/22 01/03/23 Unknown Rx mg tablet (Percocet) Allergies Allergy/AdvReac Type Severity Reaction Status Date / Time venom-honey bee Allergy Severe ALGY-Difficulty Verified 10/31/22 13:55 Breathing cyclobenzaprine Allergy Intermediate ALGY-Hives Verified 10/31/22 13:55 gabapentin Allergy Intermediate ALGY-Hives Verified 10/31/22 13:55 ibuprofen Allergy Intermediate ADR-Vomitin Verified 10/31/22 13:55 g ketorolac Allergy Intermediate ALGY-Hives Verified 10/31/22 13:55 tramadol Allergy Intermediate ALGY-Hives Verified 10/31/22 13:55 aripiprazole [From Abili] AdvReac Mild Unknown Verified 10/31/22 13:55 Current Medications Generic Name Dose Route Start Last Admin Trade Name Parishq PRN Reason Stop Dose Admin Sodium Chloride 1,000 mls @ 100 mls/hr 01/03/23 19:00 01/04/23 05:15 Sodium Chloride 0.9% IV 100 mls/hr .Q10H ANNALISE Administration PFSH Acute PFSH: Medical History (Updated 01/04/23 @ 08:07 by Cayetano Cobb PA-C) Bulimia nervosa Cannabis use disorder, moderate, in sustained remission Cholesteatoma of right ear Chronic low back pain Chronic migraine without aura, intractable, without status migrainosus Chronic serous otitis media, right ear COPD (chronic obstructive pulmonary disease) Exposure to severe acute respiratory syndrome coronavirus 2 (SARS-CoV-2) Hearing loss in right ear Hematochezia History of fracture of leg History of MRSA infection Left hand pain Nicotine dependence, cigarettes, with unspecified nicotine-induced disorders Opioid use disorder Post-traumatic stress disorder, chronic Sedative, hypnotic or anxiolytic abuse, 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 Surgical History H/O section H/O neck surgery History of colonoscopy History of facial fracture repair S/P appendectomy S/P tonsillectomy and adenoidectomy Status post colonoscopy (12/25/19) hemorrhoids , repeat 5 years Family History Other CAD (coronary artery disease) Cancer Lung disease Stroke Social History Smoking and tobacco status: current every day smoker cigarettes Packs smoked per day: 1 Years cigarettes smoked: 33 Quit status (tobacco): not considering quitting Second hand smoke exposure: Yes Alcohol intake: former Former alcohol use details: DRANK UNTIL THREW UP Substance/Drug Use: current Substance/Drug use frequency: daily Desire information about substance/drug rehabilitation?: No Other details last substance use: iv drug abuse Adopted: No Caregiver/support person: No Lives independently: No Household members: other Details: a man that was homeless is living with her Housing: Apartment Marital status: Legally Marital status details: 2014 Number of children: 2 Number of grandchildren: 0 Highest education level completed: 11th Grade service: No Current occupational status: employed Current occupation: [employer] Current occupational exposures/hazards: No Pets and animals: Yes Pets & animals: dog(s) Leisure activites: other Leisure activities details: poetry, play piano Sexually active: No Do you think of yourself as: Straight/Heterosexual Current gender identity: Male Skylar/Alevism: Taoism Special skylar needs: No Agree to transfusion: Yes Financial difficulty paying for basics: Not Very Hard Female Reproductive History: Para: 2 Vitals/I&O/Wt Last Vital Signs Temp 98.3 F 01/04/23 06:00 Pulse 84 01/04/23 06:00 Resp 14 01/04/23 06:00 BP 123/78 01/04/23 06:00 Pulse Ox 96 01/04/23 06:00 O2 Del Method Room Air 01/04/23 04:00 01/03/23 01/04/23 01/04/23 22:59 06:59 14:59 Intake Total 0 / 0 921.667 / 921.667 Output Total 250 / 250 300 / 550 Balance -250 / -250 621.667 / 371.667 Weight last 48 hrs Weight 138 lb 9.6 oz Weight 120 lb Physical Exam Narrative: Patient is evaluated in ICU for with a halo present. She is confused nurse was present during the exam as well. Patient is moving both upper extremities she has 4/5 strength in both upper extremities. Good memory care director strength appears to be neurovascular intact. She is wiggling her toes in both lower extremities she can dorsiflex and plantarflex she can flex and extend at the knees and follows commands with 4/5 strength in both lower extremities. Patient appears very cachectic. She is also belligerent and wanting to eat. She has mild palpatory pain diffusely through the upper thoracic and cervical region. She has no palpable pain in the mid thoracic or lower thoracic lumbar region. She has negative logroll bilaterally. She appears to be neurovascular intact in both arms and legs. She move all digits in both hands radial pulses are palpable HENMT: COMMON NORMALS: normocephalic and atraumatic HEAD & SCALP: normocephalic and atraumatic Resp: COMMON NORMALS: normal respiratory effort Cardio: COMMON NORMALS: regular rate and regular rhythm RATE: regular rate RHYTHM: regular rhythm GI: COMMON NORMALS: Soft to palpation and non-tender PALPATION: Yes Soft to palpation : COMMON NORMALS: Yes no CVA tenderness BLADDER/KIDNEY EXAM: Yes no CVA tenderness Back/Pelvis: COMMON NORMALS: no CVA tenderness Psych: COMMON NORMALS: mental status grossly normal and cooperative Data 01/04/23 08:45 01/04/23 03:37 Micro: Microbiology 01/03/23 13:00 Blood Culture - Preliminary Blood SPECIMEN COLLECTED 01/03/23 13:00 Blood Culture - Preliminary Blood SPECIMEN COLLECTED A&P Assessment and plan (1) Closed C1 fracture: Reviewed the CT scan and MRI scan in comparison to the previous CT scans of the cervical spine with Dr. Enamorado does show displacement of the fracture with reabsorption consistent with a nonunion. Patient continues to wear her halo collar. Recommendation would be to transfer back to [facility] neurosurgery. More than 50% of the time spent with the patient today involved coordination of care, counseling and discussion of conservative versus surgical treatment options. Total amount of time spent with the patient was 35 minutes. (2) Closed C2 fracture: Coding Level of Care Code Acute Code for [facility] Diagnoses Closed C1 fracture S12.000A Closed C2 fracture S12.100A
--- NOTE | 2023-01-04 08:09 | PC.NURSE ---
Patient alert and orientated this morning, patient also non complaint, staff educated patient on the fact patients neck is broken according to MRI and patient needs to remain lying in brace, not trying to get out of bed. Patient very upset this morning, screaming and yelling at staff, multiple attempts to get out of bed. Charge nurse notified, house sup notified, awaiting sitter to sit with patient to remind patient to remain in bed.
--- NOTE | 2023-01-04 08:12 | PC.NURSE ---
Pt agitation This nurse alerted to room by pt care nurse. Pt is yelling at staff and trying to get out of bed. Pt is alert and oriented. Pt educated on the importance of not getting out of bed due to neck fracture. Pt does have HALO device in place. Pt remains agitated, home housekeeper present and sitter is being sent for to enure pt safety.
--- NOTE | 2023-01-04 09:51 | PC.NURSE ---
PT came to beside to assist nurse in assuring HALO device is in best positioning as possible.
[2023-01-04 10:01] LABS: Basophils % 0.3 %; Hemoglobin 13.3 g/dL (11.5-15.3); Lymphocytes # 0.6 10^3/uL (0.8-4.8); Lymphocytes % 14.7 %; Mean Corpuscular HGB Conc 31.7 g/dL (30.0-36.0); Mean Corpuscular Hemoglobin 29.4 pg (28.0-34.0); Mean Corpuscular Volume 92.7 fl (81-99); Mean Platelet Volume 11.6 fL (7.4-10.4); Monocytes # 0.2 10^3/uL (0.2-0.9); Monocytes % 3.9 %; Neutrophils # 3.09 10^3/uL (1.8-7.7); Neutrophils % 80.8 %; Nucleated Red Blood Cells % 0 %; Platelet Count 192 10^3/cmm (130-400); Red Blood Count 4.53 10^6/uL (4.1-5.3); Red Cell Distribution Width 12.5 % (12.1-15.1); White Blood Count 3.8 10^3/uL (4.0-10.0)
--- NOTE | 2023-01-04 11:14 | PC.NURSE ---
Patient became agitated sitting on side of bed, yelling she was going to take her brace off, she didnt care if she was paralyzed. Patient redirected and calmed down. Dr. Morrow notified
--- NOTE | 2023-01-04 14:00 | PC.NURSE ---
Patient transferred to [place] at 1359.
--- NOTE | 2023-01-04 15:34 | PM.PN ---
Subjective Subjective: - Patient was examined multiple times throughout the morning -Early in the morning she was examined she is alert to person, not to place, not to time -I discussed with her her fentanyl overdose she tells me that this was not her first time, she is overdosed in the past, -She does not remember her address and she becomes very teary very upset she tells me that her memory is very foggy -Denies any headache, no blurry vision -I asked her how long she has been using her halo collar, she is not sure, she tells me that they did some surgery up in [facility] she is followed up with Dr. Pinzon, I discussed with her her displacement of her C2 fracture she tells me that they know about this and that they tell her that there is nothing to do, and she keeps following up -She tells me that she injected fentanyl, she denies any other drug use, she has a history of drug use -She is surprised to learn that she has hepatitis C -She tells me that she lives at home with her friend she is not exactly sure what her friend's name is, but she wants to talk to her son -She was reexamined thereafter her memory has improved she tells me her address she tells me where she lives she tells me her friends name her son's name, she tells me that she wants to go home -She was examined with physical therapy, she was noted to have weakness, unsteadiness on her feet, she was able to get up to the commode with assistance -I spoke to Dr. Ward, he recommended for patient to be reevaluated at [facility] neurosurgery, no transfer required but needs to follow-up as outpatient -I was able to speak to Dr. Rosas's nurse, nurse practitioner about patient's case, they tell me she has a known history of displacement of her C2 fracture, and that she is not a good surgical candidate, and they are conservatively managing it, they are agreeable for me to send over MRI images, and for her to follow-up closely, they tell me that she should be using the halo collar but has a history of taking it off and noncompliance, she should keep the halo collar in place and follow-up with Dr. Pinzon -Patient was reexamined, she has equal strength bilaterally equal strength but left lower extremity, no paresthesias reported, no headache, blurry vision, no nausea, no vomiting, no paresthesias, -I in detail had a discussion about her MRI results, she tells me that again that [facility] knows about this, and that there is nothing that they want to do, but I did discuss with her about following up with neurosurgery, and keeping on halo collar she is agreeable -She subsequently wanted to leave AGAINST MEDICAL ADVICE, but I was able to calm her down, I have recommended for her to be monitored as inpatient for another 24 hours given her her generalized weakness she can need to continue to have physical therapy will see if we can set up home health care for her -In addition to some of her fogginess might be from concussion sustained from her drug overdose potential trauma -Her head MRI had no acute findings -Will continue to monitor as inpatient she is agreeable Vitals/I&O/Wt Last Vital Signs Temp 98.2 F 01/04/23 14:00 Pulse 80 01/04/23 14:00 Resp 16 01/04/23 14:00 BP 125/77 01/04/23 14:00 Pulse Ox 96 01/04/23 14:00 O2 Del Method Room Air 01/04/23 04:00 01/04/23 01/04/23 01/04/23 06:59 14:59 22:59 Intake Total 921.667 / 921.667 0 / 0 1000 / 1000 Output Total 300 / 550 Balance 621.667 / 371.667 0 / 0 1000 / 1000 Weight last 48 hrs Weight 62.868 kg Weight 54.431 kg Physical Exam Const: COMMON NORMALS: no acute distress and patient oriented x3 Resp: COMMON NORMALS: normal respiratory effort, No retractions, No use of accessory muscles and clear to auscultation bilaterally AUSCULTATION: clear to auscultation bilaterally Cardio: COMMON NORMALS: regular rate, regular rhythm, S1 normal heart sound present and S2 normal heart sound present RATE: regular rate RHYTHM: regular rhythm HEART SOUNDS: S1 normal heart sound present and S2 normal heart sound present GI: COMMON NORMALS: Normal to inspection, nondistended, normoactive bowel sounds present and non-tender Extremity: COMMON NORMALS: no pedal edema Neuro: COMMON NORMALS: patient oriented x3, CN's II-XII intact bilaterally, moves all extremities, no focal motor deficits and no sensory deficits noted OTHER: Currently in a halo collar Psych: COMMON NORMALS: mental status grossly normal Data 01/04/23 08:45 01/04/23 03:37 Micro: Microbiology 01/03/23 13:00 Blood Culture - Preliminary Blood NEGATIVE TO DATE 01/03/23 13:00 Blood Culture - Preliminary Blood NEGATIVE TO DATE A&P Assessment and plan (1) Overdose: Fentanyl overdose s/p Narcan in the field Opiate effects may outlive Narcan Monitor respiratory status w/ telemetry and continuous pulse oximetry (2) Agitation: Severe agitation c/w acute toxic encephalopathy, drug intox, and withdrawal Status post ketamine, Haldol, Ativan (3) Opioid use disorder: W/ acute withdrawal 2/2 Narcan Supportive care Catapres, Bentyl, Imodium as needed (4) Methamphetamine use disorder, severe: Would benefit from cessation Ativan as above (5) COPD (chronic obstructive pulmonary disease): Not in acute exacerbation (6) Altered mental status: - Initially concern for fentanyl overdose -Then due to agitation, she received ketamine, Ativan, Haldol -Currently alert and oriented x 3 (7) Hepatitis C antibody positive in blood: Follow hepatitis C RNA, needs to follow-up with RNA as outpatient (8) Concussion: MRI of the brain FINDINGS: Brain: There is mild patchy white matter disease noted. Cerebral ventricles: Normal. No ventriculomegaly. Bones/joints: Unremarkable. Paranasal sinuses: Normal as visualized. No acute sinusitis. Mastoid air cells: Normal as visualized. No mastoid effusion. Orbital cavities: Unremarkable. Soft tissues: Unremarkable. Other findings: This study is degraded by motion artifact. MR/MR head wo con* [id number] IMPRESSION: No acute intracranial process. -Continue to monitor fogginess, forgetfulness (9) Closed C2 fracture: FINDINGS: Bones/joints:? Again noted is a mildly distracted and angulated type 2 fracture of the dens.? Previously noted C1 fracture is not well depicted on the current study.? The patient is post cervical discectomy and fusion with interbody spacer devices in place at C5-C6 and C6-C7. There is associated straightening of the cervical lordosis. There is a 1-2 mm probably degenerative anterior positioning of C7 relative to T1. There is cervical spondylosis noted with disc ridging most notable at C3-C4 and C7-T1. Spinal cord: Normal signal. No cord compression. C2-C3: At C2-C3 there is no significant canal or foraminal narrowing. C3-C4: At C3-C4 there is disc ridging which flattens the anterior thecal sac but does not compress the cord. There is moderate neural foraminal narrowing. C4-C5: At C4-C5 there is no significant canal narrowing and severe right neural foraminal narrowing. C5-C6: At C5-C6 there is disc ridging with facet arthropathy and uncovertebral spurring. There is concentric narrowing of the canal around the cord but no significant compression. There is moderate to severe neural foraminal narrowing. C6-C7: At C6-C7 there is disc ridging with uncovertebral spurring and facet arthropathy causing concentric narrowing of the canal around the cord but no compression. There is moderate to severe neural foraminal narrowing worse on the left. C7-T1: At C7-T1 there is disc ridging with facet arthropathy and uncovertebral spurring. There is concentric narrowing of the canal around the cord and flattening of the anterior surface. There is moderate to severe neural foraminal narrowing. Soft tissues: Unremarkable. Vasculature: Expected flow voids in the vertebral arteries. Other findings: The study is limited by motion artifact and a relatively poor signal to noise ratio. MR/MR cervical spin wo con* [id number] IMPRESSION: Limited study.? ? C2 fracture as described.? ? Degenerative and postsurgical changes in the cervical spine. -Currently no focal neurologic deficits, no focal weakness, no paresthesias, has equal sensation bilateral lower extremities, bilateral upper extremity -Spoke to Dr. Ward, patient needs to follow-up with neurosurgery at [facility], no urgent transfer needed, can follow-up as outpatient -Spoke to neurosurgery at [facility], nurse practitioner, patient has a known history of angulation and displacement C2 fracture, deemed a poor surgical candidate, so they are conservatively managing, I have requested for images to be pushed over to [facility] for review by Dr. Pinzon, keep halo collar in place at all times, follow-up with [facility] neurosurgery in the next week (10) Closed C1 fracture: (11) Generalized weakness: Plan DVT ppx: Lovenox Code status: Full Code Attestations Medical Necessity Statement*: Patient requires hospitalization for concussion, generalized weakness, closed C2 fracture Diagnoses Overdose T50.901A Agitation R45.1 Opioid use disorder F11.99 Methamphetamine use disorder, severe F15.20 COPD (chronic obstructive pulmonary disease) J44.9 Altered mental status R41.82 Hepatitis C antibody positive in blood R76.8 Concussion S06.0XAA Closed C2 fracture S12.100A Closed C1 fracture S12.000A Generalized weakness R53.1
[2023-01-04] MEDS: acetaminophen 325 mg Tablet 1000 MG PO (16:19)
[2023-01-04] MEDS: enoxaparin 40 mg/0.4 mL Syringe SUBCUT (22:15)
[2023-01-05] VITALS (18 sets, daily range): BP systolic 110–162; BP diastolic 67–79; PULSE 52–76; RESP 16–18; TEMP 36.5–36.8; O2SAT 94–97
[2023-01-05] MEDS: sodium chloride 0.9% 1,000 ML 100 ML IV (01:13)
[2023-01-05 08:05] LABS: HEP C RNA Viral Load Quant 4960000 IU/mL (NOT DETECTED)
--- NOTE | 2023-01-05 11:27 | PM.DCS ---
Discharge Providers Date of Admission: 01/03/23 02:28 Date of Discharge: January 05, 2023 Attending Provider at Admission: Schuyler Benavides MD Attending Provider at Discharge: Ted Morrow MD Primary Care Provider: Royal Lutz MD Diagnoses at Discharge Discharge Diagnosis (1) Overdose: Status: Acute (2) Agitation: Status: Acute (3) Opioid use disorder: Status: Acute (4) Methamphetamine use disorder, severe: Status: Acute (5) COPD (chronic obstructive pulmonary disease): Status: Acute (6) Altered mental status: Status: Acute (7) Hepatitis C antibody positive in blood: Status: Acute (8) Concussion: Status: Acute (9) Closed C2 fracture: Status: Acute (10) Closed C1 fracture: Status: Acute (11) Generalized weakness: Status: Acute Reason for Visit Reason for Visit: overdose Hospital Course Hospital Course Merna Mcbride is a 57 year old female with a past medical history significant for polysubstance abuse with IV drug use, chronic back pain, and PTSD who presents to the emergency department with drug overdose.? Patient is severely agitated upon evaluation.? She is unable to provide any history.? She received multiple sedating medications in the ED including ketamine and Ativan.? Collateral information collected from ED provider and chart review.? Patient reportedly was found fentanyl overdose given Narcan in the field.? She has a known history of polysubstance abuse.? Due to her clinical condition further history cannot be obtained at this time. Patient was admitted to [facility] for fentanyl and methamphetamine overdose status post Narcan in the field, in the emergency room she was agitated, received ketamine, Haldol, Ativan, she was monitored in the ICU for the next 24 hours, overall her mentation improved,. On discharge I had extensive discussion with her about abstaining from any drug use, including IV drugs, morbidity and mortality associated with fentanyl and any other drugs, her and her friend voiced understanding, all questions answered Smoking cessation counseling Patient was found to have hepatitis C positive, positive HCVRNA, appointment with Dr. Crowley for hepatitis C evaluation and treatment Patient has a history of C1-C2 fracture, from a fall roughly a month ago, she was transferred to [facility] she in fact tells me she did not have surgery but she has had cervical surgery in the past it was conservatively managed with a halo collar. During this hospitalization due to concerns for her falls and further trauma to her cervical spine I ordered an MRI, although on examination there is no swelling, erythema, no point tenderness, she is in a halo collar, she tells me that she is compliant with her halo collar, but during her hospitalization, she several times threatened to remove it Bones/joints:? Again noted is a mildly distracted and angulated type 2 fracture of the dens.? Previously noted C1 fracture is not well depicted on the current study.? The patient is post cervical discectomy and fusion with interbody spacer devices in place at C5-C6 and C6-C7. There is associated straightening of the cervical lordosis. There is a 1-2 mm probably degenerative anterior positioning of C7 relative to T1. There is cervical spondylosis noted with disc ridging most notable at C3-C4 and C7-T1. Spinal cord: Normal signal. No cord compression. C2-C3: At C2-C3 there is no significant canal or foraminal narrowing. C3-C4: At C3-C4 there is disc ridging which flattens the anterior thecal sac but does not compress the cord. There is moderate neural foraminal narrowing. C4-C5: At C4-C5 there is no significant canal narrowing and severe right neural foraminal narrowing. C5-C6: At C5-C6 there is disc ridging with facet arthropathy and uncovertebral spurring. There is concentric narrowing of the canal around the cord but no significant compression. There is moderate to severe neural foraminal narrowing. C6-C7: At C6-C7 there is disc ridging with uncovertebral spurring and facet arthropathy causing concentric narrowing of the canal around the cord but no compression. There is moderate to severe neural foraminal narrowing worse on the left. C7-T1: At C7-T1 there is disc ridging with facet arthropathy and uncovertebral spurring. There is concentric narrowing of the canal around the cord and flattening of the anterior surface. There is moderate to severe neural foraminal narrowing. Soft tissues: Unremarkable. Vasculature: Expected flow voids in the vertebral arteries. -Patient denies any focal weakness, no paresthesias, on examination no upper extremity , no lower extremity weakness -Consulted orthopedic spine surgery, who recommended for patient to be reevaluated at [facility] neurosurgery, outpatient -I spoke to Dr. Bullock's nurse practitioner, [facility] neurosurgery, who evaluated patient a month ago, discussed C1 and C2 findings, angulation, and displacement, they advised me that she has a known history of this, she is noncompliant with her halo collar, due to her underlying cervical disc disease, noncompliance they feel that she is a poor surgical candidate, however they are conservatively managing, they did request MRI images which I have pushed over with the help of radiology, they are agreeable for her to follow-up sooner -I had a detailed discussion with patient and her's friend at bedside about her C1 and C2 fracture, disc displacement and angulation of C2 fracture, I advised that she needs to follow-up with neurosurgery at [facility], that she must be compliant of her halo brace, she has a high risk of spinal cord injury, spinal cord compression, debility, paralysis, morbidity and mortality associated, she voiced understanding, all questions answered -If she has any falls, significant trauma, any paresthesias, any neck pain, any focal weakness she must come to the emergency room immediately -I did also offer to her usp facility placement however she declined -I did also offer inpatient drug rehab she declined -I offered home health care however she declined -I have discharged her she will be living with a friend who came and saw her in the hospital and will help take care of her -I have advised her of compliance, with abstain from drug use, morbidity and mortality associated with drug overdose, complications of infections -Advised of compliance with halo collar, follow-up with [facility] neurosurgery, Dr. Pinzon's office will reach out to her for an appointment Physical Exam Const: COMMON NORMALS: no acute distress and patient oriented x3 Resp: COMMON NORMALS: normal respiratory effort, No retractions, No use of accessory muscles and clear to auscultation bilaterally AUSCULTATION: clear to auscultation bilaterally Cardio: COMMON NORMALS: regular rate, regular rhythm, S1 normal heart sound present and S2 normal heart sound present RATE: regular rate RHYTHM: regular rhythm HEART SOUNDS: S1 normal heart sound present and S2 normal heart sound present GI: COMMON NORMALS: Normal to inspection, nondistended, normoactive bowel sounds present and non-tender Extremity: COMMON NORMALS: no pedal edema Neuro: COMMON NORMALS: patient oriented x3 Psych: COMMON NORMALS: mental status grossly normal Discharge Data Studies Completed and Pending Completed Studies During Hospitalization Category Date Time Status CT cervical spin wo con* [id number] Routine Cat Scan 01/03/23 11:[address] head wo con* [id number] Stat Cat Scan 01/02/23 23:44 Completed CXRP [XR chest 1V portable [id number]] Stat Exams 01/03/23 00:44 Completed MR cervical spin wo con* [id number] Stat MRI 01/04/23 Completed MR head wo con* [id number] Stat MRI 01/04/23 Completed Pending at discharge Category Date Time Status Blood Culture Stat Lab 01/03/23 13:00 Results Radiology Impressions Head CT 01/02/23 23:44 IMPRESSION: 1. No evidence of acute intracranial process. 2. Fractures seen through the anterior and posterior arch of C1 which was seen on the 10/31/2022 study. Chest X-Ray 01/03/23 00:44 IMPRESSION: No acute findings. Cervical Spine CT 01/03/23 11:53 IMPRESSION: Increasing dorsal displacement and angulation of the major odontoid process fracture fragment suggesting instability of the fracture. There is also increasing density in the dorsal epidural region at C1-C2 which may represent hematoma. Recommend MRI correlation. The fractures of the anterior arch of C1 and bilateral C1 lamina appear similar. ADDENDUM: 01/03/23 1734 THIS REPORT CONTAINS FINDINGS THAT MAY BE CRITICAL TO PATIENT CARE. The findings were verbally communicated via telephone conference with TED lAlen at 5:28 PM CDT on 01/03/2023. The findings were acknowledged and understood. Cervical Spine MRI 01/04/23 00:00 IMPRESSION: Limited study. C2 fracture as described. Degenerative and postsurgical changes in the cervical spine. Head MRI 01/04/23 00:00 IMPRESSION: No acute intracranial process. Laboratory Results WBC 3.8 10^3/uL (4.0-10.0) L 01/04/23 08:45 Corrected WBC Cancelled 01/04/23 03:37 RBC 4.53 10^6/uL (4.1-5.3) 01/04/23 08:45 Hgb 13.3 g/dL (11.5-15.3) 01/04/23 08:45 Hct 42.0 % (37.0-47.0) 01/04/23 08:45 MCV 92.7 fl (81-99) 01/04/23 08:45 MCH 29.4 pg (28.0-34.0) 01/04/23 08:45 MCHC 31.7 g/dL (30.0-36.0) 01/04/23 08:45 RDW 12.5 % (12.1-15.1) 01/04/23 08:45 Plt Count 192 10^3/cmm (130-400) 01/04/23 08:45 MPV 11.6 fL (7.4-10.4) H 01/04/23 08:45 Gran % Cancelled 01/04/23 03:37 Neut % (Auto) 80.8 % 01/04/23 08:45 Lymph % (Auto) 14.7 % 01/04/23 08:45 [place] % (Auto) 3.9 % 01/04/23 08:45 Eos % (Auto) 0.0 % 01/04/23 08:45 Baso % (Auto) 0.3 % 01/04/23 08:45 Neut # (Auto) 3.09 10^3/uL (1.8-7.7) 01/04/23 08:45 Lymph # (Auto) 0.6 10^3/uL (0.8-4.8) L 01/04/23 08:45 [place] # (Auto) 0.2 10^3/uL (0.2-0.9) 01/04/23 08:45 Eos # (Auto) 0.0 10^3/uL (0.0-0.8) 01/04/23 08:45 Baso # (Auto) 0.0 10^3/uL (0.0-0.1) 01/04/23 08:45 Absolute Gran (auto) Cancelled 01/04/23 03:37 Nucleated RBC % (auto) 0 % 01/04/23 08:45 Nucleated RBCs # 0.0 /100WBC 01/04/23 08:45 ESR 8 mm/hr (0-15) 01/03/23 13:12 Specimen Type Arterial 01/03/23 00:27 Sample Site Radial, left 01/03/23 00:27 ABG pH 7.44 (7.35-7.45) 01/03/23 00:27 ABG pCO2 41.5 mmHg (35-45) 01/03/23 00:27 ABG pO2 84.7 mmHg (80.0-100.0) 01/03/23 00:27 ABG HCO3 28.2 mmol/L (22-26) H 01/03/23 00:27 ABG Base Excess 3.7 mmol/L (-2.0-2.0) H 01/03/23 00:27 Kaveh Test Pos 01/03/23 00:27 Hematocrit 41.8 % (37-47) 01/03/23 00:27 O2 Delivery Device Nc 01/03/23 00:27 Telephoto Engineer ID [email or web address] 01/03/23 00:27 Sodium 143 mmol/L (136-145) 01/04/23 03:37 Potassium 4.5 mmol/L (3.5-5.1) 01/04/23 03:37 Chloride 108 mmol/L (98-107) H 01/04/23 03:37 Carbon Dioxide 24 mmol/L (22-29) 01/04/23 03:37 Anion Gap 15.5 (5-19) 01/04/23 03:37 BUN 10 mg/dL (6-20) 01/04/23 03:37 Creatinine 0.5 mg/dL (0.5-0.9) 01/04/23 03:37 GFR Calculation 126.3 mL/min (90-130) 01/04/23 03:37 Glucose 97 mg/dL (65-115) 01/04/23 03:37 Calculated Osmolality 295 mOsm/kg (285-295) 01/04/23 03:37 Calcium 9.0 mg/dL (8.5-10.5) 01/04/23 03:37 Phosphorus 3.2 mg/dL (2.5-4.5) 01/04/23 03:37 Magnesium 2.0 mg/dL (1.7-2.3) 01/04/23 03:37 Total Bilirubin 0.4 mg/dL (0.15-1.2) 01/04/23 03:37 AST 35 U/L (0-32) H 01/04/23 03:37 ALT 27 U/L (0-33) 01/04/23 03:37 Alkaline Phosphatase 99 U/L (35-105) 01/04/23 03:37 C-Reactive Protein 7.0 mg/L (0.0-4.9) H 01/03/23 13:12 Total Protein 6.0 g/dL (6.6-8.7) L 01/04/23 03:37 Albumin 3.3 g/dL (3.5-5.2) L 01/04/23 03:37 Globulin 2.7 g/dL (1.3-4.6) 01/04/23 03:37 Procalcitonin 0.06 ng/mL (0-0.5) 01/03/23 13:12 TSH 0.43 uIU/mL (0.27-4.20) 01/03/23 13:12 Free T4 1.36 ng/dL (0.82-1.77) 01/03/23 13:12 Free T3 3.1 PG/ML (2.0-4.4) 01/03/23 13:12 Urine Color Light yellow (Yellow) 01/03/23 22:30 Urine Appearance Sl hazy (CLEAR) A 01/03/23 22:30 Urine pH 7 (5-7) 01/03/23 22:30 Ur Specific [place] 1.010 (1.005-1.030) 01/03/23 22:30 Urine Protein Neg (Negative) 01/03/23 22:30 Urine Glucose (UA) Norm (Normal) 01/03/23 22:30 Urine Ketones 1+ (Negative) H 01/03/23 22:30 Urine Blood Neg (Negative) 01/03/23 22:30 Urine Nitrate Negative (Negative) 01/03/23 22:30 Urine Bilirubin Neg (Negative) 01/03/23 22:30 Urine Urobilinogen Neg mg/dL (Negative) 01/03/23 22:30 Ur Leukocyte Esterase 1+ (Negative) H 01/03/23 22:30 Urine RBC 0-4 /hpf (0-2) H 01/03/23 22:30 Urine WBC 5-10 /hpf (0-5) H 01/03/23 22:30 Ur Squamous Epith Cells 0-4 /hpf (0-5) H 01/03/23 22:30 Amorphous Sediment Not Reportable 01/03/23 22:30 Urine Bacteria 1+ /hpf (NONE) H 01/03/23 22:30 Salicylates < 0.3 mg/dL (3-10) L 01/03/23 00:25 Urine Opiates Screen Positive ng/mL (Negative) H 01/02/23 23:55 Acetaminophen < 5.0 ug/mL (10-30) L 01/03/23 00:25 Ur Barbiturates Screen Negative ng/mL (Negative) 01/02/23 23:55 Ur Phencyclidine Scrn Negative ng/mL (Negative) 01/02/23 23:55 Ur Amphetamines Screen Negative ng/mL (Negative) 01/02/23 23:55 U Benzodiazepines Scrn Positive ng/mL (Negative) H 01/02/23 23:55 Urine Cocaine Screen Negative ng/mL (Negative) 01/02/23 23:55 U Marijuana (THC) Screen Positive ng/mL (Negative) H 01/02/23 23:55 Ethyl Alcohol < 10 mg/dL (0-10) 01/03/23 00:25 Hepatitis A IgM Ab Non-reactive (Nonreactive) 01/03/23 00:25 Hep Bs Antigen Non-reactive (Nonreactive) 01/03/23 00:25 Hep B Core IgM Ab Non-reactive (Nonreactive) 01/03/23 00:25 Hepatitis C Antibody Reactive (Nonreactive) H 01/03/23 00:25 HCV RNA (PCR) IUs/ml 6.70 Log IU/mL (NOT DETECTED) H 01/03/23 08:55 HCV RNA (PCR) IU log10 [id number] IU/mL (NOT DETECTED) H 01/03/23 08:55 HIV 1&2 Ab & HIV 1 Ag Non-reactive (Non-Reactiv) 01/03/23 00:25 HIV 1&2 Antibody Non-reactive (Non-Reactiv) 01/03/23 00:25 Vitals Last Vital Signs Temp 98.1 F 01/05/23 11:26 Pulse 74 01/05/23 11:26 Resp 18 01/05/23 11:26 BP 110/67 01/05/23 11:26 Pulse Ox 96 01/05/23 11:26 O2 Del Method Room Air 01/05/23 11:26 Discharge Plan Discharge Patient Disposition: Home Condition: Stable Prescriptions: Discontinued mupirocin 2 % ointment 1 applic topical TID Qty: 22 0RF oxycodone-acetaminophen [Percocet] 5-325 mg tablet 1 tab PO QID PRN (Reason: pain) Qty: 14 0RF Discharge Orders: Discharge Order (Routine); Ordered 01/05/23 Ordered By: Ted Morrow Referrals: Paradise Crowley MD [Hospitalist] - 01/27/23 9:00 am Lorraine Falcon DO [Referring] - 01/06/23 2:00 pm Discharge Diet: Regular Discharge Activity: Resume usual activity Patient Instructions: COPD, Methamphetamine Abuse, Concussion (DC), Cervical Fracture (GEN), Methamphetamine Use Disorder (GEN), COPD Stoplight, Opioid Safety Activity Restrictions/Additional Instructions: - Please stop smoking -Please stop IV drug use -For your hepatitis C, please follow-up with Dr. Crowley within the next week -Please keep your halo collar on at all times -Follow-up with within the next week -If you have any neck pain, or any weakness, or any paresthesias please go to the emergency room -Please monitor for concussion-like symptoms, avoid TV time, avoid screen time, Tylenol for headaches, -Please see your primary care provider in the next week Discharge Attestations Time Spent in Discharge Care*: greater than 30 min Quality Metrics Clinical Quality Measures [ No reported AMI, CVA or VTE this stay] Coding Level of Care Code 65073 Total time (in minutes) for Discharge: 45 Diagnoses Overdose T50.901A Agitation R45.1 Opioid use disorder F11.99 Methamphetamine use disorder, severe F15.20 COPD (chronic obstructive pulmonary disease) J44.9 Altered mental status R41.82 Hepatitis C antibody positive in blood R76.8 Concussion S06.0XAA Closed C2 fracture S12.100A Closed C1 fracture S12.000A Generalized weakness R53.1
--- NOTE | 2023-01-05 12:43 | PC.NURSE ---
Discussed discharge follow up appointments, no new medications, and stopped medications with patient and care technician. Verbalized understanding.
== END 2023-01-05 12:47 | disposition home or self-care (01) | DRG 917 ==
LOC: ER 01-03 01:05 → ICU 01-03 02:29 → MEDSURG 01-04 14:06
PROVIDERS: Admitting Provider Internal Medicine; Emergency Provider Emergency Medicine; PCP Family Medicine; Visit Provider Family Medicine
DX: T40.411A Poisoning by fentanyl or fentanyl analogs, accidental (unintentional), initial encounter (principal); G92.8 Other toxic encephalopathy; F15.20 Other stimulant dependence, uncomplicated; S12.000K Unspecified displaced fracture of first cervical vertebra, subsequent encounter for fracture with nonunion; S12.100K Unspecified displaced fracture of second cervical vertebra, subsequent encounter for fracture with nonunion; T43.621A Poisoning by amphetamines, accidental (unintentional), initial encounter; F11.10 Opioid abuse, uncomplicated; J44.9 Chronic obstructive pulmonary disease, unspecified; B19.20 Unspecified viral hepatitis C without hepatic coma; W19.XXXD Unspecified fall, subsequent encounter; G89.29 Other chronic pain; M54.50 Low back pain, unspecified; F43.10 Post-traumatic stress disorder, unspecified; Z98.1 Arthrodesis status; Z86.14 Personal history of Methicillin resistant Staphylococcus aureus infection; F17.210 Nicotine dependence, cigarettes, uncomplicated
CPT/HCPCS: 36415; 36600; 70450; 70551; 71045; 72125; 72141; 80053; 80074; 80306; 80307; 81001; 82803; 83735; 84100; 84145; 84439; 84443; 84481; 85025; 85651; 86140; 87040; 87522; 87806; 96372; 96374; 96376; 97161; 97530; 97760; 99285; 99291; J1100; J1630; J1650; J2060; J3490; J7030; Q3014

== ENCOUNTER 2023-03-24 17:05 | Emergency (ER) | payer MEDICARE, MEDICAID, SELFPAY ==
[2023-03-24 17:06] VITALS: BP 101/66; PULSE 80; RESP 18; O2SAT 94
[2023-03-24 17:13] VITALS: BP 101/66; PULSE 72; RESP 18; O2SAT 93
--- NOTE | 2023-03-24 17:14 | CTR_ITS ---
PROCEDURE INFORMATION: Exam: CT Cervical Spine Without Contrast Exam date and time: 03/24/2023 5:25 PM Age: 57 years old Clinical indication: Neck pain; Prior surgery; Surgery date: <1 month; Surgery type: C1-c2; Additional info: C1/c2 fusion, caughter head on cabinet--pain in neck TECHNIQUE: Imaging protocol: Computed tomography of the cervical spine without contrast. Radiation optimization: All CT scans at this facility use at least one of these dose optimization techniques: automated exposure control; mA and/or kV adjustment per patient size (includes targeted exams where dose is matched to clinical indication); or iterative reconstruction. REPORTING DATA: Count of CT and Cardiac NM exams in prior 12 months: This patient has received 4 known CTs and 0 known cardiac nuclear medicine studies in the 12 months prior to the current study. COMPARISON: MR cervical spin wo con* [id number] 01/04/2023 6:53 AM RADIATION DOSE METRICS: Total DLP (mGy-cm): 144 FINDINGS: Bones/joints: Intact posterior spinal fusion hardware at C1-C2. Intervertebral disc spacers noted at C5-C6 and C6-C7. Old type 2 dens fracture and fracture through the anterior arch of C1 noted. No acute fracture. No spinal malalignment. No significant disc bulge or herniation. No severe spinal canal stenosis. Lungs: Lung apices are normal. Soft tissues: Unremarkable. CT/CT cervical spin wo con* [id number] IMPRESSION: No acute findings.
--- NOTE | 2023-03-24 17:26 | W.ED.NECK ---
HPI - Neck Pain/Injury General: Chief Complaint: Neck Pain/Injury Stated Complaint: neck pain Time Seen by Provider: 03/24/23 17:14 Source: patient Mode of arrival: ambulatory History of Present Illness: 57-year-old female who is approximately 2 weeks postop for a C1-2 cervical fixation. She did receive this secondary to trauma and began to have radicular arm symptoms so her surgery was moved up. She reports yesterday she nearly fell and bumped the right sabianist into a cabinet. She did not lose consciousness. She does not even have a headache at this point but she is complaining of left-sided neck pain. No other injury. She states she has been wearing her cervical collar regularly she takes oxycodone for pain that she was prescribed by the surgeon at [facility] who did her neck surgery. No radicular arm symptoms MD complaint: neck pain Onset (ago): day(s) Place: home Radiation: left lateral Severity: mild Quality: aching Duration: constant Relieving factors: none Exacerbating factors: none Context: near fall Associated symptoms: Denies dysphagia, difficulty walking, dizziness, fevers/chills, headache(s), nausea, swollen glands, tingling or weakness Treatments prior to arrival: prescription analgesic and cervical collar Review of Systems Const: Denies: fever(s) or chills Card: Denies: chest pain Resp: Denies: dyspnea GI: Denies: abdominal pain, nausea or dysphagia : Denies: dysuria, urinary frequency or urinary urgency Musc: Reports: neck pain; Denies: back pain Skin/Breast: Denies: rash Neuro: Denies: headache(s), difficulty walking or dizziness [facility] ED PFSH: Medical History Bulimia nervosa Cannabis use disorder, moderate, in sustained remission Cholesteatoma of right ear Chronic low back pain Chronic migraine without aura, intractable, without status migrainosus Chronic serous otitis media, right ear COPD (chronic obstructive pulmonary disease) Exposure to severe acute respiratory syndrome coronavirus 2 (SARS-CoV-2) Hearing loss in right ear Hematochezia History of fracture of leg History of MRSA infection Left hand pain Nicotine dependence, cigarettes, with unspecified nicotine-induced disorders Opioid use disorder Post-traumatic stress disorder, chronic Sedative, hypnotic or anxiolytic abuse, 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 Surgical History H/O section H/O neck surgery History of colonoscopy History of facial fracture repair S/P appendectomy S/P tonsillectomy and adenoidectomy Status post colonoscopy (12/25/19) hemorrhoids , repeat 5 years Family History Other CAD (coronary artery disease) Cancer Lung disease Stroke Social History Smoking and tobacco/nicotine status: current every day tobacco/nicotine user cigarettes Packs smoked per day: 1 Years cigarettes smoked: 33 Quit status (tobacco/nicotine): not considering quitting Second hand smoke exposure: Yes Alcohol intake: former Former alcohol use details: DRANK UNTIL THREW UP Substance/Drug Use: current Substance/Drug use frequency: daily Adopted: No Caregiver/support person: No Lives independently: No Household members: other Details: a man that was homeless is living with her Housing: Apartment Marital status: Legally Marital status details: 2014 Number of children: 2 Number of grandchildren: 0 Highest education level completed: 11th Grade service: No Current occupational status: employed Current occupation: [employer] Current occupational exposures/hazards: No Pets and animals: Yes Pets & animals: dog(s) Leisure activites: other Leisure activities details: poetry, play piano Sexually active: No Do you think of yourself as: Straight/Heterosexual Current gender identity: Male Skylar/Restoration: Jew Special skylar needs: No Agree to transfusion: Yes Female Reproductive History: Para: 2 Physical Exam Const: GENERAL APPEARANCE: cooperative and comfortable ORIENTATION/CONSCIOUSNESS: Yes awake, Yes oriented to person, Yes oriented to place and Yes oriented to time HENMT: COMMON NORMALS: normocephalic, atraumatic and hearing grossly normal bilaterally HEAD & SCALP: normocephalic and atraumatic Resp: COMMON NORMALS: normal respiratory effort, No retractions, No use of accessory muscles and clear to auscultation bilaterally AUSCULTATION: clear to auscultation bilaterally Cardio: COMMON NORMALS: regular rate, regular rhythm and No murmurs present (Cardio) RATE: regular rate RHYTHM: regular rhythm GI: COMMON NORMALS: Soft to palpation and No hepatosplenomegaly present AUSCULTATION: Yes normoactive bowel sounds PALPATION: Yes Soft to palpation, No Tenderness to palpation present (GI), No Guarding due to palpation present (GI) and Yes No hepatosplenomegaly present Extremity: COMMON NORMALS: normal to inspection, capillary refill normal, no clubbing, cyanosis or edema, no calf tenderness and no pedal edema OTHER: Shoe Handler strength bilateral equally sensation the upper extremities normally no focal that nerve deficits or radicular symptoms in the arms. Neuro: SENSORIUM/ORIENTATION: Yes oriented to person, Yes oriented to place and Yes oriented to time Skin: COMMON NORMALS: no rashes or lesions noted GENERAL SKIN EXAM: no rashes or lesions noted Course Vital Signs: Vital signs: Vital Signs Pulse Rate 76 03/24/23 17:45 Respiratory Rate 18 03/24/23 17:45 Blood Pressure 107/64 03/24/23 17:45 Pulse Oximetry 96 03/24/23 17:45 Oxygen Delivery Me thod Room Air 03/24/23 17:45 MDM - Neck Pain/Injury Medical Decision Making CT neck unremarkable. Discharge patient home steroid taper tizanidine to use as needed continue the previously prescribed pain medications. Also advised patient to continue restrictions as per surgeon at that high of discharge from her neck surgery. Follow-up as scheduled. Patient did have good relief from the medications given in the emergency room. Medical Records I reviewed the patient's medical records. Lab Data I reviewed the patient's lab results. Radiology Impressions Cervical Spine CT 03/24/23 17:14 IMPRESSION: No acute findings. All radiology interpretation(s) finalized by discharge Discharge Plan Discharge Patient Disposition: Home Clinical Impression: Cervicalgia Condition: Stable Prescriptions: New tizanidine 4 mg tablet 4 mg PO Q6H PRN (Reason: muscle spasticity) Qty: 20 0RF Rx Instructions: do not exceed 3 doses per 24 hrs prednisone 20 mg tablet 20 mg PO TID Qty: 15 0RF Rx Instructions: 1 p.o. 3 times daily x3 days, 1 p.o. twice daily x2 days, 1 p.o. daily x2 days No Action clindamycin HCl 150 mg capsule 450 mg PO TID 7 Days Qty: 63 0RF mupirocin 2 % ointment 1 applic topical TID 10 Days Qty: 22 0RF Rx Instructions: on sores and in each nostrill Discharge Orders: Discharge ED (Routine); Ordered 03/24/23 Ordered By: Yunier Joyner Referrals: Lorraine Falcon, DO [Primary Care Provider] - Discharge Diet: Usual diet Discharge Activity: Limit activity as instructed Patient Instructions: Opioid Safety, Pain Management Activity Restrictions/Additional Instructions: Thank you for choosing [facility] for your healthcare needs today. Please realize this is an emergency room and that we are providing you with a medical screening exam and this may not be complete and all inclusive of all the testing and or work up that you may need to determine your ailment or severity of your illness. It is very important that you follow up as instructed or that you return to the Emergency Department should you have concerns or if your condition changes or worsens in any way. You are seen today for neck pain CT did not show any acute changes. Neck is stable from the surgery that he had recently. Recommend prednisone taper start tomorrow you were given a injectable prednisone here in the emergency room. You can also continue the pain medications previously prescribed the muscle relaxers you are given today follow-up with the surgeon who did your surgery as previously advised continue to follow all discharge instructions that you received at the time of discharge from your surgery. Coding Level of Care Code ED Tube Sizer Operator for Jessica Wang
[2023-03-24 17:45] VITALS: BP 107/64; PULSE 76; RESP 18; O2SAT 96
[2023-03-24] MEDS: orphenadrine 30 mg/mL Inj 2 mL 60 MG IVP (17:52)
[2023-03-24] MEDS: dexamethasone 10 mg/mL INJ IM (17:52)
== END 2023-03-24 18:38 | disposition home or self-care (01) ==
PROVIDERS: Emergency Provider Family Medicine; PCP Family Medicine
DX: M54.2 Cervicalgia (principal); F17.210 Nicotine dependence, cigarettes, uncomplicated; J44.9 Chronic obstructive pulmonary disease, unspecified
CPT/HCPCS: 72125; 96372; 96374; 99285; J1100; J2360

== ENCOUNTER 2023-04-25 11:11 | Emergency (ER) | payer MEDICARE, MEDICAID, SELFPAY ==
[2023-04-25] VITALS (41 sets, daily range): BP systolic 95–134; BP diastolic 52–79; PULSE 57–79; RESP 15–33; TEMP 36.9; O2SAT 94–100; BMI 26.3
--- NOTE | 2023-04-25 11:19 | ED_ITS ---
HPI - Fall General: Chief Complaint: Fall Stated Complaint: fall Time Seen by Provider: 04/25/23 11:15 Source: patient Mode of arrival: ambulatory History of Present Illness: 57-year-old female presents emergency room after a fall yesterday. Patient had a neck surgery earlier this month in [place] for a C1 1 2 fracture patient reports she fell yesterday while getting out of the shower when she slipped. Initially she had some numbness and tingling to her right leg and now is loss of sensation feels like she cannot move her leg. MD complaint: fall Onset (ago): day(s) (1) Fall from: standing Place fall occurred: home Loss of consciousness: None Context: tripped/slipped Associated symptoms-after fall: Denies abdominal pain, chest pain or neck pain Review of Systems Const: Denies: fever(s) or chills Card: Denies: chest pain Resp: Denies: dyspnea GI: Denies: abdominal pain : Denies: dysuria, urinary frequency or urinary urgency Musc: Denies: neck pain or back pain Skin/Breast: Denies: rash PFSH ED PFSH: Medical History (Updated 04/25/23 @ 15:30 by Yunier Joyner DO) Bulimia nervosa Cannabis use disorder, moderate, in sustained remission Cholesteatoma of right ear Chronic low back pain Chronic migraine without aura, intractable, without status migrainosus Chronic serous otitis media, right ear COPD (chronic obstructive pulmonary disease) Exposure to severe acute respiratory syndrome coronavirus 2 (SARS-CoV-2) Hearing loss in right ear Hematochezia History of fracture of leg History of MRSA infection Left hand pain Nicotine dependence, cigarettes, with unspecified nicotine-induced disorders Opioid use disorder Post-traumatic stress disorder, chronic Psychiatric care Sedative, hypnotic or anxiolytic abuse, 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 Surgical History H/O section H/O neck surgery History of colonoscopy History of facial fracture repair S/P appendectomy S/P tonsillectomy and adenoidectomy Status post colonoscopy (12/25/19) hemorrhoids , repeat 5 years Family History Other CAD (coronary artery disease) Cancer Lung disease Stroke Social History Smoking and tobacco/nicotine status: current every day tobacco/nicotine user cigarettes Packs smoked per day: 1 Years cigarettes smoked: 33 Quit status (tobacco/nicotine): not considering quitting Second hand smoke exposure: Yes Alcohol intake: former Former alcohol use details: DRANK UNTIL THREW UP Substance/Drug Use: current Substance/Drug use frequency: daily Adopted: No Caregiver/support person: No Lives independently: No Household members: other Details: a man that was homeless is living with her Housing: Apartment Marital status: Legally Marital status details: 2014 Number of children: 2 Number of grandchildren: 0 Highest education level completed: 11th Grade service: No Current occupational status: employed Current occupation: [employer] Current occupational exposures/hazards: No Pets and animals: Yes Pets & animals: dog(s) Leisure activites: other Leisure activities details: poetry, play piano Sexually active: No Do you think of yourself as: Straight/Heterosexual Current gender identity: Male Skylar/Religious: Muslim Special skylar needs: No Agree to transfusion: Yes Female Reproductive History: Para: 2 Physical Exam Const: GENERAL APPEARANCE: cooperative and comfortable ORIENTATION/CONSCIOUSNESS: Yes awake, Yes oriented to person, Yes oriented to place and Yes oriented to time HENMT: COMMON NORMALS: normocephalic, atraumatic and hearing grossly normal bilaterally HEAD & SCALP: normocephalic and atraumatic Resp: COMMON NORMALS: normal respiratory effort, No retractions, No use of accessory muscles and clear to auscultation bilaterally AUSCULTATION: clear t o auscultation bilaterally Cardio: COMMON NORMALS: regular rate, regular rhythm and No murmurs present (Cardio) RATE: regular rate RHYTHM: regular rhythm GI: COMMON NORMALS: Soft to palpation and No hepatosplenomegaly present AUSCULTATION: Yes normoactive bowel sounds PALPATION: Yes Soft to palpation, No Tenderness to palpation present (GI), No Guarding due to palpation present (GI) and Yes No hepatosplenomegaly present Extremity: COMMON NORMALS: normal to inspection, capillary refill normal, no clubbing, cyanosis or edema, no calf tenderness and no pedal edema OTHER: Leg warm to the touch. Patient is weak is difficult time lifting the R heel off the bed. Decreased sensation in the right leg compared to the left Neuro: SENSORIUM/ORIENTATION: Yes oriented to person, Yes oriented to place and Yes oriented to time Skin: COMMON NORMALS: no rashes or lesions noted GENERAL SKIN EXAM: no rashes or lesions noted Course Vital Signs: Vital signs: Vital Signs Temperature 98.4 F 04/25/23 12:04 Pulse Rate 67 04/25/23 14:00 Respiratory Rate 19 H 04/25/23 14:00 Blood Pressure 103/52 04/25/23 15:20 Pulse Oximetry 98 04/25/23 15:20 Oxygen Delivery Me thod Room Air 04/25/23 12:04 MDM - Fall Medical Decision Making CT of the back was negative patient has good blood flow palpable pulses lower extremities. Her symptoms resolved after she was given steroid and muscle rel axer. Discharge home on steroid taper muscle relaxer continue Tylenol encouraged patient only to take 1000 mg every 6 hours. Discussed with her that exceeding that is potentially dangerous and can can have a negative effect on her liver. Follow-up with primary care doctor or surgeon who did her neck surgery. No red flag symptoms at this time we did do a cath on her and she only had 200 mL in her bladder. Medical Records I reviewed the patient's medical records. Lab Data I reviewed the patient's lab results. 04/25/23 11:50 04/25/23 11:50 Laboratory Results WBC 7.34 10^3/uL (3.29-11.43) 04/25/23 11:50 RBC 5.07 10^6/uL (3.85-5.65) 04/25/23 11:50 Hgb 14.70 g/dL (11.27-16.99) 04/25/23 11:50 Hct 44.6 % (36-47) 04/25/23 11:50 MCV 88.0 fl (85-98) 04/25/23 11:50 MCH 29.0 pg (27-33) 04/25/23 11:50 MCHC 33.0 g/dL (30-55) 04/25/23 11:50 RDW 12.6 % (12.1-15.1) 04/25/23 11:50 Plt Count 221 10^3/cmm (157-399) 04/25/23 11:50 MPV 11.2 fL (7.4-10.4) H 04/25/23 11:50 Neut % (Auto) 72.5 % 04/25/23 11:50 Lymph % (Auto) 19.8 % 04/25/23 11:50 [place] % (Auto) 5.7 % 04/25/23 11:50 Eos % (Auto) 1.4 % 04/25/23 11:50 Baso % (Auto) 0.5 % 04/25/23 11:50 Neut # (Auto) 5.32 10^3/uL (1.8-7.7) 04/25/23 11:50 Lymph # (Auto) 1.5 10^3/uL (0.8-4.8) 04/25/23 11:50 [place] # (Auto) 0.4 10^3/uL (0.2-0.9) 04/25/23 11:50 Eos # (Auto) 0.1 10^3/uL (0.0-0.8) 04/25/23 11:50 Baso # (Auto) 0.0 10^3/uL (0.0-0.1) 04/25/23 11:50 Nucleated RBC % (auto) 0 % 04/25/23 11:50 Nucleated RBCs # 0.0 /100WBC 04/25/23 11:50 Sodium 135 mmol/L (136-145) L 04/25/23 11:50 Potassium 4.1 mmol/L (3.5-5.1) 04/25/23 11:50 Chloride 103 mmol/L (98-107) 04/25/23 11:50 Carbon Dioxide 24 mmol/L (22-29) 04/25/23 11:50 Anion Gap 12.1 (5-19) 04/25/23 11:50 BUN 9 mg/dL (6-20) 04/25/23 11:50 Creatinine 0.7 mg/dL (0.5-0.9) 04/25/23 11:50 GFR Calculation 85.6 mL/min (90-130) L 04/25/23 11:50 Glucose 92 mg/dL (65-115) 04/25/23 11:50 Calculated Osmolality 278 mOsm/kg (285-295) L 04/25/23 11:50 Calcium 9.6 mg/dL (8.5-10.5) 04/25/23 11:50 Total Bilirubin 0.4 mg/dL (0.15-1.2) 04/25/23 11:50 AST 18 U/L (0-32) 04/25/23 11:50 ALT 18 U/L (0-33) 04/25/23 11:50 Alkaline Phosphatase 121 U/L (35-105) H 04/25/23 11:50 Total Protein 7.2 g/dL (6.6-8.7) 04/25/23 11:50 Albumin 4.0 g/dL (3.5-5.2) 04/25/23 11:50 Globulin 3.2 g/dL (1.3-4.6) 04/25/23 11:50 Urine Color Yellow (Yellow) 04/25/23 14:15 Urine Appearance Clear (CLEAR) 04/25/23 14:15 Urine pH 7 (5-7) 04/25/23 14:15 Ur Specific [place] 1.005 (1.005-1.030) 04/25/23 14:15 Urine Protein Neg (Negative) 04/25/23 14:15 Urine Glucose (UA) Norm (Normal) 04/25/23 14:15 Urine Ketones Negative (Negative) 04/25/23 14:15 Urine Blood Neg (Negative) 04/25/23 14:15 Urine Nitrate Negative (Negative) 04/25/23 14:15 Urine Bilirubin Neg (Negative) 04/25/23 14:15 Urine Urobilinogen Norm mg/dL (Negative) 04/25/23 14:15 Ur Leukocyte Esterase Negative (Negative) 04/25/23 14:15 All radiology interpretation(s) finalized by discharge Discharge Plan Discharge Patient Disposition: Home Clinical Impression: Chronic low back pain, Fall Condition: Stable Prescriptions: New tizanidine 4 mg tablet 4 mg PO Q6H PRN (Reason: muscle spasticity) Qty: 20 0RF Rx Instructions: do not exceed 3 doses per 24 hrs prednisone 20 mg tablet 20 mg PO TID Qty: 15 0RF Rx Instructions: 1 p.o. 3 times daily x3 days, 1 p.o. twice daily x2 days, 1 p.o. daily x2 days No Action sertraline 100 mg tablet 100 mg PO BEDTIME Tylenol Ex Str Rapid Release 500 mg Tablet 1,500 mg PO Q6H PRN (Reason: Pain) lamotrigine 100 mg tablet 100 mg PO BEDTIME Discharge Orders: Discharge ED (Routine); Ordered 04/25/23 Ordered By: Yunier Joyner Referrals: Lorraine Falcon, [Primary Care Provider] - Patient Instructions: Opioid Safety, Pain Management Activity Restrictions/Additional Instructions: Thank you for choosing [facility] for your healthcare needs today. Please realize this is an emergency room and that we are providing you with a medical screening exam and this may not be complete and all inclusive of all the testing and or work up that you may need to determine your ailment or severity of your illness. It is very important that you follow up as instructed or that you return to the Emergency Department should you have concerns or if your condition changes or worsens in any way. You are seen today for complaints of low back pain after a fall. CT of your head neck and lumbar spine did not show any acute changes. You are given steroid muscle relaxer here which she related to improve your symptoms discharged home on oral steroid taper to start tomorrow muscle laxer to use as needed continue other medications as previously prescribed. Follow-up with the surgeon who did your neck surgery as previously recommended. If you have worsening pain issues contact your primary care doctor or the surgeon. Coding Level of Care Code ED Freight Solicitor for Jessica Wang
--- NOTE | 2023-04-25 11:34 | PC.PHAR ---
pt states she takes care of her own medications-pt states she has been out of her oxycodone ir 5mg for week ext shows last filled 04/02/23 10d/s-pt states she no longer takes quetiapine 100mg daily ext med history shows last filled 03/17/23 30d/s-pt states only taking the medications entered
--- NOTE | 2023-04-25 11:36 | CT_ITS ---
WS: [id number] CT LUMBAR SPINE TECHNIQUE: Noncontrast CT of the lumbar spine with coronal and sagittal reformatted images. CLINICAL INFORMATION: back pain L leg weakness/loss sensation COMPARISON: CT 2014 DLP: 496.[address] scans at [facility] use at least one of these dose optimization techniques: automated e xposure control; mA and/or kV adjustment per patient size (includes targeted exams where dose is matc hed to clinical indication); or iterative reconstruction. FINDINGS: Mild lumbar curve. Disc space narrowing worse at L3-L4 and L4-L5. Anterior hypertrophic changes. Schm orl's node superior endplate L4 is unchanged since 2014. L1-L2: Normal. L2-L3: Mild annular bulging. Mild facet arthropathy. Spinal canal and foramen are patent. L3-L4: Disc osteophyte complex with endplate ridging. Tiny LEFT subarticular protrusion impinges the LEFT subarticular recess and traversing LEFT L4 nerve root. Mild central canal stenosis. Mild facet a rthropathy. Mild RIGHT foraminal narrowing. L4-L5: Disc osteophyte complex with impingement RIGHT subarticular recess and traversing RIGHT L5 ner ve root. Mild central canal stenosis. Mild RIGHT and no significant LEFT foraminal narrowing. Moderat e facet arthropathy. L5-S1: Mild disc bulge with osteophytic ridging. Advanced facet arthropathy. Disc bulging impinges th e LEFT S1 nerve root. Moderate to severe LEFT foraminal narrowing impinges the LEFT L5 nerve root. Adrenal glands are normal. IMPRESSION: 1. Moderate to severe LEFT L5-S1 foraminal narrowing impinges the exiting LEFT L5 nerve root. 2. Mild central canal stenosis L3-L4 and L4-L5. Impingement on the traversing LEFT L4 nerve root in the subarticular recess. 3. Impingement on the traversing RIGHT L5 nerve root in the subarticular recess. 4. Mild RIGHT L3-4 and RIGHT L4-5 foraminal narrowing. 5. Disc bulging L5-S1 slightly impinges the LEFT S1 nerve root. Advanced facet arthropathy L5-S1.
[2023-04-25 11:58] LABS: Basophils % 0.5 %; Eosinophils # 0.1 10^3/uL (0.0-0.8); Eosinophils % 1.4 %; Hematocrit 44.6 % (36-47); Lymphocytes # 1.5 10^3/uL (0.8-4.8); Lymphocytes % 19.8 %; Mean Platelet Volume 11.2 fL (7.4-10.4); Monocytes # 0.4 10^3/uL (0.2-0.9); Monocytes % 5.7 %; Neutrophils # 5.32 10^3/uL (1.8-7.7); Neutrophils % 72.5 %; Nucleated Red Blood Cells % 0 %; Platelet Count 221 10^3/cmm (157-399); Red Blood Count 5.07 10^6/uL (3.85-5.65); Red Cell Distribution Width 12.6 % (12.1-15.1); White Blood Count 7.34 10^3/uL (3.29-11.43)
[2023-04-25 12:15] LABS: Alanine Aminotransferase 18 U/L (0-33); Alkaline Phosphatase 121 U/L (35-105); Anion Gap 12.1 (5-19); Aspartate Amino Transferase 18 U/L (0-32); Blood Urea Nitrogen 9 mg/dL (6-20); Calcium 9.6 mg/dL (8.5-10.5); Carbon Dioxide 24 mmol/L (22-29); Chloride 103 mmol/L (98-107); Globulin 3.2 g/dL (1.3-4.6); Glomerular Filtration Rate 85.6 mL/min (90-130); Glucose 92 mg/dL (65-115); Osmolality Calculated 278 mOsm/kg (285-295); Potassium 4.1 mmol/L (3.5-5.1); Sodium 135 mmol/L (136-145); Total Bilirubin 0.4 mg/dL (0.15-1.2); Total Protein 7.2 g/dL (6.6-8.7)
--- NOTE | 2023-04-25 13:36 | CT_ITS ---
WS: [id number] CT CERVICAL TRAUMA TECHNIQUE: Noncontrast CT of the cervical spine with coronal and sagittal reformatted images. CLINICAL INFORMATION: trauma COMPARISON: CT 03/24/2023 DLP: 1241.[address] scans at [facility] use at least one of these dose optimization techniques: automated e xposure control; mA and/or kV adjustment per patient size (includes targeted exams where dose is matc hed to clinical indication); or iterative reconstruction. FINDINGS: Prior postoperative changes C1-2 pedicle screw fixation with dorsal fusion is unchanged in appearance . No evidence of hardware loosening. Chronic type II dens fracture with chronic anterior and posterio r C1 ring fracture. Prior interbody bony fusion C5-C6 and C6-C7. Anterior hypertrophic changes. Calcification along the anterior longitudinal ligament C4-C7. No high-grade central canal narrowing. Normal prevertebral soft tissues. Partial RIGHT mastoidectomy. IMPRESSION: 1. No evidence of acute fracture or dislocation. 2. C1-C2 fusion appears stable
--- NOTE | 2023-04-25 13:36 | CT_ITS ---
WS: [id number] CT HEAD TECHNIQUE: Noncontrast CT of the head obtained from the skullbase to the vertex. CLINICAL INFORMATION: trauma COMPARISON: CT 01/03/2023 DLP: 1241.[address] scans at [facility] use at least one of these dose optimization techniques: automated e xposure control; mA and/or kV adjustment per patient size (includes targeted exams where dose is matc hed to clinical indication); or iterative reconstruction. FINDINGS: No evidence of intracranial hemorrhage or mass effect. Ventricular system and basal cisterns are villagran nt. Mild small vessel changes with mild parenchymal volume loss. No extra-axial fluid collections. No evidence of mass or mass effect. Prior postoperative changes RIGHT partial mastoidectomy. LEFT mastoid air cells are well aerated. Mil d mucosal thickening in the paranasal sinuses. IMPRESSION: 1. No evidence of intracranial hemorrhage or mass effect. 2. No acute intracranial findings.
[2023-04-25 14:22] LABS: Add Urine Microscopic? NO; Charge for UA Resulting for Rev
[2023-04-25 14:28] LABS: Bilirubin Urine Neg (Negative); Blood Urine Neg (Negative); Glucose Urine UA Norm (Normal); Ketones Urine Negative (Negative); Leukocyte Esterase Urine Negative (Negative); Nitrate Urine Negative (Negative); Protein Urine Neg (Negative); Specific Gravity, Urine 1.005 (1.005-1.030); Urine Appearance Clear (CLEAR); Urine Color Yellow (Yellow); Urobilinogen Urine Norm (Negative); pH Urine 7 (5-7)
[2023-04-25] MEDS: dexamethasone 10 mg/mL INJ IVP (14:48)
[2023-04-25] MEDS: orphenadrine 30 mg/mL Inj 2 mL 60 MG IVP (14:48)
== END 2023-04-25 15:42 | disposition home or self-care (01) ==
PROVIDERS: Emergency Provider Family Medicine; PCP Family Medicine
DX: G89.29 Other chronic pain (principal); M54.50 Low back pain, unspecified; F17.210 Nicotine dependence, cigarettes, uncomplicated; J44.9 Chronic obstructive pulmonary disease, unspecified
CPT/HCPCS: 36415; 51701; 70450; 72125; 72131; 80053; 81003; 85025; 96374; 96375; 99285; J1100; J2360

== ENCOUNTER → 2023-07-07 10:32 | Outpatient (BNVA) | payer MEDICARE, MEDICAID, SELFPAY | PROVIDERS: PCP Family Medicine; Visit Provider Nurse Practitioner Family | DX: M17.12 Unilateral primary osteoarthritis, left knee (principal); M25.562 Pain in left knee | CPT/HCPCS: 73562 ==

== ENCOUNTER 2023-07-14 02:40 | Emergency (ER) | payer MEDICARE, MEDICAID, SELFPAY ==
[2023-07-14 02:42] VITALS: BP 110/77; PULSE 133; RESP 18; TEMP 36.9; O2SAT 92; BMI 21.9
--- NOTE | 2023-07-14 02:44 | XRR_ITS ---
PROCEDURE INFORMATION: Exam: XR Right Shoulder Exam date and time: 07/14/2023 3:02 AM Age: 58 years old Clinical indication: Injury or trauma; Other: See nelow; Blunt trauma (contusions or hematomas); Shoulder; Right; Patient HX: Hit door frame a couple days ago; Additional info: Pain TECHNIQUE: Imaging protocol: Radiologic exam of the right shoulder. Views: 2 or more views. COMPARISON: CT cervical spin wo con* [id number] 01/03/2023 4:15 PM FINDINGS: Bones/joints: Normal. Lungs: Diffuse lung parenchyma nodularity and reticulation. Soft tissues: Normal. XR/XR shoulder RT min 2V* [id number] IMPRESSION: 1. No acute osseous abnormality. 2. Diffuse lung parenchymal nodularity and reticulation, correlate with history of interstitial lung disease, dedicated chest radiographs may be appropriate in the correct clinical setting.
--- NOTE | 2023-07-14 03:47 | W.ED.EXTPRO ---
HPI - Extremity Problem General: Chief complaint: Extremity Problem,Nontraumatic Stated complaint: shoulder pain Time Seen by Provider: 07/14/23 02:43 History of Present Illness: 58-year-old female presents emerged part with complaints of right shoulder pain. She does have a friend that is at bedside states she was walking in hit her right shoulder on the door approximately 4 days ago and that it has been hurting ever since. Patient states she did smoke methamphetamine earlier this evening. Patient states that she feels like she is having difficulty lifting up her right arm because of the pain in her right shoulder. She does have various lesions covering her entire body at various stages of healing that are consistent with meth picks Review of Systems General: Reports: 10 or more systems reviewed and unremarkable except in HPI and below Musc: Reports: extremity pain and joint pain PFS ED PFSH: Medical History Psychiatric care Left hand pain Exposure to severe acute respiratory syndrome coronavirus 2 (SARS-CoV-2) Hematochezia History of MRSA infection Chronic serous otitis media, right ear Hearing loss in right ear Cholesteatoma of right ear Nicotine dependence, cigarettes, with unspecified nicotine-induced disorders Chronic low back pain History of fracture of leg COPD (chronic obstructive pulmonary disease) Cannabis use disorder, moderate, in sustained remission Bulimia nervosa Sedative, hypnotic or anxiolytic abuse, uncomplicated Opioid use disorder Post-traumatic stress disorder, chronic Chronic migraine without aura, intractable, without status migrainosus Stenosis of cervical spine with myelopathy Surgical History Status post colonoscopy (12/25/19) hemorrhoids , repeat 5 years History of colonoscopy History of facial fracture repair S/P appendectomy S/P tonsillectomy and adenoidectomy H/O section H/O neck surgery Family History Other CAD (coronary artery disease) Cancer Lung disease Stroke Social History Smoking and tobacco/nicotine status: current every day tobacco/nicotine user cigarettes Packs smoked per day: 1 Years cigarettes smoked: 33 Quit status (tobacco/nicotine): not considering quitting Second hand smoke exposure: Yes Alcohol intake: former Former alcohol use details: DRANK UNTIL THREW UP Substance/Drug Use: current Substance/Drug use frequency: daily Adopted: No Caregiver/support person: No Lives independently: No Household members: other Details: a man that was homeless is living with her Housing: Apartment Marital status: Legally Marital status details: 2014 Number of children: 2 Number of grandchildren: 0 Highest education level completed: 11th Grade service: No Current occupational status: employed Current occupation: [employer] Current occupational exposures/hazards: No Pets and animals: Yes Pets & animals: dog(s) Leisure activites: other Leisure activities details: poetry, play piano Sexually active: No Do you think of yourself as: Straight/Heterosexual Current gender identity: Male Skylar/Sikh: Holiness Special skylar needs: No Agree to transfusion: Yes Female Reproductive History: Para: 2 Physical Exam Narrative: EXAM NARRATIVE: Constitutional: the patient appears well nourished and of normal development. Vital signs as documented. No acute distress at present. Alert and oriented-to person, place, time and situation. Head, eyes, ears, nose, mouth, throat: Normocephalic, atraumatic. Pupils-equal, round, reactive to light. No scleral icterus. Normal-appearing external ears. Normal appearing nasal turbinates, no drainage. Neck: Supple, trachea is midline, no lymphadenopathy, no jugular venous distension, thyromegaly, or carotid bruits. Lungs: clear to auscultation to all lung acharya. Symmetrical rise and fall of chest, no obvious signs of increased work of breathing at present. Cardiac: Regular rate and rhythm, positive S1, S2. No murmurs, rubs or gallops that I can appreciate Abdomen: Soft, non-tender to palpation, normal active bowel sounds to all quadrants. No palpable masses, no organomegaly and abdominal bruits. Extremities: 2+ pulses in the upper extremities that are equal bilaterally, 2+ pulses in the lower extremities that are equal bilaterally. Non-edematous. Pain with movement to the right upper extremity obvious swelling to the right shoulder girdle area. Remaining extremities she moves well, normal sensation to all extremities. Skin: Warm, dry, various picked lesions covering patient's entire body at various stages of healing. Course Vital Signs: Vital signs: Vital Signs Temperature 98.5 F 07/14/23 02:42 Pulse Rate 133 H 07/14/23 02:42 Respiratory Rate 18 07/14/23 02:42 Blood Pressure 110/77 07/14/23 02:42 Pulse Oximetry 92 07/14/23 02:42 Oxygen Delivery Me thod Room Air 07/14/23 02:42 MDM - Extremity (Nontraumatic) Medical Decision Making Physical exam completed, I will obtain radiographic evaluation of the right shoulder. Medical Records I reviewed the patient's medical records. Lab Data Radiology Impressions Shoulder X-Ray 07/14/23 02:44 IMPRESSION: 1. No acute osseous abnormality. 2. Diffuse lung parenchymal nodularity and reticulation, correlate with history of interstitial lung disease, dedicated chest radiographs may be appropriate in the correct clinical setting. All radiology interpretation(s) finalized by discharge Discharge Plan Discharge Patient Disposition: Home Clinical Impression: Acute pain of right shoulder, Methamphetamine abuse Condition: Stable Prescriptions: No Action sertraline 100 mg tablet 100 mg PO BEDTIME Tylenol Ex Str Rapid Release 500 mg Tablet 1,500 mg PO Q6H PRN (Reason: Pain) lamotrigine 100 mg tablet 100 mg PO BEDTIME tizanidine 4 mg tablet 4 mg PO Q6H PRN (Reason: muscle spasticity) Qty: 20 0RF Rx Instructions: do not exceed 3 doses per 24 hrs Discharge Orders: Discharge ED (Routine); Ordered 07/14/23 Ordered By: Ian Garcia Referrals: Lorraine Falcon DO [Primary Care Provider] - Discharge Diet: Usual diet Discharge Activity: Resume usual activity Patient Instructions: Opioid Safety, Pain Management Activity Restrictions/Additional Instructions: Activity Restrictions/Additional Instructions: Thank you for choosing [facility] for your healthcare needs today. Please realize that you were seen in the Emergency Department and that we are providing you with an emergency medical screening exam and this may not be a complete and all inclusive of all the testing and or medical work-up that you may need to determine your ailment or severity of your illness. It is very important that you follow-up as instructed with your Primary care provider or Specialist for additional evaluation and to discuss your medical treatment plan. Coding Level of Care Code ED Refining Engineer for Jessica Wang
== END 2023-07-14 04:41 | disposition home or self-care (01) ==
PROVIDERS: Emergency Provider Internal Medicine; PCP Family Medicine
DX: M25.511 Pain in right shoulder (principal); F15.10 Other stimulant abuse, uncomplicated; F17.210 Nicotine dependence, cigarettes, uncomplicated; J44.9 Chronic obstructive pulmonary disease, unspecified
CPT/HCPCS: 73030; 99283